=== PATIENT | male | born 1975 | race Caucasian/White ===

== ENCOUNTER 2018-03-26 06:24 | Day surgery (SDC) | payer MEDICARE, OTHER ==
[2018-03-20 15:56] VITALS: BMI 31.9
[~2018-03-26 06:24] MED LIST: ALPRAZolam 0.25 MG TAB PO PRN; ALPRAZolam 0.5 MG TAB PO PRN; ASPIRIN 325 MG TAB PO STA; ATORVASTATIN 80 MG TAB PO STA; NITROGLYCERIN SL TABS 0.4 MG TAB SUBLINGUAL PRN; SODIUM CHLORIDE 0.9% 1,000 ML in EMPTY BAG 1 BAG IV ONE
[2018-03-26 07:02] LABS: Glucose,Whole Blood 416 mg/dL (75-99)
[2018-03-26] MEDS ORDERED: INSULIN ASPART 100 UNIT/ML 1 ML 10 ML VIAL SQ ONE ×3 (07:02→12:42)
[2018-03-26 07:38] LABS: Basophils # (A) 0.1 k/uL (0-0.2); Basophils % (A) 1 %; Eosinophils # (A) 0.2 k/uL (0-0.7); Eosinophils % (A) 2 %; HCT 39.7 % (39.0-53.0); HGB 13.9 gm/dL (13.0-17.5); Lymphocytes # (A) 4.3 k/uL (1.0-4.8); Lymphocytes % (A) 40 %; MCH 26.7 pg (25.0-35.0); MCHC 35.1 g/dL (31.0-37.0); MCV 76.2 fL (80.0-100.0); Mean Platelet Volume 7.8; Microcytosis Slight; Monocytes # (A) 0.4 k/uL (0-1.0); Monocytes % (A) 4 %; Neutrophils # (A) 5.4 k/uL (1.3-7.7); Neutrophils % (A) 51 %; Platelet Count 257 k/uL (150-450); RBC 5.21 m/uL (4.30-5.90); RDW 14.5 % (11.5-15.5); WBC 10.6 k/uL (3.8-10.6)
[2018-03-26 07:41] LABS: Anion Gap 11 mmol/L; Blood Urea Nitrogen 17 mg/dL (9-20); Calcium 10.2 mg/dL (8.4-10.2); Carbon Dioxide 24 mmol/L (22-30); Chloride 99 mmol/L (98-107); Glucose 432 mg/dL (74-99); Potassium 4.5 mmol/L (3.5-5.1); Sodium 134 mmol/L (137-145)
[2018-03-26] MEDS ORDERED: diphenhydrAMINE 50 MG/ML 1 ML VIAL IVP ONE ×2 (07:43→11:17)
[2018-03-26] MEDS ORDERED: methylPREDNISolone SOD SUCCI 125 MG/2 ML VIAL IV ONE (07:43)
[2018-03-26] MEDS ORDERED: LIDOCAINE 1% (PF) 10MG/ML VIAL SQ ONE (08:01)
[2018-03-26] MEDS ORDERED: IOPAMIDOL-370 125ML BTL INJ ONE (08:17)
--- NOTE | 2018-03-26 08:46 | CC ---
CARDIAC CATHETERIZATION REPORT INDICATION: Unstable angina in a patient with known CAD status post prior angioplasty of [place] circumflex coronary artery. PROCEDURE NOTE: After obtaining informed consent, left heart catheterization and coronary angiogram were performed via the right femoral artery using standard Nery catheters. The patient tolerated the procedure well without any obvious immediate complications. He was somewhat hypotensive prior to starting the procedure. We gave him fluids. He has IV DYE allergy and we can him Solu-Medrol and Benadryl. FINDINGS: 1. HEMODYNAMICS: Left ventricular end-diastolic pressure is 8 mm. There is no significant gradient across the aortic valve. 2. LEFT VENTRICULOGRAM: Left ventriculogram is not performed. 3. ANGIOGRAPHIC DATA: 4. Left main coronary artery: Left main coronary artery is a normal-sized vessel and is free of stenosis. Divides into left anterior descending coronary artery and circumflex coronary artery. Circumflex coronary artery gives off large caliber OM branches. [place] circumflex coronary artery has a 90% stenosis just past previously stented segment. LAD in the distal portion shows a 30% to 40% stenosis. [place] right coronary artery is a large dominant vessel shows mild atherosclerotic plaque in the proximal part. CONCLUSIONS: 1. A 90% stenosis involving [place] circumflex coronary artery. 2. Mild nonobstructive disease involving proximal right coronary artery and distal left anterior descending artery. PLAN: Patient will undergo angioplasty of the [place] circumflex coronary artery by Dr. Chalo Trejo who performed his previous angioplasty. MMLAURAL / IJN: [id number] /
[2018-03-26 09:27] VITALS: RESP 18
[2018-03-26 10:02] LABS: Glucose,Whole Blood 404 mg/dL (75-99)
[2018-03-26] MEDS ORDERED: SODIUM CHLORIDE 0.9% 1,000 ML IV ONE (10:48)
[2018-03-26] MEDS ORDERED: MIDAZOLAM 2 MG/2 ML VIAL IVP ONE (11:17)
[2018-03-26] MEDS ORDERED: BIVALIRUDIN BOLUS 250 MG/50 ML IV ONE (11:19)
[2018-03-26] MEDS ORDERED: BIVALIRUDIN 250 MG in SODIUM CHLORIDE 0.9% 50 ML IV ONE (11:20)
[2018-03-26] MEDS: NITROGLYCERIN 1000MCG/10ML SYRINGE INTRACORON ONE ×2 (11:25→11:54)
[2018-03-26] MEDS ORDERED: IOPAMIDOL-370 100ML BTL INJ ONE ×2 (11:49→12:06)
[2018-03-26] MEDS ORDERED: MORPHINE SULFATE 4 MG/ML SYRINGE IVP ONE (12:07)
[2018-03-26] MEDS ORDERED: CLOPIDOGREL 75 MG TAB PO ONE (12:07)
[2018-03-26] MEDS ORDERED: SODIUM CHLORIDE 0.9% 500 ML IV ONE (12:08)
[2018-03-26] MEDS ORDERED: ZOLPIDEM 5 MG TAB PO PRN (12:21)
[2018-03-26] MEDS ORDERED: ATROPINE SULFATE 0.1 MG/ML 10ML SYRINGE IV PRN (12:21)
[2018-03-26] MEDS ORDERED: MAG HYDROX/AL HYDROX/SIMETH 30 ML CUP PO PRN (12:21)
[2018-03-26] MEDS ORDERED: NITROGLYCERIN SL TABS 0.4 MG TAB SUBLINGUAL PRN ×2 (12:21→12:37)
[2018-03-26] MEDS ORDERED: RX INFO: IV CONTRAST WAS GIVEN 1 EACH MISC MISCELLANE PRN (12:21)
[2018-03-26] MEDS ORDERED: CYCLOBENZAPRINE 10 MG TAB PO PRN (12:37)
[2018-03-26 12:38] LABS: Glucose,Whole Blood 410 mg/dL (75-99)
[2018-03-26] MEDS ORDERED: PANTOPRAZOLE 40 MG TABLET PO ONE (12:45)
--- NOTE | 2018-03-26 12:58 | PTCA ---
PERCUTANEOUSTRANS CORORONARY ANGIOGRAPHY DATE OF SERVICE: 03/26/2018. PROCEDURE: PTCA and stenting of circumflex coronary artery/groove branch beyond a previously stented area with a drug-eluting stent. PERFORMED BY: Dr. Chalo Trejo. Moderate conscious sedation time was 50 minutes. Patient was administered Benadryl, versed and morphine sulfate 1 mg. His oxygen saturation, hemodynamics and EKG were monitored closely. CLINICAL INFORMATION: Mr. Florentin Liz is a 42-year-old gentleman with type 2 diabetes, hypertension, hyperlipidemia, bronchial asthma and CAD. In November of 2015, I performed stenting of mid LAD. Subsequently in March, I performed stenting of a groove branch which was a small caliber, small distribution vessel. Because of significant anginal symptoms, Dr. Nguyen performed a cardiac cath which revealed that the circumflex groove branch beyond the stented segment had 80% to 90% stenosis in a [place] area just distal to the previous stent. LAD stent was patent with a 40% stenosis beyond it with good flow. He was advised intervention of circumflex and brought in for the procedure. This was a somewhat complex intervention mainly because of the tortuosity of the groove branch that came off at a very acute angle from the main circumflex. PROCEDURE NOTE: The existing 6-Urdu introducer in the right femoral artery was used to perform the procedure. I used a run-through wire with a very steep curve with this and after considerable manipulation, I was able to advance this and kept it in the groove branch distally. Without predilatation, a 2.25 caliber 8 mm Xience stent was deployed distal to the previous stent. Excellent angiographic result was achieved. The patient did not have any chest pain or EKG changes. The ostium of this groove branch was also dilated with the same balloon of the 2.25 caliber stent at 8 atmospheres. The stent was deployed at 11 atmospheres. Excellent angiographic result without complication was achieved. Patient received Angiomax bolus and infusion as per protocol. He received additional 225 mg of Plavix and he was already on aspirin and Plavix combination. The sheath was taken out and a Perclose device used to secure hemostasis and he was sent to the room in a stable condition. Results were discussed with the patient and his and I expect he will be discharged tomorrow. MMODL / IJN: [id number] /
[2018-03-26] MEDS: SODIUM CHLORIDE 0.9% 1,000 ML IV SCH (13:07)
[2018-03-26 16:52] LABS: Glucose,Whole Blood 572 mg/dL (75-99)
[2018-03-26] MEDS: HYDROcodone/APAP 10-325MG 1 EACH TAB PO PRN ×2 (17:00→23:05)
[2018-03-26] MEDS ORDERED: INSULIN ASPART 100 UNIT/ML 1 ML 10 ML VIAL SQ SCH (17:30)
[2018-03-26] MEDS: ALBUTEROL NEBULIZED 2.5 MG/3 ML INHALATION PRN (19:28)
[2018-03-26] MEDS: SYMBICORT 80-4.5 MCG INHALER INHALATION PRN (19:29)
[2018-03-26 19:46] LABS: Glucose,Whole Blood 531 mg/dL (75-99)
[2018-03-26] MEDS ORDERED: INSULIN REGULAR BOLUS (FROM DRIP BAG) IV ONE (20:26)
[2018-03-26 20:50] LABS: ALT 31 U/L (21-72); AST 20 U/L (17-59); Albumin 4.1 g/dL (3.5-5.0); Alkaline Phosphatase 228 U/L (38-126); Anion Gap 13 mmol/L; Blood Urea Nitrogen 20 mg/dL (9-20); Calcium 9.8 mg/dL (8.4-10.2); Carbon Dioxide 22 mmol/L (22-30); Chloride 97 mmol/L (98-107); Sodium 132 mmol/L (137-145); Total Bilirubin 0.3 mg/dL (0.2-1.3); Total Protein 6.4 g/dL (6.3-8.2)
[2018-03-26 20:51] LABS: Glucose 577 mg/dL (74-99)
[2018-03-26] MEDS: INSULIN REGULAR 100 UNIT in SODIUM CHLORIDE 0.9% 100 ML IV SCH ×2 (21:13→23:22)
[2018-03-26 21:21] LABS: Basophils % (A) 0 %; Eosinophils % (A) 0 %; HCT 38.5 % (39.0-53.0); Lymphocytes # (A) 1.1 k/uL (1.0-4.8); Lymphocytes % (A) 10 %; MCH 26.5 pg (25.0-35.0); MCHC 33.8 g/dL (31.0-37.0); MCV 78.5 fL (80.0-100.0); Mean Platelet Volume 8.4; Monocytes # (A) 0.3 k/uL (0-1.0); Monocytes % (A) 2 %; Neutrophils # (A) 9.9 k/uL (1.3-7.7); Neutrophils % (A) 87 %; Platelet Count 202 k/uL (150-450); RDW 14.8 % (11.5-15.5); WBC 11.4 k/uL (3.8-10.6)
[2018-03-26] MEDS: buPROPion SR 100 MG TABLET.ER PO SCH (21:23)
[2018-03-26] MEDS: METOPROLOL TARTRATE 12.5 MG TAB PO SCH (21:24)
[2018-03-26] MEDS: TOPIRAMATE 25 MG TAB PO SCH (21:24)
[2018-03-26] MEDS: PREGABALIN 100 MG CAP PO SCH (21:25)
--- NOTE | 2018-03-26 21:43 | CONS ---
CONSULTATION DATE OF SERVICE: 03/26/2018 CHIEF COMPLAINTS: Uncontrolled blood sugars and as well as the coronary disease. HISTORY OF PRESENT ILLNESS: This 42-year-old gentleman with a past medical history of asthma, CAD, history of chest pain, COPD, CVA, TIA, diabetes, hypertension, hyperlipidemia being followed by primary physician in the [place] area, was complaining of chest pain. Cardiology performed a cardiac physician and circumflex stent was inserted. The patient was off some of his diabetes medications for a few days according to him. The patient was taking Victoza, Lantus and metformin. The blood sugar was found to be elevated and this evening was elevated up to 572 and the patient and medical consultation was initiated. There is no history of fever, rigors. No headache, loss of consciousness, seizures. PAST MEDICAL HISTORY: History of diabetes type 2, history of COPD, CVA, TIA, hypertension, hyperlipidemia, history of myocardial infarction, history of degenerative joint disease. MEDICATIONS: Prior to admission include home medications are: 1. Claritin 10 mg p.o. daily. 2. Zestril 2.5 mg daily. 3. [place] 1 tab q.6h. 4. Nexium 20 mg p.o. b.i.d. 5. Flexeril 10 mg q.h.s. 6. Victoza 2 pack 1.8 subcutaneously daily. 7. Metformin 1000 mg b.i.d. 8. Plavix 75 mg. 9. Advair 260, 1 puff b.i.d. 10.Fenofibrate 160 mg p.o. daily. 12.Topamax 50 mg p.o. b.i.d. 13.Lyrica 100 mg p.o. b.i.d. 14.Oxybutynin 10 mg p.o. daily. 15.Nitrostat 0.4 mg q.5 p.r.n. 16.Lopressor 12.5 mg b.i.d. 17.Imdur 30 mg p.o. daily. 18.Lipitor 80 mg p.o. daily. 19.Aspirin 320 mg. 20.Ventolin 2.5 q.i.d. 21.Ventolin HFA 2 puffs q.6h p.r.n. ALLERGIES: AVACOR, IODINATED CONTRAST,and CORTISONE. FAMILY HISTORY: History of CAD, diabetes mellitus, hypertension, hyperlipidemia, DJD. SOCIAL HISTORY: History of alcohol, previous history of smoking. REVIEW OF SYSTEMS: ENT: No diminished hearing or vision. CARDIOVASCULAR: No angina. RESPIRATORY: As mentioned earlier. GI: As mentioned. : No dysuria. NERVOUS SYSTEM: No numbness or weakness. ALLERGY/IMMUNOLOGY As mentioned earlier. MUSCULOSKELETAL: As mentioned earlier. HEMATOLOGY: No history of anemia. ENDOCRINE: As mentioned earlier. CONSTITUTIONAL: As mentioned earlier. DERMATOLOGY: Negative. RHEUMATOLOGY: Negative. PSYCHIATRY: As mentioned earlier. PHYSICAL EXAMINATION: Alert and oriented x2. Pulse 93, blood pressure 119/63, respiration 18, temperature normal, pulse ox 94% on room air. HEENT: Conjunctivae normal. Oral mucosa moist. NECK: No jugular venous distention. No carotid bruit. No lymph node enlargement. CARDIOVASCULAR: S1, S2. No S3, no S4. RESPIRATORY: Breath sounds diminished in the bases. A few scattered rhonchi, no crackles. ABDOMEN: Soft, nontender. No mass palpable. LEGS: No edema, no swelling. NERVOUS SYSTEM: Higher functions as mentioned earlier. Moves all 4 limbs. No focal motor deficits. LYMPHATICS: No lymphadenopathy in the neck, axillae, groin. SKIN: No ulcer, rash or bleeding. LABS: CBC within normal limits. Sodium 134, glucose 416, 404, 410, 572, 531. ASSESSMENT: 1. Coronary disease status post PTCA and stenting of circumflex. 2. Diabetes type 2 uncontrolled. 3. History of coronary artery disease, stent. 4. History of asthma. 5. History of chronic obstructive pulmonary disease. 6. History of cerebrovascular accident, transient ischemic attack. 7. Hypertension. 8. Hyperlipidemia. 9. History of liver disease. 10.History of degenerative joint disease. 11.History of sleep apnea. 12.History of anxiety, depression. 13.History of remote nicotine dependence. 14.History of THC. RECOMMENDATIONS AND DISCUSSION: This 42-year-old gentleman with a past medical history of multiple medical problems. Will monitor the patient closely. Continue the current management and symptomatic treatment. Will initiate home medications. I would also recommend a stat CBC to rule out the possibility of ketosis and I would recommend IV insulin 20 units and plus insulin drip to control the blood sugars. Otherwise I would continue to monitor the patient closely and once the patient's blood sugar is normal, the home dose of Lantus may be initiated and continue to monitor. Prognosis is guarded because of multiple complex medical issues and further recommendations to follow. MMODL / IJN: [id number] / CONSTANTINO
[2018-03-26 22:00] LABS: Glucose,Whole Blood 452 mg/dL (75-99)
[2018-03-26 22:26] LABS: Glucose,Whole Blood 392 mg/dL (75-99)
[2018-03-26 23:03] LABS: Glucose,Whole Blood 342 mg/dL (75-99)
[2018-03-26 23:32] LABS: Glucose,Whole Blood 318 mg/dL (75-99)
[2018-03-27 00:10] LABS: Glucose,Whole Blood 278 mg/dL (75-99)
[2018-03-27 00:41] LABS: Glucose,Whole Blood 310 mg/dL (75-99)
[2018-03-27 01:01] LABS: Glucose,Whole Blood 281 mg/dL (75-99)
[2018-03-27 01:36] LABS: Glucose,Whole Blood 300 mg/dL (75-99)
[2018-03-27 01:40] LABS: Hemoglobin A1C 11.3 % (4.0-6.0)
[2018-03-27 02:10] LABS: Glucose,Whole Blood 254 mg/dL (75-99)
[2018-03-27] MEDS: SODIUM CHLORIDE 0.9% 1,000 ML IV SCH (02:34)
[2018-03-27 03:04] LABS: Glucose,Whole Blood 247 mg/dL (75-99)
[2018-03-27 04:34] LABS: Glucose,Whole Blood 333 mg/dL (75-99)
[2018-03-27 06:27] LABS: Glucose,Whole Blood 317 mg/dL (75-99)
[2018-03-27] MEDS: INSULIN ASPART 100 UNIT/ML 1 ML 10 ML VIAL SQ SCH ×2 (07:05→12:19)
[2018-03-27] MEDS: HYDROcodone/APAP 10-325MG 1 EACH TAB PO PRN ×2 (07:06→14:00)
[2018-03-27 07:19] LABS: Basophils % (A) 0 %; Eosinophils % (A) 0 %; HGB 12.1 gm/dL (13.0-17.5); Lymphocytes % (A) 19 %; MCH 26.1 pg (25.0-35.0); MCHC 33.7 g/dL (31.0-37.0); MCV 77.5 fL (80.0-100.0); Mean Platelet Volume 8.4; Monocytes # (A) 0.7 k/uL (0-1.0); Monocytes % (A) 7 %; Neutrophils # (A) 7.7 k/uL (1.3-7.7); Neutrophils % (A) 73 %; Platelet Count 206 k/uL (150-450); RBC 4.64 m/uL (4.30-5.90); RDW 14.7 % (11.5-15.5); WBC 10.6 k/uL (3.8-10.6)
[2018-03-27 07:23] LABS: Anion Gap 8 mmol/L; Blood Urea Nitrogen 16 mg/dL (9-20); Calcium 9.3 mg/dL (8.4-10.2); Carbon Dioxide 24 mmol/L (22-30); Chloride 102 mmol/L (98-107); Glucose 271 mg/dL (74-99); Potassium 3.9 mmol/L (3.5-5.1); Sodium 134 mmol/L (137-145)
[2018-03-27] MEDS ORDERED: PANTOPRAZOLE 40 MG TABLET PO SCH (07:30)
[2018-03-27 07:42] VITALS: TEMP 97.2
[2018-03-27] MEDS: METOPROLOL TARTRATE 12.5 MG TAB PO SCH (08:02)
[2018-03-27] MEDS: buPROPion SR 100 MG TABLET.ER PO SCH (08:02)
[2018-03-27] MEDS: TOPIRAMATE 25 MG TAB PO SCH (08:03)
[2018-03-27] MEDS: PREGABALIN 100 MG CAP PO SCH (08:03)
[2018-03-27] MEDS: ALBUTEROL NEBULIZED 2.5 MG/3 ML INHALATION PRN (08:19)
[2018-03-27] MEDS: SYMBICORT 80-4.5 MCG INHALER INHALATION PRN (08:22)
[2018-03-27 08:55] LABS: Glucose,Whole Blood 313 mg/dL (75-99)
[2018-03-27] MEDS ORDERED: ATORVASTATIN 80 MG TAB PO SCH (09:00)
[2018-03-27] MEDS ORDERED: CLOPIDOGREL 75 MG TAB PO SCH ×2 (09:00)
[2018-03-27] MEDS ORDERED: LISINOPRIL 2.5 MG TAB PO SCH (09:00)
[2018-03-27] MEDS ORDERED: LORATADINE 10 MG TAB PO SCH (09:00)
[2018-03-27] MEDS ORDERED: ASPIRIN 81 MG PO SCH (09:00)
[2018-03-27] MEDS ORDERED: ISOSORBIDE MONONITRATE ER 30 MG TAB.ER.24H PO SCH (09:00)
[2018-03-27] MEDS ORDERED: OXYBUTYNIN 10 MG TAB.ER.24 PO SCH (09:00)
[2018-03-27] MEDS: INSULIN REGULAR 100 UNIT in SODIUM CHLORIDE 0.9% 100 ML IV SCH (10:27)
[2018-03-27 10:36] LABS: Glucose,Whole Blood 260 mg/dL (75-99)
[2018-03-27] MEDS ORDERED: INSULIN DETEMIR 100 UNIT/ML 10 ML VIAL SQ ONE (10:43)
[2018-03-27] MEDS ORDERED: INSULIN REGULAR 100 UNIT/ML VIAL SQ ONE (10:51)
[2018-03-27 11:04] LABS: Glucose,Whole Blood 286 mg/dL (75-99)
--- NOTE | 2018-03-27 11:32 | PN ---
PROGRESS NOTE Florentin is a 42-year-old gentleman who was brought in for unstable angina to perform cardiac catheterization. His cardiac catheterization revealed a critical stenosis involving circumflex coronary artery. He underwent angioplasty and stent placement of the same. His blood sugars have been poorly controlled on his initial presentation. Subsequently, the patient was started on insulin drip and currently blood sugars are better controlled. Dr. Yusuf, the hospitalist, is going to address this issue. At the time of my evaluation this morning, he appears comfortable at rest. Vital signs are stable. There is no jugular venous distention. Chest exam reveals good air entry bilaterally. Heart exam reveals first and second heart sounds. No gallop. No murmur. No rub. Groin is free of bleeding, bruit or hematoma. Foot pulses are intact. EKG showed is normal. LABS: Show a hemoglobin of 12, platelet count is 206, potassium is 3.9 creatinine is 0.7. He will be discharged home on aspirin, Plavix, Zestril 2.5 mg daily, Imdur and Lipitor. ASSESSMENT: Coronary artery disease status post angioplasty of circumflex coronary artery. PLAN: Patient is stable from cardiac standpoint. Dr. Yusuf will address his blood sugars and when that issue is addressed, he will be discharged home and follow up with me in a week's time. MMODL / IJN: [id number] /
[2018-03-27 11:54] VITALS: BP 107/61; PULSE 84
--- NOTE | 2018-03-27 17:11 | DS ---
DISCHARGE SUMMARY DATE OF SERVICE: 03/27/2018. FINAL DIAGNOSES: 1. Coronary artery disease, status post percutaneous transluminal coronary angioplasty and stenting of the circumflex. 2. Diabetes type 2, uncontrolled, improved. 3. History of coronary artery disease with stent. 4. History of asthma. 5. History of chronic obstructive pulmonary disease. 6. History of cerebrovascular accident and transient ischemic attack. 7. Hypertension. 8. History of liver disease. 9. History of degenerative joint disease. 10.History of sleep apnea. DISCHARGE CONDITION: The patient will be discharged in stable condition with guarded prognosis. Cardiology cleared the patient for discharge. HISTORY OF PRESENT ILLNESS: This 42-year-old gentleman admitted with coronary artery disease, underwent cardiac cath and stenting of circumflex. The patient was found to have elevated blood sugars, treated with insulin drip, and improved significantly. On exam, vitals stable. Cardiovascular, S1 and S2 normal. Abdomen soft. Nervous system, no focal deficits. Hemoglobin A1c was significantly elevated. DISCHARGE DIET: 1. Cardiac and consistent carb diet. 2. Activity is limited. FOLLOWUP: 1. Follow up with primary physician, Jarvis Eagle. 2. Accu-Cheks with meals and at bedtime. MEDICATION: 1. Ventolin 2 puffs q.i.d. and p.r.n. 2. Lipitor 80 mg p.o. daily. 3. Wellbutrin SR 200 mg p.o. b.i.d. 4. Flexeril 10 mg at bedtime p.r.n. 5. Omeprazole 20 mg p.o. b.i.d. 6. Fenofibrate 160 mg p.o. daily. 7. Advair 1 puff daily. 8. Hydrocodone 1 tablet every 6 hours p.r.n. 9. Imdur ER 30 mg p.o. daily. 10.Claritin 10 mg p.o. daily. 11.Metformin 1000 mg p.o. b.i.d. 12.Lopressor 12.5 mg p.o. b.i.d. 13.Oxybutynin 10 mg p.o. daily. 14.Lyrica 100 mg p.o. b.i.d. 15.Topamax 50 mg p.o. b.i.d. 16.Aspirin 81 mg p.o. daily. 17.Plavix 75 mg p.o. daily. 18.Lantus 15 units subcutaneously at bedtime. 19.Zestril 2.5 mg p.o. daily. 20.Nitrostat 0.4 sublingual p.r.n. 21.Victoza 1.8 daily. Copy to ASHLI King / BREN: [id number] /
== END 2018-03-27 15:32 | disposition home or self-care (01) ==
LOC: CATHCVL 06:24 → 6SEL 12:05 → CATHCVL 03-27 15:32
PROVIDERS: ATTEND Internal Medicine Cardiovascular Disease
DX: I25.110 Atherosclerotic heart disease of native coronary artery with unstable angina pectoris (principal); I77.1 Stricture of artery; I10 Essential (primary) hypertension; Z95.5 Presence of coronary angioplasty implant and graft; Z72.0 Tobacco use; E78.2 Mixed hyperlipidemia; Z79.4 Long term (current) use of insulin; E11.9 Type 2 diabetes mellitus without complications; Z79.02 Long term (current) use of antithrombotics/antiplatelets; Z79.82 Long term (current) use of aspirin; Z79.899 Other long term (current) drug therapy; Z91.018 Allergy to other foods; Z91.048 Other nonmedicinal substance allergy status
CPT/HCPCS: 94640 ×4; 94760; 93458; 80053; 80048 ×2; 82009; 85025 ×2; 83036; C9600; C1769 ×4; C1887; C1894; C1874; C1760; J2250; J2270; J1200; J2930; S0106 ×2; J0583; J2001; Q9967 ×2

== ENCOUNTER 2019-07-16 07:38 | Observation (INO) | payer MEDICARE, OTHER ==
[2019-07-15 09:11] VITALS: BMI 31.9
[2019-07-16] MEDS ORDERED: LISINOPRIL 2.5 MG TAB PO STA (08:18)
[2019-07-16] MEDS ORDERED: CLOPIDOGREL 75 MG TAB PO STA (08:18)
[2019-07-16] MEDS ORDERED: METOPROLOL TARTRATE 12.5 MG TAB PO STA (08:18)
[2019-07-16 08:25] LABS: Glucose,Whole Blood 493 mg/dL (75-99)
[2019-07-16] MEDS ORDERED: LIDOCAINE 1% INJ 10MG/ML (20 ML MDV) ONE (08:27)
[2019-07-16] MEDS ORDERED: INSULIN ASPART (NovoLOG) 100 UNIT/ML VIAL SQ ONE (09:52)
[2019-07-16 10:24] LABS: Glucose,Whole Blood 488 mg/dL (75-99)
[2019-07-16] MEDS ORDERED: fentaNYL (PF) 50 MCG/ML 2 ML AMP IV ONE (11:05)
[2019-07-16] MEDS ORDERED: MIDAZOLAM 2 MG/2 ML VIAL IVP ONE (11:05)
[2019-07-16] MEDS ORDERED: LIDOCAINE 1% INJ 10MG/ML (20 ML MDV) SQ ONE (11:07)
[2019-07-16] MEDS ORDERED: IOPAMIDOL-370 125ML BTL INJ ONE (11:27)
[2019-07-16] MEDS ORDERED: RX INFO: IV CONTRAST WAS GIVEN 1 EACH MISC MISCELLANE PRN (11:31)
[2019-07-16] MEDS ORDERED: CYCLOBENZAPRINE 10 MG TAB PO PRN (11:33)
[2019-07-16] MEDS ORDERED: SYMBICORT 80-4.5 MCG INHALER INHALATION PRN (11:33)
[2019-07-16] MEDS ORDERED: ALBUTEROL NEBULIZED 2.5 MG/3 ML INHALATION PRN (11:33)
[2019-07-16] MEDS: ALBUTEROL NEBULIZED 2.5 MG/3 ML INHALATION SCH ×3 (11:51→18:12)
[2019-07-16 11:58] LABS: Glucose,Whole Blood 421 mg/dL (75-99)
--- NOTE | 2019-07-16 12:11 | CC ---
CARDIAC CATHETERIZATION REPORT INDICATION: Chest pain with abnormal stress test. This is a 43-year-old gentleman with history of known coronary artery disease, status post multivessel angioplasty, who is brought in electively to perform cardiac catheterization. Patient had a stress test that showed mild ischemia involving inferior wall and was advised to undergo cardiac catheterization. PROCEDURE NOTE: After obtaining informed consent, left heart catheterization, coronary angiogram are performed via the right femoral artery using standard Nery catheters. Patient tolerated the procedure well without any obvious immediate complications. A femoral angiogram was performed and Angio-Seal was deployed for hemostasis. Patient had elevated blood sugars prior to cardiac cath. Our initial plan was to see if we should get his blood sugars better controlled before the cath. However, patient who has lots of social issues and transportation problems insisted that he has catheterization prior and he insisted that he have a cath. We will do it and then try to control his blood sugars. He already has an appointment to see primary care physician tomorrow. FINDINGS: 1. HEMODYNAMICS: Left ventricular end-diastolic pressure is 8 to 12 mm. There is no significant gradient across the aortic valve. 2. LEFT VENTRICULOGRAM: Left ventriculogram is not performed. 3. ANGIOGRAPHIC DATA: LEFT MAIN CORONARY ARTERY: Left main coronary artery is a normal-sized vessel and is free of stenosis. It divides into left anterior descending coronary artery and circumflex coronary artery. LAD shows mild atherosclerotic plaque in its midportion at its worst it seems 30%-40% percent stenosis. Circumflex coronary artery was previously stented. He has a stent in the AV groove circumflex and in the OM branch. The OM branch stent appears patent. The AV groove circumflex stent also appears patent, proximal to the stent there is ostial narrowing which seems to be around 70%, unchanged from prior cardiac cath in March of 2018. Right coronary artery is a large dominant vessel and shows mild nonobstructive disease involving proximal and midportion. CONCLUSION: Patent stents within the OM branch and [place] AV groove circumflex with ostial stenosis in the AV groove circumflex. PLAN: The AV groove circumflex lesion seems the same as it was last time he had an angioplasty, so will continue with medical therapy. I will keep the patient overnight for optimal blood sugar control. MMODL / IJN: [id number] /
[2019-07-16 13:15] LABS: Glucose,Whole Blood 447 mg/dL (75-99)
[2019-07-16] MEDS ORDERED: metFORMIN 500 MG TAB PO SCH (14:25)
[2019-07-16] MEDS ORDERED: INSULIN DETEMIR (LEVEMIR) 100 UNIT/ML SYR SQ SCH (14:27)
[2019-07-16 14:46] LABS: Glucose,Whole Blood 453 mg/dL (75-99)
[2019-07-16] MEDS: INSULIN REGULAR 100 UNIT in SODIUM CHLORIDE 0.9% 100 ML IV SCH ×2 (15:08→21:21)
[2019-07-16 15:18] LABS: ALT 24 U/L (21-72); AST 14 U/L (17-59); African American GFR (CKD) >90 (>60 ml/min/1.73 sqM); Albumin 4.3 g/dL (3.5-5.0); Alkaline Phosphatase 235 U/L (38-126); Anion Gap 12 mmol/L; Basophils # (A) 0.1 k/uL (0-0.2); Basophils % (A) 0 %; Blood Urea Nitrogen 23 mg/dL (9-20); Calcium 10.2 mg/dL (8.4-10.2); Carbon Dioxide 25 mmol/L (22-30); Chloride 95 mmol/L (98-107); Eosinophils # (A) 0.1 k/uL (0-0.7); Eosinophils % (A) 0 %; Glucose 488 mg/dL (74-99); HCT 42.8 % (39.0-53.0); HGB 14.3 gm/dL (13.0-17.5); Lymphocytes # (A) 1.3 k/uL (1.0-4.8); Lymphocytes % (A) 11 %; MCH 26.8 pg (25.0-35.0); MCHC 33.5 g/dL (31.0-37.0); MCV 79.9 fL (80.0-100.0); Mean Platelet Volume 7.6; Monocytes # (A) 0.4 k/uL (0-1.0); Monocytes % (A) 4 %; Neutrophils # (A) 9.7 k/uL (1.3-7.7); Neutrophils % (A) 84 %; Non-African American GFR(CKD) >90 (>60 ml/min/1.73 sqM); Platelet Count 253 k/uL (150-450); Potassium 4.9 mmol/L (3.5-5.1); RBC 5.35 m/uL (4.30-5.90); RDW 14.3 % (11.5-15.5); Sodium 132 mmol/L (137-145); Total Bilirubin 0.4 mg/dL (0.2-1.3); Total Protein 7.2 g/dL (6.3-8.2); WBC 11.6 k/uL (3.8-10.6)
[2019-07-16] MEDS: HYDROcodone/APAP 10-325MG 1 EACH TAB PO PRN ×2 (15:32→21:27)
[2019-07-16 15:34] LABS: Glucose,Whole Blood 500 mg/dL (75-99)
[2019-07-16 16:00] LABS: Glucose,Whole Blood 412 mg/dL (75-99)
[2019-07-16 16:31] LABS: Glucose,Whole Blood 351 mg/dL (75-99)
[2019-07-16] MEDS ORDERED: ONDANSETRON 4 MG/2 ML VIAL IVP PRN (16:59)
--- NOTE | 2019-07-16 17:02 | CONS ---
CONSULTATION DATE OF SERVICE: 07/16/2019 REASON FOR CONSULTATION: Advice regarding diabetes mellitus requested by Cardiology. HISTORY OF PRESENT ILLNESS: This 44-year-old gentleman with a past medical history of multiple medical problems, including diabetes mellitus, type 2, history of asthma, history of COPD, history of hypertension, hyperlipidemia, history of myocardial infarction, being followed by Dr. Jarvis Frankel in the [facility], has had a cardiac catheterization today by Dr. Nguyen. The cardiac catheterization showed multiple lesions, and the patient had stents in the OM branch as well as [place] AV groove, circumflex. Ostial stenosis in the AV groove was noted. Medical treatment was recommended Dr. Nguyen. However, the patient diabetes mellitus. Regarding diabetes mellitus, the patient was taking 120 units of Lantus previously, but the patient had hypoglycemia. Because of that, the insulin dose was diminished to 50 units daily at this time. However, the sugars are fluctuating anywhere between 120 and 300. Yesterday the blood sugar was more than 500. Apparently the patient has not seen the family doctor for the last 2 months. Today morning the blood sugar was again elevated at more than 400 and the patient has received about 50 units of Lantus, but currently the sugars are considerably elevated at 400, and the patient was admitted for further evaluation and treatment. There is no history of any fever, rigor or chills. No history of headache, loss of consciousness, seizures. There is no chest pain or palpitation at this time. PAST MEDICAL HISTORY: 1. History of asthma. 2. CAD. 3. COPD. 4. Diabetes mellitus. 5. Hypertension. 6. Hyperlipidemia. 7. History of liver disease. 8. History of DJD. 9. History of sleep apnea. 10.History of coronary artery disease, stent. HOME MEDICATIONS: 1. Lopressor 12.5 mg p.o. daily. 2. NovoLog 5 units t.i.d. 3. Norvasc 5 mg p.o. daily. 4. Lipitor 80 mg p.o. daily. 5. Aspirin 81 mg p.o. daily. 6. Zestril 2.5 mg daily. 7. [place] 10 mg q.6 p.r.n. 8. Wellbutrin SR 200 mg p.o. b.i.d. 9. Topamax 50 mg p.o. b.i.d. 10.Oxybutynin 10 mg p.o. daily. 11.Nitrostat 0.4 mg sublingually p.r.n. 12.Claritin 10 mg p.o. daily. 13.Lantus 50 units subcutaneously daily. 14.Lyrica 250 mg p.o. b.i.d. 15.Ventolin 2.5 q.i.d. 16.Ventolin HFA 2 puffs q.6. 17.Fenofibrate 160 mg p.o. daily. 18.Nexium 20 mg p.o. daily. 19.Flexeril 10 mg q.6 p.r.n. 20.Plavix 75 mg p.o. daily. 21.Advair 250/50 one puff b.i.d. 22.Metformin 1000 mg p.o. b.i.d. ALLERGIES: 1. [place]. 2. IODINATED CONTRAST DYE. 3. T[place]AT[place]. 4. CORTISONE. FAMILY HISTORY: History of DVT, history of heart issues and glaucoma in the family. SOCIAL HISTORY: Previous history of smoking. History of THC. History of occasional alcohol intake. Occasional bingeing, according to him. REVIEW OF SYSTEMS: ENT: No diminished hearing. No diminished vision. CARDIOVASCULAR SYSTEM: As mentioned earlier. RESPIRATORY SYSTEM: As mentioned earlier. GI: No nausea, vomiting. : No dysuria or retention. NERVOUS SYSTEM: No numbness, weakness. ALLERGY/IMMUNOLOGY: As mentioned earlier. MUSCULOSKELETAL: As mentioned earlier. HEMATOLOGY/ONCOLOGY: No history of anemia. ENDOCRINE: Diabetes mellitus. CONSTITUTIONAL: As mentioned earlier. DERMATOLOGY: Negative. RHEUMATOLOGY: Negative. PSYCHIATRY: As mentioned earlier. PHYSICAL EXAMINATION: Patient is alert, oriented x3. Pulse is 92, blood pressure 115/75, respiration 18, temperature 97.2, pulse ox 93% on room air. HEENT: Conjunctivae normal. Oral mucosa moist. NECK: No jugular venous distention. No carotid bruit. No lymph node enlargement. enlargement. CARDIOVASCULAR SYSTEM: S1, S2 muffled. No S3. No S4. RESPIRATORY SYSTEM: Breath sounds diminished at the bases. A few scattered rhonchi. No crackles. ABDOMEN: Soft, non-tender. No mass palpable. LEGS: No edema. No swelling. NERVOUS SYSTEM: Higher functions as mentioned earlier. Moves all 4 limbs. No focal motor or sensory deficit. LYMPHATICS: No lymph node palpable in neck, axillae or groin. SKIN: No ulcer, rash, bleeding. JOINTS: No active deforming arthropathy. LABS: Glucose 493, 488, 421. Other labs are hemoglobin 12.1. The coags are normal. Chemistry shows sodium 134. Glucose is 447. Hemoglobin A1c 11.3. Triglycerides are 1440 and cholesterol 215. ASSESSMENT: 1. Coronary artery disease, status post cardiac catheterization and multivessel disease. 2. History of coronary artery disease, stent. 3. Diabetes mellitus, type 2, uncontrolled, with no evidence of ketosis. 4. Anemia, normocytic; anemia of chronic disease. 5. Hyponatremia. 6. Hyperlipidemia. 7. History of asthma, chronic obstructive pulmonary disease. 8. Hypertension. 9. History of myocardial infarction. 10.History of degenerative joint disease. 11.History of sleep apnea. 12.History of chronic back pain. 13.History of colitis. 14.Anxiety, depression. 15.History of nicotine dependence. 16.History of ethanol previously. RECOMMENDATIONS AND DISCUSSION: In this 44-year-old gentleman who presented with multiple medical issues, we will monitor the patient closely, continue the current medications, continue symptomatic treatment. Will initiate home medications. The blood sugar is significantly elevated. I would recommend STAT labs to rule out the possibility of diabetic ketoacidosis. Otherwise, I would recommend IV insulin drip until the sugars are less than 200, and resume the dose of insulin. I will increase the dose of insulin to 50 units subcutaneously b.i.d. and continue to monitor. I would also recommend that the patient follow up with primary physician and clearance coordinator and also consider insulin pump to facilitate better sugar control. We will continue to monitor. Importance of compliance was also stressed with the patient. As mentioned earlier, the patient has not seen his primary physician for the last 2 months. Will continue to monitor. Guarded prognosis. Further recommendations to follow. Continue with Lipitor and other medication, also. MMODL / IJN: [id number] / CONSTANTINO
[2019-07-16] MEDS: PANTOPRAZOLE 40 MG TABLET PO SCH (17:07)
[2019-07-16] MEDS: INSULIN ASPART (NovoLOG) 100 UNIT/ML VIAL SQ SCH (17:07)
[2019-07-16 17:09] LABS: Glucose,Whole Blood 327 mg/dL (75-99)
[2019-07-16] MEDS ORDERED: INSULIN ASPART (NovoLOG) 100 UNIT/ML VIAL SQ SCH ×2 (17:30)
[2019-07-16 17:57] LABS: Glucose,Whole Blood 381 mg/dL (75-99)
[2019-07-16 18:38] LABS: Glucose,Whole Blood 390 mg/dL (75-99)
[2019-07-16 18:58] LABS: Glucose,Whole Blood 392 mg/dL (75-99)
[2019-07-16 19:35] LABS: Glucose,Whole Blood 342 mg/dL (75-99)
[2019-07-16 20:29] LABS: Glucose,Whole Blood 299 mg/dL (75-99)
[2019-07-16 20:54] VITALS: RESP 18
[2019-07-16 20:58] LABS: Glucose,Whole Blood 338 mg/dL (75-99)
[2019-07-16] MEDS ORDERED: PREGABALIN 50 MG CAP PO SCH (21:00)
[2019-07-16] MEDS ORDERED: PREGABALIN 100 MG CAP PO SCH (21:00)
[2019-07-16] MEDS: buPROPion SR 100 MG TABLET.ER PO SCH (21:25)
[2019-07-16] MEDS: METOPROLOL TARTRATE 12.5 MG TAB PO SCH (21:25)
[2019-07-16] MEDS: TOPIRAMATE 25 MG TAB PO SCH (21:25)
[2019-07-16] MEDS: PREGABALIN 75 MG CAP PO SCH (21:25)
[2019-07-16 22:05] LABS: Glucose,Whole Blood 321 mg/dL (75-99)
[2019-07-16 22:38] LABS: Glucose,Whole Blood 274 mg/dL (75-99)
[2019-07-16 23:08] LABS: Glucose,Whole Blood 266 mg/dL (75-99)
[2019-07-16 23:47] LABS: Glucose,Whole Blood 332 mg/dL (75-99)
[2019-07-17 00:28] LABS: Glucose,Whole Blood 278 mg/dL (75-99)
[2019-07-17 00:53] LABS: Glucose,Whole Blood 290 mg/dL (75-99)
[2019-07-17 01:37] LABS: Glucose,Whole Blood 257 mg/dL (75-99)
[2019-07-17 02:18] LABS: Glucose,Whole Blood 246 mg/dL (75-99)
[2019-07-17] MEDS ORDERED: INSULIN DETEMIR (LEVEMIR) 100 UNIT/ML SYR SQ SCH ×2 (03:00→09:00)
[2019-07-17 04:17] LABS: Glucose,Whole Blood 174 mg/dL (75-99)
[2019-07-17] MEDS: HYDROcodone/APAP 10-325MG 1 EACH TAB PO PRN ×2 (04:25→10:51)
[2019-07-17 04:57] VITALS: TEMP 97.5
[2019-07-17 06:47] LABS: Glucose,Whole Blood 188 mg/dL (75-99)
[2019-07-17] MEDS: ALBUTEROL NEBULIZED 2.5 MG/3 ML INHALATION SCH ×2 (07:30→11:23)
[2019-07-17 07:45] VITALS: BP 111/72
[2019-07-17] MEDS: METOPROLOL TARTRATE 12.5 MG TAB PO SCH (08:09)
[2019-07-17] MEDS: buPROPion SR 100 MG TABLET.ER PO SCH (08:09)
[2019-07-17] MEDS: TOPIRAMATE 25 MG TAB PO SCH (08:10)
[2019-07-17] MEDS: PANTOPRAZOLE 40 MG TABLET PO SCH (08:10)
[2019-07-17] MEDS: INSULIN ASPART (NovoLOG) 100 UNIT/ML VIAL SQ SCH ×2 (08:11→12:06)
[2019-07-17] MEDS: PREGABALIN 75 MG CAP PO SCH (08:11)
[2019-07-17] MEDS ORDERED: LORATADINE 10 MG TAB PO SCH (09:00)
[2019-07-17] MEDS ORDERED: ASPIRIN 81 MG PO SCH (09:00)
[2019-07-17] MEDS ORDERED: amLODIPine 5 MG TAB PO SCH (09:00)
[2019-07-17] MEDS ORDERED: LISINOPRIL 2.5 MG TAB PO SCH (09:00)
[2019-07-17] MEDS ORDERED: FENOFIBRATE 160 MG TAB PO SCH (09:00)
[2019-07-17] MEDS ORDERED: ATORVASTATIN 80 MG TAB PO SCH (09:00)
[2019-07-17] MEDS ORDERED: OXYBUTYNIN 10 MG TAB.ER.24 PO SCH (09:00)
[2019-07-17] MEDS ORDERED: CLOPIDOGREL 75 MG TAB PO SCH (09:00)
[2019-07-17 10:17] LABS: African American GFR (CKD) >90 (>60 ml/min/1.73 sqM); Anion Gap 11 mmol/L; Blood Urea Nitrogen 23 mg/dL (9-20); Calcium 9.8 mg/dL (8.4-10.2); Carbon Dioxide 24 mmol/L (22-30); Chloride 99 mmol/L (98-107); Glucose 277 mg/dL (74-99); Non-African American GFR(CKD) >90 (>60 ml/min/1.73 sqM); Sodium 134 mmol/L (137-145)
[2019-07-17 10:27] LABS: Potassium 4.5 mmol/L (3.5-5.1)
[2019-07-17 10:53] LABS: Glucose,Whole Blood 246 mg/dL (75-99)
[2019-07-17 11:26] VITALS: PULSE 88
[2019-07-17 14:08] LABS: Hemoglobin A1C 12.8 % (4.0-6.0)
--- NOTE | 2019-07-17 15:27 | P.DS ---
Providers Date of admission: 07/16/19 11:31 Attending physician: Andres Nguyen Consults: 07/16/19 13:05 Consult Physician Routine Consulting Provider: Jaydon Yusuf Consult Reason/Comments: medical management Do you want consulting provider notified?: Already Contacted Primary care physician: XIAO King Hospital Course: This is a pleasant 44-year-old male past medical history significant for coronary artery disease status post multivessel PCI, COPD, diabetes mellitus, hypertension, dyslipidemia, obstructive sleep apnea, former nicotine dependence and regular marijuana use. He came to the hospital for an elective cardiac catheterization secondary to an abnormal stress test showing mild ischemia of the inferior wall. Cardiac catheterization performed yesterday by Dr. Holcomb revealed left main artery free of stenosis, LAD with mild atherosclerotic plaque in the midportion at its worst 30-40%, circumflex previously stented with a patent stent in the AV groove of the circumflex and the OM branch, stent of the OM branch patent, proximal to the stent of the circumflex there is ostial narrowing around 70% unchanged from prior catheterization in March 2018, RCA large dominant vessel with mild nonobstructive disease involving the proximal and midportion. Skipped overnight in observation secondary to hyperglycemia. Initially he was placed on insulin infusion and then routine insulin doses were increased. He is seen and examined resting comfortably lying flat in bed in no acute distress. Right groin is soft, nontender, no hematoma or ecchymosis noted. Laboratory data reviewed, sodium 134, potassium 4.5, creatinine 0.91. Blood pressure 111/72 heart rate 85 afebrile maintaining oxygen saturation on room air. GENERAL: Well-appearing, well-nourished and in no acute distress. Obese. NECK: Supple without JVD or thyromegaly. LUNGS: Breath sounds clear to auscultation bilaterally. Respiration equal and unlabored. No wheezes, rales or rhonchi. HEART: Regular rate and rhythm without murmurs, rubs or gallops. S1 and S2 heard. EXTREMITIES: Normal range of motion, no edema. No clubbing or cyanosis. Peripheral pulses intact. Right groin soft, dry, intact with no ecchymosis, no hematoma and no bleeding. Distal pulses strong and intact. ASSESSMENT Coronary artery disease status post multivessel PCI, stable cardiac catheterization with no intervention. Diabetes, uncontrolled secondary to hyperglycemia Hypertension Dyslipidemia COPD Diabetes mellitus Obstructive sleep apnea Daily marijuana use Chronic nicotine dependence Obesity, BMI 31 PLAN Hemodynamically stable. Free of chest pain, shortness of breath, dizziness or palpitations. Stable for discharge. 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 Insulin adjusted by Dr. Yusuf. Follow-up in the office with Dr. Nguyen. Nurse Practitioner note has been reviewed, I agree with a documented findings and plan of care. Patient was seen and examined. Plan - Discharge Summary Discharge Rx Participant: Yes New Discharge Prescriptions: New INSULIN ASPART (NovoLOG) [NovoLOG (formulary)] 5 unit SQ AC-TID 30 Days #2 vial Continue Albuterol Inhaler [Ventolin Hfa Inhaler] 2 puff INHALATION Q6H PRN PRN Reason: Shortness Of Breath Esomeprazole Magnesium [NexIUM] 20 mg PO TID Cyclobenzaprine [Flexeril] 10 mg PO HS PRN PRN Reason: Spasms buPROPion HCL [Wellbutrin SR] 200 mg PO BID Topiramate [Topamax] 50 mg PO BID Loratadine [Claritin] 10 mg PO DAILY Fenofibrate 160 mg PO DAILY Clopidogrel [Plavix] 75 mg PO DAILY #30 tab Lisinopril [Zestril] 2.5 mg PO DAILY #30 tab Nitroglycerin Sl Tabs [Nitrostat] 0.4 mg SUBLINGUAL Q5M PRN #25 tab PRN Reason: Chest Pain Hydrocodone/Acetaminophen [[place] 10-325] 1 tab PO Q6H PRN PRN Reason: Pain Metoprolol Tartrate [Lopressor] 12.5 mg PO BID Fluticasone/Salmeterol [Advair 250-50 Diskus] 1 puff INHALATION RT-BID PRN PRN Reason: Shortness Of Breath Oxybutynin Chloride [Oxybutynin Chloride ER] 10 mg PO DAILY Atorvastatin [Lipitor] 80 mg PO DAILY Albuterol Nebulized [Ventolin Nebulized] 2.5 mg INHALATION QID metFORMIN HCL [metFORMIN HCL ER] 1,000 mg PO BID Aspirin 81 mg PO DAILY chew Pregabalin [Lyrica] 150 mg PO BID amLODIPine [Norvasc] 5 mg PO DAILY Changed Insulin Glargine [Lantus] 50 unit SQ BID 30 Days #2 vial Discontinued Insulin Aspart [NovoLOG] 5 units SQ AC-TID Discharge Medication List Albuterol Inhaler [Ventolin Hfa Inhaler] 2 puff INHALATION Q6H PRN 04/24/14 [History] Cyclobenzaprine [Flexeril] 10 mg PO HS PRN 04/24/14 [History] Esomeprazole Magnesium [NexIUM] 20 mg PO TID 04/24/14 [History] Fenofibrate 160 mg PO DAILY 11/12/15 [History] Loratadine [Claritin] 10 mg PO DAILY 11/12/15 [History] Topiramate [Topamax] 50 mg PO BID 11/12/15 [History] buPROPion HCL [Wellbutrin SR] 200 mg PO BID 11/12/15 [History] Clopidogrel [Plavix] 75 mg PO DAILY #30 tab 11/18/15 [Rx] Lisinopril [Zestril] 2.5 mg PO DAILY #30 tab 11/18/15 [Rx] Nitroglycerin Sl Tabs [Nitrostat] 0.4 mg SUBLINGUAL Q5M PRN #25 tab 11/18/15 [Rx] Fluticasone/Salmeterol [Advair 250-50 Diskus] 1 puff INHALATION RT-BID PRN 04/03/16 [History] Hydrocodone/Acetaminophen [[place] 10-325] 1 tab PO Q6H PRN 04/03/16 [History] Metoprolol Tartrate [Lopressor] 12.5 mg PO BID 04/03/16 [History] Oxybutynin Chloride [Oxybutynin Chloride ER] 10 mg PO DAILY 04/03/16 [History] Albuterol Nebulized [Ventolin Nebulized] 2.5 mg INHALATION QID 03/20/18 [History] Atorvastatin [Lipitor] 80 mg PO DAILY 03/20/18 [History] metFORMIN HCL [metFORMIN HCL ER] 1,000 mg PO BID 03/20/18 [History] Aspirin 81 mg PO DAILY chew 03/27/18 [Rx] Pregabalin [Lyrica] 150 mg PO BID 07/15/19 [History] amLODIPine [Norvasc] 5 mg PO DAILY 07/16/19 [History] INSULIN ASPART (NovoLOG) [NovoLOG (formulary)] 5 unit SQ AC-TID 30 Days #2 vial 11/06/19 [Rx] Insulin Glargine [Lantus] 50 unit SQ BID 30 Days #2 vial 07/17/19 [Rx] Follow up Appointment(s)/Referral(s): Rosangela Hartley MD [STAFF PHYSICIAN] - 08/07/19 11:15 am (APPOINTMENT MADE ON ) Andres Nguyen MD [STAFF PHYSICIAN] - 08/16/19 1:15 pm ([facility] [place]) Patient Instructions/Handouts: Heart Catheterization (DC) Activity/Diet/Wound Care/Special Instructions: Continue monitoring blood sugar before meals and at bedtime and keep a diary of the blood sugar readings and bring with you at your follow up appointment continue current heart healthy/ diabetic diet follow up with pcp upon discharge Discharge Disposition: HOME SELF-CARE
--- NOTE | 2019-07-17 20:44 | PN ---
PROGRESS NOTE DATE OF SERVICE: 07/17/2019. This 44-year-old gentleman who was admitted for cardiac catheterization, also had uncontrolled blood sugars. The insulin drip was given yesterday. Blood sugar improved significantly. Currently, blood sugars are fluctuating between 100 and 250. The patient being closely monitored. Apparently, patient is not very compliant with primary care followup as well. No chest pain. No palpitation. PHYSICAL EXAM: Alert and oriented times three. Pulse 85. Blood pressure 111/72. Respiration 18. Temperature 97.4, pulse ox 97% on room air. HEENT: Conjunctivae normal. NECK: No JVD. CARDIOVASCULAR: S1, S2 muffled. RESPIRATORY: Breath sounds diminished in the bases. No rhonchi. No crackles. Abdomen is soft, nontender. LEGS: No edema. No swelling. CENTRAL NERVOUS SYSTEM: No focal deficits. LAB STUDIES: Sodium 134, potassium 4.5. ASSESSMENT: 1. Status post cardiac catheterization and multivessel disease on medical treatment. 2. Diabetes type 2, uncontrolled with hyperglycemia with no evidence of ketosis. 3. History of coronary artery disease/stent. 4. Anemia, normocytic anemia of chronic disease. 5. Hyponatremia. 6. Hyperlipidemia. 7. History of asthma/chronic obstructive pulmonary disease. 8. Hypertension. 9. History of myocardial infarction. 10.History of degenerative joint disease. 11.History of sleep apnea. 12.History of chronic back pain. 13.History of colitis. 14.History of depression. 15.History of nicotine dependence. 16.History of EtOH previously. RECOMMENDATIONS AND DISCUSSION: Recommend to continue current medications, monitoring, management. Symptomatic treatment. Otherwise, at this time, we will monitor the patient closely. Otherwise, resume the home medications. I would also recommend Victoza 1.8 and Lantus 50 units subcu b.i.d. and I would also recommend continue with metformin. Accu-Cheks a.c. and at bedtime and results to the primary physician. Definitely consider the possibility of insulin pump also. Cardiology evaluation has been sought also. Guarded prognosis because of multiple complex medical issues. Further recommendations to follow. Rest of the recommendations per Dr. Nguyen. MMPOLLO / KEMN: [id number] /
[2019-07-18] MEDS ORDERED: metFORMIN 500 MG TAB PO SCH (21:00)
== END 2019-07-17 12:23 | disposition home or self-care (01) ==
LOC: CATHCVL 07:38 → 1SOBS 11:31
PROVIDERS: ADMIT Internal Medicine Cardiovascular Disease; ATTEND Internal Medicine Cardiovascular Disease
DX: I25.10 Atherosclerotic heart disease of native coronary artery without angina pectoris (principal); E11.65 Type 2 diabetes mellitus with hyperglycemia; R07.2 Precordial pain; R94.39 Abnormal result of other cardiovascular function study; I10 Essential (primary) hypertension; E11.9 Type 2 diabetes mellitus without complications; E78.2 Mixed hyperlipidemia; M19.90 Unspecified osteoarthritis, unspecified site; J44.9 Chronic obstructive pulmonary disease, unspecified; K76.9 Liver disease, unspecified; E87.1 Hypo-osmolality and hyponatremia; D63.8 Anemia in other chronic diseases classified elsewhere; G89.29 Other chronic pain; M54.9 Dorsalgia, unspecified; F41.9 Anxiety disorder, unspecified; F32.9 Major depressive disorder, single episode, unspecified; G47.33 Obstructive sleep apnea (adult) (pediatric); E66.9 Obesity, unspecified; Z68.31 Body mass index [BMI] 31.0-31.9, adult; F12.90 Cannabis use, unspecified, uncomplicated; Z79.82 Long term (current) use of aspirin; Z79.02 Long term (current) use of antithrombotics/antiplatelets; Z79.4 Long term (current) use of insulin; Z79.51 Long term (current) use of inhaled steroids; Z79.891 Long term (current) use of opiate analgesic; Z79.899 Other long term (current) drug therapy; Z91.018 Allergy to other foods; Z91.048 Other nonmedicinal substance allergy status; Z88.8 Allergy status to other drugs, medicaments and biological substances; Z91.041 Radiographic dye allergy status; Z87.891 Personal history of nicotine dependence; I25.2 Old myocardial infarction; Z87.19 Personal history of other diseases of the digestive system; Z95.5 Presence of coronary angioplasty implant and graft; Z86.73 Personal history of transient ischemic attack (TIA), and cerebral infarction without residual deficits; Z82.49 Family history of ischemic heart disease and other diseases of the circulatory system; Z83.511 Family history of glaucoma
CPT/HCPCS: 94640 ×4; 93458; 80053; 80048; 85025; 83036; G0378 ×2; C1760; C1894; C1769; J2250; S0106 ×2; J2405; J2001; J3010; Q9967

== ENCOUNTER 2020-11-05 23:56 | Observation (INO) | payer MEDICARE, OTHER ==
[2020-11-05] MEDS ORDERED: NITROGLYCERIN SL TABS 0.4 MG TAB SUBLINGUAL PRN (23:59)
--- NOTE | 2020-11-05 23:59 | ED ---
Recheck HPI - General Stated Complaint: Chest pain Time Seen by Provider: 11/05/20 23:59 Source: RN notes reviewed, old records reviewed Mode of arrival: EMS - History of Present Illness Initial Comments: This is a 45-year-old male the ER he presents today for evaluation of chest pain. Patient is reevaluation of chest pain is accepted in transfer here with her chest pain cardiac evaluation. Patient has history of heart disease with stent placement. Patient has no travel history no sick contacts pain was anterior heaviness left arm left jaw swelling and shortness of breath, dyspnea a diaphoresis have resolved but he still complains of chest pain MD Complaint: other (Unstable angina) -: hour(s) Returns Today for: persistent/worsening pain related to initial visit Symptoms Since Prior Visit: worsening pain (Patient remains a persistent pain) Associated Symptoms: chills, shortness of breath, other (Shortness of breath and diaphoresis that resolved) - Related Data Home Medications Medication Instructions Recorded Confirmed Albuterol Inhaler (Mhu) [Ventolin 2 puff INHALATION Q6H PRN 04/24/14 07/16/19 Hfa Inhaler (Mhu)] Cyclobenzaprine [Flexeril] 10 mg PO HS PRN 04/24/14 07/16/19 Esomeprazole Magnesium [NexIUM] 20 mg PO TID 04/24/14 07/16/19 Fenofibrate 160 mg PO DAILY 11/12/15 07/16/19 Loratadine [Claritin] 10 mg PO DAILY 11/12/15 07/16/19 Topiramate [Topamax] 50 mg PO BID 11/12/15 07/16/19 buPROPion HCL [Wellbutrin SR] 200 mg PO BID 11/12/15 07/16/19 Fluticasone/Salmeterol [Advair 1 puff INHALATION RT-BID PRN 04/03/16 07/15/19 250-50 Diskus] Hydrocodone/Acetaminophen [[place] 1 tab PO Q6H PRN 04/03/16 07/16/19 10-325] Metoprolol Tartrate [Lopressor] 12.5 mg PO BID 04/03/16 07/16/19 Oxybutynin Chloride [Oxybutynin 10 mg PO DAILY 04/03/16 07/16/19 Chloride ER] Albuterol Nebulized [Ventolin 2.5 mg INHALATION QID 03/20/18 07/16/19 Nebulized] Atorvastatin [Lipitor] 80 mg PO DAILY 03/20/18 07/16/19 metFORMIN HCL [metFORMIN HCL ER] 1,000 mg PO BID 03/20/18 07/15/19 Pregabalin [Lyrica] 150 mg PO BID 07/15/19 07/16/19 amLODIPine [Norvasc] 5 mg PO DAILY 07/16/19 07/16/19 Previous Rx's Medication Instructions Recorded Clopidogrel [Plavix] 75 mg PO DAILY #30 tab 11/18/15 Nitroglycerin Sl Tabs [Nitrostat] 0.4 mg SUBLINGUAL Q5M PRN #25 tab 11/18/15 lisinopriL [Zestril] 2.5 mg PO DAILY #30 tab 11/18/15 Aspirin 81 mg PO DAILY chew 03/27/18 INSULIN ASPART (NovoLOG) [NovoLOG 5 unit SQ AC-TID 30 Days #2 vial 07/17/19 (formulary)] Insulin Glargine [Lantus] 50 unit SQ BID 30 Days #2 vial 07/17/19 Allergies Allergy/AdvReac Type Severity Reaction Status Date / Time avocado Allergy Anaphylaxis Verified 07/16/19 08:04 Iodinated Contrast Media Allergy Anaphylaxis Verified 07/16/19 08:04 tomato [Tomato] Allergy Anaphylaxis Verified 07/16/19 08:04 cortisone AdvReac SUGAR GOES Verified 07/16/19 08:04 OVER 400 Review of Systems ROS Statement: Those systems with pertinent positive or pertinent negative responses have been documented in the HPI. ROS Other: All systems not noted in ROS Statement are negative. Past Medical History Past Medical History: Asthma, Coronary Artery Disease (CAD), Chest Pain / Angina, COPD, Diabetes Mellitus, Hyperlipidemia, Hypertension, Liver Disease, Myocardial Infarction (UT), Osteoarthritis (OA), Sleep Apnea/CPAP/BIPAP Additional Past Medical History / Comment(s): NO CPAP USE, chronic back/neck pain, DDD, BULGING HERNIATED DISCS, COLITIS, "FATTY LIVER". Last Myocardial Infarction Date:: APRIL 03 2016 History of Any Multi-Drug Resistant Organisms: None Reported Past Surgical History: Heart Catheterization, Heart Catheterization With Stent, Hernia Repair, Orthopedic Surgery Additional Past Surgical History / Comment(s): Left knee surgery X3. Cardiac stent X3 Past Anesthesia/Blood Transfusion Reactions: No Reported Reaction Date of Last Stent Placement:: MARCH 2018 Past Psychological History: Anxiety, Depression Past Alcohol Use History: Occasional Additional Past Alcohol Use History / Comment(s): . Past Drug Use History: Marijuana Additional Drug Use History / Comment(s): MEDICAL MARIJUANA OCCASSIONALLY. - Past Family History Mother Family Medical History: Coronary Artery Disease (CAD), Diabetes Mellitus, Hyperlipidemia, Hypertension, Osteoarthritis (OA) Father Family Medical History: Deep Vein Thrombosis (DVT) Additional Family Medical History / Comment(s): heart issues, glaucoma General Exam General appearance: alert, in no apparent distress, anxious Head exam: Present: atraumatic, normocephalic, normal inspection Eye exam: Present: normal appearance, PERRL, EOMI. Absent: scleral icterus, conjunctival injection, periorbital swelling ENT exam: Present: normal exam, mucous membranes moist Neck exam: Present: normal inspection. Absent: tenderness, meningismus, lymphadenopathy Respiratory exam: Present: normal lung sounds bilaterally. Absent: respiratory distress, wheezes, rales, rhonchi, stridor Cardiovascular Exam: Present: regular rate, normal rhythm, normal heart sounds. Absent: systolic murmur, diastolic murmur, rubs, gallop, clicks GI/Abdominal exam: Present: soft, normal bowel sounds. Absent: distended, tenderness, guarding, rebound, rigid Extremities exam: Present: normal inspection, full ROM, normal capillary refill. Absent: tenderness, pedal edema, joint swelling, calf tenderness Back exam: Present: normal inspection Neurological exam: Present: alert, oriented X3, CN II-XII intact Psychiatric exam: Present: normal affect, normal mood Skin exam: Present: warm, dry, intact, normal color. Absent: rash Course Vital Signs 11/06/20 11/06/20 00:12 02:09 Temperature 98.8 F Pulse Rate 100 93 Respiratory 19 19 Rate Blood Pressure 135/86 158/63 O2 Sat by Pulse 97 98 Oximetry - Reevaluation(s) Reevaluation #1: 11/06/20 02:53 Medical record is reviewed Reevaluation #2: 11/06/20 02:53 Patient transferring paperwork is reviewed with negative troponin Reevaluation #3: 11/06/20 02:53 Patient did remain with chest pain throughout ER stay just similar to prior episode with stent placement Medical Decision Making - Medical Decision Making 45 male to the ER for evaluation with chest pain. Patient be under for chest pain observation unstable angina - EKG Data -: EKG Interpreted by Me (EKG shows sinus tach 107 NM 152 QRS 82 QTc 437) Disposition Clinical Impression: Chest pain, Unstable angina Disposition: ADMITTED IP TO THIS HOSP Condition: Undetermined Is patient prescribed a controlled substance at d/c from ED?: No
[2020-11-06] MEDS: MORPHINE SULFATE 4 MG/ML SYRINGE IV PRN ×2 (01:59→06:12)
[2020-11-06 05:56] LABS: Glucose,Whole Blood 423 mg/dL (75-99)
[2020-11-06] MEDS ORDERED: INSULIN REGULAR 100 UNIT/ML VIAL SQ ONE (05:59)
[2020-11-06 06:10] LABS: Appearance,Urine Clear (Clear); Bilirubin,Urine Negative (Negative); Blood,Urine Negative (Negative); Color,Urine Light Yellow; Glucose,Urine (UA) 4+ (Negative); Ketones,Urine Negative (Negative); Leukocyte Esterase,Urine Negative (Negative); Nitrite,Urine Negative (Negative); PH, Urine 5.5 (5.0-8.0); Protein,Urine Negative (Negative); Specific Gravity,Urine 1.031 (1.001-1.035); Urobilinogen,Urine <2.0 mg/dL (<2.0)
[2020-11-06 06:22] LABS: HDL Cholesterol 19 mg/dL (40-60)
--- NOTE | 2020-11-06 06:46 | CT ---
EXAMINATION TYPE: CT abdomen pelvis wo con DATE OF EXAM: 11/06/2020 HISTORY: Right flank pain. CT DLP: 890 mGycm. Automated Exposure Control for Dose Reduction was Utilized. TECHNIQUE: CT scan of the abdomen and pelvis is performed without oral or IV contrast. COMPARISON: NONE FINDINGS: Within the limitations of a non-contrast study, the following observations are made. LUNG BASES: No significant abnormality is appreciated. LIVER/GB: Visualized liver is heterogeneously hypodense consistent with diffuse fatty infiltration. P rominent right hepatic lobe. PANCREAS: No significant abnormality is seen. SPLEEN: Occasional punctate calcification scattered throughout spleen. Anterior splenule. Spleen mild ly enlarged at 13.7 cm long axis coronal image 76 ADRENALS: No significant abnormality is seen. KIDNEYS: Mild to moderate perinephric fat stranding bilaterally. This is nonspecific finding. Could b e product of chronic medical renal disease. Other etiologies such as infection or pyelonephritis coul d have this appearance. Bilateral appearance favors the former. No renal calculi or hydronephrosis se en bilaterally. No intraluminal calculi in the bladder. Circumaortic left renal vein which is normal variant. BOWEL: Suboptimal evaluation of bowel without enteric contrast. Normal-appearing appendix from cecum right pelvis. No suspicious small or large bowel dilatation. Some sigmoid colonic diverticula. No CT evidence for acute diverticulitis. Slightly redundant sigmoid colon. GENITAL ORGANS: No gross abnormality seen. LYMPH NODES: No greater than 1cm abdominal or pelvic lymph nodes are appreciated. OSSEOUS STRUCTURES: Spine is straightened. OTHER: No significant additional abnormality is seen. IMPRESSION: No renal stones or hydronephrosis seen bilaterally. No bowel obstruction. Nonspecific per irenal fat stranding bilaterally. No acute findings otherwise clearly seen.
[2020-11-06 07:04] LABS: Triglycerides 4848 mg/dL (<150)
[2020-11-06 07:05] LABS: Cholesterol 357 mg/dL (<200)
[2020-11-06] MEDS ORDERED: ALBUTEROL NEBULIZED 2.5 MG/3 ML INHALATION PRN (07:27)
[2020-11-06] MEDS ORDERED: INSULIN ASPART (NovoLOG) 100 UNIT/ML VIAL SQ SCH (07:30)
[2020-11-06 07:42] LABS: Glucose,Whole Blood 377 mg/dL (75-99)
[2020-11-06 07:44] LABS: Basophils # (A) 0.1 k/uL (0-0.2); Basophils % (A) 1 %; Eosinophils # (A) 0.1 k/uL (0-0.7); Eosinophils % (A) 1 %; HCT 38.3 % (39.0-53.0); Lymphocytes # (A) 1.3 k/uL (1.0-4.8); Lymphocytes % (A) 22 %; MCV 80.1 fL (80.0-100.0); Mean Platelet Volume 8.4; Monocytes # (A) 0.3 k/uL (0-1.0); Monocytes % (A) 6 %; Neutrophils # (A) 4.1 k/uL (1.3-7.7); Platelet Count 185 k/uL (150-450); RBC 4.78 m/uL (4.30-5.90); RDW 14.8 % (11.5-15.5); WBC 5.9 k/uL (3.8-10.6)
[2020-11-06] MEDS: INSULIN ASPART (NovoLOG) 100 UNIT/ML VIAL SQ SCH ×4 (07:47→20:49)
--- NOTE | 2020-11-06 07:56 | P.HPIM ---
History of Present Illness H&P Date: 11/06/20 Chief Complaint: Chest pain This is a 45-year-old male with very complex past medical history noted below significant for coronary artery disease with multiple stent placements in the past who presented to an outside emergency room with chest pain. Patient said that 2 weeks ago he slipped on ice and landed on his right side where he had the bruise and was having some pain intermittently for the past 2 weeks. Patient said yesterday the pain ''migrated from his right side to the middle of his chest''. He described the pain as pressure-like mostly in the middle of his chest rating it as 10 out of 10 in severity. This was not associated with nausea or shortness of breath. He took nitroglycerin at home and aspirin with minimal relief. Patient was concern and presented to [facility] emergency room where he was evaluated in 12-lead EKG showed no acute ischemic changes. Initial troponin was negative. Patient was transferred over here for cardiology evaluation. When asked patient about medication compliance he told me initially that he takes all of his medication like he is supposed to. On further questioning he told me that he usually misses all of his medication 2 or 3 days per week. When I told him that his cholesterol level is so high as if he is not taking any medications and he told me that he has been out of his medications for 2 month prior to seeing his PCP last week where he got refills. He told me that he has been under a lot of stress and depression secondary to losing multiple family members over the past year or 2. He is following with a psychiatrist outpatient. He denies any suicidal thoughts or ideation. Patient denies tobacco or illicit drug use. Patient will be placed on observation awaiting cardiology evaluation. Review of Systems Review of system: 14 points review of systems were obtained and were negative except to what were mentioned in the HPI. Past Medical History Past Medical History: Asthma, Coronary Artery Disease (CAD), Chest Pain / Angina, COPD, Diabetes Mellitus, Hyperlipidemia, Hypertension, Liver Disease, Myocardial Infarction ([place]), Osteoarthritis (OA), Sleep Apnea/CPAP/BIPAP Additional Past Medical History / Comment(s): NO CPAP USE, chronic back/neck pain, DDD, BULGING HERNIATED DISCS, COLITIS, "FATTY LIVER". Last Myocardial Infarction Date:: APRIL 03 2016 History of Any Multi-Drug Resistant Organisms: None Reported Past Surgical History: Heart Catheterization, Heart Catheterization With Stent, Hernia Repair, Orthopedic Surgery Additional Past Surgical History / Comment(s): Left knee surgery X3. Cardiac stent X3 Past Anesthesia/Blood Transfusion Reactions: No Reported Reaction Date of Last Stent Placement:: MARCH 2018 Past Psychological History: Anxiety, Depression Past Alcohol Use History: Occasional Additional Past Alcohol Use History / Comment(s): . Past Drug Use History: Marijuana Additional Drug Use History / Comment(s): MEDICAL MARIJUANA OCCASSIONALLY. - Past Family History Mother Family Medical History: Coronary Artery Disease (CAD), Diabetes Mellitus, Hyperlipidemia, Hypertension, Osteoarthritis (OA) Father Family Medical History: Deep Vein Thrombosis (DVT) Additional Family Medical History / Comment(s): heart issues, glaucoma Medications and Allergies Home Medications Medication Instructions Recorded Confirmed Type Cyclobenzaprine [Flexeril] 10 mg PO BID 04/24/14 11/06/20 History Esomeprazole Magnesium [NexIUM] 20 mg PO DAILY 04/24/14 11/06/20 History Loratadine [Claritin] 10 mg PO DAILY 11/12/15 11/06/20 History Topiramate [Topamax] 50 mg PO DAILY 11/12/15 11/06/20 History Clopidogrel [Plavix] 75 mg PO DAILY #30 tab 11/18/15 11/06/20 Rx Nitroglycerin Sl Tabs [Nitrostat] 0.4 mg SUBLINGUAL Q5M PRN #25 tab 11/18/15 11/06/20 Rx lisinopriL [Zestril] 2.5 mg PO DAILY #30 tab 11/18/15 11/06/20 Rx Hydrocodone/Acetaminophen [[place] 1 tab PO Q6H PRN 04/03/16 11/06/20 History 10-325] Metoprolol Tartrate [Lopressor] 25 mg PO DAILY 04/03/16 11/06/20 History Albuterol Nebulized [Ventolin 2.5 mg INHALATION RT-QID 03/20/18 11/06/20 History Nebulized] Atorvastatin [Lipitor] 80 mg PO HS 03/20/18 11/06/20 History metFORMIN HCL [metFORMIN HCL ER] 1,000 mg PO BID 03/20/18 11/06/20 History Aspirin 81 mg PO DAILY chew 03/27/18 11/06/20 Rx amLODIPine [Norvasc] 5 mg PO DAILY 11/05/19 02/26/21 History Albuterol Inhaler [Ventolin Hfa 2 puff INHALATION RT-Q4H PRN 11/06/20 11/06/20 History Inhaler] Fenofibrate 160 mg PO DAILY 11/06/20 11/06/20 History Galcanezumab-Gnlm [Emgality] 120 mg SQ Q30D 11/06/20 11/06/20 History INSULIN ASPART (NovoLOG) [NovoLOG See Protocol SQ AC-TID 11/06/20 11/06/20 History (formulary)] Ibuprofen [Motrin] 800 mg PO Q8H PRN 11/06/20 11/06/20 History Insulin Glargine,Hum.rec.anlog 50 unit SQ HS 11/06/20 11/06/20 History [Lantus Solostar] Montelukast [Singulair] 10 mg PO HS 11/06/20 11/06/20 History Pregabalin [Lyrica] 150 mg PO BID 11/06/20 11/06/20 History Semaglutide [Ozempic] 0.25 mg SQ WE 11/06/20 11/06/20 History buPROPion HCL [Wellbutrin XL] 300 mg PO DAILY 11/06/20 11/06/20 History Allergies Allergy/AdvReac Type Severity Reaction Status Date / Time avocado Allergy Anaphylaxis Verified 11/06/20 06:32 Iodinated Contrast Media Allergy Anaphylaxis Verified 11/06/20 06:32 tomato [Tomato] Allergy Anaphylaxis Verified 11/06/20 06:32 cortisone AdvReac SUGAR GOES Verified 11/06/20 06:32 OVER 400 Physical Exam Vitals: Vital Signs Temp Pulse Resp BP Pulse Ox 11/06/20 06:25 105 H 18 113/76 98 11/06/20 04:59 99 F 110 H 20 152/72 97 11/06/20 02:09 93 19 158/63 98 11/06/20 00:12 98.8 F 100 19 135/86 97 Intake and Output 11/05/20 11/06/20 11/06/20 22:59 06:59 14:59 Other: Weight 94.801 kg General: The patient is awake and alert, in no distress Eye: there is normal conjunctiva bilaterally. Neck: The neck is supple, there is no JVD. Cardiovascular: Normal S1-S2, no S3-S4, no murmurs. Respiratory: Lungs clear to auscultation bilaterally Gastrointestinal: Abdomen is soft, nontender Musculoskeletal: There is no pedal edema. Neurological:. Speech is normal. Skin: Skin is warm and dry Results Labs: Abnormal Lab Results - Last 24 Hours (Table) 11/06/20 11/06/20 11/06/20 Range/Units 05:26 05:42 05:54 POC Glucose (mg/dL) 423 H (75-99) mg/dL Triglycerides 4848 H (<150) mg/dL Cholesterol 357 H (<200) mg/dL HDL Cholesterol 19 L (40-60) mg/dL Urine Glucose (UA) 4+ H (Negative) 11/06/20 Range/Units 07:40 POC Glucose (mg/dL) 377 H (75-99) mg/dL Triglycerides (<150) mg/dL Cholesterol (<200) mg/dL HDL Cholesterol (40-60) mg/dL Urine Glucose (UA) (Negative) Assessment and Plan Assessment: This is a 45-year-old male with complex past medical history noted below who presented to the emergency room with chest pain. Patient was evaluated and placed on observation for further management of his medical problems noted below. 1. Chest pain: With typical and atypical features. 12-lead EKG showed no acute ischemic changes. Serial troponin negative 3 sets. Awaiting cardiology evaluation. Continue telemetry monitoring. 2. Coronary artery disease status post multivessel PCI and stent placement, on dual antiplatelet therapy with aspirin and Plavix. Change metoprolol to 25 mg twice daily instead of once a day. 3. Mixed hyperlipidemia and hypertriglyceridemia, not well controlled secondary to noncompliance. Resume Lipitor 80 mg at bedtime and fenofibrate 4. Type 2 diabetes, continue home dose of insulin. Hold oral agents including metformin. Sliding scale insulin. 5. Chronic medical problems: Essential hypertension, obstructive sleep apnea, former nicotine dependence, underlying COPD 6. DVT prophylaxis with subcu heparin7
[2020-11-06 08:37] LABS: African American GFR (CKD) >90 (>60 ml/min/1.73 sqM); Albumin/Globulin Ratio 1.4; Globulin 2.7 g/dL; Non-African American GFR(CKD) >90 (>60 ml/min/1.73 sqM)
[2020-11-06 08:38] LABS: Blood Urea Nitrogen 13 mg/dL (9-20); Calcium 9.1 mg/dL (8.4-10.2); Carbon Dioxide 22 mmol/L (22-30); Glucose 450 mg/dL (74-99)
[2020-11-06 08:39] LABS: Albumin 3.7 g/dL (3.5-5.0); Total Bilirubin 0.6 mg/dL (0.2-1.3); Total Protein 6.4 g/dL (6.3-8.2)
[2020-11-06 08:40] LABS: ALT 33 U/L (4-49); Anion Gap 10 mmol/L; Chloride 96 mmol/L (98-107); Sodium 128 mmol/L (137-145)
[2020-11-06 08:41] LABS: AST 42 U/L (17-59); Alkaline Phosphatase 256 U/L (38-126); Potassium 5.1 mmol/L (3.5-5.1)
[2020-11-06 08:48] LABS: MCHC 33.9 g/dL (31.0-37.0)
[2020-11-06 08:49] LABS: HGB 11.5 gm/dL (13.0-17.5); MCH 27.4 pg (25.0-35.0)
[2020-11-06 08:56] LABS: Glucose,Whole Blood 344 mg/dL (75-99)
[2020-11-06] MEDS ORDERED: ASPIRIN 325 MG TAB PO SCH (09:00)
[2020-11-06] MEDS: CLOPIDOGREL 75 MG TAB PO SCH (09:35)
[2020-11-06] MEDS: PREGABALIN 75 MG CAP PO SCH ×2 (09:35→19:50)
[2020-11-06] MEDS: CYCLOBENZAPRINE 10 MG TAB PO SCH ×2 (09:35→19:50)
[2020-11-06] MEDS: LORATADINE 10 MG TAB PO SCH (09:35)
[2020-11-06] MEDS: ASPIRIN 81 MG PO SCH (09:35)
[2020-11-06] MEDS: HEPARIN SODIUM,PORCINE 5,000 UNIT/ML 1 ML VIAL SQ SCH ×2 (09:36→19:50)
[2020-11-06] MEDS: METOPROLOL TARTRATE 25 MG TAB PO SCH ×2 (09:36→19:50)
[2020-11-06] MEDS: PANTOPRAZOLE 40 MG TABLET PO SCH (09:36)
[2020-11-06] MEDS: amLODIPine 5 MG TAB PO SCH (09:36)
[2020-11-06] MEDS: FENOFIBRATE 160 MG TAB PO SCH (09:36)
[2020-11-06] MEDS: ALBUTEROL NEBULIZED 2.5 MG/3 ML INHALATION SCH ×4 (11:01→20:14)
[2020-11-06] MEDS: INSULIN DETEMIR (LEVEMIR) 100 UNIT/ML SYR SQ SCH (11:04)
[2020-11-06] MEDS: TOPIRAMATE 25 MG TAB PO SCH (11:07)
[2020-11-06] MEDS: buPROPion XL 300 MG TAB.ER.24H PO SCH (11:07)
[2020-11-06 12:29] LABS: Glucose,Whole Blood 281 mg/dL (75-99)
--- NOTE | 2020-11-06 15:05 | P.CRDCN ---
History of Present Illness Consult date: 11/06/20 History of present illness: CHIEF COMPLAINT: Chest pain HISTORY OF PRESENT ILLNESS: This is a 45 year old male with a past medical history significant for coronary artery disease with multivessel PCI, elevated triglycerides, hypertension, diabetes mellitus, and COPD. Patient follows with Dr. Nguyen. We have been asked to see the patient in consultation for chest pain. Patient was transferred from [facility] yesterday secondary to chest pain. Patient examined this morning at the bedside. Patient states approxi mately 2 weeks ago he slipped and fell on the ice. He reports right lateral lower abdominal pain that radiates across his abdomen to the left side and also up to the right side of his chest. He reports there is tenderness with palpation. He also reports it is worse with deep inspiration and movement. DIAGNOSTICS: EKG reveals sinus tachycardia Laboratory data: WBC 5.9. Hemoglobin 11.5. Platelet count 185. Sodium 128. Potassium 5.1. BUN 13. Creatinine 0.69. Troponin negative 2. Current home cardiac medications include lisinopril 2.5 mg daily, Norvasc 5 mg daily, metoprolol 25 mg daily, fenofibrate 160 mg daily, Plavix 75 mg daily, Lipitor 80 mg daily, and aspirin 81 mg daily Patient underwent cardiac catheterization with Dr. Nguyen in July 2019 revealing patent stents within the OM branch and [place] AV groove circumflex with ostial stenosis in the AV groove circumflex which seemed to be around 70%, unchanged from prior cardiac cath in March 2018. REVIEW OF SYSTEMS: At the time of my exam: CONSTITUTIONAL: Denies fever or chills. HEENT: Denies blurred vision, vision changes, or eye pain. Denies hemoptysis CARDIOVASCULAR: Denies chest pain, orthopnea, PND or palpitations RESPIRATORY: No shortness of breath. GASTROINTESTINAL: Denies abdominal pain. Denies nausea or vomiting. HEMATOLOGIC: Denies bleeding disorders. GENITOURINARY: Denies any blood in urine. SKIN: Denies pruitis. Denies rash. PHYSICAL EXAM: VITAL SIGNS: Reviewed. GENERAL: Well-developed in no acute distress. HEENT: Head is normocephalic. Pupils are equal, round. Sclerae anicteric. Mucous membranes of the mouth are moist. Neck supple. No JVD or thyromegaly LUNGS: Respirations even and unlabored. Lungs essentially clear to auscultation bilaterally. HEART: Regular rate and rhythm. S1 and S2 heard. ABDOMEN: Soft. Nondistended. Nontender. EXTREMITIES: Normal range of motion. No clubbing or cyanosis. Peripheral pulses intact. No lower extremity edema NEUROLOGIC: Awake and alert. Oriented x 3. ASSESSMENT: Chest pain/abdominal pain, secondary to recent fall Coronary artery disease with multivessel PCI Hypertension Hypertriglyceridemia Diabetes mellitus COPD Medication noncompliance PLAN: Encouraged medication compliance An acute coronary event has been ruled out Echocardiogram reveals ejection fraction 60-65% Continue home cardiac medications Patient is stable for discharge home from a cardiac standpoint. We will sign off. Please reconsult if needed. Nurse practitioner note has been reviewed by physician. Signing provider agrees with the documented findings, assessment, and plan of care. Past Medical History Past Medical History: Asthma, Coronary Artery Disease (CAD), Chest Pain / Angina, COPD, Diabetes Mellitus, Hyperlipidemia, Hypertension, Liver Disease, Myocardial Infarction ([place]), Osteoarthritis (OA), Sleep Apnea/CPAP/BIPAP Additional Past Medical History / Comment(s): Falls and had recent slip/fall with R sided trunk pain, chronic back/neck pain, DDD, bulging/herniated discs, IDDM type II, neuropathy bilateral feet, "fatty liver", overactive bladder, colitis, SHALOM does not use device, bronchitis Last Myocardial Infarction Date:: APRIL 03 2016 History of Any Multi-Drug Resistant Organisms: None Reported Past Surgical History: Heart Catheterization, Heart Catheterization With Stent, Hernia Repair, Orthopedic Surgery Additional Past Surgical History / Comment(s): L knee 3 arthroscopic surgeries, umbilical hernia repair, colonoscopy. Past Anesthesia/Blood Transfusion Reactions: No Reported Reaction Date of Last Stent Placement:: MARCH 2018 Smoking Status: Former smoker, Light tobacco smoker - Past Family History Mother Family Medical History: Coronary Artery Disease (CAD), Diabetes Mellitus, Hyperlipidemia, Hypertension, Osteoarthritis (OA) Additional Family Medical History / Comment(s): Mother is living. Father Family Medical History: Deep Vein Thrombosis (DVT) Additional Family Medical History / Comment(s): Father recently passed d/t c ovid. heart issues, glaucoma Medications and Allergies Home Medications Medication Instructions Recorded Confirmed Type Cyclobenzaprine [Flexeril] 10 mg PO BID 04/24/14 11/06/20 History Esomeprazole Magnesium [NexIUM] 20 mg PO DAILY 04/24/14 11/06/20 History Loratadine [Claritin] 10 mg PO DAILY 11/12/15 11/06/20 History Topiramate [Topamax] 50 mg PO DAILY 11/12/15 11/06/20 History Clopidogrel [Plavix] 75 mg PO DAILY #30 tab 11/18/15 11/06/20 Rx Nitroglycerin Sl Tabs [Nitrostat] 0.4 mg SUBLINGUAL Q5M PRN #25 tab 11/18/15 11/06/20 Rx lisinopriL [Zestril] 2.5 mg PO DAILY #30 tab 11/18/15 11/06/20 Rx Hydrocodone/Acetaminophen [[place] 1 tab PO Q6H PRN 04/03/16 11/06/20 History 10-325] Metoprolol Tartrate [Lopressor] 25 mg PO DAILY 04/03/16 11/06/20 History Albuterol Nebulized [Ventolin 2.5 mg INHALATION RT-QID 03/20/18 11/06/20 History Nebulized] Atorvastatin [Lipitor] 80 mg PO HS 03/20/18 11/06/20 History metFORMIN HCL [metFORMIN HCL ER] 1,000 mg PO BID 03/20/18 11/06/20 History Aspirin 81 mg PO DAILY chew 03/27/18 11/06/20 Rx amLODIPine [Norvasc] 5 mg PO DAILY 07/16/19 11/06/20 History Albuterol Inhaler [Ventolin Hfa 2 puff INHALATION RT-Q4H PRN 11/06/20 11/06/20 History Inhaler] Fenofibrate 160 mg PO DAILY 11/06/20 11/06/20 History Galcanezumab-Gnlm [Emgality] 120 mg SQ Q30D 11/06/20 11/06/20 History INSULIN ASPART (NovoLOG) [NovoLOG See Protocol SQ AC-TID 11/06/20 11/06/20 His tory (formulary)] Ibuprofen [Motrin] 800 mg PO Q8H PRN 11/06/20 11/06/20 History Insulin Glargine,Hum.rec.anlog 50 unit SQ HS 11/06/20 11/06/20 History [Lantus Solostar] Montelukast [Singulair] 10 mg PO HS 11/06/20 11/06/20 History Pregabalin [Lyrica] 150 mg PO BID 11/06/20 11/06/20 History Semaglutide [Ozempic] 0.25 mg SQ WE 11/06/20 11/06/20 History buPROPion HCL [Wellbutrin XL] 300 mg PO DAILY 11/06/20 11/06/20 History Allergies Allergy/AdvReac Type Severity Reaction Status Date / Time avocado Allergy Anaphylaxis Verified 11/06/20 06:32 Iodinated Contrast Media Allergy Anaphylaxis Verified 11/06/20 06:32 tomato [Tomato] Allergy Anaphylaxis Verified 11/06/20 06:32 cortisone AdvReac SUGAR GOES Verified 11/06/20 06:32 OVER 400 Physical Exam Vitals: Vital Signs Temp Pulse Pulse Resp BP BP Pulse Ox 11/06/20 14:04 101.0 F H 106 H 20 112/55 97 11/06/20 13:28 69 18 11/06/20 11:43 97.6 F 65 18 138/81 93 L 11/06/20 11:18 108 H 11/06/20 11:04 104 H 11/06/20 09:15 99.5 F 110 H 20 135/83 99 11/06/20 09:00 98.6 F 108 H 18 113/76 97 11/06/20 07:58 98.6 F 110 H 18 113/76 96 11/06/20 06:25 105 H 18 113/76 98 11/06/20 04:59 99 F 110 H 20 152/72 97 11/06/20 02:09 93 19 158/63 98 11/06/20 00:12 98.8 F 100 19 135/86 97 Intake and Output 11/06/20 11/06/20 11/06/20 06:59 14:59 22:59 Other: # Voids 1 Weight 94.801 kg 94.801 kg Results 11/06/20 05:26 11/06/20 05:26 Cardiac Enzymes 11/06/20 11/06/20 11/06/20 Range/Units 00:49 05:26 05:26 AST 42 (17-59) U/L Troponin I <0.012 <0.012 (0.000-0.034) ng/mL Lipids 11/06/20 Range/Units 05:26 Triglycerides 4848 H (<150) mg/dL Cholesterol 357 H (<200) mg/dL HDL Cholesterol 19 L (40-60) mg/dL CBC 11/06/20 Range/Units 05:26 WBC 5.9 (3.8-10.6) k/uL RBC 4.78 (4.30-5.90) m/uL Hgb 11.5 L (13.0-17.5) gm/dL Hct 38.3 L (39.0-53.0) % Plt Count 185 (150-450) k/uL Comprehensive Metabolic Panel 11/06/20 Range/Units 05:26 Sodium 128 L (137-145) mmol/L Potassium 5.1 (3.5-5.1) mmol/L Chloride 96 L (98-107) mmol/L Carbon Dioxide 22 (22-30) mmol/L BUN 13 (9-20) mg/dL Creatinine 0.69 (0.66-1.25) mg/dL Glucose 450 H (74-99) mg/dL Calcium 9.1 (8.4-10.2) mg/dL AST 42 (17-59) U/L ALT 33 (4-49) U/L Alkaline Phosphatase 256 H (38-126) U/L Total Protein 6.4 (6.3-8.2) g/dL Albumin 3.7 (3.5-5.0) g/dL Current Medications Generic Name Dose Route Start Last Admin Trade Name Freq PRN Reason Stop Dose Admin Albuterol Sulfate 2.5 mg 11/06/20 07:27 Albuterol Nebulized 2.5 Mg/3 Ml INHALATION RT-Q4H PRN Shortness Of Breath Albuterol Sulfate 2.5 mg 11/06/20 08:00 11/06/20 11:01 Albuterol Nebulized 2.5 Mg/3 Ml INHALATION 2.5 mg RT-QID [facility] Administration Amlodipine Besylate 5 mg 11/06/20 09:00 11/06/20 09:36 Amlodipine 5 Mg Tab PO 5 mg DAILY [facility] Administration Aspirin 81 mg 11/06/20 09:00 11/06/20 09:35 Aspirin 81 Mg PO 81 mg DAILY [facility] Administration Atorvastatin Calcium 80 mg 11/06/20 21:00 Atorvastatin 80 Mg Tab PO HS [facility]LEY Bupropion HCl 300 mg 11/06/20 09:00 11/06/20 11:07 Bupropion Xl 300 Mg Tab.Er.24h PO 300 mg DAILY [facility] Administration Clopidogrel Bisulfate 75 mg 11/06/20 09:00 11/06/20 09:35 Clopidogrel 75 Mg Tab PO 75 mg DAILY [facility] Administration Cyclobenzaprine HCl 10 mg 11/06/20 09:00 11/06/20 09:35 Cyclobenzaprine 10 Mg Tab PO 10 mg BID [facility] Administration Fenofibrate 160 mg 11/06/20 09:00 11/06/20 09:36 Fenofibrate 160 Mg Tab PO 160 mg DAILY [facility] Administration Heparin Sodium (Porcine) 5,000 unit 11/06/20 09:00 11/06/20 09:36 Heparin Sodium,Porcine 5,000 Unit/Ml 1 Ml Vial SQ 5,000 unit Q12HR [facility] Administration Insulin Aspart 0 unit 11/06/20 07:30 11/06/20 13:13 Insulin Aspart (Novolog) 100 Unit/Ml Vial SQ 4 unit ACHS [facility] Administration Protocol Insulin Detemir 50 unit 11/06/20 08:00 11/06/20 11:04 Insulin Detemir (Levemir) 100 Unit/Ml Syr SQ Not Given DAILY@0700 [facility] Lisinopril 2.5 mg 11/06/20 09:00 11/06/20 09:36 Lisinopril 2.5 Mg Tab PO Not Given DAILY [facility] Loratadine 10 mg 11/06/20 09:00 11/06/20 09:35 Loratadine 10 Mg Tab PO 10 mg DAILY [facility] Administration Metoprolol Tartrate 25 mg 11/06/20 09:00 11/06/20 09:36 Metoprolol Tartrate 25 Mg Tab PO Not Given BID [facility] Montelukast Sodium 10 mg 11/06/20 21:00 Montelukast 10 Mg Tab PO [facility] Morphine Sulfate 2 mg 11/06/20 07:27 Morphine Sulfate 2 Mg/Ml Syringe IV Q4HR PRN CHEST PAIN Nitroglycerin 0.4 mg 11/05/20 23:59 11/06/20 05:27 Nitroglycerin Sl Tabs 0.4 Mg Tab SUBLINGUAL 0.4 mg Q5M PRN Administration Chest Pain Pantoprazole Sodium 40 mg 11/06/20 09:00 11/06/20 09:36 Pantoprazole 40 Mg Tablet PO Not Given DAILY [facility] Pregabalin 150 mg 11/06/20 09:00 11/06/20 09:35 Pregabalin 75 Mg Cap PO 150 mg BID [facility] Administration Topiramate 50 mg 11/06/20 09:00 11/06/20 11:07 Topiramate 25 Mg Tab PO 50 mg DAILY [facility] Administration Intake and Output 11/06/20 11/06/20 11/06/20 06:59 14:59 22:59 Other: # Voids 1 Weight 94.801 kg 94.801 kg Patient Weight 11/07/20 06:59 Weight 94.801 kg 11/06/20 05:26 11/06/20 05:26
[2020-11-06 17:46] LABS: Glucose,Whole Blood 404 mg/dL (75-99)
--- NOTE | 2020-11-06 18:00 | ECHOF ---
Referral Reason:chest pain MEASUREMENTS -------- HEIGHT: 172.7 cm WEIGHT: 94.8 kg BP: 135/83 RVIDd: 3.1 cm (< 3.3) IVSd: 1.3 cm (0.6 - 1.1) LVIDd: 3.8 cm (3.9 - 5.3) LVPWd: 1.3 cm (0.6 - 1.1) IVSs: 1.8 cm LVIDs: 2.6 cm LVPWs: 1.6 cm LA Diam: 3.9 cm (2.7 - 3.8) LAESV Index (A-L): 26.03 ml/m Ao Diam: 3.3 cm (2.0 - 3.7) AV Cusp: 2.3 cm (1.5 - 2.6) MV EXCURSION: 18.395 mm (> 18.000) MV EF SLOPE: 146 mm/s (70 - 150) EPSS: 0.3 cm MV E Ken: 0.90 m/s MV DecT: 102 ms MV A Ken: 1.03 m/s MV E/A Ratio: 0.87 FINDINGS -------- Resting tachycardia (HR>100bpm). This was a technically adequate study. The left ventricular size is normal. There is mild concentric left ventricular hypertrophy. Overa ll left ventricular systolic function is normal with, an EF between 60 - 65 %. The right ventricle is normal in size. Normal LA size by volume 22+/-6 ml/m2. The right atrium is normal in size. The aortic valve is trileaflet and appears structurally normal. The mitral valve is normal. The tricuspid valve appears structurally normal. There is no pulmonic regurgitation present. The aortic root size is normal. IVC Not well visulized. There is no pericardial effusion. CONCLUSIONS -------- 1. The left ventricular size is normal. 2. There is mild concentric left ventricular hypertrophy. 3. Overall left ventricular systolic function is normal with, an EF between 60 - 65 %. 4. There is no pericardial effusion. [employer] ENGINEER: Roxie Durant [facility]
[2020-11-06 20:05] LABS: Glucose,Whole Blood 312 mg/dL (75-99)
[2020-11-06] MEDS: MORPHINE SULFATE 2 MG/ML SYRINGE IV PRN (20:48)
[2020-11-06] MEDS ORDERED: INSULIN DETEMIR (LEVEMIR) 100 UNIT/ML SYR SQ SCH (21:00)
[2020-11-06] MEDS ORDERED: MONTELUKAST 10 MG TAB PO SCH (21:00)
[2020-11-06] MEDS ORDERED: ATORVASTATIN 80 MG TAB PO SCH (21:00)
[2020-11-07 06:45] VITALS: BP 111/68; RESP 19; TEMP 98.1
[2020-11-07] MEDS: ALBUTEROL NEBULIZED 2.5 MG/3 ML INHALATION SCH ×2 (06:54→11:00)
[2020-11-07 07:00] LABS: Glucose,Whole Blood 284 mg/dL (75-99)
[2020-11-07 07:04] VITALS: PULSE 108
[2020-11-07] MEDS: LORATADINE 10 MG TAB PO SCH (07:44)
[2020-11-07] MEDS: CYCLOBENZAPRINE 10 MG TAB PO SCH (07:44)
[2020-11-07] MEDS: HEPARIN SODIUM,PORCINE 5,000 UNIT/ML 1 ML VIAL SQ SCH (07:44)
[2020-11-07] MEDS: PANTOPRAZOLE 40 MG TABLET PO SCH (07:44)
[2020-11-07] MEDS: CLOPIDOGREL 75 MG TAB PO SCH (07:44)
[2020-11-07] MEDS: METOPROLOL TARTRATE 25 MG TAB PO SCH (07:44)
[2020-11-07] MEDS: INSULIN DETEMIR (LEVEMIR) 100 UNIT/ML SYR SQ SCH (07:45)
[2020-11-07] MEDS: TOPIRAMATE 25 MG TAB PO SCH (07:45)
[2020-11-07] MEDS: ASPIRIN 81 MG PO SCH (07:45)
[2020-11-07] MEDS: FENOFIBRATE 160 MG TAB PO SCH (07:45)
[2020-11-07] MEDS: PREGABALIN 75 MG CAP PO SCH (07:45)
[2020-11-07] MEDS: buPROPion XL 300 MG TAB.ER.24H PO SCH (07:45)
[2020-11-07] MEDS: amLODIPine 5 MG TAB PO SCH (07:45)
[2020-11-07] MEDS: INSULIN ASPART (NovoLOG) 100 UNIT/ML VIAL SQ SCH (07:49)
--- NOTE | 2020-11-07 07:54 | P.DS ---
Providers Date of admission: 11/06/20 00:07 Expected date of discharge: 11/07/20 Attending physician: Nancy Cr MD Primary care physician: [facility] Course: This is a 45-year-old male with complex past medical history noted below who presented to the emergency room with chest pain. Patient was evaluated and placed on observation for further management of his medical problems noted below. 1. Chest pain: With typical and atypical features. ACS ruled out. 12-lead EKG showed no acute ischemic changes. Serial troponin negative 3 sets. Patient was seen and evaluated by cardiology. Echocardiogram showed preserved ejection fraction with no significant valvular abnormalities. Patient was cleared by cardiology for discharge home. Strongly encouraged medication compliance. 2. Coronary artery disease status post multivessel PCI and stent placement, on dual antiplatelet therapy with aspirin and Plavix. 3. Mixed hyperlipidemia and hypertriglyceridemia, not well controlled secondary to noncompliance. Resume Lipitor 80 mg at bedtime and fenofibrate 4. Type 2 diabetes, continue home regimen 5. Chronic medical problems: Essential hypertension, obstructive sleep apnea, former nicotine dependence, underlying COPD General: The patient is awake and alert, in no distress Eye: there is normal conjunctiva bilaterally. Neck: The neck is supple, there is no JVD. Cardiovascular: Normal S1-S2, no S3-S4, no murmurs. Respiratory: Lungs clear to auscultation bilaterally Gastrointestinal: Abdomen is soft, nontender Musculoskeletal: There is no pedal edema. Neurological:. Speech is normal. Skin: Skin is warm and dry Patient will be discharged home in a stable condition. For further details about this hospitalization please refer to the electronic chart. Time spent on discharge > 30 minutes including counseling and coordination of care Patient Condition at Discharge: Stable Plan - Discharge Summary Discharge Rx Participant: No New Discharge Prescriptions: Continue Esomeprazole Magnesium [NexIUM] 20 mg PO DAILY Cyclobenzaprine [Flexeril] 10 mg PO BID Topiramate [Topamax] 50 mg PO DAILY Loratadine [Claritin] 10 mg PO DAILY Clopidogrel [Plavix] 75 mg PO DAILY #30 tab lisinopriL [Zestril] 2.5 mg PO DAILY #30 tab Nitroglycerin Sl Tabs [Nitrostat] 0.4 mg SUBLINGUAL Q5M PRN #25 tab PRN Reason: Chest Pain Hydrocodone/Acetaminophen [[place] 10-325] 1 tab PO Q6H PRN PRN Reason: Pain Metoprolol Tartrate [Lopressor] 25 mg PO DAILY Atorvastatin [Lipitor] 80 mg PO HS Albuterol Nebulized [Ventolin Nebulized] 2.5 mg INHALATION RT-QID metFORMIN HCL [metFORMIN HCL ER] 1,000 mg PO BID Aspirin 81 mg PO DAILY chew amLODIPine [Norvasc] 5 mg PO DAILY Pregabalin [Lyrica] 150 mg PO BID Montelukast [Singulair] 10 mg PO HS Insulin Glargine,Hum.rec.anlog [Lantus Solostar] 50 unit SQ HS Galcanezumab-Gnlm [Emgality Pen] 120 mg SQ Q30D Fenofibrate 160 mg PO DAILY buPROPion HCL [Wellbutrin XL] 300 mg PO DAILY Albuterol Inhaler [Ventolin Hfa Inhaler] 2 puff INHALATION RT-Q4H PRN PRN Reason: Shortness Of Breath Semaglutide [Ozempic] 0.25 mg SQ WE INSULIN ASPART (NovoLOG) [NovoLOG (formulary)] See Protocol SQ AC-TID Discontinued Ibuprofen [Motrin] 800 mg PO Q8H PRN PRN Reason: Pain Discharge Medication List Cyclobenzaprine [Flexeril] 10 mg PO BID 04/24/14 [History] Esomeprazole Magnesium [NexIUM] 20 mg PO DAILY 04/24/14 [History] Loratadine [Claritin] 10 mg PO DAILY 11/12/15 [History] Topiramate [Topamax] 50 mg PO DAILY 11/12/15 [History] Clopidogrel [Plavix] 75 mg PO DAILY #30 tab 11/18/15 [Rx] Nitroglycerin Sl Tabs [Nitrostat] 0.4 mg SUBLINGUAL Q5M PRN #25 tab 11/18/15 [Rx] lisinopriL [Zestril] 2.5 mg PO DAILY #30 tab 11/18/15 [Rx] Hydrocodone/Acetaminophen [[place] 10-325] 1 tab PO Q6H PRN 04/03/16 [History] Metoprolol Tartrate [Lopressor] 25 mg PO DAILY 04/03/16 [History] Albuterol Nebulized [Ventolin Nebulized] 2.5 mg INHALATION RT-QID 03/20/18 [History] Atorvastatin [Lipitor] 80 mg PO HS 03/20/18 [History] metFORMIN HCL [metFORMIN HCL ER] 1,000 mg PO BID 03/20/18 [History] Aspirin 81 mg PO DAILY chew 03/27/18 [Rx] amLODIPine [Norvasc] 5 mg PO DAILY 07/16/19 [History] Albuterol Inhaler [Ventolin Hfa Inhaler] 2 puff INHALATION RT-Q4H PRN 11/06/20 [History] Fenofibrate 160 mg PO DAILY 11/06/20 [History] Galcanezumab-Gnlm [Emgality Pen] 120 mg SQ Q30D 11/06/20 [History] INSULIN ASPART (NovoLOG) [NovoLOG (formulary)] See Protocol SQ AC-TID 11/06/20 [History] Insulin Glargine,Hum.rec.anlog [Lantus Solostar] 50 unit SQ HS 11/06/20 [History] Montelukast [Singulair] 10 mg PO HS 11/06/20 [History] Pregabalin [Lyrica] 150 mg PO BID 11/06/20 [History] Semaglutide [Ozempic] 0.25 mg SQ WE 11/06/20 [History] buPROPion HCL [Wellbutrin XL] 300 mg PO DAILY 11/06/20 [History] Follow up Appointment(s)/Referral(s): Booker Hu NPC [Primary Care Provider] - 1-2 days nAdres Nguyen MD [STAFF PHYSICIAN] - 2 Weeks Discharge Disposition: HOME SELF-CARE
[2020-11-07] MEDS: MORPHINE SULFATE 2 MG/ML SYRINGE IV PRN (07:57)
== END 2020-11-07 11:22 | disposition home or self-care (01) ==
LOC: EC 23:56 → 6NMEDSUR 11-06 00:07
PROVIDERS: ADMIT Internal Medicine; ATTEND Internal Medicine
DX: R07.89 Other chest pain (principal); R10.30 Lower abdominal pain, unspecified; I25.10 Atherosclerotic heart disease of native coronary artery without angina pectoris; Z95.5 Presence of coronary angioplasty implant and graft; M79.602 Pain in left arm; R60.9 Edema, unspecified; R06.02 Shortness of breath; R06.00 Dyspnea, unspecified; R00.0 Tachycardia, unspecified; R61 Generalized hyperhidrosis; R68.83 Chills (without fever); J44.9 Chronic obstructive pulmonary disease, unspecified; E78.5 Hyperlipidemia, unspecified; I10 Essential (primary) hypertension; N32.81 Overactive bladder; E11.40 Type 2 diabetes mellitus with diabetic neuropathy, unspecified; G62.9 Polyneuropathy, unspecified; I25.2 Old myocardial infarction; M19.90 Unspecified osteoarthritis, unspecified site; G89.29 Other chronic pain; M54.2 Cervicalgia; M54.9 Dorsalgia, unspecified; K76.0 Fatty (change of) liver, not elsewhere classified; F41.9 Anxiety disorder, unspecified; F32.9 Major depressive disorder, single episode, unspecified; E78.2 Mixed hyperlipidemia; Z91.14 Patient's other noncompliance with medication regimen; E78.1 Pure hyperglyceridemia; T46.6X6A Underdosing of antihyperlipidemic and antiarteriosclerotic drugs, initial encounter; G47.33 Obstructive sleep apnea (adult) (pediatric); Z87.891 Personal history of nicotine dependence; Z91.81 History of falling; Z79.899 Other long term (current) drug therapy; Z79.891 Long term (current) use of opiate analgesic; Z79.82 Long term (current) use of aspirin; Z91.041 Radiographic dye allergy status; Z88.8 Allergy status to other drugs, medicaments and biological substances; Z91.018 Allergy to other foods; Z87.19 Personal history of other diseases of the digestive system; Z63.4 Disappearance and death of family member; Z79.02 Long term (current) use of antithrombotics/antiplatelets; Z79.4 Long term (current) use of insulin; W00.0XXA Fall on same level due to ice and snow, initial encounter; Z82.49 Family history of ischemic heart disease and other diseases of the circulatory system; Z83.3 Family history of diabetes mellitus; Z82.61 Family history of arthritis; Z83.511 Family history of glaucoma; Z83.1 Family history of other infectious and parasitic diseases; Z20.822 Contact with and (suspected) exposure to COVID-19
CPT/HCPCS: 96376 ×3; 96372 ×2; 96374; 99285; 94640 ×3; 94760; 93005; 93306; 80061; 80053; 84484; 85025; 81003; 87635; 74176; G0378 ×2; J2270 ×3; J1644 ×2

== ENCOUNTER 2020-12-06 19:59 | Inpatient (IN) | payer MEDICARE, OTHER ==
--- NOTE | 2020-12-06 20:35 | ED ---
General Adult HPI - General Chief complaint: Shortness of Breath Stated complaint: NSTEMI Time Seen by Provider: 12/06/20 20:09 Source: patient, EMS, old records reviewed Mode of arrival: EMS Limitations: no limitations - History of Present Illness Initial comments: Dictation was produced using [employer] dictation software. please excuse any grammatical, word or spelling errors. This patient was cared for during a federal and state declared state of emergency secondary to Covid 19 Chief Complaint: 45-year-old male sent in from [facility] History of Present Illness: Patient is a 45-year-old male has past medical history of coronary artery disease he was transferred from outside facility for elevated troponin, elevated d-dimer and pneumonia. He initially presented to the outside facility with symptoms of pulmonary infection including cough, constitutional symptoms, hypoxia and shortness of breath. Patient does have multiple comorbidities. He has history of heart failure, COPD, hypertension, myocardial infarction. He had extensive workup performed at the outside facility. Is found to have anemia where his hemoglobin drop from 14.12 9.3 and a month, elevated troponin of 3.45, and a d-dimer of 2746. He was heparinized, treated for community acquired pneumonia. There was no imaging studies to further evaluate the elevated d-dimer. Patient states that he feels better now. The ROS documented in this emergency department record has been reviewed and confirmed by me. Those systems with pertinent positive or negative responses have been documented in the HPI. All other systems are other negative and/or noncontributory. PHYSICAL EXAM: General Impression: Alert and oriented x3, not in acute distress, pale HEENT: Normocephalic atraumatic, extra-ocular movements intact, pupils equal and reactive to light bilaterally, mucous membranes moist. Cardiovascular: Heart regular rate and rhythm Chest: Able to complete full sentences, no retractions, no tachypnea Abdomen: abdomen soft, non-tender, non-distended, no organomegaly Musculoskeletal: Pulses present and equal in all extremities, no peripheral edema Motor: no focal deficits noted Neurological: CN II-XII grossly intact, no focal motor or sensory deficits noted Skin: Intact with no visualized rashes Psych: Normal affect and mood ED course: 45-year-old male presents to the emergency department. We received patient from [facility]. Patient was diagnosed with non-ST segment elevation [place], elevated d-dimer suspicious for pulmonary embolus, community acquired pneumonia and undifferentiated anemia. Patient's churn driller is Dr. Nguyen. Vital signs upon arrival shows heart rate of 107, rest of vital signs within acceptable limits. Patient had elevated d-dimer but was not scan for allegedly having renal failure however upon review patient's transfer documentation he had normal renal function. At this point patient's workup was rather nebulous. We will recheck kidney function and d-dimer. At this point patient's clinical presentation is more likely to be committed pneumonia which is elevating his troponin. Patient's kidney function is normal we will proceed with CT angios the chest for further evaluation of elevated d-dimer. Review labs performed here. He does have a hemoglobin 9.4 and stable from when compared to transferring ERs labs. [place] dose of 10.8 per coag panel is negative. Sodium is 127 but his troponin is negative. Patient does not have any acute kidney injury. We will proceed with CT angios the chest. CT angio the chest shows right lower lobe pulmonary embolism. There is also extensive pulmonary infiltrates consistent with pneumonia. Patient was admitted to [facility]. He is discussed Dr. Cr. Patient will be admitted. EKG interpretation: Ventricular rate 105, sinus tachycardia,. 164, QRS 92, QTc 459. No DC prolongation, no QTC prolongation, no ST or T-wave changes noted. . Overall, this EKG is unremarkable - Related Data Home Medications Medication Instructions Recorded Confirmed Cyclobenzaprine [Flexeril] 10 mg PO BID 04/24/14 12/06/20 Esomeprazole Magnesium [NexIUM] 20 mg PO DAILY 04/24/14 12/06/20 Loratadine [Claritin] 10 mg PO DAILY 11/12/15 12/06/20 Topiramate [Topamax] 50 mg PO DAILY 11/12/15 12/06/20 Hydrocodone/Acetaminophen [[place] 1 tab PO QID 04/03/16 12/06/20 10-325] Metoprolol Tartrate [Lopressor] 12.5 mg PO BID 04/03/16 12/06/20 Albuterol Nebulized [Ventolin 2.5 mg INHALATION RT-QID 03/20/18 12/06/20 Nebulized] Atorvastatin [Lipitor] 80 mg PO HS 03/20/18 12/06/20 metFORMIN HCL [metFORMIN HCL ER] 1,000 mg PO BID 03/20/18 12/06/20 Albuterol Inhaler [Ventolin Hfa 2 puff INHALATION RT-Q4H PRN 11/06/20 12/06/20 Inhaler] Fenofibrate 160 mg PO DAILY 11/06/20 12/06/20 Galcanezumab-Gnlm [Emgality Pen] 120 mg SQ Q30D 11/06/20 12/06/20 INSULIN ASPART (NovoLOG) [NovoLOG See Protocol SQ AC-TID 11/06/20 12/06/20 (formulary)] Insulin Glargine,Hum.rec.anlog 50 unit SQ HS 11/06/20 12/06/20 [Lantus Solostar] Montelukast [Singulair] 10 mg PO HS 11/06/20 12/06/20 Pregabalin [Lyrica] 150 mg PO BID 11/06/20 12/06/20 Semaglutide [Ozempic] 0.25 mg SQ WE 11/06/20 12/06/20 buPROPion HCL [Wellbutrin XL] 300 mg PO DAILY 11/06/20 12/06/20 Previous Rx's Medication Instructions Recorded Nitroglycerin Sl Tabs [Nitrostat] 0.4 mg SUBLINGUAL Q5M PRN #25 tab 11/18/15 lisinopriL [Zestril] 2.5 mg PO DAILY #30 tab 11/18/15 Aspirin 81 mg PO DAILY chew 03/27/18 Apixaban [Eliquis Starter Pack 0 mg PO DIRECTED 30 Days #1 pack 12/08/20 (for VTE)] Azithromycin [Zithromax] 500 mg PO DAILY 2 Days #2 tab 12/09/20 Allergies Allergy/AdvReac Type Severity Reaction Status Date / Time avocado Allergy Anaphylaxis Verified 12/06/20 21:16 Iodinated Contrast Media Allergy Anaphylaxis Verified 12/06/20 21:16 tomato [Tomato] Allergy Anaphylaxis Verified 12/06/20 21:16 cortisone AdvReac SUGAR GOES Verified 12/06/20 21:16 OVER 400 Review of Systems ROS Statement: Those systems with pertinent positive or pertinent negative responses have been documented in the HPI. ROS Other: All systems not noted in ROS Statement are negative. Past Medical History Past Medical History: Asthma, Coronary Artery Disease (CAD), Chest Pain / Angina, Heart Failure, COPD, Diabetes Mellitus, Hyperlipidemia, Hypertension, Liver Disease, Myocardial Infarction ([place]), Osteoarthritis (OA), Sleep Apnea/CPAP/BIPAP Additional Past Medical History / Comment(s): chronic back/neck pain, DDD, bulging/herniated discs, IDDM type II, neuropathy bilateral feet, "fatty liver", overactive bladder, colitis, SHALOM does not use device, bronchitis Last Myocardial Infarction Date:: APRIL 03 2016 History of Any Multi-Drug Resistant Organisms: None Reported Past Surgical History: Heart Catheterization, Heart Catheterization With Stent, Hernia Repair, Orthopedic Surgery Additional Past Surgical History / Comment(s): L knee 3 arthroscopic surgeries, umbilical hernia repair, colonoscopy. Past Anesthesia/Blood Transfusion Reactions: No Reported Reaction Date of Last Stent Placement:: MARCH 2018 Past Psychological History: Anxiety, Depression Smoking Status: Former smoker, Light tobacco smoker Past Alcohol Use History: None Reported Past Drug Use History: None Reported - Past Family History Mother Family Medical History: Coronary Artery Disease (CAD), Diabetes Mellitus, Hyperlipidemia, Hypertension, Osteoarthritis (OA) Additional Family Medical History / Comment(s): Mother is living. Father Family Medical History: Deep Vein Thrombosis (DVT) Additional Family Medical History / Comment(s): Father recently passed d/t covid. heart issues, glaucoma General Exam Limitations: no limitations Course Vital Signs 12/06/20 12/06/20 12/06/20 20:06 20:16 21:04 Temperature 98.3 F Pulse Rate 107 H 103 H Pulse Rate [ Pulse Oximetery ] Respiratory 20 20 20 Rate Blood Pressure 118/78 119/71 Blood Pressure [Right Arm] O2 Sat by Pulse 96 97 Oximetry 12/07/20 12/07/20 12/07/20 00:00 06:19 16:09 Temperature 97.6 F Pulse Rate 109 H 102 H 100 Pulse Rate [ Pulse Oximetery ] Respiratory 18 20 Rate Blood Pressure 109/82 114/78 Blood Pressure [Right Arm] O2 Sat by Pulse 94 L 97 Oximetry 12/07/20 12/07/20 12/07/20 16:18 16:23 20:00 Temperature 97.3 F L 96.7 F L Pulse Rate 104 H Pulse Rate [ 110 H 118 H Pulse Oximetery ] Respiratory 18 18 Rate Blood Pressure Blood Pressure 113/71 116/72 [Right Arm] O2 Sat by Pulse 100 95 Oximetry 12/07/20 12/07/20 12/08/20 22:14 22:25 01:57 Temperature Pulse Rate 118 H 118 H Pulse Rate [ 93 Pulse Oximetery ] Respiratory 16 Rate Blood Pressure Blood Pressure 97/55 [Right Arm] O2 Sat by Pulse 93 L Oximetry 12/08/20 12/08/20 12/08/20 06:49 08:41 08:44 Temperature 97.6 F Pulse Rate 105 H Pulse Rate [ 109 H Pulse Oximetery ] Respiratory 20 18 Rate Blood Pressure Blood Pressure 109/63 [Right Arm] O2 Sat by Pulse 90 L 95 Oximetry 12/08/20 12/08/20 12/08/20 08:50 12:15 12:25 Temperature Pulse Rate 101 H 101 H 100 Pulse Rate [ Pulse Oximetery ] Respiratory 16 18 18 Rate Blood Pressure Blood Pressure [Right Arm] O2 Sat by Pulse Oximetry 12/08/20 12/08/20 12/08/20 14:22 15:45 15:56 Temperature 97.7 F Pulse Rate 101 H 100 Pulse Rate [ 104 H Pulse Oximetery ] Respiratory 20 18 18 Rate Blood Pressure Blood Pressure 103/62 [Right Arm] O2 Sat by Pulse 96 Oximetry Medical Decision Making - Lab Data Result diagrams: 12/10/20 08:24 12/09/20 06:11 Lab Results 12/06/20 12/06/20 12/06/20 Range/Units 20:50 21:03 21:03 WBC 10.8 H (3.8-10.6) k/uL RBC 3.89 L (4.30-5.90) m/uL Hgb 9.4 L D (13.0-17.5) gm/dL Hct 29.2 L (39.0-53.0) % MCV 75.2 L (80.0-100.0) fL MCH 24.1 L (25.0-35.0) pg MCHC 32.1 (31.0-37.0) g/dL RDW 16.5 H (11.5-15.5) % Plt Count 321 (150-450) k/uL MPV 7.2 Neutrophils % 81 % Lymphocytes % 15 % Monocytes % 2 % Eosinophils % 0 % Basophils % 1 % Neutrophils # 8.7 H (1.3-7.7) k/uL Lymphocytes # 1.7 (1.0-4.8) k/uL Monocytes # 0.2 (0-1.0) k/uL Eosinophils # 0.0 (0-0.7) k/uL Basophils # 0.1 (0-0.2) k/uL Hypochromasia Marked Poikilocytosis Marked Anisocytosis Slight Microcytosis Slight PT (9.0-12.0) sec INR (<1.2) APTT (22.0-30.0) sec Sodium (137-145) mmol/L Potassium (3.5-5.1) mmol/L Chloride (98-107) mmol/L Carbon Dioxide (22-30) mmol/L Anion Gap mmol/L BUN (9-20) mg/dL Creatinine (0.66-1.25) mg/dL Est GFR (CKD-EPI)AfAm (>60 ml/min/1.73 sqM) Est GFR (CKD-EPI)NonAf (>60 ml/min/1.73 sqM) Glucose (74-99) mg/dL Plasma Lactic Acid Juan (0.7-2.0) mmol/L Calcium (8.4-10.2) mg/dL Magnesium (1.6-2.3) mg/dL Troponin I <0.012 (0.000-0.034) ng/mL Stool Occult Blood (Negative) Coronavirus (PCR) (Not Detectd) Blood Type Blood Type Confirm AB Negative Blood Type Recheck Bld Type Recheck Status Antibody Screen Spec Expiration Date 12/06/20 12/06/20 12/06/20 Range/Units 21:03 21:03 21:03 WBC (3.8-10.6) k/uL RBC (4.30-5.90) m/uL Hgb (13.0-17.5) gm/dL Hct (39.0-53.0) % MCV (80.0-100.0) fL MCH (25.0-35.0) pg MCHC (31.0-37.0) g/dL RDW (11.5-15.5) % Plt Count (150-450) k/uL MPV Neutrophils % % Lymphocytes % % Monocytes % % Eosinophils % % Basophils % % Neutrophils # (1.3-7.7) k/uL Lymphocytes # (1.0-4.8) k/uL Monocytes # (0-1.0) k/uL Eosinophils # (0-0.7) k/uL Basophils # (0-0.2) k/uL Hypochromasia Poikilocytosis Anisocytosis Microcytosis PT 10.4 (9.0-12.0) sec INR 1.0 (<1.2) APTT 26.5 (22.0-30.0) sec Sodium 127 L (137-145) mmol/L Potassium 5.1 (3.5-5.1) mmol/L Chloride 90 L (98-107) mmol/L Carbon Dioxide 25 (22-30) mmol/L Anion Gap 12 mmol/L BUN 10 (9-20) mg/dL Creatinine 0.49 L (0.66-1.25) mg/dL Est GFR (CKD-EPI)AfAm >90 (>60 ml/min/1.73 sqM) Est GFR (CKD-EPI)NonAf >90 (>60 ml/min/1.73 sqM) Glucose 478 H (74-99) mg/dL Plasma Lactic Acid Juan 1.3 (0.7-2.0) mmol/L Calcium 8.4 (8.4-10.2) mg/dL Magnesium 1.6 (1.6-2.3) mg/dL Troponin I (0.000-0.034) ng/mL Stool Occult Blood (Negative) Coronavirus (PCR) (Not Detectd) Blood Type Blood Type Confirm Blood Type Recheck Bld Type Recheck Status Antibody Screen Spec Expiration Date 12/06/20 12/06/20 12/06/20 Range/Units 21:03 21:03 22:00 WBC (3.8-10.6) k/uL RBC (4.30-5.90) m/uL Hgb (13.0-17.5) gm/dL Hct (39.0-53.0) % MCV (80.0-100.0) fL MCH (25.0-35.0) pg MCHC (31.0-37.0) g/dL RDW (11.5-15.5) % Plt Count (150-450) k/uL MPV Neutrophils % % Lymphocytes % % Monocytes % % Eosinophils % % Basophils % % Neutrophils # (1.3-7.7) k/uL Lymphocytes # (1.0-4.8) k/uL Monocytes # (0-1.0) k/uL Eosinophils # (0-0.7) k/uL Basophils # (0-0.2) k/uL Hypochromasia Poikilocytosis Anisocytosis Microcytosis PT (9.0-12.0) sec INR (<1.2) APTT (22.0-30.0) sec Sodium (137-145) mmol/L Potassium (3.5-5.1) mmol/L Chloride (98-107) mmol/L Carbon Dioxide (22-30) mmol/L Anion Gap mmol/L BUN (9-20) mg/dL Creatinine (0.66-1.25) mg/dL Est GFR (CKD-EPI)AfAm (>60 ml/min/1.73 sqM) Est GFR (CKD-EPI)NonAf (>60 ml/min/1.73 sqM) Glucose (74-99) mg/dL Plasma Lactic Acid Juan (0.7-2.0) mmol/L Calcium (8.4-10.2) mg/dL Magnesium (1.6-2.3) mg/dL Troponin I (0.000-0.034) ng/mL Stool Occult Blood Positive (Negative) Coronavirus (PCR) Not Detected (Not Detectd) Blood Type AB Negative Blood Type Confirm Blood Type Recheck No Previous Record Bld Type Recheck Status CABO Indicated Antibody Screen NEGATIVE Spec Expiration Date 12/09/20202302 Disposition Clinical Impression: Pulmonary embolism Disposition: ADMITTED IP TO THIS HOSP Condition: Fair Decision Time: 07:31
[2020-12-06 21:24] LABS: Anisocytosis Slight; Basophils # (A) 0.1 k/uL (0-0.2); Basophils % (A) 1 %; Eosinophils % (A) 0 %; HCT 29.2 % (39.0-53.0); Hypochromasia Marked; Lymphocytes # (A) 1.7 k/uL (1.0-4.8); Lymphocytes % (A) 15 %; MCH 24.1 pg (25.0-35.0); MCHC 32.1 g/dL (31.0-37.0); MCV 75.2 fL (80.0-100.0); Mean Platelet Volume 7.2; Microcytosis Slight; Monocytes # (A) 0.2 k/uL (0-1.0); Monocytes % (A) 2 %; Neutrophils # (A) 8.7 k/uL (1.3-7.7); Neutrophils % (A) 81 %; Platelet Count 321 k/uL (150-450); Poikilocytosis Marked; RBC 3.89 m/uL (4.30-5.90); RDW 16.5 % (11.5-15.5); WBC 10.8 k/uL (3.8-10.6)
[2020-12-06 21:26] LABS: HGB 9.4 gm/dL (13.0-17.5)
[2020-12-06] MEDS ORDERED: PANTOPRAZOLE 40 MG/10 ML VIAL IVP STA (21:28)
[2020-12-06 21:32] LABS: Partial Thromboplastin Time 26.5 sec (22.0-30.0); Prothrombin Time 10.4 sec (9.0-12.0)
[2020-12-06 21:41] LABS: African American GFR (CKD) >90 (>60 ml/min/1.73 sqM); Anion Gap 12 mmol/L; Carbon Dioxide 25 mmol/L (22-30); Chloride 90 mmol/L (98-107); Glucose 478 mg/dL (74-99); Non-African American GFR(CKD) >90 (>60 ml/min/1.73 sqM); Potassium 5.1 mmol/L (3.5-5.1); Sodium 127 mmol/L (137-145)
[2020-12-06 21:42] LABS: Blood Urea Nitrogen 10 mg/dL (9-20); Calcium 8.4 mg/dL (8.4-10.2); Magnesium 1.6 mg/dL (1.6-2.3)
[2020-12-06] MEDS ORDERED: diphenhydrAMINE 50 MG/ML 1 ML VIAL IVP STA (22:00)
[2020-12-06] MEDS ORDERED: methylPREDNISolone SOD SUCCI 125 MG/2 ML VIAL IV STA (22:00)
[2020-12-06] MEDS ORDERED: FAMOTIDINE 20 MG/2 ML VIAL IV STA (22:00)
[2020-12-06] MEDS ORDERED: NALOXONE 0.4 MG/ML 1 ML VIAL IV PRN (22:41)
--- NOTE | 2020-12-07 00:01 | CT ---
EXAMINATION TYPE: CT angio chest DATE OF EXAM: 12/06/2020 COMPARISON: None HISTORY: R/O PE CT DLP: 665.80 mGycm Automated exposure control for dose reduction was used. CONTRAST: Performed with IV Contrast, patient injected with 100 mL of Isovue 370. Images obtained from the thoracic inlet to the diaphragm with IV contrast. There are 3-D post process ed images. There is extensive reticular bilateral pulmonary infiltrates. There is coalescent density in the dena phery of both lungs. There is some patchy areas of groundglass peripheral interstitial infiltrate. Th ere are bilateral enlarged bronchial lymph nodes up to 2 cm. Thoracic aorta is intact. There is no an eurysm or dissection. There is filling defect in the right lower lobe pulmonary artery and the chute operator ior basal segment branch. I see no bony destructive process. Thoracic spine is intact. IMPRESSION: There is right lower lobe pulmonary embolism. There is extensive pulmonary infiltrates consistent with pneumonia. Bronchial adenopathy. This exam was discussed with ER physician at 12:00 AM.
[2020-12-07] MEDS ORDERED: HEPARIN SODIUM,PORCINE 10,000 UNIT/ML 1 ML VIAL IV ONE (00:28)
[2020-12-07] MEDS ORDERED: HEPARIN SODIUM,PORCINE 5,000 UNIT/ML 1 ML VIAL IV PRN (00:28)
--- NOTE | 2020-12-07 00:37 | P.HPIM ---
History of Present Illness H&P Date: 12/06/20 Patient is a 45-year-old male with a complex PMH including coronary artery disease with multiple stents, type II DM, hypertension, hyperlipidemia, and asthma who was transferred from [facility] where he had presented earlier today with complaints of cough. The patient reports that he has had a persistent cough productive of clear phlegm over the past 10 days. He also reported mild LE swelling. Denied additional complaints. Denied chest pain, SOB, orthopnea, PND, fever, chills, or LE pain. The patient also denied diarrhea, black tarry stools or blood in stools. The patient had undergone an extensive evaluation at [facility] where laboratory evaluation revealed Tr oponin I level of 3.56 ng/ml, D-dimer 2,746, and Hgb of 9.3 down from 14.1. A CXR also had revealed bilateral diffuse airspace disease possible pneumonia vs fluid overload. The patient was subsequently transferred to [place] [facility] for NSTEMI and Community acquired pneumonia. The patient underwent repeat testing at [place] [facility] which revealed Troponin I < 0.012. D-dimer was not repeated. The patient underwent a CT chest angiogram which revealed a RLL PE along with extensive pulmonary infiltrates consistent with pneumonia. Coronavirus PCR was negative at both facilities. EKG reveeled sinus tach @ [address]-T wave changes noted as reviewed by me. Review of Systems Pertinent positives and negatives as discussed in HPI, a complete review of systems was performed and all other systems are negative. Past Medical History Past Medical History: Asthma, Coronary Artery Disease (CAD), Chest Pain / Angina, Heart Failure, COPD, Diabetes Mellitus, Hyperlipidemia, Hypertension, Liver Disease, Myocardial Infarction ([place]), Osteoarthritis (OA), Sleep Apnea/CPAP/BIPAP Additional Past Medical History / Comment(s): chronic back/neck pain, DDD, bulging/herniated discs, IDDM type II, neuropathy bilateral feet, "fatty liver", overactive bladder, colitis, SHALOM does not use device, bronchitis Last Myocardial Infarction Date:: APRIL 03 2016 History of Any Multi-Drug Resistant Organisms: None Reported Past Surgical History: Heart Catheterization, Heart Catheterization With Stent, Hernia Repair, Orthopedic Surgery Additional Past Surgical History / Comment(s): L knee 3 arthroscopic surgeries, umbilical hernia repair, colonoscopy. Past Anesthesia/Blood Transfusion Reactions: No Reported Reaction Date of Last Stent Placement:: MARCH 2018 Past Psychological History: Anxiety, Depression Smoking Status: Former smoker, Light tobacco smoker Past Alcohol Use History: None Reported Past Drug Use History: None Reported - Past Family History Mother Family Medical History: Coronary Artery Disease (CAD), Diabetes Mellitus, Hyperlipidemia, Hypertension, Osteoarthritis (OA) Additional Family Medical History / Comment(s): Mother is living. Father Family Medical History: Deep Vein Thrombosis (DVT) Additional Family Medical History / Comment(s): Father recently passed d/t covid. heart issues, glaucoma Medications and Allergies Home Medications Medication Instructions Recorded Confirmed Type Cyclobenzaprine [Flexeril] 10 mg PO BID 04/24/14 12/06/20 History Esomeprazole Magnesium [NexIUM] 20 mg PO DAILY 04/24/14 12/06/20 History Loratadine [Claritin] 10 mg PO DAILY 11/12/15 12/06/20 History Topiramate [Topamax] 50 mg PO DAILY 11/12/15 12/06/20 History Clopidogrel [Plavix] 75 mg PO DAILY #30 tab 11/18/15 12/06/20 Rx Nitroglycerin Sl Tabs [Nitrostat] 0.4 mg SUBLINGUAL Q5M PRN #25 tab 11/18/15 12/06/20 Rx lisinopriL [Zestril] 2.5 mg PO DAILY #30 tab 11/18/15 12/06/20 Rx Hydrocodone/Acetaminophen [[place] 1 tab PO QID 04/03/16 12/06/20 History 10-325] Metoprolol Tartrate [Lopressor] 12.5 mg PO BID 04/03/16 12/06/20 History Albuterol Nebulized [Ventolin 2.5 mg INHALATION RT-QID 03/20/18 12/06/20 History Nebulized] Atorvastatin [Lipitor] 80 mg PO HS 03/20/18 12/06/20 History metFORMIN HCL [metFORMIN HCL ER] 1,000 mg PO BID 03/20/18 12/06/20 History Aspirin 81 mg PO DAILY chew 03/27/18 12/06/20 Rx amLODIPine [Norvasc] 5 mg PO DAILY 07/16/19 12/06/20 History Albuterol Inhaler [Ventolin Hfa 2 puff INHALATION RT-Q4H PRN 11/06/20 12/06/20 History Inhaler] Fenofibrate 160 mg PO DAILY 11/06/20 12/06/20 History Galcanezumab-Gnlm [Emgality Pen] 120 mg SQ Q30D 11/06/20 12/06/20 History INSULIN ASPART (NovoLOG) [NovoLOG See Protocol SQ AC-TID 11/06/20 12/06/20 History (formulary)] Insulin Glargine,Hum.rec.anlog 50 unit SQ HS 11/06/20 12/06/20 History [Lantus Solostar] Montelukast [Singulair] 10 mg PO HS 11/06/20 12/06/20 History Pregabalin [Lyrica] 150 mg PO BID 11/06/20 12/06/20 History Semaglutide [Ozempic] 0.25 mg SQ WE 11/06/20 12/06/20 History buPROPion HCL [Wellbutrin XL] 300 mg PO DAILY 11/06/20 12/06/20 History Ibuprofen [Motrin] 800 mg PO Q8H PRN 12/06/20 12/06/20 History Allergies Allergy/AdvReac Type Severity Reaction Status Date / Time avocado Allergy Anaphylaxis Verified 12/06/20 21:16 Iodinated Contrast Media Allergy Anaphylaxis Verified 12/06/20 21:16 tomato [Tomato] Allergy Anaphylaxis Verified 12/06/20 21:16 cortisone AdvReac SUGAR GOES Verified 12/06/20 21:16 OVER 400 Physical Exam Vitals: Vital Signs Temp Pulse Resp BP Pulse Ox 12/06/20 21:04 103 H 20 119/71 97 12/06/20 20:16 20 12/06/20 20:06 98.3 F 107 H 20 118/78 96 Intake and Output 12/06/20 12/06/20 12/07/20 14:59 22:59 06:59 Other: Weight 93.894 kg General: non toxic, no distress, appears older than stated age, obese Derm: no unusual rashes/lesions no unusual ecchymoses, warm, dry Head: atraumatic, normocephalic, symmetric Eyes: EOMI, no lid lag, anicteric sclera, pupils equal round reactive to light ENT: Nose and ears atraumatic, no thrush, no pharyngeal erythema Neck: No thyromegaly, no cervical lymphadenopathy, trachea midline, supple Mouth: no lip lesion, mucus membranes moist Cardiovascular: S1S2 reg, no murmur, positive posterior tibial pulse bilateral, 1+ maranda LE pitting edema, capillary refill less than 2 seconds Lungs: Bibasilar rales, no ronchi or wheezing appreciated , no accessory muscle use Abdominal: soft, nontender to palpation, no guarding, no appreciable organomegaly, normal bowel sounds Ext: no gross muscle atrophy, muscle strength 5 out of 5 in all 4 extremities grossly, no contractures, Neuro: CN II-XI grossly intact, light touch intact all 4 extremities, finger to nose within normal limits, Psych: Alert, oriented, appropriate affect Results CBC & Chem 7: 12/06/20 21:03 12/06/20 21:03 Labs: Abnormal Lab Results - Last 24 Hours (Table) 12/06/20 12/06/20 Range/Units 21:03 21:03 WBC 10.8 H (3.8-10.6) k/uL RBC 3.89 L (4.30-5.90) m/uL Hgb 9.4 L D (13.0-17.5) gm/dL Hct 29.2 L (39.0-53.0) % MCV 75.2 L (80.0-100.0) fL MCH 24.1 L (25.0-35.0) pg RDW 16.5 H (11.5-15.5) % Neutrophils # 8.7 H (1.3-7.7) k/uL Sodium 127 L (137-145) mmol/L Chloride 90 L (98-107) mmol/L Creatinine 0.49 L (0.66-1.25) mg/dL Glucose 478 H (74-99) mg/dL Assessment and Plan Plan: Acute pulmonary embolism (unprovoked vs possible due to COVID) -Heparin infusion for now -Patient will need to have insurance checked for NOAC coverage Bilateral pneumonia, community acquired vs COVID (testing negative twice) -Azithromycin and Ceftriaxone -Obtain procalcitonin levels -Pulmonary consult Microcytic anemia -Obtain FOBT -Trend for now -Anemia w/u Type 2 DM -MARCELO with FS -Levemir 40 U qhs -Check A1C DVT prophylaxis -Heparin infusion The patient is admitted with an anticipated greater than 2 midnight stay for evaluation of PE CODE STATUS: Full Code Discussed with: patient Anticipated discharge date: 3-[address]: home A total of 40 minutes was spent on the care of this complex patient more than 50% of the time was spent in counseling and care coordination.
[2020-12-07] MEDS: INSULIN DETEMIR (LEVEMIR) 100 UNIT/ML SYR SQ SCH ×2 (01:19→17:29)
[2020-12-07] MEDS: HEPARIN SOD,PORK IN 0.45% NACL 25,000 UNIT in 0.45% NACL 1 250ML.BAG IV SCH ×2 (01:20→20:29)
[2020-12-07] MEDS: SODIUM CHLORIDE 0.9% 1,000 ML IV SCH ×2 (01:20→22:20)
[2020-12-07 05:55] LABS: Anisocytosis Slight; Basophils % (A) 0 %; Eosinophils % (A) 0 %; HCT 31.7 % (39.0-53.0); HGB 10.2 gm/dL (13.0-17.5); Hypochromasia Marked; Lymphocytes # (A) 1.9 k/uL (1.0-4.8); Lymphocytes % (A) 21 %; MCH 24.5 pg (25.0-35.0); MCHC 32.2 g/dL (31.0-37.0); MCV 76.1 fL (80.0-100.0); Mean Platelet Volume 7.1; Microcytosis Slight; Monocytes # (A) 0.1 k/uL (0-1.0); Monocytes % (A) 1 %; Neutrophils % (A) 75 %; Platelet Count 297 k/uL (150-450); Poikilocytosis Marked; RBC 4.17 m/uL (4.30-5.90); RDW 16.1 % (11.5-15.5); WBC 9.3 k/uL (3.8-10.6)
[2020-12-07 06:06] LABS: INR 1.1 (<1.2); Partial Thromboplastin Time 49.3 sec (22.0-30.0); Prothrombin Time 11.2 sec (9.0-12.0)
[2020-12-07 09:20] LABS: % Iron Saturation 15.59 (15.00-50.00)
[2020-12-07 10:02] LABS: Ferritin 1998.7 ng/mL (22.0-322.0)
[2020-12-07] MEDS: INSULIN ASPART (NovoLOG) 100 UNIT/ML VIAL SQ SCH ×4 (10:43→20:53)
[2020-12-07] MEDS: AZITHROMYCIN 500 MG TAB PO SCH ×2 (10:43→11:30)
--- NOTE | 2020-12-07 11:43 | P.CNPUL ---
History of Present Illness Consult date: 12/07/20 Requesting physician: Nancy Cr Reason for consult: dyspnea, cough, hypoxemia, pneumonia, abnormal CXR/CT (Objective) Chief complaint: Cough, phlegm production, pneumonia. History of present illness: 45-year-old male, who sees a nurse practitioner up in the [facility], for his healthcare, who presents to the emergency department, with 2 weeks of not feeling well. Include primarily shortness of breath, cough, phlegm production, and abnormal troponins. The patient see an outside hospital, transferred down. In addition, the patient had shortness of breath, and low saturations. He does have a history of heart failure, COPD, hypertension, and myocardial infarction. The patient had a CT angiogram which showed some right lower lobe infiltrate, and a right lower lobe pulmonary embolism as well. Currently, the patient is on 2 L nasal cannula. He is also getting IV heparin for the pulmonary embolism. He does have coronary artery disease, has had multiple stents. He states that he is tested negative twice for COVID. Does also have a history of diabetes, hyperlipidemia, and hypertension. He also has a history of sleep apnea syndrome. He is maintained on CPAP for that. He apparently still smokes cigarettes. White count is 9.3, hemoglobin 10.2, hematocrit 31.7, and platelet count 297,000. PTT is 49.3. Sodium 127, potassium 5.1, chlorides 90 CO2 25, anion gap 12, the urine 10, and creatinine 0.49. CT angiogram showed right lower lobe pulmonary embolism, and extensive bibasilar interstitial infiltrates with some groundglass areas. There is also some bilateral enlarged bronchial lymph nodes measuring up to 2 cm. Review of Systems REVIEW OF SYSTEMS: CONSTITUTIONAL: Weakness and fatigue. NEUROLOGIC: [ Negative.] HEENT: [ Negative.] CARDIAC: [Negative.] PULMONARY: Shortness of breath, cough, and phlegm production. GI: [Negative.] : [Negative.] RHEUMATOLOGIC: [ Negative.] IMMUNOLOGIC: [ Negative.] ENDOCRINE: [Negative. ] DERMATOLOGIC: [Negative.] Past Medical History Past Medical History: Asthma, Coronary Artery Disease (CAD), Chest Pain / Angina, Heart Failure, COPD, Diabetes Mellitus, Hyperlipidemia, Hypertension, Liver Disease, Myocardial Infarction ([place]), Osteoarthritis (OA), Sleep Apnea/CPAP/BIPAP Additional Past Medical History / Comment(s): chronic back/neck pain, DDD, bulging/herniated discs, IDDM type II, neuropathy bilateral feet, "fatty liver", overactive bladder, colitis, SHALOM does not use device, bronchitis Last Myocardial Infarction Date:: APRIL 03 2016 History of Any Multi-Drug Resistant Organisms: None Reported Past Surgical History: Heart Catheterization, Heart Catheterization With Stent, Hernia Repair, Orthopedic Surgery Additional Past Surgical History / Comment(s): L knee 3 arthroscopic surgeries, umbilical hernia repair, colonoscopy. Past Anesthesia/Blood Transfusion Reactions: No Reported Reaction Date of Last Stent Placement:: MARCH 2018 Past Psychological History: Anxiety, Depression Smoking Status: Former smoker, Light tobacco smoker Past Alcohol Use History: None Reported Past Drug Use History: None Reported - Past Family History Mother Family Medical History: Coronary Artery Disease (CAD), Diabetes Mellitus, Hyperlipidemia, Hypertension, Osteoarthritis (OA) Additional Family Medical History / Comment(s): Mother is living. Father Family Medical History: Deep Vein Thrombosis (DVT) Additional Family Medical History / Comment(s): Father recently passed d/t covid. heart issues, glaucoma Medications and Allergies Home Medications Medication Instructions Recorded Confirmed Type Cyclobenzaprine [Flexeril] 10 mg PO BID 04/24/14 12/06/20 History Esomeprazole Magnesium [NexIUM] 20 mg PO DAILY 04/24/14 12/06/20 History Loratadine [Claritin] 10 mg PO DAILY 11/12/15 12/06/20 History Topiramate [Topamax] 50 mg PO DAILY 11/12/15 12/06/20 History Clopidogrel [Plavix] 75 mg PO DAILY #30 tab 11/18/15 12/06/20 Rx Nitroglycerin Sl Tabs [Nitrostat] 0.4 mg SUBLINGUAL Q5M PRN #25 tab 11/18/15 12/06/20 Rx lisinopriL [Zestril] 2.5 mg PO DAILY #30 tab 11/18/15 12/06/20 Rx Hydrocodone/Acetaminophen [[place] 1 tab PO QID 04/03/16 12/06/20 History 10-325] Metoprolol Tartrate [Lopressor] 12.5 mg PO BID 04/03/16 12/06/20 History Albuterol Nebulized [Ventolin 2.5 mg INHALATION RT-QID 03/20/18 12/06/20 History Nebulized] Atorvastatin [Lipitor] 80 mg PO HS 03/20/18 12/06/20 History metFORMIN HCL [metFORMIN HCL ER] 1,000 mg PO BID 03/20/18 12/06/20 History Aspirin 81 mg PO DAILY chew 03/27/18 12/06/20 Rx amLODIPine [Norvasc] 5 mg PO DAILY 07/16/19 12/06/20 History Albuterol Inhaler [Ventolin Hfa 2 puff INHALATION RT-Q4H PRN 11/06/20 12/06/20 History Inhaler] Fenofibrate 160 mg PO DAILY 11/06/20 12/06/20 History Galcanezumab-Gnlm [Emgality Pen] 120 mg SQ Q30D 11/06/20 12/06/20 History INSULIN ASPART (NovoLOG) [NovoLOG See Protocol SQ AC-TID 11/06/20 12/06/20 History (formulary)] Insulin Glargine,Hum.rec.anlog 50 unit SQ HS 11/06/20 12/06/20 History [Lantus Solostar] Montelukast [Singulair] 10 mg PO HS 11/06/20 12/06/20 History Pregabalin [Lyrica] 150 mg PO BID 11/06/20 12/06/20 History Semaglutide [Ozempic] 0.25 mg SQ WE 11/06/20 12/06/20 History buPROPion HCL [Wellbutrin XL] 300 mg PO DAILY 11/06/20 12/06/20 History Ibuprofen [Motrin] 800 mg PO Q8H PRN 12/06/20 12/06/20 History Allergies Allergy/AdvReac Type Severity Reaction Status Date / Time avocado Allergy Anaphylaxis Verified 12/06/20 21:16 Iodinated Contrast Media Allergy Anaphylaxis Verified 12/06/20 21:16 tomato [Tomato] Allergy Anaphylaxis Verified 12/06/20 21:16 cortisone AdvReac SUGAR GOES Verified 12/06/20 21:16 OVER 400 Physical Exam Osteopathic Statement: *. No significant issues noted on an osteopathic structural exam other than those noted in the History and Physical/Consult. Vitals: Vital Signs Temp Pulse Resp BP Pulse Ox 12/07/20 06:19 97.6 F 102 H 20 114/78 97 12/07/20 00:00 109 H 18 109/82 94 L 12/06/20 21:04 103 H 20 119/71 97 12/06/20 20:16 20 12/06/20 20:06 98.3 F 107 H 20 118/78 96 Intake and Output 12/06/20 12/07/20 12/07/20 22:59 06:59 14:59 Other: Weight 93.894 kg No acute distress, oriented 3. Currently, the patient's on 2 L nasal cannula. Not receiving any IV fluids. Currently on IV heparin. HEENT examination is grossly unremarkable. Mucous membranes are moist. No oral lesions. Neck supple. Full range of motion. No adenopathy thyromegaly or neck vein distention. Cardiovascular examination reveals regular rhythm rate. S1-S2 normal. No S3 or S4. No discernible murmur noted. Heart rate 102 bpm. Lungs reveal diffuse bilateral basilar rhonchi and a few scattered crackles. No wheezes. Breath sounds equal bilaterally. Abdomen soft bowel sounds are heard. No masses or tenderness. Extremities are intact. No cyanosis clubbing or edema. Skin is without rash or lesion. Neurologic examination is brief but nonfocal. Results - Laboratory Findings CBC and BMP: 12/07/20 05:22 12/06/20 21:03 PT/INR, D-dimer PT 11.2 sec (9.0-12.0) 12/07/20 05:22 INR 1.1 (<1.2) 12/07/20 05:22 Abnormal lab findings: Abnormal Labs 12/06/20 12/06/20 12/07/20 21:03 21:03 05:22 WBC 10.8 H RBC 3.89 L 4.17 L Hgb 9.4 L D 10.2 L Hct 29.2 L 31.7 L MCV 75.2 L 76.1 L MCH 24.1 L 24.5 L RDW 16.5 H 16.1 H Neutrophils # 8.7 H APTT Sodium 127 L Chloride 90 L Creatinine 0.49 L Glucose 478 H Iron Ferritin Alkaline Phosphatase Lactate Dehydrogenase 12/07/20 12/07/20 05:22 05:22 WBC RBC Hgb Hct MCV MCH RDW Neutrophils # APTT 49.3 H Sodium Chloride Creatinine Glucose Iron 41 L Ferritin 1998.7 H Alkaline Phosphatase 210 H Lactate Dehydrogenase 746 H - Diagnostic Findings CT scan - chest: image reviewed Assessment and Plan Assessment: Shortness of breath, with acute hypoxemic respiratory failure, multifactorial, in part related to right lower lobe pulmonary embolism, and bibasilar infiltrates, consistent with pneumonia. COVID 19 testing negative. History of COPD, from previous and ongoing tobacco use. History of CAD with multiple stents in the past. Angina pectoris. History of congestive heart failure. History of diabetes mellitus, with diabetic neuropathy. History of hypertension. History of hyperlipidemia. Prior history of myocardial infarction. History of obstructive sleep apnea syndrome. History of DJD. History of degenerative disc disease. History of fatty liver. Plan: Plan dated 12/07/2020. Currently, the patient's on 2 L nasal cannula. In addition, the patient is on IV heparin for pulmonary embolism. His other medications are reviewed and include both Zithromax and Rocephin for community-acquired ammonia. I will add some updrafts treatments, and metformin DuoNeb, 4 times a day and when necessary. Additional recommendations and suggestions are forthcoming. Prognosis is guarded. We will continue to follow make recommendations were appropriate. Time with Patient: Greater than 30
[2020-12-07 12:16] LABS: Glucose,Whole Blood 462 mg/dL (75-99)
--- NOTE | 2020-12-07 14:38 | P.PN ---
Subjective Progress Note Date: 12/07/20 Patient is awake and alert today. He reports feeling short of breath when he lay flat. He denies any chest pain. No acute events overnight reported by nursing staff. Blood glucose noted to be elevated this morning. Objective - Vital Signs Vital signs: Vital Signs Temp 97.6 F 12/07/20 06:19 Pulse 102 H 12/07/20 06:19 Resp 20 12/07/20 06:19 BP 114/78 12/07/20 06:19 Pulse Ox 97 12/07/20 06:19 Intake & Output 12/06/20 12/07/20 12/07/20 18:59 06:59 18:59 Weight 93.894 kg - Exam General: The patient is awake and alert, in no distress Eye: there is normal conjunctiva bilaterally. Neck: The neck is supple, there is no JVD. Cardiovascular: Normal S1-S2, no S3-S4, no murmurs. Respiratory: Lungs clear to auscultation bilaterally Gastrointestinal: Abdomen is soft, nontender Musculoskeletal: There is no pedal edema. Neurological:. Speech is normal. Skin: Skin is warm and dry - Labs CBC & Chem 7: 12/07/20 05:22 12/06/20 21:03 Labs: Abnormal Lab Results - Last 24 Hours (Table) 12/06/20 12/06/20 12/07/20 Range/Units 21:03 21:03 05:22 WBC 10.8 H (3.8-10.6) k/uL RBC 3.89 L 4.17 L (4.30-5.90) m/uL Hgb 9.4 L D 10.2 L (13.0-17.5) gm/dL Hct 29.2 L 31.7 L (39.0-53.0) % MCV 75.2 L 76.1 L (80.0-100.0) fL MCH 24.1 L 24.5 L (25.0-35.0) pg RDW 16.5 H 16.1 H (11.5-15.5) % Neutrophils # 8.7 H (1.3-7.7) k/uL APTT (22.0-30.0) sec Sodium 127 L (137-145) mmol/L Chloride 90 L (98-107) mmol/L Creatinine 0.49 L (0.66-1.25) mg/dL Glucose 478 H (74-99) mg/dL POC Glucose (mg/dL) (75-99) mg/dL Iron (65-175) ug/dL Ferritin (22.0-322.0) ng/mL Alkaline Phosphatase (38-126) U/L Lactate Dehydrogenase (313-618) U/L Procalcitonin (0.02-0.09) ng/mL 12/07/20 12/07/20 12/07/20 Range/Units 05:22 05:22 05:22 WBC (3.8-10.6) k/uL RBC (4.30-5.90) m/uL Hgb (13.0-17.5) gm/dL Hct (39.0-53.0) % MCV (80.0-100.0) fL MCH (25.0-35.0) pg RDW (11.5-15.5) % Neutrophils # (1.3-7.7) k/uL APTT 49.3 H (22.0-30.0) sec Sodium (137-145) mmol/L Chloride (98-107) mmol/L Creatinine (0.66-1.25) mg/dL Glucose (74-99) mg/dL POC Glucose (mg/dL) (75-99) mg/dL Iron 41 L (65-175) ug/dL Ferritin 1998.7 H (22.0-322.0) ng/mL Alkaline Phosphatase 210 H (38-126) U/L Lactate Dehydrogenase 746 H (313-618) U/L Procalcitonin 0.17 H (0.02-0.09) ng/mL 12/07/20 Range/Units 12:13 WBC (3.8-10.6) k/uL RBC (4.30-5.90) m/uL Hgb (13.0-17.5) gm/dL Hct (39.0-53.0) % MCV (80.0-100.0) fL MCH (25.0-35.0) pg RDW (11.5-15.5) % Neutrophils # (1.3-7.7) k/uL APTT (22.0-30.0) sec Sodium (137-145) mmol/L Chloride (98-107) mmol/L Creatinine (0.66-1.25) mg/dL Glucose (74-99) mg/dL POC Glucose (mg/dL) 462 H (75-99) mg/dL Iron (65-175) ug/dL Ferritin (22.0-322.0) ng/mL Alkaline Phosphatase (38-126) U/L Lactate Dehydrogenase (313-618) U/L Procalcitonin (0.02-0.09) ng/mL Assessment and Plan Assessment: This is a 45-year-old male with a complex past medical history noted below who presented to an outside emergency room with worsening cough. Patient was evaluated and transferred to [facility] for admission and further management of his medical problems noted below. 1. Acute PE, started on anticoagulation with IV heparin. Seen and evaluated by pulmonology. I would obtain echocardiogram to assess right ventricular pressure and recheck EF 2. Right lung pneumonia, started on antibiotic with azithromycin and ceftriaxone. Pro-calcitonin 0.17 3. Worsening microcytic anemia with positive Hemoccult blood in the stool. GI consulted for further evaluation 3. Type 2 diabetes, resume home dose of insulin plus sliding scale 4. History of coronary artery disease with multivessel PCI and stent placement in the past on dual antiplatelet therapy with aspirin and Plavix. I will consult cardiology to discuss if possible to discontinue Plavix as now patient will be on full anticoagulation 5. Next hyperlipidemia and hypertriglyceridemia on Lipitor 80 mg daily 6. Medical noncompliance, patient admitted that he did not take any of his medications since last discharge from the hospital 7. Chronic medical problems, essential hypertension, obstructive sleep apnea, former smoker, underlying COPD
[2020-12-07] MEDS ORDERED: PATIENTS OWN MED SQ SCH (14:45)
[2020-12-07] MEDS: IPRATROPIUM-ALBUTEROL 3 ML NEB INHALATION SCH ×3 (16:07→22:14)
[2020-12-07 17:19] LABS: Glucose,Whole Blood 535 mg/dL (75-99)
[2020-12-07] MEDS ORDERED: INSULIN DETEMIR (LEVEMIR) 100 UNIT/ML SYR SQ ONE (17:27)
[2020-12-07] MEDS: HYDROcodone/APAP 10-325MG 1 EACH TAB PO SCH ×2 (17:32→22:19)
[2020-12-07 18:20] LABS: Hemoglobin A1C 14.1 % (4.0-6.0)
--- NOTE | 2020-12-07 19:41 | CONS ---
CONSULTATION DATE OF DICTATION: 12/07/2020 REASON FOR CONSULTATION: Anemia and Hemoccult-positive stool. HISTORY OF PRESENT ILLNESS: The patient is a 45-year-old pleasant white male with history of coronary artery disease, type 2 diabetes mellitus, hypertension, hyperlipidemia presented to the hospital and was diagnosed with acute pulmonary embolism. He was subsequently transferred to [facility] for further management. The patient was noted to have Hemoccult-positive stool and mild anemia. Hence we are consulted in regard to this issue. He denies any abdominal pain. He reports no rectal bleeding or melena. He denies any nausea, vomiting. The patient recalls having a colonoscopy in [facility] about 7 or 8 years ago and was told he has some kind of colitis, but he does not recall any details. Currently he has no diarrhea. He denies any prior history of peptic ulcer disease or recent NSAID use. PAST MEDICAL HISTORY: Significant for coronary artery disease, history of congestive heart failure, hypertension, diabetes mellitus, hyperlipidemia, sleep apnea, chronic back pain. PAST SURGICAL HISTORY: Cardiac catheterization with stent placement, hernia repair, left knee arthroscopy, umbilical hernia repair, colonoscopy 7 years ago. MEDICATIONS: Medications at home include Flexeril, Nexium, Claritin, Topamax, Plavix, Nitrostat, Zestril, [place], Lopressor, Ventolin, metformin, Lipitor, Norvasc, fenofibrate, Emgality, NovoLog, Lantus, Singulair, Lyrica, Wellbutrin, Motrin and Ozempic. ALLERGIES: IV CONTRAST DYE AND CORTISONE. SOCIAL HISTORY: Former smoker. No alcohol use. FAMILY HISTORY: Mother with diabetes mellitus, coronary artery disease, hypertension and hyperlipidemia. Father had DVT. REVIEW OF SYSTEMS: CARDIOPULMONARY: He did have some shortness of breath, which is much better. No chest pain. GENITOURINARY: Unremarkable. SKIN: Unremarkable. ENDOCRINE: Long-standing history of diabetes mellitus. PSYCHIATRIC: Unremarkable. NEUROLOGY: Unremarkable. ONCOLOGY: Unremarkable. ENT/VISION: Unremarkable. CONSTITUTIONAL: No recent weight loss. No fever, chills, night sweats. PHYSICAL EXAMINATION: He appears comfortable. VITAL SIGNS: Stable. Blood pressure is 114/78, pulse rate 102, temperature 97.6. HEENT examination unremarkable. Conjunctivae pink. Sclerae anicteric. Oral cavity no lesions. NECK: No JVD or lymph node enlargement. CHEST: Clear to auscultation. HEART: Regular rate and rhythm. ABDOMEN: Soft. Bowel sounds are positive. No organomegaly. EXTREMITIES: No pedal edema. SKIN: No rashes. NEUROLOGIC: He is alert and oriented x3. No focal deficits. LABS: WBC 10.8, hemoglobin 9.4, platelets are 321, MCV 75.2. PT and INR within normal limits. BUN is 10, creatinine 0.49. Iron is 41, TIBC 263, iron saturation is 15% and ferritin is elevated at 1998. Stool occult blood was positive. IMPRESSION: 1. Acute pulmonary embolism, presently on IV heparin drip. 2. Pneumonia, for which he was just started on antibiotics. 3. Microcytic anemia and Hemoccult-positive stool. Iron indices are not consistent with iron deficiency anemia. The patient denies any active GI bleeding currently. Last colonoscopy was about 7 or 8 years ago in [facility]. 4. History of hypertension and hyperlipidemia. 5. History of congestive heart failure. 6. History of diabetes mellitus. RECOMMENDATIONS: 1. Continue with current anticoagulation as suggested by Pulmonology. 2. Monitor CBC on a daily basis. 3. Since there is no evidence of active bleeding, no plans for any endoscopic intervention at the present time. However, I did mention to the patient to have a colonoscopy done on an outpatient basis in 3-6 months. 4. Continue with broad-spectrum antibiotics for possible pneumonia. 5. Will follow with you closely. Thank you for this consultation. MMODL / IJN: [id number] /
[2020-12-07] MEDS: ATORVASTATIN 80 MG TAB PO SCH (20:25)
[2020-12-07] MEDS: MONTELUKAST 10 MG TAB PO SCH (20:25)
[2020-12-07] MEDS: PREGABALIN 50 MG CAP PO SCH (20:25)
[2020-12-07 20:39] LABS: Glucose,Whole Blood 542 mg/dL (75-99)
[2020-12-07] MEDS ORDERED: INSULIN ASPART (NovoLOG) 100 UNIT/ML VIAL SQ ONE (20:51)
[2020-12-07] MEDS: METOPROLOL TARTRATE 12.5 MG TAB PO SCH (21:19)
[2020-12-08] MEDS: HEPARIN SOD,PORK IN 0.45% NACL 25,000 UNIT in 0.45% NACL 1 250ML.BAG IV SCH (04:30)
[2020-12-08 06:55] LABS: Glucose,Whole Blood 334 mg/dL (75-99)
[2020-12-08 07:13] LABS: Anisocytosis Slight; Basophils # (A) 0.1 k/uL (0-0.2); Basophils % (A) 0 %; Eosinophils # (A) 0.3 k/uL (0-0.7); Eosinophils % (A) 2 %; HCT 27.9 % (39.0-53.0); HGB 9.5 gm/dL (13.0-17.5); Hypochromasia Moderate; Lymphocytes # (A) 2.6 k/uL (1.0-4.8); Lymphocytes % (A) 20 %; MCH 25.3 pg (25.0-35.0); MCHC 34.2 g/dL (31.0-37.0); MCV 73.9 fL (80.0-100.0); Mean Platelet Volume 8.3; Microcytosis Moderate; Monocytes # (A) 0.4 k/uL (0-1.0); Monocytes % (A) 3 %; Neutrophils # (A) 9.6 k/uL (1.3-7.7); Neutrophils % (A) 73 %; Platelet Count 417 k/uL (150-450); Poikilocytosis Marked; RBC 3.77 m/uL (4.30-5.90); RDW 16.6 % (11.5-15.5); WBC 13.1 k/uL (3.8-10.6)
[2020-12-08] MEDS: INSULIN ASPART (NovoLOG) 100 UNIT/ML VIAL SQ SCH ×7 (07:44→21:38)
[2020-12-08] MEDS: PREGABALIN 50 MG CAP PO SCH ×2 (07:45→21:37)
[2020-12-08] MEDS: buPROPion XL 300 MG TAB.ER.24H PO SCH (07:45)
[2020-12-08] MEDS: FENOFIBRATE 160 MG TAB PO SCH (07:45)
[2020-12-08] MEDS: HYDROcodone/APAP 10-325MG 1 EACH TAB PO SCH ×4 (07:45→21:37)
[2020-12-08] MEDS: PANTOPRAZOLE 40 MG TABLET PO SCH (07:46)
[2020-12-08] MEDS: TOPIRAMATE 25 MG TAB PO SCH (07:46)
[2020-12-08] MEDS: ASPIRIN 81 MG PO SCH (07:46)
[2020-12-08] MEDS ORDERED: HEPARIN SODIUM,PORCINE 5,000 UNIT/ML 1 ML VIAL SQ STA (07:59)
[2020-12-08] MEDS: IPRATROPIUM-ALBUTEROL 3 ML NEB INHALATION SCH ×4 (08:41→19:47)
[2020-12-08] MEDS: METOPROLOL TARTRATE 12.5 MG TAB PO SCH ×2 (08:56→21:36)
[2020-12-08] MEDS ORDERED: CLOPIDOGREL 75 MG TAB PO SCH (09:00)
[2020-12-08] MEDS ORDERED: amLODIPine 5 MG TAB PO SCH (09:00)
--- NOTE | 2020-12-08 10:03 | P.CRDCN ---
History of Present Illness History of present illness: HISTORY OF PRESENT ILLNESS: This is a 45 year old male with a past medical history significant for coronary artery disease with multivessel PCI, elevated triglycerides, hypertension, type 2 diabetes mellitus, and COPD. Patient follows with Dr. Nguyen. We have been asked to see the patient in consultation for possible discontinuation of Plavix medication. Patient was transferred from [facility] yesterday secondary to elevated troponin, elevated d-dimer and pneumonia. CT chest revealed Right lower lobe pulmonary embolism and extensive pulmonary infiltrates consistent with pneumonia. Patient was started on heparin drip and ceftriaxone, azithromyci n. Pulmonary has been consulted. Patient with positive hemoccult blood in stool. GI has been consulted. Echocardiogram was obtained to assess for right ventricular pressure and left ventricular systolic function. Patient seen and examined at bedside, no acute distress. Does endorse some dizziness this morning. DIAGNOSTICS: EKG reveals sinus tachycardia Laboratory data: Troponin negative 1, Hemoglobin 9.5, WBC 13.1, platelets 417, hemoglobin A1c 14.1, sodium 127, potassium 5.1, creatinine 0.49, Stool occult blood positive, covid-19 negative Echo 10/2020: EF 60-65% Current home cardiac medications include lisinopril 2.5 mg daily, amlodipine 5 mg daily, metoprolol titrate, 12.5 mg twice a day, Plavix 75 mg daily, atorvastatin 80 mg nightly, aspirin 81 mg daily. Cardiac Catheterization: with Dr. Nguyen in July 2019 revealing patent stents within the OM branch and north fork AV groove circumflex with ostial stenosis in the AV groove circumflex which seemed to be around 70%, unchanged from prior cardiac cath in March 2018. REVIEW OF SYSTEMS: At the time of my exam: CONSTITUTIONAL: Denies fever or chills. HEENT: Denies blurred vision, vision changes, or eye pain. Denies hemoptysis CARDIOVASCULAR: Denies chest pain, orthopnea, PND or palpitations RESPIRATORY: +shortness of breath. GASTROINTESTINAL: Denies abdominal pain. Denies nausea or vomiting. HEMATOLOGIC: Denies bleeding disorders. GENITOURINARY: Denies any blood in urine. SKIN: Denies pruitis. Denies rash. PHYSICAL EXAM: VITAL SIGNS: Blood pressure 109/63, heart rate 109, afebrile maintaining oxygen saturation is on room air. GENERAL: Well-developed in no acute distress. HEENT: Head is normocephalic. Pupils are equal, round. Sclerae anicteric. Mucous membranes of the mouth are moist. Neck supple. No JVD or thyromegaly LUNGS: Respirations even and unlabored. Lungs essentially clear to auscultation bilaterally. HEART: Regular rate and rhythm. S1 and S2 heard. ABDOMEN: Soft. Nondistended. Nontender. EXTREMITIES: Normal range of motion. No clubbing or cyanosis. Peripheral pulses intact. +mild bilateral pedal edema NEUROLOGIC: Awake and alert. Oriented x 3. ASSESSMENT: Acute Pulmonary Embolism Anemia Right lung Pneumonia- on azithromycin and ceftriaxone Coronary artery disease with multivessel PCI Hypertension- hypotensive while inpatient Hypertriglyceridemia Type 2 Diabetes mellitus COPD Medication noncompliance PLAN: -2D echo results with left ventricular systolic function normal with EF 60-65%, RV is mildly enlarged, No RV heart strain. -Ok to discontinue Plavix at this time -Will also discontinue amlodipine with patient being hypotensive -Continue lisinopril 2.5 mg daily, metoprolol titrate 12.5 mg twice a day, atorvastatin 80 mg nightly, aspirin 81 mg daily. -Patient should follow up with Dr. Nguyen in the outpatient office. -No further cardiac workup indicated at this time. Please reach out for any other questions or concerns. Nurse practitioner note has been reviewed by physician. Signing provider agrees with the documented findings, assessment, and plan of care. Past Medical History Past Medical History: Asthma, Coronary Artery Disease (CAD), Chest Pain / Angina, Heart Failure, COPD, Diabetes Mellitus, Hyperlipidemia, Hypertension, Liver Disease, Myocardial Infarction (MT), Osteoarthritis (OA), Sleep Apnea/CPAP/BIPAP Additional Past Medical History / Comment(s): chronic back/neck pain, DDD, bulging/herniated discs, IDDM type II, neuropathy bilateral feet, "fatty liver", overactive bladder, colitis, SHALOM does not use device, bronchitis Last Myocardial Infarction Date:: APRIL 03 2016 History of Any Multi-Drug Resistant Organisms: None Reported Past Surgical History: Heart Catheterization, Heart Catheterization With Stent, Hernia Repair, Orthopedic Surgery Additional Past Surgical History / Comment(s): L knee 3 arthroscopic surgeries, umbilical hernia repair, colonoscopy. Past Anesthesia/Blood Transfusion Reactions: No Reported Reaction Date of Last Stent Placement:: MARCH 2018 Smoking Status: Former smoker - Past Family History Mother Family Medical History: Coronary Artery Disease (CAD), Diabetes Mellitus, Hyperlipidemia, Hypertension, Osteoarthritis (OA) Additional Family Medical History / Comment(s): Mother is living. Father Family Medical History: Deep Vein Thrombosis (DVT) Additional Family Medical History / Comment(s): Father recently passed d/t covid. heart issues, glaucoma Medications and Allergies Home Medications Medication Instructions Recorded Confirmed Type Cyclobenzaprine [Flexeril] 10 mg PO BID 04/24/14 12/06/20 History Esomeprazole Magnesium [NexIUM] 20 mg PO DAILY 04/24/14 12/06/20 History Loratadine [Claritin] 10 mg PO DAILY 11/12/15 12/06/20 History Topiramate [Topamax] 50 mg PO DAILY 11/12/15 12/06/20 History Clopidogrel [Plavix] 75 mg PO DAILY #30 tab 11/18/15 12/06/20 Rx Nitroglycerin Sl Tabs [Nitrostat] 0.4 mg SUBLINGUAL Q5M PRN #25 tab 11/18/15 12/06/20 Rx lisinopriL [Zestril] 2.5 mg PO DAILY #30 tab 11/18/15 12/06/20 Rx Hydrocodone/Acetaminophen [Christiana 1 tab PO QID 04/03/16 12/06/20 History 10-325] Metoprolol Tartrate [Lopressor] 12.5 mg PO BID 04/03/16 12/06/20 History Albuterol Nebulized [Ventolin 2.5 mg INHALATION RT-QID 03/20/18 12/06/20 History Nebulized] Atorvastatin [Lipitor] 80 mg PO HS 03/20/18 12/06/20 History metFORMIN HCL [metFORMIN HCL ER] 1,000 mg PO BID 03/20/18 12/06/20 History Aspirin 81 mg PO DAILY chew 03/27/18 12/06/20 Rx amLODIPine [Norvasc] 5 mg PO DAILY 07/16/19 12/06/20 History Albuterol Inhaler [Ventolin Hfa 2 puff INHALATION RT-Q4H PRN 11/06/20 12/06/20 History Inhaler] Fenofibrate 160 mg PO DAILY 11/06/20 12/06/20 History Galcanezumab-Gnlm [Emgality Pen] 120 mg SQ Q30D 11/06/20 12/06/20 History INSULIN ASPART (NovoLOG) [NovoLOG See Protocol SQ AC-TID 11/06/20 12/06/20 History (formulary)] Insulin Glargine,Hum.rec.anlog 50 unit SQ HS 11/06/20 12/06/20 History [Lantus Solostar] Montelukast [Singulair] 10 mg PO HS 11/06/20 12/06/20 History Pregabalin [Lyrica] 150 mg PO BID 11/06/20 12/06/20 History Semaglutide [Ozempic] 0.25 mg SQ WE 11/06/20 12/06/20 History buPROPion HCL [Wellbutrin XL] 300 mg PO DAILY 11/06/20 12/06/20 History Ibuprofen [Motrin] 800 mg PO Q8H PRN 12/06/20 12/06/20 History Allergies Allergy/AdvReac Type Severity Reaction Status Date / Time avocado Allergy Anaphylaxis Verified 12/06/20 21:16 Iodinated Contrast Media Allergy Anaphylaxis Verified 12/06/20 21:16 tomato [Tomato] Allergy Anaphylaxis Verified 12/06/20 21:16 cortisone AdvReac SUGAR GOES Verified 12/06/20 21:16 OVER 400 Physical Exam Vitals: Vital Signs Temp Pulse Pulse Resp BP Pulse Ox 12/08/20 08:50 101 H 16 12/08/20 08:44 95 12/08/20 08:41 105 H 18 12/08/20 06:49 97.6 F 109 H 20 109/63 90 L 12/08/20 01:57 93 16 97/55 93 L 12/07/20 22:25 118 H 12/07/20 22:14 118 H 12/07/20 20:00 96.7 F L 118 H 18 116/72 95 12/07/20 16:23 104 H 12/07/20 16:18 97.3 F L 110 H 18 113/71 100 12/07/20 16:09 100 Intake and Output 12/07/20 12/08/20 12/08/20 22:59 06:59 14:59 Intake Total 792.8 295.49 57.182 Balance 792.8 295.49 57.182 Intake: Intake, IV Titration 552.8 295.49 57.182 Amount Heparin Sod,Pork in 0.45% 452.8 135.49 57.182 NaCl 25,000 unit In 0.45 % NaCl 1 250ml.bag @ 18 UNITS/KG/HR 16.901 mls/hr IV .[id number] RILEY Rx#: [id number] Sodium Chloride 0.9% 1, 160 000 ml @ 20 mls/hr IV . Q24H RILEY Rx#:[id number] cefTRIAXone 1 gm In 100 Sodium Chloride 0.9% 50 ml @ 100 mls/hr IVPB Q24HR RILEY Rx#:[id number] Oral 240 Other: # Voids 1 1 Results 12/08/20 06:43 12/06/20 21:03 Coagulation 12/08/20 Range/Units 06:43 APTT 25.6 (22.0-30.0) sec CBC 12/08/20 Range/Units 06:43 WBC 13.1 H (3.8-10.6) k/uL RBC 3.77 L (4.30-5.90) m/uL Hgb 9.5 L (13.0-17.5) gm/dL Hct 27.9 L (39.0-53.0) % Plt Count 417 (150-450) k/uL Current Medications Generic Name Dose Route Start Last Admin Trade Name Freq PRN Reason Stop Dose Admin Acetaminophen 650 mg 12/06/20 22:41 Acetaminophen Tab 325 Mg Tab PO Q6HR PRN Mild Pain or Fever > 100.5 Hydrocodone Bitart/Acetaminophen 1 each 12/07/20 18:00 12/08/20 07:45 Hydrocodone/Apap 10-325mg 1 Each Tab PO 1 each QID RILEY Administration Albuterol/Ipratropium 3 ml 12/07/20 12:00 12/08/20 08:41 Ipratropium-Albuterol 3 Ml Neb INHALATION 3 ml RT-QID RILEY Administration Albuterol/Ipratropium 3 ml 12/07/20 11:43 Ipratropium-Albuterol 3 Ml Neb INHALATION RT-Q2H PRN Shortness Of Breath Or Wheezing Amlodipine Besylate 5 mg 12/08/20 09:00 12/08/20 07:46 Amlodipine 5 Mg Tab PO 5 mg DAILY RILEY Administration Aspirin 81 mg 12/08/20 09:00 12/08/20 07:46 Aspirin 81 Mg PO 81 mg DAILY RILEY Administration Atorvastatin Calcium 80 mg 12/07/20 21:00 12/07/20 20:25 Atorvastatin 80 Mg Tab PO 80 mg HS RILEY Administration Azithromycin 500 mg 12/07/20 09:00 12/07/20 11:30 Azithromycin 500 Mg Tab PO 500 mg DAILY RILEY Administration Bupropion HCl 300 mg 12/08/20 09:00 12/08/20 07:45 Bupropion Xl 300 Mg Tab.Er.24h PO 300 mg DAILY RILEY Administration Clopidogrel Bisulfate 75 mg 12/08/20 09:00 12/08/20 07:46 Clopidogrel 75 Mg Tab PO 75 mg DAILY RILEY Administration Fenofibrate 160 mg 12/08/20 09:00 12/08/20 07:45 Fenofibrate 160 Mg Tab PO 160 mg DAILY RILEY Administration Heparin Sodium (Porcine) 0 unit 12/07/20 00:28 Heparin Sodium,Porcine 5,000 Unit/Ml 1 Ml Vial IV PER PROTOCOL PRN Low PTT Protocol Sodium Chloride 1,000 mls @ 20 mls/hr 12/06/20 22:45 12/07/20 22:20 Saline 0.9% IV 20 mls/hr .Q24H RILEY Administration Heparin Sodium/Sodium Chloride 250 mls @ 16.901 mls/hr 12/07/20 00:30 12/08/20 07:53 25,000 unit/ Sodium Chloride IV 22 units/kg/hr .[id number] RILEY 20.657 mls/hr Titration Protocol 18 UNITS/KG/HR Ceftriaxone Sodium 1 gm/ 50 mls @ 100 mls/hr 12/07/20 09:00 12/08/20 08:55 Sodium Chloride IVPB 100 mls/hr Q24HR RILEY Administration Insulin Aspart 0 unit 12/07/20 07:30 12/08/20 07:45 Insulin Aspart (Novolog) 100 Unit/Ml Vial SQ 6 unit ACHS RILEY Administration Protocol Insulin Aspart 7 unit 12/08/20 07:30 12/08/20 07:44 Insulin Aspart (Novolog) 100 Unit/Ml Vial SQ 7 unit AC-TID RILEY Administration Insulin Detemir 40 unit 12/07/20 00:45 12/07/20 17:29 Insulin Detemir (Levemir) 100 Unit/Ml Syr SQ Not Given HS [facility] Lisinopril 2.5 mg 12/08/20 09:00 12/08/20 07:44 Lisinopril 2.5 Mg Tab PO 2.5 mg DAILY RILEY Administration Metoprolol Tartrate 12.5 mg 12/07/20 21:00 12/08/20 08:56 Metoprolol Tartrate 12.5 Mg Tab PO 12.5 mg BID RILEY Administration Montelukast Sodium 10 mg 12/07/20 21:00 12/07/20 20:25 Montelukast 10 Mg Tab PO 10 mg HS RILEY Administration Naloxone HCl 0.2 mg 12/06/20 22:41 Naloxone 0.4 Mg/Ml 1 Ml Vial IV Q2M PRN Opioid Reversal Non-Formulary Medication 120 each 12/07/20 14:45 12/07/20 16:39 Patients Own Med SQ Not Given Q30D [facility]LEY Pantoprazole Sodium 40 mg 12/08/20 07:30 12/08/20 07:46 Pantoprazole 40 Mg Tablet PO 40 mg DAILY@0730 RILEY Administration Pregabalin 150 mg 12/07/20 21:00 12/08/20 07:45 Pregabalin 50 Mg Cap PO 150 mg BID RILEY Administration Topiramate 50 mg 12/08/20 09:00 12/08/20 07:46 Topiramate 25 Mg Tab PO 50 mg DAILY RILEY Administration Intake and Output 12/07/20 12/08/20 12/08/20 22:59 06:59 14:59 Intake Total 792.8 295.49 57.182 Balance 792.8 295.49 57.182 Intake: Intake, IV Titration 552.8 295.49 57.182 Amount Heparin Sod,Pork in 0.45% 452.8 135.49 57.182 NaCl 25,000 unit In 0.45 % NaCl 1 250ml.bag @ 18 UNITS/KG/HR 16.901 mls/hr IV .[id number] RILEY Rx#: [id number] Sodium Chloride 0.9% 1, 160 000 ml @ 20 mls/hr IV . Q24H [facility]LEY Rx#:[id number] cefTRIAXone 1 gm In 100 Sodium Chloride 0.9% 50 ml @ 100 mls/hr IVPB Q24HR RILEY Rx#:[id number] Oral 240 Other: # Voids 1 1 12/08/20 06:43 12/06/20 21:03
--- NOTE | 2020-12-08 10:52 | ECHOF ---
Referral Reason:Pulmonary emboli, rule out RV strain, assess EF MEASUREMENTS -------- HEIGHT: 172.7 cm WEIGHT: 93.9 kg BP: 114/78 RVIDd: 3.3 cm (< 3.3) IVSd: 1.4 cm (0.6 - 1.1) LVIDd: 3.8 cm (3.9 - 5.3) LVPWd: 1.3 cm (0.6 - 1.1) IVSs: 1.7 cm LVIDs: 2.8 cm LVPWs: 1.6 cm LA Diam: 3.3 cm (2.7 - 3.8) LAESV Index (A-L): 15.95 ml/m Ao Diam: 3.1 cm (2.0 - 3.7) AV Cusp: 2.0 cm (1.5 - 2.6) MV EXCURSION: 17.896 mm (> 18.000) MV EF SLOPE: 98 mm/s (70 - 150) EPSS: 0.7 cm MV E Ken: 1.33 m/s MV DecT: 77 ms MV A Ken: 0.50 m/s MV E/A Ratio: 2.68 RAP: 5.00 mmHg RVSP: 22.12 mmHg FINDINGS -------- Resting tachycardia (HR>100bpm). This was a technically good study. The left ventricular size is normal. There is moderate concentric left ventricular hypertrophy. O verall left ventricular systolic function is normal with, an EF between 60 - 65 %. The right ventricle is mildly enlarged. Normal LA size by volume 22+/-6 ml/m2. The right atrium is normal in size. Interatrial and interventricular septum intact. There is mild aortic valve sclerosis. There is trace to mild mitral regurgitation. Trace tricuspid regurgitation present. Right ventricular systolic pressure is normal at < 35 mmHg. Trace/mild (physiologic) pulmonic regurgitation. The aortic root size is normal. Normal inferior vena cava with normal inspiratory collapse consistent with estimated right atrial pre ssure of 5 mmHg. There is no pericardial effusion. CONCLUSIONS -------- 1. Resting tachycardia (HR>100bpm). 2. The left ventricular size is normal. 3. There is moderate concentric left ventricular hypertrophy. 4. Overall left ventricular systolic function is normal with, an EF between 60 - 65 %. 5. The right ventricle is mildly enlarged. 6. Normal LA size by volume 22+/-6 ml/m2. 7. There is mild aortic valve sclerosis. 8. There is trace to mild mitral regurgitation. 9. Trace tricuspid regurgitation present. 10. Trace/mild (physiologic) pulmonic regurgitation. 11. There is no pericardial effusion. BED MACHINE OPERATOR: Roxie Durant RDCS
--- NOTE | 2020-12-08 11:05 | P.PN ---
Subjective Progress Note Date: 12/08/20 Principal diagnosis: Rectal bleeding, lower GI hemorrhage This is a 45-year-old female who presented to the hospital with diagnosis of acute pulmonary embolism and pneumonia. He was started on a heparin drip for his pulmonary embolism and was noted to have a drop in his hemoglobin, therefore an occult stool was ordered and found to be positive. The patient has denied any signs or symptoms of any GI bleed since his admission or before. Today he is seen and evaluated at the bedside. He denies any abdominal pain, nausea, or vomiting. He has not had any signs of GI bleed. He has had normal brown bowel movements. He is coughing up sputum, however no blood noted. Hemoglobin this morning is 9.5 Objective - Vital Signs Vital signs: Vital Signs Temp 97.6 F 12/08/20 06:49 Pulse 101 H 12/08/20 08:50 Resp 16 12/08/20 08:50 BP 109/63 12/08/20 06:49 Pulse Ox 95 12/08/20 08:44 Intake & Output 12/07/20 12/08/20 12/08/20 18:59 06:59 18:59 Intake Total 552.8 535.49 57.182 Balance 552.8 535.49 57.182 Weight 93.894 kg Intake: Intake, IV Titration 552.8 295.49 57.182 Amount Heparin Sod,Pork in 0.45% 452.8 135.49 57.182 NaCl 25,000 unit In 0.45 % NaCl 1 250ml.bag @ 18 UNITS/KG/HR 16.901 mls/hr IV .[id number] [facility] Rx#: [id number] Sodium Chloride 0.9% 1, 160 000 ml @ 20 mls/hr IV . Q24H [facility] Rx#:[id number] cefTRIAXone 1 gm In 100 Sodium Chloride 0.9% 50 ml @ 100 mls/hr IVPB Q24HR [facility]LEY Rx#:[id number] Oral 240 Other: # Voids 1 - Exam General appearance: The patient is alert, oriented, appears in no acute distress. HET: Head is normocephalic and atraumatic. Conjunctiva pink. Sclera anicteric. Neck: Supple without lymphadenopathy. Abdomen: Soft, nontender, nondistended with bowel sounds. No guarding or rigidity. Extremities: Normal skin color and turgor. No pedal edema Skin: No rashes, no jaundice Neurological: No focal deficits. Alert and oriented 3. - Labs CBC & Chem 7: 12/08/20 06:43 12/06/20 21:03 Labs: Abnormal Lab Results - Last 24 Hours (Table) 12/07/20 12/07/20 12/07/20 Range/Units 05:22 05:22 05:22 WBC (3.8-10.6) k/uL RBC (4.30-5.90) m/uL Hgb (13.0-17.5) gm/dL Hct (39.0-53.0) % MCV (80.0-100.0) fL RDW (11.5-15.5) % Neutrophils # (1.3-7.7) k/uL POC Glucose (mg/dL) (75-99) mg/dL Hemoglobin A1c 14.1 H (4.0-6.0) % Iron 41 L (65-175) ug/dL Ferritin 1998.7 H (22.0-322.0) ng/mL Procalcitonin 0.17 H (0.02-0.09) ng/mL 12/07/20 12/07/20 12/07/20 Range/Units 12:13 17:17 20:36 WBC (3.8-10.6) k/uL RBC (4.30-5.90) m/uL Hgb (13.0-17.5) gm/dL Hct (39.0-53.0) % MCV (80.0-100.0) fL RDW (11.5-15.5) % Neutrophils # (1.3-7.7) k/uL POC Glucose (mg/dL) 462 H 535 H 542 H (75-99) mg/dL Hemoglobin A1c (4.0-6.0) % Iron (65-175) ug/dL Ferritin (22.0-322.0) ng/mL Procalcitonin (0.02-0.09) ng/mL 12/08/20 12/08/20 Range/Units 06:43 06:45 WBC 13.1 H (3.8-10.6) k/uL RBC 3.77 L (4.30-5.90) m/uL Hgb 9.5 L (13.0-17.5) gm/dL Hct 27.9 L (39.0-53.0) % MCV 73.9 L (80.0-100.0) fL RDW 16.6 H (11.5-15.5) % Neutrophils # 9.6 H (1.3-7.7) k/uL POC Glucose (mg/dL) 334 H (75-99) mg/dL Hemoglobin A1c (4.0-6.0) % Iron (65-175) ug/dL Ferritin (22.0-322.0) ng/mL Procalcitonin (0.02-0.09) ng/mL Assessment and Plan (1) Anemia Narrative/Plan: Prostatic anemia and Hemoccult-positive stool. Iron indices are not consistent with iron deficiency anemia. The patient denies any active GI bleed currently. Last colonoscopy was 78 years ago at [facility]. Current Visit: Yes Status: Acute Code(s): D64.9 - ANEMIA, UNSPECIFIED SNOMED Code(s): 382455137 (2) Positive occult stool blood test Current Visit: Yes Status: Acute Code(s): R19.5 - OTHER FECAL ABNORMALITIES SNOMED Code(s): 92880538 (3) Pneumonia Narrative/Plan: Being followed closely by pulmonology, on antibiotics Current Visit: Yes Status: Acute Code(s): J18.9 - PNEUMONIA, UNSPECIFIED ORGANISM SNOMED Code(s): 258056652 (4) Pulmonary embolism Narrative/Plan: Pulmonology closing following patient, currently on heparin drip Current Visit: Yes Status: Acute Code(s): I26.99 - OTHER PULMONARY EMBOLISM WITHOUT ACUTE COR PULMONALE SNOMED Code(s): 73595355 (5) HTN (hypertension) Current Visit: No Status: Acute Code(s): I10 - ESSENTIAL (PRIMARY) HYPERTENSION SNOMED Code(s): 59950291 (6) Hyperlipemia Current Visit: No Status: Acute Code(s): E78.5 - HYPERLIPIDEMIA, UNSPECIFIED SNOMED Code(s): 55173959 Plan: 1. Supportive care 2. Continue with current anticoagulation as recommended per pulmonology 3. CBC daily 4. No evidence of active GI bleed, no plans for any endoscopic intervention at the present time. Discussed with patient to follow-up and schedule outpatient colonoscopy within the next 3-6 months. 5. Continue with broad-spectrum antibiotics as ordered Thank you for this consultation we will continue to follow Dr. Adilia Nguyen I agree with the dictator's note, documented as a scribe by Ivory Rizo.
--- NOTE | 2020-12-08 11:19 | P.PN ---
Subjective Progress Note Date: 12/08/20 Principal diagnosis: Shortness of breath. 45-year-old male, who sees a nurse practitioner up in the [facility], for his healthcare, who presents to the emergency department, with 2 weeks of not feeling well. Include primarily shortness of breath, cough, phlegm production, and abnormal troponins. The patient see an outside hospital, transferred down. In addition, the patient had shortness of breath, and low saturations. He does have a history of heart failure, COPD, hypertension, and myocardial infarction. The patient had a CT angiogram which showed some right lower lobe infiltrate, and a right lower lobe pulmonary embolism as well. Currently, the patient is on 2 L nasal cannula. He is also getting IV heparin for the pulmonary embolism. He does have coronary artery disease, has had multiple stents. He states that he is tested negative twice for COVID. Does also have a history of diabetes, hyperlipidemia, and hypertension. He also has a history of sleep apnea syndrome. He is maintained on CPAP for that. He apparently still smokes cigarettes. White count is 9.3, hemoglobin 10.2, hematocrit 31.7, and platelet count 297,000. PTT is 49.3. Sodium 127, potassium 5.1, chlorides 90 CO2 25, anion gap 12, the urine 10, and creatinine 0.49. CT angiogram showed right lower lobe pulmonary embolism, and extensive bibasilar interstitial infiltrates with some groundglass areas. There is also some bilateral enlarged bronchial lymph nodes measuring up to 2 cm. Progress note dated 12/08/2020. The patient is again seen in the observation unit. He's in room 160. Is currently on room air. Saturations are 93%. He is getting saline at 20 mL an h our, and also heparin via weightbase protocol. A CT angiogram showed right lower lobe pulmonary embolism, and extensive bibasilar infiltrates with groundglass areas. Currently, the patient denies any shortness of breath. He does have chest congestion and cough. He denies any fever or chills. He also denies nausea and vomiting. White count is 13.1, hemoglobin 9.5, hematocrit 27.9, and platelet count 417,000. Objective - Vital Signs Vital signs: Vital Signs Temp 97.6 F 12/08/20 06:49 Pulse 101 H 12/08/20 08:50 Resp 16 12/08/20 08:50 BP 109/63 12/08/20 06:49 Pulse Ox 95 12/08/20 08:44 Intake & Output 12/07/20 12/08/20 12/08/20 18:59 06:59 18:59 Intake Total 552.8 535.49 297.182 Balance 552.8 535.49 297.182 Weight 93.894 kg Intake: Intake, IV Titration 552.8 295.49 57.182 Amount Heparin Sod,Pork in 0.45% 452.8 135.49 57.182 NaCl 25,000 unit In 0.45 % NaCl 1 250ml.bag @ 18 UNITS/KG/HR 16.901 mls/hr IV .[id number] [facility] Rx#: [id number] Sodium Chloride 0.9% 1, 160 000 ml @ 20 mls/hr IV . Q24H [facility] Rx#:[id number] cefTRIAXone 1 gm In 100 Sodium Chloride 0.9% 50 ml @ 100 mls/hr IVPB Q24HR [facility] Rx#:[id number] Oral 240 240 Other: # Voids 1 - Exam No acute distress, oriented 3. Currently, the patient's on room air. Currently, the patient is receiving saline at 20 mL an hour. Currently on IV heparin. HEENT examination is grossly unremarkable. Mucous membranes are moist. No oral lesions. Neck supple. Full range of motion. No adenopathy thyromegaly or neck vein distention. Cardiovascular examination reveals regular rhythm rate. S1-S2 normal. No S3 or S4. No discernible murmur noted. Heart rate 101 bpm. Lungs reveal diffuse bilateral basilar rhonchi and a few scattered crackles. No wheezes. Breath sounds equal bilaterally. Abdomen soft bowel sounds are heard. No masses or tenderness. Extremities are intact. No cyanosis clubbing or edema. Skin is without rash or lesion. Neurologic examination is brief but nonfocal. - Labs CBC & Chem 7: 12/08/20 06:43 12/06/20 21:03 Labs: Abnormal Lab Results - Last 24 Hours (Table) 12/07/20 12/07/20 12/07/20 Range/Units 05:22 05:22 12:13 WBC (3.8-10.6) k/uL RBC (4.30-5.90) m/uL Hgb (13.0-17.5) gm/dL Hct (39.0-53.0) % MCV (80.0-100.0) fL RDW (11.5-15.5) % Neutrophils # (1.3-7.7) k/uL POC Glucose (mg/dL) 462 H (75-99) mg/dL Hemoglobin A1c 14.1 H (4.0-6.0) % Procalcitonin 0.17 H (0.02-0.09) ng/mL 12/07/20 12/07/20 12/08/20 Range/Units 17:17 20:36 06:43 WBC 13.1 H (3.8-10.6) k/uL RBC 3.77 L (4.30-5.90) m/uL Hgb 9.5 L (13.0-17.5) gm/dL Hct 27.9 L (39.0-53.0) % MCV 73.9 L (80.0-100.0) fL RDW 16.6 H (11.5-15.5) % Neutrophils # 9.6 H (1.3-7.7) k/uL POC Glucose (mg/dL) 535 H 542 H (75-99) mg/dL Hemoglobin A1c (4.0-6.0) % Procalcitonin (0.02-0.09) ng/mL 12/08/20 Range/Units 06:45 WBC (3.8-10.6) k/uL RBC (4.30-5.90) m/uL Hgb (13.0-17.5) gm/dL Hct (39.0-53.0) % MCV (80.0-100.0) fL RDW (11.5-15.5) % Neutrophils # (1.3-7.7) k/uL POC Glucose (mg/dL) 334 H (75-99) mg/dL Hemoglobin A1c (4.0-6.0) % Procalcitonin (0.02-0.09) ng/mL Assessment and Plan Assessment: Shortness of breath, with acute hypoxemic respiratory failure, multifactorial, in part related to right lower lobe pulmonary embolism, and bibasilar infiltrates, consistent with pneumonia. COVID 19 testing negative. History of COPD, from previous and ongoing tobacco use. History of CAD with multiple stents in the past. Angina pectoris. History of congestive heart failure. History of diabetes mellitus, with diabetic neuropathy. History of hypertension. History of hyperlipidemia. Prior history of myocardial infarction. History of obstructive sleep apnea syndrome. History of DJD. History of degenerative disc disease. History of fatty liver. Plan: Plan dated 12/07/2020. Currently, the patient's on 2 L nasal cannula. In addition, the patient is on IV heparin for pulmonary embolism. His other medications are reviewed and include both Zithromax and Rocephin for community-acquired ammonia. I will add some updrafts treatments, and metformin DuoNeb, 4 times a day and when necess jcarlos. Additional recommendations and suggestions are forthcoming. Prognosis is guarded. We will continue to follow make recommendations were appropriate. Plan dated 12/08/2020. The patient remains on Rocephin and Zithromax. The patient's currently on IV heparin. He could be converted to a factor X a inhibitor. The rest of his medications appear to be appropriate. The patient should follow up with us after discharge. The patient will need a follow-up CT angiogram in about 10-12 weeks. Additional recommendations and suggestions are forthcoming. Prognosis is guarded. The patient's room air saturation is 93%. I'm not sure when the patient will be discharged. He will continue to follow make recommendations were appropriate. Time with Patient: Less than 30
[2020-12-08 11:21] LABS: Glucose,Whole Blood 346 mg/dL (75-99)
--- NOTE | 2020-12-08 13:31 | P.PN ---
Subjective Progress Note Date: 12/08/20 Patient is doing fairly well despite morning. He was having some difficulty with dizziness earlier. Also blood glucose not well controlled. Patient received IV Solu-Medrol in the ER otherwise is not on any steroids. Objective - Vital Signs Vital signs: Vital Signs Temp 97.6 F 12/08/20 06:49 Pulse 100 12/08/20 12:25 Resp 18 12/08/20 12:25 BP 109/63 12/08/20 06:49 Pulse Ox 95 12/08/20 08:44 Intake & Output 12/07/20 12/08/20 12/08/20 18:59 06:59 18:59 Intake Total 552.8 535.49 640.123 Balance 552.8 535.49 640.123 Weight 93.894 kg Intake: Intake, IV Titration 552.8 295.49 160.123 Amount Heparin Sod,Pork in 0.45% 452.8 135.49 160.123 NaCl 25,000 unit In 0.45 % NaCl 1 250ml.bag @ 18 UNITS/KG/HR 16.901 mls/hr IV .[id number] [facility] Rx#: [id number] Sodium Chloride 0.9% 1, 160 000 ml @ 20 mls/hr IV . Q24H [facility] Rx#:[id number] cefTRIAXone 1 gm In 100 Sodium Chloride 0.9% 50 ml @ 100 mls/hr IVPB Q24HR [facility] Rx#:[id number] Oral 240 480 Other: # Voids 1 - Exam General: The patient is awake and alert, in no distress Eye: there is normal conjunctiva bilaterally. Neck: The neck is supple, there is no JVD. Cardiovascular: Normal S1-S2, no S3-S4, no murmurs. Respiratory: Lungs clear to auscultation bilaterally Gastrointestinal: Abdomen is soft, nontender Musculoskeletal: There is no pedal edema. Neurological:. Speech is normal. Skin: Skin is warm and dry - Labs CBC & Chem 7: 12/08/20 06:43 12/06/20 21:03 Labs: Abnormal Lab Results - Last 24 Hours (Table) 12/07/20 12/07/20 12/07/20 Range/Units 05:22 05:22 17:17 WBC (3.8-10.6) k/uL RBC (4.30-5.90) m/uL Hgb (13.0-17.5) gm/dL Hct (39.0-53.0) % MCV (80.0-100.0) fL RDW (11.5-15.5) % Neutrophils # (1.3-7.7) k/uL APTT (22.0-30.0) sec POC Glucose (mg/dL) 535 H (75-99) mg/dL Hemoglobin A1c 14.1 H (4.0-6.0) % RBC Folate 1,738 H (280 - 791) ng/mL 12/07/20 12/08/20 12/08/20 Range/Units 20:36 06:43 06:45 WBC 13.1 H (3.8-10.6) k/uL RBC 3.77 L (4.30-5.90) m/uL Hgb 9.5 L (13.0-17.5) gm/dL Hct 27.9 L (39.0-53.0) % MCV 73.9 L (80.0-100.0) fL RDW 16.6 H (11.5-15.5) % Neutrophils # 9.6 H (1.3-7.7) k/uL APTT (22.0-30.0) sec POC Glucose (mg/dL) 542 H 334 H (75-99) mg/dL Hemoglobin A1c (4.0-6.0) % RBC Folate (280 - 791) ng/mL 12/08/20 12/08/20 Range/Units 11:20 12:05 WBC (3.8-10.6) k/uL RBC (4.30-5.90) m/uL Hgb (13.0-17.5) gm/dL Hct (39.0-53.0) % MCV (80.0-100.0) fL RDW (11.5-15.5) % Neutrophils # (1.3-7.7) k/uL APTT 82.4 H (22.0-30.0) sec POC Glucose (mg/dL) 346 H (75-99) mg/dL Hemoglobin A1c (4.0-6.0) % RBC Folate (280 - 791) ng/mL Assessment and Plan Assessment: This is a 45-year-old male with a complex past medical history noted below who presented to an outside emergency room with worsening cough. Patient was evaluated and transferred to [facility] for admission and further management of his medical problems noted below. 1. Acute PE, started on anticoagulation with IV heparin. I would transition to oral Eliquis today. Seen and evaluated by pulmonology. Echocardiogram showed no evidence of right ventricular strain 2. Right lung pneumonia, started on antibiotic with azithromycin and ceftriaxone day #2. Pro-calcitonin 0.17 3. Worsening microcytic anemia with positive Hemoccult blood in the stool. GI consulted for further evaluation. No evidence of bleeding at this time. No endoscopy recommended. Hemoglobin stable. 3. Type 2 diabetes, resume home dose of insulin plus sliding scale. I added NovoLog 7 units before each meal given uncontrolled blood glucose 4. History of coronary artery disease with multivessel PCI and stent placement in the past on dual antiplatelet therapy with aspirin and Plavix. I consulted cardiology and it's okay to discontinue Plavix as patient will be on anticoagulation 5. Mixed hyperlipidemia and hypertriglyceridemia on Lipitor 80 mg daily 6. Medical noncompliance, patient admitted that he did not take any of his medications since last discharge from the hospital 7. Chronic medical problems, essential hypertension, obstructive sleep apnea, former smoker, underlying COPD Continue current management otherwise. Anticipate discharge home tomorrow
[2020-12-08] MEDS: APIXABAN 5 MG TAB PO SCH ×2 (13:49→21:37)
[2020-12-08 14:37] VITALS: BMI 31.4
[2020-12-08 17:10] LABS: Glucose,Whole Blood 417 mg/dL (75-99)
[2020-12-08] MEDS: SODIUM CHLORIDE 0.9% 1,000 ML IV SCH (21:24)
[2020-12-08 21:29] LABS: Glucose,Whole Blood 413 mg/dL (75-99)
[2020-12-08] MEDS ORDERED: INSULIN ASPART (NovoLOG) 100 UNIT/ML VIAL SQ ONE (21:31)
[2020-12-08] MEDS: ATORVASTATIN 80 MG TAB PO SCH (21:37)
[2020-12-08] MEDS: MONTELUKAST 10 MG TAB PO SCH (21:37)
[2020-12-08] MEDS: INSULIN DETEMIR (LEVEMIR) 100 UNIT/ML SYR SQ SCH (21:38)
[2020-12-09 07:02] LABS: Glucose,Whole Blood 164 mg/dL (75-99)
[2020-12-09] MEDS: INSULIN ASPART (NovoLOG) 100 UNIT/ML VIAL SQ SCH ×7 (07:37→20:54)
[2020-12-09] MEDS: IPRATROPIUM-ALBUTEROL 3 ML NEB INHALATION SCH ×4 (07:42→19:44)
[2020-12-09] MEDS: buPROPion XL 300 MG TAB.ER.24H PO SCH (07:45)
[2020-12-09] MEDS: PREGABALIN 50 MG CAP PO SCH ×2 (07:45→20:53)
[2020-12-09] MEDS: APIXABAN 5 MG TAB PO SCH ×2 (07:45→20:54)
[2020-12-09] MEDS: METOPROLOL TARTRATE 12.5 MG TAB PO SCH ×2 (07:45→20:53)
[2020-12-09] MEDS: FENOFIBRATE 160 MG TAB PO SCH (07:45)
[2020-12-09] MEDS: PANTOPRAZOLE 40 MG TABLET PO SCH (07:45)
[2020-12-09] MEDS: ASPIRIN 81 MG PO SCH (07:45)
[2020-12-09] MEDS: AZITHROMYCIN 500 MG TAB PO SCH (07:46)
[2020-12-09] MEDS: TOPIRAMATE 25 MG TAB PO SCH (07:46)
[2020-12-09] MEDS: HYDROcodone/APAP 10-325MG 1 EACH TAB PO SCH ×4 (07:46→22:26)
[2020-12-09 09:10] LABS: Basophils # (A) 0.02 X 10*3/uL (0.00-0.10); Basophils % (A) 0.2 %; HCT 31.7 % (39.6-50.0); HGB 9.7 g/dL (13.0-17.0); Lymphocytes # (A) 3.22 X 10*3/uL (0.90-5.00); Lymphocytes % (A) 31.9 %; MCH 23.8 pg (27.0-32.0); MCHC 30.6 g/dL (32.0-37.0); MCV 77.7 fL (80.0-97.0); Mean Platelet Volume 11.3 fL (9.5-12.2); Monocytes % (A) 6.9 %; Neutrophils # (A) 5.89 X 10*3/uL (1.80-7.70); Neutrophils % (A) 58.3 %; Platelet Count 335 X 10*3/uL (140-440); RBC 4.08 X 10*6/uL (4.40-5.60); RDW 16.3 % (11.5-14.5)
[2020-12-09 10:44] LABS: African American GFR (CKD) >90 (>60 ml/min/1.73 sqM); Anion Gap 10 mmol/L; Blood Urea Nitrogen 12 mg/dL (9-20); Calcium 9.4 mg/dL (8.4-10.2); Carbon Dioxide 26 mmol/L (22-30); Chloride 98 mmol/L (98-107); Glucose 160 mg/dL (74-99); Non-African American GFR(CKD) >90 (>60 ml/min/1.73 sqM); Potassium 4.6 mmol/L (3.5-5.1); Sodium 134 mmol/L (137-145)
[2020-12-09 11:26] LABS: Glucose,Whole Blood 220 mg/dL (75-99)
--- NOTE | 2020-12-09 11:47 | P.PN ---
Subjective Progress Note Date: 12/09/20 Principal diagnosis: Rectal bleeding, lower GI hemorrhage This is a 45-year-old female who presented to the hospital with diagnosis of acute pulmonary embolism and pneumonia. He was started on a heparin drip for his pulmonary embolism and was noted to have a drop in his hemoglobin, therefore an occult stool was ordered and found to be positive. The patient has denied any signs or symptoms of any GI bleed since his admission or before. Today he is seen and evaluated at the bedside. He denies any abdominal pain, nausea, or vomiting. He has not had any signs of GI bleed. He has had normal brown bowel movements. He was started on Eliquis yesterday, hemoglobin stable at 9.7. Objective - Vital Signs Vital signs: Vital Signs Temp 98.8 F 12/09/20 05:35 Pulse 100 12/09/20 07:45 Resp 19 12/09/20 07:45 BP 106/67 12/09/20 05:35 Pulse Ox 96 12/09/20 05:35 Intake & Output 12/08/20 12/09/20 12/09/20 18:59 06:59 18:59 Intake Total 1480.123 300 Balance 1480.123 300 Weight 93.894 kg Intake: Intake, IV Titration 400.123 Amount Heparin Sod,Pork in 0.45% 160.123 NaCl 25,000 unit In 0.45 % NaCl 1 250ml.bag @ 18 UNITS/KG/HR 16.901 mls/hr IV .[id number] [facility] Rx#: [id number] Sodium Chloride 0.9% 1, 240 000 ml @ 20 mls/hr IV . Q24H [facility] Rx#:[id number] Oral 1080 300 Other: Voiding Method Toilet Toilet # Voids 2 1 - Exam General appearance: The patient is alert, oriented, appears in no acute distress. HET: Head is normocephalic and atraumatic. Conjunctiva pink. Sclera anicteric. Neck: Supple without lymphadenopathy. Abdomen: Soft, nontender, nondistended with bowel sounds. No guarding or rigidity. Extremities: Normal skin color and turgor. No pedal edema Skin: No rashes, no jaundice Neurological: No focal deficits. Alert and oriented 3. - Labs CBC & Chem 7: 12/09/20 06:11 12/09/20 06:11 Labs: Abnormal Lab Results - Last 24 Hours (Table) 12/07/20 12/08/20 12/08/20 Range/Units 05:22 11:20 12:05 WBC (4.50-10.00) X 10*3/uL RBC (4.40-5.60) X 10*6/uL Hgb (13.0-17.0) g/dL Hct (39.6-50.0) % MCV (80.0-97.0) fL MCH (27.0-32.0) pg MCHC (32.0-37.0) g/dL RDW (11.5-14.5) % Immature Gran # (0.00-0.04) X 10*3/uL APTT 82.4 H (22.0-30.0) sec POC Glucose (mg/dL) 346 H (75-99) mg/dL RBC Folate 1,738 H (280 - 791) ng/mL 12/08/20 12/08/20 12/09/20 Range/Units 17:07 21:27 06:11 WBC 10.10 H (4.50-10.00) X 10*3/uL RBC 4.08 L (4.40-5.60) X 10*6/uL Hgb 9.7 L (13.0-17.0) g/dL Hct 31.7 L (39.6-50.0) % MCV 77.7 L (80.0-97.0) fL MCH 23.8 L (27.0-32.0) pg MCHC 30.6 L (32.0-37.0) g/dL RDW 16.3 H (11.5-14.5) % Immature Gran # 0.07 H (0.00-0.04) X 10*3/uL APTT (22.0-30.0) sec POC Glucose (mg/dL) 417 H 413 H (75-99) mg/dL RBC Folate (280 - 791) ng/mL 12/09/20 Range/Units 06:59 WBC (4.50-10.00) X 10*3/uL RBC (4.40-5.60) X 10*6/uL Hgb (13.0-17.0) g/dL Hct (39.6-50.0) % MCV (80.0-97.0) fL MCH (27.0-32.0) pg MCHC (32.0-37.0) g/dL RDW (11.5-14.5) % Immature Gran # (0.00-0.04) X 10*3/uL APTT (22.0-30.0) sec POC Glucose (mg/dL) 164 H (75-99) mg/dL RBC Folate (280 - 791) ng/mL Assessment and Plan (1) Anemia Narrative/Plan: Microcytic anemia and Hemoccult-positive stool. Iron indices are not consistent with iron deficiency anemia. The patient denies any active GI bleed currently. Last colonoscopy was 7-8 years ago at [facility]. Hemoglobin is stable, no signs of GI bleed. Current Visit: Yes Status: Acute Code(s): D64.9 - ANEMIA, UNSPECIFIED SNOMED Code(s): 782929028 (2) Positive occult stool blood test Current Visit: Yes Status: Acute Code(s): R19.5 - OTHER FECAL ABNORMALITIES SNOMED Code(s): 84265152 (3) Pneumonia Narrative/Plan: Being followed closely by pulmonology, on antibiotics Current Visit: Yes Status: Acute Code(s): J18.9 - PNEUMONIA, UNSPECIFIED ORGANISM SNOMED Code(s): 089823033 (4) Pulmonary embolism Narrative/Plan: Pulmonology closing following patient, currently on heparin drip Current Visit: Yes Status: Acute Code(s): I26.99 - OTHER PULMONARY EMBOLISM WITHOUT ACUTE COR PULMONALE SNOMED Code(s): 03589861 (5) HTN (hypertension) Current Visit: No Status: Acute Code(s): I10 - ESSENTIAL (PRIMARY) HYPERTENSION SNOMED Code(s): 31748566 (6) Hyperlipemia Current Visit: No Status: Acute Code(s): E78.5 - HYPERLIPIDEMIA, UNSPECIFIED SNOMED Code(s): 61486787 Plan: 1. Supportive care 2. Continue with current anticoagulation as recommended per pulmonology 3. CBC daily 4. No evidence of active GI bleed, no plans for any endoscopic intervention at the present time. Discussed with patient to follow-up and schedule outpatient colonoscopy within the next 3-6 months. 5. Continue with broad-spectrum antibiotics as ordered Thank you for this consultation we will sign off at this time Dr. Adilia Nguyen I agree with the dictator's note, documented as a scribe by Ivory Rizo.
--- NOTE | 2020-12-09 15:58 | P.PN ---
<Tyrel Mcguire - Last Filed: 12/09/20 15:38> Subjective Progress Note Date: 12/09/20 Principal diagnosis: Acute pulmonary embolism without right heart strain Hospital course: Patient is a 45-year-old male with a past medical history of CAD with multives marky PCI stenting, type 2 insulin-dependent diabetes mellitus, hypertension, hyperlipidemia, asthma, and iron deficiency anemia. Patient presented to the hospital on 12/06/20 with a chief complaint of productive cough and new onset bilateral lower extremity edema. Patient was seen and evaluated at [facility] where he was found to have an elevated troponin of 3.56, d-dimer 2746, and a hemoglobin of 9.3 down from previous 14.1. Chest x-ray reportedly revealed bilateral diffuse airspace disease with possible pneumonia versus fluid overload. Patient transferred to our facility with the diagnosis of an STEMI and community-acquired pneumonia resulting in admission under our services with consult to cardiology for continued medical management. Patient had a CT PE completed which revealed a right lower lobe pulmonary emboli with extensive pulmonary infiltrates consistent with pneumonia. Pulmonology consulted and pt started on anticoagulation with Heparin and later transitioned to Eliquis and continue Plavix as instructed by cardiology. Covid PCR was negative x2. EKG revealed sinus tachycardia at 105 bpm with no noted T-wave or ST abnormalities. Echocardiogram showed a normal ejection fraction between 60 and 65% with moderate concentric left ventricular hypertrophy and mild aortic valve sclerosis. Patient was treated for CAP with azithromycin and rocephin daily is day 3 of antibiotics. Physical exam: Patient's condition stable upon assessment this morning, he reported feeling significantly better. His respirations were even, regular, and unlabored on room air. Initial plan was for discharge home. Discharge was postponed secondary to reports that patient's oxygen saturations desaturated upon obtaining an ambulatory pulse ox. Per RN patient's oxygen saturations decreased to 84% requiring rest and supplemental oxygen. Patient's oxygen saturations currently 95% on 2 L O2 via nasal cannula. General: non toxic, no distress, appears at stated age Derm: warm, dry Head: atraumatic, normocephalic, symmetric Eyes: EOMI, no lid lag, anicteric sclera Mouth: no lip lesion, mucus membranes moist Cardiovascular: S1S2 reg, no murmur, positive posterior tibial pulse bilateral, Lungs: Respirations even, regular, and unlabored on room air. Patient speaking in full sentences without any noted conversational dyspnea. Lungs diminished bilateral bases. No wheezes, rhonchi, or rales noted. Abdominal: soft, nontender to palpation, no guarding, no appreciable organomegaly Ext: no gross muscle atrophy, no edema, no contractures Neuro: CN II-XI grossly intact, no focal neuro deficits Psych: Alert, oriented, appropriate affect Assessment and plan of care: Acute pulmonary emboli with right lower lobe -CT PE completed which revealed a right lower lobe pulmonary emboli with extensive pulmonary infiltrates consistent with pneumonia. -Upon obtaining an ambulatory pulse ox, patient's oxygen saturations reportedly desaturated to 84% requiring supplemental oxygenation. -Continue Eliquis -Continue oxygen supplementation to maintain SpO2 equal to or greater than 90%. Wean oxygen once patient is able. -Pulmonology following, appreciate further recommendations. Community-acquired pneumonia of RLL -Chest x-ray reportedly revealed bilateral diffuse airspace disease with possi ble pneumonia versus fluid overload. -CT PE completed which revealed a right lower lobe pulmonary emboli with extensive pulmonary infiltrates consistent with pneumonia. -Continue antibiotics with Rocephin and azithromycin, today is day 3 of antibiotics. -Covid and influenza A and B PCR's were negative -Pro-calcitonin 0.17. WBC count 10.10. Iron deficiency Anemia, stable -Hemoglobin 9.7 with baseline hemoglobin of 11.5. -Iron 41, TIBC 2.63. -We will continue to monitor with repeat a.m. labs Insulin-dependent diabetes mellitus, poorly controlled -Patient's blood sugars uncontrolled upon arrival to facility ranging from 300s to 500s. His hemoglobin A1c was 14.1. Patient does reportedly take Lantus 50 units nightly along with NovoLog sliding scale and metformin. Patient was given 40 units of Levemir nightly along with sliding scale and morning blood glucose levels 164 from previous 413. Concerns whether patient is compliant with taking all medications as directed as he does have a documented history of medical noncompliance. -We will continue with glycemic protocol with NovoLog sliding scale and Levemir nightly. -Heart healthy carb consistent diet. Hyponatremia, improving -Initially sodium 127 has improved over the past 3 days and now 134. Coronary artery disease with previous multivessel PCI and stent placement -Continue daily medication management including aspirin, atorvastatin, lisinopril, and metoprolol. -Heart healthy carb consistent diet. DVT prophylaxis: Eliquis Discussed with: Patient and RN Anticipated discharge: Tomorrow morning Anticipated discharge place: Home A total of 40 minutes was spent on the care of this complex patient more than 50% of the time was spent in counseling and care coordination. Objective - Vital Signs Vital signs: Vital Signs Temp 97.7 F 12/09/20 14:13 Pulse 103 H 12/09/20 14:13 Resp 18 12/09/20 14:13 BP 90/46 12/09/20 14:13 Pulse Ox 95 12/09/20 14:13 Intake & Output 12/08/20 12/09/20 12/09/20 18:59 06:59 18:59 Intake Total 1480.123 600 Balance 1480.123 600 Weight 93.894 kg Intake: Intake, IV Titration 400.123 Amount Heparin Sod,Pork in 0.45% 160.123 NaCl 25,000 unit In 0.45 % NaCl 1 250ml.bag @ 18 UNITS/KG/HR 16.901 mls/hr IV .[id number] [facility] Rx#: [id number] Sodium Chloride 0.9% 1, 240 000 ml @ 20 mls/hr IV . Q24H [facility] Rx#:[id number] Oral 1080 600 Other: Voiding Method Toilet Toilet # Voids 2 1 - Labs CBC & Chem 7: 12/09/20 06:11 12/09/20 06:11 Labs: Abnormal Lab Results - Last 24 Hours (Table) 12/08/20 12/08/20 12/09/20 Range/Units 17:07 21:27 06:11 WBC 10.10 H (4.50-10.00) X 10*3/uL RBC 4.08 L (4.40-5.60) X 10*6/uL Hgb 9.7 L (13.0-17.0) g/dL Hct 31.7 L (39.6-50.0) % MCV 77.7 L (80.0-97.0) fL MCH 23.8 L (27.0-32.0) pg MCHC 30.6 L (32.0-37.0) g/dL RDW 16.3 H (11.5-14.5) % Immature Gran # 0.07 H (0.00-0.04) X 10*3/uL Sodium (137-145) mmol/L Creatinine (0.66-1.25) mg/dL Glucose (74-99) mg/dL POC Glucose (mg/dL) 417 H 413 H (75-99) mg/dL 12/09/20 12/09/20 12/09/20 Range/Units 06:11 06:59 11:24 WBC (4.50-10.00) X 10*3/uL RBC (4.40-5.60) X 10*6/uL Hgb (13.0-17.0) g/dL Hct (39.6-50.0) % MCV (80.0-97.0) fL MCH (27.0-32.0) pg MCHC (32.0-37.0) g/dL RDW (11.5-14.5) % Immature Gran # (0.00-0.04) X 10*3/uL Sodium 134 L (137-145) mmol/L Creatinine 0.55 L (0.66-1.25) mg/dL Glucose 160 H (74-99) mg/dL POC Glucose (mg/dL) 164 H 220 H (75-99) mg/dL <Katty Sharpe A - Last Filed: 12/09/20 16:31> Objective - Vital Signs Vital signs: Vital Signs Temp 97.7 F 12/09/20 14:13 Pulse 116 H 12/09/20 16:22 Resp 18 12/09/20 14:13 BP 90/46 12/09/20 14:13 Pulse Ox 95 12/09/20 14:13 Intake & Output 12/08/20 12/09/20 12/09/20 18:59 06:59 18:59 Intake Total 1480.123 600 Balance 1480.123 600 Weight 93.894 kg Intake: Intake, IV Titration 400.123 Amount Heparin Sod,Pork in 0.45% 160.123 NaCl 25,000 unit In 0.45 % NaCl 1 250ml.bag @ 18 UNITS/KG/HR 16.901 mls/hr IV .[id number] [facility] Rx#: [id number] Sodium Chloride 0.9% 1, 240 000 ml @ 20 mls/hr IV . Q24H [facility] Rx#:[id number] Oral 1080 600 Other: Voiding Method Toilet Toilet # Voids 2 1 - Labs CBC & Chem 7: 12/09/20 06:11 12/09/20 06:11 Labs: Abnormal Lab Results - Last 24 Hours (Table) 12/08/20 12/08/20 12/09/20 Range/Units 17:07 21:27 06:11 WBC 10.10 H (4.50-10.00) X 10*3/uL RBC 4.08 L (4.40-5.60) X 10*6/uL Hgb 9.7 L (13.0-17.0) g/dL Hct 31.7 L (39.6-50.0) % MCV 77.7 L (80.0-97.0) fL MCH 23.8 L (27.0-32.0) pg MCHC 30.6 L (32.0-37.0) g/dL RDW 16.3 H (11.5-14.5) % Immature Gran # 0.07 H (0.00-0.04) X 10*3/uL Sodium (137-145) mmol/L Creatinine (0.66-1.25) mg/dL Glucose (74-99) mg/dL POC Glucose (mg/dL) 417 H 413 H (75-99) mg/dL 12/09/20 12/09/20 12/09/20 Range/Units 06:11 06:59 11:24 WBC (4.50-10.00) X 10*3/uL RBC (4.40-5.60) X 10*6/uL Hgb (13.0-17.0) g/dL Hct (39.6-50.0) % MCV (80.0-97.0) fL MCH (27.0-32.0) pg MCHC (32.0-37.0) g/dL RDW (11.5-14.5) % Immature Gran # (0.00-0.04) X 10*3/uL Sodium 134 L (137-145) mmol/L Creatinine 0.55 L (0.66-1.25) mg/dL Glucose 160 H (74-99) mg/dL POC Glucose (mg/dL) 164 H 220 H (75-99) mg/dL Assessment and Plan Assessment: Patient seen and examined independently. Patient was also seen by Tyrel Mgcuire NP and case was discussed. I am in agreement with subjective, physical exam, assessment and plan as written above and amended below. Patient reports that he still does not feel well. He reports continued coughing. He also reports that he is dizzy when lying flat but not when up and walking around. When I arrived to room patient is up and standing in the corner reading his menu. General: non toxic, no distress, appears at stated age Derm: warm, dry Head: atraumatic, normocephalic, symmetric Eyes: EOMI, no lid lag, anicteric sclera Mouth: no lip lesion, mucus membranes moist Cardiovascular: S1S2 reg, no murmur, positive posterior tibial pulse bilateral, Lungs: CTA bilateral, no rhonchi, no rales , no accessory muscle use Abdominal: soft, nontender to palpation, no guarding, no appreciable organomegaly Ext: no gross muscle atrophy, no edema, no contractures Neuro: CN II-XI grossly intact, no focal neuro deficits Psych: Alert, oriented, appropriate affect Anticipate discharge home soon. Dizziness may possibly be secondary to better control of his diabetes, and the patient having functional hypoglycemia with his A1c being 14.1 and his current glucose level being 164. Will need outpatient follow-up of his hemoglobin levels. Echocardiogram from admission was reviewed and demonstrated mild LVH with preserved ejection fraction.
[2020-12-09 17:10] LABS: Glucose,Whole Blood 278 mg/dL (75-99)
[2020-12-09] MEDS: CEFEPIME 2 GM in SODIUM CHLORIDE 0.9% 100 ML IVPB SCH (17:24)
--- NOTE | 2020-12-09 18:36 | P.PN ---
Subjective Progress Note Date: 12/09/20 Principal diagnosis: PE/pneumonia 45-year-old male, who sees a nurse practitioner up in the [facility], for his healthcare, who presents to the emergency department, with 2 weeks of not feeling well. Include primarily shortness of breath, cough, phlegm production, and abnormal troponins. The patient see an outside hospital, transferred down. In addition, the patient had shortness of breath, and low saturations. He does have a history of heart failure, COPD, hypertension, and myocardial infarction. The patient had a CT angiogram which showed some right lower lobe infiltrate, and a right lower lobe pulmonary embolism as well. Currently, the patient is on 2 L nasal cannula. He is also getting IV heparin for the pulmonary embolism. He does have coronary artery disease, has had multiple stents. He states that he is tested negative twice for COVID. Does also have a history of diabetes, hyperlipidemia, and hypertension. He also has a history of sleep apnea syndrome. He is maintained on CPAP for that. He apparently still smokes cigarettes. White count is 9.3, hemoglobin 10.2, hematocrit 31.7, and platelet count 297,000. PTT is 49.3. Sodium 127, potassium 5.1, chlorides 90 CO2 25, anion gap 12, the urine 10, and creatinine 0.49. CT angiogram showed right lower lobe pulmonary embolism, and extensive bibasilar interstitial infiltrates with some groundglass areas. There is also some bilateral enlarged bronchial lymph nodes measuring up to 2 cm. Progress note dated 12/08/2020. The patient is again seen in the observation unit. He's in room 160. Is currently on room air. Saturations are 93%. He is getting saline at 20 mL an hour, and also heparin via weightbase protocol. A CT angiogram showed right lower lobe pulmonary embolism, and extensive bibasilar infiltrates with groundglass areas. Currently, the patient denies any shortness of breath. He does have chest congestion and cough. He denies any fever or chills. He also denies nausea and vomiting. White count is 13.1, hemoglobin 9.5, hematocrit 27.9, and platelet count 417,000. The patient is seen today 12/09/2020 in follow-up on the regular medical floor. He is awake and alert in no acute distress. Sitting up at the bedside. He continues to have a loose productive cough of yellow thick sputum. Some dyspnea on exertion. Requiring 2 L nasal cannula to maintain O2 saturations in the 90s. He is currently on ceftriaxone and azithromycin. Anticoagulated now with Eliquis. CoVID screen was negative 2. White count 10.1. Hemoglobin 9.7. Sodium 134. Potassium 4.6. Creatinine 0.55. Glucose 160. Objective - Vital Signs Vital signs: Vital Signs Temp 98.1 F 12/09/20 17:28 Pulse 114 H 12/09/20 17:28 Resp 18 12/09/20 17:28 BP 116/75 12/09/20 17:28 Pulse Ox 97 12/09/20 17:28 Intake & Output 12/08/20 12/09/20 12/09/20 18:59 06:59 18:59 Intake Total 1480.123 600 Balance 1480.123 600 Weight 93.894 kg Intake: Intake, IV Titration 400.123 Amount Heparin Sod,Pork in 0.45% 160.123 NaCl 25,000 unit In 0.45 % NaCl 1 250ml.bag @ 18 UNITS/KG/HR 16.901 mls/hr IV .[id number] [facility] Rx#: [id number] Sodium Chloride 0.9% 1, 240 000 ml @ 20 mls/hr IV . Q24H [facility] Rx#:[id number] Oral 1080 600 Other: Voiding Method Toilet Toilet # Voids 2 1 2 - Exam GENERAL EXAM: Alert, pleasant 45-year-old gentleman, on 2 L nasal cannula, c omfortable in no apparent distress. HEAD: Normocephalic. EYES: Normal reaction of pupils, equal size. NOSE: Clear with pink turbinates. THROAT: No erythema or exudates. NECK: No masses, no JVD. CHEST: No chest wall deformity. LUNGS: Equal air entry with scattered rhonchi bilaterally. CVS: S1 and S2 normal with no audible murmur, regular rhythm. ABDOMEN: No hepatosplenomegaly, normal bowel sounds, no guarding or rigidity. SPINE: No scoliosis or deformity SKIN: No rashes CENTRAL NERVOUS SYSTEM: No focal deficits, tone is normal in all 4 extremities. EXTREMITIES: There is no peripheral edema. No clubbing, no cyanosis. Peripheral pulses are intact. - Labs CBC & Chem 7: 12/09/20 06:11 12/09/20 06:11 Labs: Abnormal Lab Results - Last 24 Hours (Table) 12/08/20 12/09/20 12/09/20 Range/Units 21:27 06:11 06:11 WBC 10.10 H (4.50-10.00) X 10*3/uL RBC 4.08 L (4.40-5.60) X 10*6/uL Hgb 9.7 L (13.0-17.0) g/dL Hct 31.7 L (39.6-50.0) % MCV 77.7 L (80.0-97.0) fL MCH 23.8 L (27.0-32.0) pg MCHC 30.6 L (32.0-37.0) g/dL RDW 16.3 H (11.5-14.5) % Immature Gran # 0.07 H (0.00-0.04) X 10*3/uL Sodium 134 L (137-145) mmol/L Creatinine 0.55 L (0.66-1.25) mg/dL Glucose 160 H (74-99) mg/dL POC Glucose (mg/dL) 413 H (75-99) mg/dL 12/09/20 12/09/20 12/09/20 Range/Units 06:59 11:24 17:07 WBC (4.50-10.00) X 10*3/uL RBC (4.40-5.60) X 10*6/uL Hgb (13.0-17.0) g/dL Hct (39.6-50.0) % MCV (80.0-97.0) fL MCH (27.0-32.0) pg MCHC (32.0-37.0) g/dL RDW (11.5-14.5) % Immature Gran # (0.00-0.04) X 10*3/uL Sodium (137-145) mmol/L Creatinine (0.66-1.25) mg/dL Glucose (74-99) mg/dL POC Glucose (mg/dL) 164 H 220 H 278 H (75-99) mg/dL Assessment and Plan Assessment: 1 Acute hypoxemic respiratory failure secondary to right lower lobe pulmonary embolism and bibasilar infiltrates consistent with pneumonia. CoVID 19 screen negative 2 2 History of chronic obstructive pulmonary disease 3 History of prior tobacco dependence 4 Coronary artery disease with multiple stents 5 History of congestive heart failure 6 Diabetes mellitus with diabetic neuropathy 7 Hypertension 8 Hyperlipidemia 9 Obstructive sleep apnea 10 Degenerative joint disease 11 history of fatty liver Plan: The patient was seen and evaluated by Dr. Macnuso Discontinue ceftriaxone Add cefepime, suspect possible Pseudomonas Obtain a sputum culture Titrate down the FiO2 as tolerated Follow-up chest x-ray in a.m. We will continue to follow I, the cosigning physician, performed a history & physical examination of the patient. Lungs sounds with bilateral scattered rhonchi. Maintaining good O2 saturations in the 90s on 2 L/m per nasal cannula. I discussed the assessment and plan of care with my nurse practitioner, Namita Moyer. I attest to the above note as dictated by her.
[2020-12-09 20:12] LABS: Glucose,Whole Blood 304 mg/dL (75-99)
[2020-12-09] MEDS: MONTELUKAST 10 MG TAB PO SCH (20:53)
[2020-12-09] MEDS: ATORVASTATIN 80 MG TAB PO SCH (20:53)
[2020-12-09] MEDS: INSULIN DETEMIR (LEVEMIR) 100 UNIT/ML SYR SQ SCH (20:54)
[2020-12-09] MEDS: SODIUM CHLORIDE 0.9% 1,000 ML IV SCH (22:28)
[2020-12-09] MEDS: IPRATROPIUM-ALBUTEROL 3 ML NEB INHALATION PRN (23:40)
[2020-12-10] MEDS: CEFEPIME 2 GM in SODIUM CHLORIDE 0.9% 100 ML IVPB SCH ×3 (02:33→17:33)
[2020-12-10] MEDS: ACETAMINOPHEN TAB 325 MG TAB PO PRN (02:41)
[2020-12-10] MEDS: IPRATROPIUM-ALBUTEROL 3 ML NEB INHALATION PRN (05:13)
[2020-12-10 07:17] LABS: Glucose,Whole Blood 420 mg/dL (75-99)
--- NOTE | 2020-12-10 07:31 | XR ---
EXAMINATION TYPE: XR chest 1V portable DATE OF EXAM: 12/10/2020 COMPARISON: 12/06/2020 HISTORY: Chest pain TECHNIQUE: Single frontal view of the chest is obtained. FINDINGS: Bilateral airspace and interstitial infiltrates persist although may be slightly improved. The cardiac silhouette size is within normal limits. The osseous structures are intact. IMPRESSION: 1. Bilateral airspace and interstitial infiltrates persist although may be slightly improved.
[2020-12-10] MEDS: PREGABALIN 50 MG CAP PO SCH ×2 (07:54→20:27)
[2020-12-10] MEDS: APIXABAN 5 MG TAB PO SCH ×2 (07:54→20:27)
[2020-12-10] MEDS: HYDROcodone/APAP 10-325MG 1 EACH TAB PO SCH ×4 (07:54→21:36)
[2020-12-10] MEDS: METOPROLOL TARTRATE 12.5 MG TAB PO SCH ×2 (07:54→20:27)
[2020-12-10] MEDS: PANTOPRAZOLE 40 MG TABLET PO SCH (07:55)
[2020-12-10] MEDS: FENOFIBRATE 160 MG TAB PO SCH (07:55)
[2020-12-10] MEDS: buPROPion XL 300 MG TAB.ER.24H PO SCH (07:55)
[2020-12-10] MEDS: ASPIRIN 81 MG PO SCH (07:55)
[2020-12-10] MEDS: AZITHROMYCIN 500 MG TAB PO SCH (07:55)
[2020-12-10] MEDS: TOPIRAMATE 25 MG TAB PO SCH (07:55)
[2020-12-10] MEDS: INSULIN ASPART (NovoLOG) 100 UNIT/ML VIAL SQ SCH ×7 (07:56→20:27)
[2020-12-10] MEDS: IPRATROPIUM-ALBUTEROL 3 ML NEB INHALATION SCH ×4 (08:16→20:32)
[2020-12-10 08:49] LABS: Anisocytosis Slight; HCT 31.3 % (39.0-53.0); HGB 10.2 gm/dL (13.0-17.5); Hypochromasia Marked; MCH 24.7 pg (25.0-35.0); MCHC 32.4 g/dL (31.0-37.0); MCV 76.1 fL (80.0-100.0); Mean Platelet Volume 7.2; Microcytosis Slight; Platelet Count 333 k/uL (150-450); Poikilocytosis Marked; RBC 4.12 m/uL (4.30-5.90); RDW 16.8 % (11.5-15.5); WBC 10.3 k/uL (3.8-10.6)
[2020-12-10] MEDS: ONDANSETRON 4 MG/2 ML VIAL IVP PRN (11:05)
--- NOTE | 2020-12-10 11:07 | P.PN ---
<Tyrel Mcguire - Last Filed: 12/10/20 10:26> Subjective Progress Note Date: 12/10/20 Principal diagnosis: Acute pulmonary embolism without right heart strain Hospital course: Patient is a 45-year-old male with a past medical history of CAD with multive ssel PCI stenting, type 2 insulin-dependent diabetes mellitus, hypertension, hyperlipidemia, asthma, and iron deficiency anemia. Patient presented to the hospital on 12/06/20 with a chief complaint of productive cough and new onset bilateral lower extremity edema. Patient was seen and evaluated at [facility] where he was found to have an elevated troponin of 3.56, d-dimer 2746, and a hemoglobin of 9.3 down from previous 14.1. Chest x-ray reportedly revealed bilateral diffuse airspace disease with possible pneumonia versus fluid overload. Patient transferred to our facility with the diagnosis of an STEMI and community-acquired pneumonia resulting in admission under our services with consult to cardiology for continued medical management. Patient had a CT PE completed which revealed a right lower lobe pulmonary emboli with extensive pulmonary infiltrates consistent with pneumonia. Pulmonology consulted and pt started on anticoagulation with Heparin and later transitioned to Eliquis and continue Plavix as instructed by cardiology. Covid PCR was negative x2. EKG revealed sinus tachycardia at 105 bpm with no noted T-wave or ST abnormalities. Echocardiogram showed a normal ejection fraction between 60 and 65% with moderate concentric left ventricular hypertrophy and mild aortic valve sclerosis. Patient was treated for CAP with azithromycin and rocephin x 3 days and then pulmonology changed rocephin to cefepime for concerns of possible Pseudomonas. Sputum cultures were obtained and currently pending results. Repeat chest x-ray completed this morning revealing bilateral airspace and interstitial infiltrates persisting although may be slightly improved. Physical exam: Patient reports that he continues to cough up a significant amount of phlegm. Patient and RN reports that the sputum color is green and thick. Patient currently on 2 L O2 with SpO2 of 94%. Patient reports continued short of breath with exertion and feeling fatigued, weak, and experiencing significant nausea today with one episode of vomiting this morning. He denies feeling short of breath at rest or experiencing any chest pain, palpitations, abdominal pain, dizziness, headedness, or experiencing any weakness/numbness/tingling Repeat chest x-ray completed this morning revealing bilateral airspace and interstitial infiltrates persisting although may be slightly improved. Blood glucose levels 420 this morning. Patient admits to eating licorice throughout the night, patient does have bags of sugar free candy at bedside but reports the licorice he was eating was not sugar-free. Patient educated on importance of maintaining a heart healthy and carb consistent diet. We will consult music educator. General: non toxic, no distress, appears at stated age Derm: warm, dry Head: atraumatic, normocephalic, symmetric Eyes: EOMI, no lid lag, anicteric sclera Mouth: no lip lesion, mucus membranes moist Cardiovascular: S1S2 reg, no murmur, positive posterior tibial pulse bilateral, Lungs: Respirations even, regular, and unlabored on 2 L O2 via nasal cannula with SpO2 94% upon assessment. Lungs diminished bilateral bases. No wheezes, rhonchi, or rales noted. Abdominal: soft, nontender to palpation, no guarding, no appreciable organomegaly Ext: no gross muscle atrophy, no edema, no contractures Neuro: CN II-XI grossly intact, no focal neuro deficits Psych: Alert, oriented, appropriate affect Assessment and plan of care: Acute pulmonary emboli in right lower lobe without right heart strain -CT PE completed which revealed a right lower lobe pulmonary emboli with extensive pulmonary infiltrates consistent with pneumonia. -Continue Eliquis -Continue oxygen supplementation to maintain SpO2 equal to or greater than 90%. Wean oxygen once patient is able. -Pulmonology following, appreciate further recommendations. Community-acquired pneumonia of RLL -Chest x-ray reportedly revealed bilateral diffuse airspace disease with possible pneumonia versus fluid overload. -Repeat chest x-ray completed this morning revealing bilateral airspace and interstitial infiltrates persisting although may be slightly improved. -CT PE completed which revealed a right lower lobe pulmonary emboli with extensive pulmonary infiltrates consistent with pneumonia. -Continue antibiotics with azithromycin and pulmonology changed rocephin to cefepime for concerns of possible Pseudomonas. -Sputum cultures were obtained and currently pending results. today is day 4 of antibiotics. -Covid and influenza A and B PCR's were negative -Pro-calcitonin 0.17. WBC count 10.3. Iron deficiency Anemia, stable -Hemoglobin 10.2 with baseline hemoglobin of 11.5. -Iron 41, TIBC 2.63. -We will continue to monitor with repeat a.m. labs Insulin-dependent diabetes mellitus, poorly controlled -Patient's blood sugars uncontrolled upon arrival to facility ranging from 300s to 500s. His hemoglobin A1c was 14.1. Patient does reportedly take Lantus 50 units nightly along with NovoLog sliding scale and metformin. Concerns whether patient is compliant with diet and taking all medications as directed as he does have a documented history of medical noncompliance. -We will continue with glycemic protocol with NovoLog 12 units with each meal along with sliding scale and 40 units Levemir nightly. -Heart healthy carb consistent diet. -Consult to music educator. Hyponatremia, improving -Initially sodium 127 has improved over the past 3 days and now 134. Coronary artery disease with previous multivessel PCI and stent placement -Continue daily medication management including aspirin, atorvastatin, lisinopril, and metoprolol. -Heart healthy carb consistent diet. DVT prophylaxis: Maryquis Discussed with: Patient and RN Anticipated discharge: Tomorrow morning Anticipated discharge place: Home A total of 40 minutes was spent on the care of this complex patient more than 50% of the time was spent in counseling and care coordination. Objective - Vital Signs Vital signs: Vital Signs Temp 98.6 F 12/10/20 09:32 Pulse 98 12/10/20 09:32 Resp 18 12/10/20 09:32 BP 106/70 12/10/20 09:32 Pulse Ox 97 12/10/20 09:32 Intake & Output 12/09/20 12/10/20 12/10/20 18:59 06:59 18:59 Intake Total 600 Balance 600 Intake: Oral 600 Other: Voiding Method Toilet Toilet # Voids 2 3 - Labs CBC & Chem 7: 12/10/20 08:24 12/09/20 06:11 Labs: Abnormal Lab Results - Last 24 Hours (Table) 12/09/20 12/09/20 12/09/20 Range/Units 06:11 11:24 17:07 RBC (4.30-5.90) m/uL Hgb (13.0-17.5) gm/dL Hct (39.0-53.0) % MCV (80.0-100.0) fL MCH (25.0-35.0) pg RDW (11.5-15.5) % Sodium 134 L (137-145) mmol/L Creatinine 0.55 L (0.66-1.25) mg/dL Glucose 160 H (74-99) mg/dL POC Glucose (mg/dL) 220 H 278 H (75-99) mg/dL 12/09/20 12/10/20 12/10/20 Range/Units 20:11 07:14 08:24 RBC 4.12 L (4.30-5.90) m/uL Hgb 10.2 L (13.0-17.5) gm/dL Hct 31.3 L (39.0-53.0) % MCV 76.1 L (80.0-100.0) fL MCH 24.7 L (25.0-35.0) pg RDW 16.8 H (11.5-15.5) % Sodium (137-145) mmol/L Creatinine (0.66-1.25) mg/dL Glucose (74-99) mg/dL POC Glucose (mg/dL) 304 H 420 H (75-99) mg/dL Microbiology - Last 24 Hours (Table) 12/09/20 19:55 Sputum Culture - Preliminary Sputum <Katty Sharpe A - Last Filed: 12/10/20 17:33> Objective - Vital Signs Vital signs: Vital Signs Temp 97.5 F L 12/10/20 14:22 Pulse 100 12/10/20 16:11 Resp 18 12/10/20 14:22 BP 99/64 12/10/20 14:22 Pulse Ox 99 12/10/20 14:22 Intake & Output 12/09/20 12/10/20 12/10/20 18:59 06:59 18:59 Intake Total 600 Balance 600 Intake: Oral 600 Other: Voiding Method Toilet Toilet # Voids 2 3 - Labs CBC & Chem 7: 12/10/20 08:24 12/09/20 06:11 Labs: Abnormal Lab Results - Last 24 Hours (Table) 12/09/20 12/10/20 12/10/20 Range/Units 20:11 07:14 08:24 RBC 4.12 L (4.30-5.90) m/uL Hgb 10.2 L (13.0-17.5) gm/dL Hct 31.3 L (39.0-53.0) % MCV 76.1 L (80.0-100.0) fL MCH 24.7 L (25.0-35.0) pg RDW 16.8 H (11.5-15.5) % POC Glucose (mg/dL) 304 H 420 H (75-99) mg/dL 12/10/20 12/10/20 Range/Units 11:46 16:40 RBC (4.30-5.90) m/uL Hgb (13.0-17.5) gm/dL Hct (39.0-53.0) % MCV (80.0-100.0) fL MCH (25.0-35.0) pg RDW (11.5-15.5) % POC Glucose (mg/dL) 319 H 363 H (75-99) mg/dL Microbiology - Last 24 Hours (Table) 12/09/20 19:55 Sputum Culture - Preliminary Sputum Assessment and Plan Assessment: Patient seen and examined independently. Patient was also seen by Tyrel Mcguire NP and case was discussed. I am in agreement with subjective, physical exam, assessment and plan as written above and amended below. No chest pain, continues or shortness of breath, continued cough, continues to feel "miserable". He is eating a large amount of candy. He reports that it is sugar free, we discussed that sugar alcohols often spike blood sugar. General: no toxic, no distress, appears at stated age Derm: warm, dry Head: atraumatic, normocephalic, symmetric Eyes: EOMI, no lid lag, anicteric sclera Mouth: no lip lesion, mucus membranes moist Cardiovascular: S1S2 reg, no murmur, positive posterior tibial pulse bilateral, Lungs: CTA bilateral, no rhonchi, no rales , no accessory muscle use Abdominal: soft, nontender to palpation, no guarding, no appreciable organomegaly Ext: no gross muscle atrophy, 2+ edema RLE>LLE, no contractures Neuro: CN II-XI grossly intact, no focal neuro deficits Psych: Alert, oriented, appropriate affect - Patient with left lower extremity edema left greater than right. We'll proceed with venous Doppler given patient's recent diagnosis of right lower extremity PE - Consult music educator - Not currently on any IV fluids.
[2020-12-10 11:47] LABS: Glucose,Whole Blood 319 mg/dL (75-99)
--- NOTE | 2020-12-10 13:44 | US ---
EXAMINATION TYPE: US venous doppler duplex LE BI DATE OF EXAM: 12/10/2020 1:35 PM COMPARISON: NONE CLINICAL HISTORY: swelling known pulmonary embolism. SIDE PERFORMED: Bilateral TECHNIQUE: The lower extremity deep venous system is examined utilizing real time linear array sonog rodolfo with graded compression, doppler sonography and color-flow sonography. VESSELS IMAGED: Common Femoral Vein Deep Femoral Vein Greater Saphenous Vein * Femoral Vein Popliteal Vein Small Saphenous Vein * Proximal Calf Veins (* superficial vessels) Right Leg: Negative for DVT Left Leg: Negative for DVT IMPRESSION: No evidence for DVT at this time.
--- NOTE | 2020-12-10 15:36 | P.PN ---
Subjective Progress Note Date: 12/10/20 Principal diagnosis: PE/pneumonia 45-year-old male, who sees a nurse practitioner up in the [place] area, for his healthcare, who presents to the emergency department, with 2 weeks of not feeling well. Include primarily shortness of breath, cough, phlegm production, and abnormal troponins. The patient see an outside hospital, transferred down. In addition, the patient had shortness of breath, and low saturations. He does have a history of heart failure, COPD, hypertension, and myocardial infarction. The patient had a CT angiogram which showed some right lower lobe infiltrate, and a right lower lobe pulmonary embolism as well. Currently, the patient is on 2 L nasal cannula. He is also getting IV heparin for the pulmonary embolism. He does have coronary artery disease, has had multiple stents. He states that he is tested negative twice for COVID. Does also have a history of diabetes, hyperlipidemia, and hypertension. He also has a history of sleep apnea syndrome. He is maintained on CPAP for that. He apparently still smokes cigarettes. White count is 9.3, hemoglobin 10.2, hematocrit 31.7, and platelet count 297,000. PTT is 49.3. Sodium 127, potassium 5.1, chlorides 90 CO2 25, anion gap 12, the urine 10, and creatinine 0.49. CT angiogram showed right lower lobe pulmonary embolism, and extensive bibasilar interstitial infiltrates with some groundglass areas. There is also some bilateral enlarged bronchial lymph nodes measuring up to 2 cm. Progress note dated 12/08/2020. The patient is again seen in the observation unit. He's in room 160. Is currently on room air. Saturations are 93%. He is getting saline at 20 mL an hour, and also heparin via weightbase protocol. A CT angiogram showed right lower lobe pulmonary embolism, and extensive bibasilar infiltrates with groundglass areas. Currently, the patient denies any shortness of breath. He does have chest congestion and cough. He denies any fever or chills. He also denies nausea and vomiting. White count is 13.1, hemoglobin 9.5, hematocrit 27.9, and platelet count 417,000. The patient is seen today 12/09/2020 in follow-up on the regular medical floor. He is awake and alert in no acute distress. Sitting up at the bedside. He continues to have a loose productive cough of yellow thick sputum. Some dyspnea on exertion. Requiring 2 L nasal cannula to maintain O2 saturations in the 90s. He is currently on ceftriaxone and azithromycin. Anticoagulated now with Eliquis. CoVID screen was negative 2. White count 10.1. Hemoglobin 9.7. Sodium 134. Potassium 4.6. Creatinine 0.55. Glucose 160. The patient is seen today 12/10/2020 in follow-up on the regular medical floor. He is currently sitting up at the bedside. Awake and alert in no acute distr ess. Currently on 2 L maintain O2 saturation in the 90s. He is feeling better today compared to yesterday. Sputum cultures still pending. White count 10.3. Hemoglobin 10.2. Chest x-ray continues show bilateral airspace and interstitial infiltrates, slightly improved. He remains on DuoNeb inhalations, cefepime and azithromycin, anticoagulated with Eliquis. Objective - Vital Signs Vital signs: Vital Signs Temp 97.5 F L 12/10/20 14:22 Pulse 107 H 12/10/20 14:22 Resp 18 12/10/20 14:22 BP 99/64 12/10/20 14:22 Pulse Ox 99 12/10/20 14:22 Intake & Output 12/09/20 12/10/20 12/10/20 18:59 06:59 18:59 Intake Total 600 Balance 600 Intake: Oral 600 Other: Voiding Method Toilet Toilet # Voids 2 3 - Exam GENERAL EXAM: Alert, pleasant 45-year-old gentleman, on 2 L nasal cannula, comfortable in no apparent distress. HEAD: Normocephalic. EYES: Normal reaction of pupils, equal size. NOSE: Clear with pink turbinates. THROAT: No erythema or exudates. NECK: No masses, no JVD. CHEST: No chest wall deformity. LUNGS: Equal air entry with scattered rhonchi bilaterally. CVS: S1 and S2 normal with no audible murmur, regular rhythm. ABDOMEN: No hepatosplenomegaly, normal bowel sounds, no guarding or rigidity. SPINE: No scoliosis or deformity SKIN: No rashes CENTRAL NERVOUS SYSTEM: No focal deficits, tone is normal in all 4 extremities. EXTREMITIES: There is no peripheral edema. No clubbing, no cyanosis. Peripheral pulses are intact. - Labs CBC & Chem 7: 12/10/20 08:24 12/09/20 06:11 Labs: Abnormal Lab Results - Last 24 Hours (Table) 12/09/20 12/09/20 12/10/20 Range/Units 17:07 20:11 07:14 RBC (4.30-5.90) m/uL Hgb (13.0-17.5) gm/dL Hct (39.0-53.0) % MCV (80.0-100.0) fL MCH (25.0-35.0) pg RDW (11.5-15.5) % POC Glucose (mg/dL) 278 H 304 H 420 H (75-99) mg/dL 12/10/20 12/10/20 Range/Units 08:24 11:46 RBC 4.12 L (4.30-5.90) m/uL Hgb 10.2 L (13.0-17.5) gm/dL Hct 31.3 L (39.0-53.0) % MCV 76.1 L (80.0-100.0) fL MCH 24.7 L (25.0-35.0) pg RDW 16.8 H (11.5-15.5) % POC Glucose (mg/dL) 319 H (75-99) mg/dL Microbiology - Last 24 Hours (Table) 12/09/20 19:55 Sputum Culture - Preliminary Sputum Assessment and Plan Assessment: 1 Acute hypoxemic respiratory failure secondary to right lower lobe pulmonary embolism and bibasilar infiltrates consistent with pneumonia. CoVID 19 screen negative 2 2 History of chronic obstructive pulmonary disease 3 History of prior tobacco dependence 4 Coronary artery disease with multiple stents 5 History of congestive heart failure 6 Diabetes mellitus with diabetic neuropathy 7 Hypertension 8 Hyperlipidemia 9 Obstructive sleep apnea 10 Degenerative joint disease 11 history of fatty liver Plan: The patient was seen and evaluated by Dr. Mancuso Chest x-ray and labs reviewed. Sputum culture pending. Continue cefepime and azithromycin Titrate down the FiO2 as tolerated We will continue to follow I, the cosigning physician, performed a history & physical examination of the patient. Lungs sounds with bilateral scattered rhonchi. Maintaining good O2 saturations in the 90s on 2 L/m per nasal cannula. I discussed the assessment and plan of care with my nurse practitioner, Namita oMyer. I attest to the above note as dictated by her.
[2020-12-10 17:07] LABS: Glucose,Whole Blood 363 mg/dL (75-99)
[2020-12-10 20:22] LABS: Glucose,Whole Blood 390 mg/dL (75-99)
[2020-12-10] MEDS: ATORVASTATIN 80 MG TAB PO SCH (20:27)
[2020-12-10] MEDS: MONTELUKAST 10 MG TAB PO SCH (20:27)
[2020-12-10] MEDS: INSULIN DETEMIR (LEVEMIR) 100 UNIT/ML SYR SQ SCH (20:28)
[2020-12-10] MEDS: SODIUM CHLORIDE 0.9% 1,000 ML IV SCH (21:27)
[2020-12-11] MEDS: IPRATROPIUM-ALBUTEROL 3 ML NEB INHALATION SCH ×5 (01:15→20:23)
[2020-12-11] MEDS: CEFEPIME 2 GM in SODIUM CHLORIDE 0.9% 100 ML IVPB SCH ×3 (01:37→17:15)
[2020-12-11] MEDS: IPRATROPIUM-ALBUTEROL 3 ML NEB INHALATION PRN (05:20)
[2020-12-11 07:09] LABS: Glucose,Whole Blood 348 mg/dL (75-99)
[2020-12-11] MEDS: PREGABALIN 50 MG CAP PO SCH ×2 (07:38→20:50)
[2020-12-11] MEDS: METOPROLOL TARTRATE 12.5 MG TAB PO SCH ×2 (07:39→20:49)
[2020-12-11] MEDS: FENOFIBRATE 160 MG TAB PO SCH (07:39)
[2020-12-11] MEDS: APIXABAN 5 MG TAB PO SCH ×2 (07:39→20:50)
[2020-12-11] MEDS: buPROPion XL 300 MG TAB.ER.24H PO SCH (07:39)
[2020-12-11] MEDS: ASPIRIN 81 MG PO SCH (07:39)
[2020-12-11] MEDS: PANTOPRAZOLE 40 MG TABLET PO SCH (07:39)
[2020-12-11] MEDS: HYDROcodone/APAP 10-325MG 1 EACH TAB PO SCH ×4 (07:39→21:56)
[2020-12-11] MEDS: INSULIN ASPART (NovoLOG) 100 UNIT/ML VIAL SQ SCH ×7 (07:42→21:56)
[2020-12-11] MEDS: TOPIRAMATE 25 MG TAB PO SCH (07:49)
[2020-12-11] MEDS: AZITHROMYCIN 500 MG TAB PO SCH (07:50)
[2020-12-11 11:34] LABS: Glucose,Whole Blood 240 mg/dL (75-99)
--- NOTE | 2020-12-11 16:18 | P.PN ---
Subjective Progress Note Date: 12/11/20 Principal diagnosis: PE/pneumonia 45-year-old male, who sees a nurse practitioner up in the [facility], for his healthcare, who presents to the emergency department, with 2 weeks of not feeling well. Include primarily shortness of breath, cough, phlegm production, and abnormal troponins. The patient see an outside hospital, transferred down. In addition, the patient had shortness of breath, and low saturations. He does have a history of heart failure, COPD, hypertension, and myocardial infarction. The patient had a CT angiogram which showed some right lower lobe infiltrate, and a right lower lobe pulmonary embolism as well. Currently, the patient is on 2 L nasal cannula. He is also getting IV heparin for the pulmonary embolism. He does have coronary artery disease, has had multiple stents. He states that he is tested negative twice for COVID. Does also have a history of diabetes, hyperlipidemia, and hypertension. He also has a history of sleep apnea syndrome. He is maintained on CPAP for that. He apparently still smokes cigarettes. White count is 9.3, hemoglobin 10.2, hematocrit 31.7, and platelet count 297,000. PTT is 49.3. Sodium 127, potassium 5.1, chlorides 90 CO2 25, anion gap 12, the urine 10, and creatinine 0.49. CT angiogram showed right lower lobe pulmonary embolism, and extensive bibasilar interstitial infiltrates with some groundglass areas. There is also some bilateral enlarged bronchial lymph nodes measuring up to 2 cm. Progress note dated 12/08/2020. The patient is again seen in the observation unit. He's in room 160. Is currently on room air. Saturations are 93%. He is getting saline at 20 mL an hour, and also heparin via weightbase protocol. A CT angiogram showed right lower lobe pulmonary embolism, and extensive bibasilar infiltrates with groundglass areas. Currently, the patient denies any shortness of breath. He does have chest congestion and cough. He denies any fever or chills. He also denies nausea and vomiting. White count is 13.1, hemoglobin 9.5, hematocrit 27.9, and platelet count 417,000. The patient is seen today 12/09/2020 in follow-up on the regular medical floor. He is awake and alert in no acute distress. Sitting up at the bedside. He continues to have a loose productive cough of yellow thick sputum. Some dyspnea on exertion. Requiring 2 L nasal cannula to maintain O2 saturations in the 90s. He is currently on ceftriaxone and azithromycin. Anticoagulated now with Eliquis. CoVID screen was negative 2. White count 10.1. Hemoglobin 9.7. Sodium 134. Potassium 4.6. Creatinine 0.55. Glucose 160. The patient is seen today 12/10/2020 in follow-up on the regular medical floor. He is currently sitting up at the bedside. Awake and alert in no acute distr ess. Currently on 2 L maintain O2 saturation in the 90s. He is feeling better today compared to yesterday. Sputum cultures still pending. White count 10.3. Hemoglobin 10.2. Chest x-ray continues show bilateral airspace and interstitial infiltrates, slightly improved. He remains on DuoNeb inhalations, cefepime and azithromycin, anticoagulated with Eliquis. The patient is seen today 12/11/2020 in follow-up on the regular medical floor. He is currently awake and alert in no acute distress. Sitting up at the bedside. No worsening shortness of breath, cough or congestion. Lung sounds ar e improved. He is 88% O2 saturation on room air. May qualify for home oxygen and will check again tomorrow. Cultures are pending. Awaiting final culture results. We'll continue with cefepime and azithromycin. Anticoagulated with Eliquis. Objective - Vital Signs Vital signs: Vital Signs Temp 98.4 F 12/11/20 14:00 Pulse 105 H 12/11/20 15:57 Resp 19 12/11/20 14:00 BP 139/85 12/11/20 14:00 Pulse Ox 96 12/11/20 14:00 Intake & Output 12/10/20 12/11/20 12/11/20 18:59 06:59 18:59 Other: Voiding Method Toilet # Voids 10 1 # Bowel Movements 2 - Exam GENERAL EXAM: Alert, pleasant 45-year-old gentleman, on 2 L nasal cannula, comfortable in no apparent distress. HEAD: Normocephalic. EYES: Normal reaction of pupils, equal size. NOSE: Clear with pink turbinates. THROAT: No erythema or exudates. NECK: No masses, no JVD. CHEST: No chest wall deformity. LUNGS: Equal air entry with scattered rhonchi bilaterally. CVS: S1 and S2 normal with no audible murmur, regular rhythm. ABDOMEN: No hepatosplenomegaly, normal bowel sounds, no guarding or rigidity. SPINE: No scoliosis or deformity SKIN: No rashes CENTRAL NERVOUS SYSTEM: No focal deficits, tone is normal in all 4 extremities. EXTREMITIES: There is no peripheral edema. No clubbing, no cyanosis. Peripheral pulses are intact. - Labs CBC & Chem 7: 12/10/20 08:24 12/09/20 06:11 Labs: Abnormal Lab Results - Last 24 Hours (Table) 12/10/20 12/10/20 12/11/20 Range/Units 16:40 20:12 07:08 POC Glucose (mg/dL) 363 H 390 H 348 H (75-99) mg/dL 12/11/20 Range/Units 11:32 POC Glucose (mg/dL) 240 H (75-99) mg/dL Microbiology - Last 24 Hours (Table) 12/09/20 19:55 Gram Stain - Preliminary Sputum Sputum Culture - Preliminary Assessment and Plan Assessment: 1 Acute hypoxemic respiratory failure secondary to right lower lobe pulmonary embolism and bibasilar infiltrates consistent with pneumonia. CoVID 19 screen negative 2 2 History of chronic obstructive pulmonary disease 3 History of prior tobacco dependence 4 Coronary artery disease with multiple stents 5 History of congestive heart failure 6 Diabetes mellitus with diabetic neuropathy 7 Hypertension 8 Hyperlipidemia 9 Obstructive sleep apnea 10 Degenerative joint disease 11 history of fatty liver Plan: The patient was seen and evaluated by Dr. Mancuso Sputum culture pending. Continue cefepime and azithromycin Titrate down the FiO2 as tolerated May qualify for home oxygen Probable discharge in the a.m. We will continue to follow I, the cosigning physician, performed a history & physical examination of the patient. Lungs sounds with bilateral scattered rhonchi. Maintaining good O2 saturations in the 90s on 2 L/m per nasal cannula. I discussed the assessment and plan of care with my nurse practitioner, Namita Moyer. I attest to the above note as dictated by her.
--- NOTE | 2020-12-11 16:23 | P.PN ---
<Tyrel Mcguire - Last Filed: 12/11/20 16:12> Subjective Progress Note Date: 12/11/20 Principal diagnosis: Acute pulmonary embolism without right heart strain Hospital course: Patient is a 45-year-old male with a past medical history of CAD with multive ssel PCI stenting, type 2 insulin-dependent diabetes mellitus, hypertension, hyperlipidemia, asthma, and iron deficiency anemia. Patient presented to the hospital on 12/06/20 with a chief complaint of productive cough and new onset bilateral lower extremity edema. Patient was seen and evaluated at [facility] where he was found to have an elevated troponin of 3.56, d-dimer 2746, and a hemoglobin of 9.3 down from previous 14.1. Chest x-ray reportedly revealed bilateral diffuse airspace disease with possible pneumonia versus fluid overload. Patient transferred to our facility with the diagnosis of an STEMI and community-acquired pneumonia resulting in admission under our services with consult to cardiology for continued medical management. Patient had a CT PE completed which revealed a right lower lobe pulmonary emboli with extensive pulmonary infiltrates consistent with pneumonia. Pulmonology consulted and pt started on anticoagulation with Heparin and later transitioned to Eliquis and continue Plavix as instructed by cardiology. Covid PCR was negative x2. EKG revealed sinus tachycardia at 105 bpm with no noted T-wave or ST abnormalities. Echocardiogram showed a normal ejection fraction between 60 and 65% with moderate concentric left ventricular hypertrophy and mild aortic valve sclerosis. Patient was treated for CAP with azithromycin and rocephin x 3 days and then pulmonology changed rocephin to cefepime for concerns of possible Pseudomonas. Sputum cultures were obtained and currently pending results. Repeat chest x-ray completed this morning revealing bilateral airspace and interstitial infiltrates persisting although may be slightly improved. Venous Doppler completed 12/10/20 was negative for DVT. Physical exam: Patient seen and fully evaluated at bedside this morning. He was sitting up at the edge of the bed. Patient reports feeling only slightly better stating that he continues to cough up a significant amount of thick beige colored phlegm. He is currently on 2 L O2 with SpO2 of 94%, patient taken off of oxygen this morning with SpO2 decreasing to 86% on room air. Ambulatory pulse ox completed patient requiring 3-4 L of oxygen to maintain SpO2 89%. Patient reports continued shortness of breath with exertion and that he feels there fatigued and weak. Patient reports feeling so weak that he is unable to ambulate in room. PT/OT consult was placed for evaluation of patient's strength and endurance. Venous Doppler of left lower extremity completed yesterday afternoon was negative for DVT. Morning blood glucose 240. Patient denies having any headache, lightheadedness, dizziness, changes in his vision or hearing, chest pain or palpitations or experiencing any nausea or vomiting. Patient tolerating meals well. Sputum cultures pending. General: non toxic, no distress, appears at stated age Derm: warm, dry Head: atraumatic, normocephalic, symmetric Eyes: EOMI, no lid lag, anicteric sclera Mouth: no lip lesion, mucus membranes moist Cardiovascular: S1S2 reg, no murmur, rub, or gallop. Lungs: Respirations even, regular, and unlabored on 2 L O2 via nasal cannula with SpO2 94% upon assessment. Lungs diminished at bases with diffuse rhonchi noted bilaterally worse right lower lobe. Abdominal: soft, nontender to palpation, no guarding, no appreciable organomegaly Ext: no gross muscle atrophy, no edema, no contractures Neuro: CN II-XI grossly intact, no focal neuro deficits Psych: Alert, oriented, appropriate affect Assessment and plan of care: Acute pulmonary emboli in right lower lobe without right heart strain -CT PE completed which revealed a right lower lobe pulmonary emboli with extensive pulmonary infiltrates consistent with pneumonia. -Continue Eliquis -Continue oxygen supplementation to maintain SpO2 equal to or greater than 90%. Wean oxygen once patient is able. -Pulmonology following, appreciate further recommendations. Community-acquired pneumonia of RLL -Chest x-ray reportedly revealed bilateral diffuse airspace disease with possible pneumonia versus fluid overload. -Repeat chest x-ray completed 12/10/20 revealed bilateral airspace and interstitial infiltrates persisting although may be slightly improved. -CT PE completed which revealed a right lower lobe pulmonary emboli with extensive pulmonary infiltrates consistent with pneumonia. -Continue antibiotics with azithromycin and cefepime pending sputum culture results. Today is day 5 of antibiotics. -Covid and influenza A and B PCR's were negative -Pro-calcitonin 0.17. WBC count 10.3. Iron deficiency Anemia, stable -Hemoglobin 10.2 with baseline hemoglobin of 11.5. -Iron 41, TIBC 2.63. -We will continue to monitor with repeat a.m. labs Insulin-dependent diabetes mellitus, poorly controlled -Patient's blood sugars uncontrolled upon arrival to facility ranging from 300s to 500s. His hemoglobin A1c was 14.1. Patient does reportedly take Lantus 50 units nightly along with NovoLog sliding scale and metformin. Concerns whether patient is compliant with diet and taking all medications as directed as he does have a documented history of medical noncompliance. -We will continue with glycemic protocol with NovoLog 12 units with each meal along with sliding scale and 40 units Levemir nightly. -Heart healthy carb consistent diet. -nurses educator was consulted. Hyponatremia, improving -Initially sodium 127 has improved over the past 3 days and now 134. Coronary artery disease with previous multivessel PCI and stent placement -Continue daily medication management including aspirin, atorvastatin, lisinopril, and metoprolol. -Heart healthy carb consistent diet. DVT prophylaxis: Pina Discussed with: Patient and RN Anticipated discharge: Clinical course to determine Anticipated discharge place: Home A total of 40 minutes was spent on the care of this complex patient more than 50% of the time was spent in counseling and care coordination. Objective - Vital Signs Vital signs: Vital Signs Temp 98.4 F 12/11/20 07:45 Pulse 103 H 12/11/20 10:12 Resp 19 12/11/20 07:45 BP 112/68 12/11/20 07:45 Pulse Ox 89 L 12/11/20 10:12 Intake & Output 12/10/20 12/11/20 12/11/20 18:59 06:59 18:59 Other: Voiding Method Toilet # Voids 10 1 # Bowel Movements 2 - Labs CBC & Chem 7: 12/10/20 08:24 12/09/20 06:11 Labs: Abnormal Lab Results - Last 24 Hours (Table) 12/10/20 12/10/20 12/10/20 Range/Units 11:46 16:40 20:12 POC Glucose (mg/dL) 319 H 363 H 390 H (75-99) mg/dL 12/11/20 Range/Units 07:08 POC Glucose (mg/dL) 348 H (75-99) mg/dL Microbiology - Last 24 Hours (Table) 12/09/20 19:55 Gram Stain - Preliminary Sputum Sputum Culture - Preliminary <Katty Sharpe - Last Filed: 12/11/20 17:22> Objective - Vital Signs Vital signs: Vital Signs Temp 98.4 F 12/11/20 14:00 Pulse 106 H 12/11/20 16:12 Resp 19 12/11/20 14:00 BP 139/85 12/11/20 14:00 Pulse Ox 96 12/11/20 14:00 Intake & Output 12/10/20 12/11/20 12/11/20 18:59 06:59 18:59 Other: Voiding Method Toilet # Voids 10 1 # Bowel Movements 2 - Labs CBC & Chem 7: 12/10/20 08:24 12/09/20 06:11 Labs: Abnormal Lab Results - Last 24 Hours (Table) 12/10/20 12/11/20 12/11/20 Range/Units 20:12 07:08 11:32 POC Glucose (mg/dL) 390 H 348 H 240 H (75-99) mg/dL 12/11/20 Range/Units 16:34 POC Glucose (mg/dL) 169 H (75-99) mg/dL Microbiology - Last 24 Hours (Table) 12/09/20 19:55 Gram Stain - Preliminary Sputum Sputum Culture - Preliminary Assessment and Plan Assessment: Patient seen and examined independently. Patient was also seen by Tyrel Mcguire NP and case was discussed. I am in agreement with subjective, physical exam, assessment and plan as written above and amended below. Attempted to evaluate. However he was on the phone already been evaluated by our [employer]OM[employer]IC. He continued to speak on the phone. General: non toxic, no distress, appears at stated age Lungs: speaking on the phone in full sentence, equal chest rise bilateral. No conversational dyspnea Abdominal: soft, nontender to palpation, no guarding, no appreciable organomegaly Neuro: CN II-XI grossly intact, no focal neuro deficits Psych: Alert, oriented, animated
[2020-12-11 16:35] LABS: Glucose,Whole Blood 169 mg/dL (75-99)
[2020-12-11] MEDS: ATORVASTATIN 80 MG TAB PO SCH (20:49)
[2020-12-11] MEDS: MONTELUKAST 10 MG TAB PO SCH (20:49)
[2020-12-11 21:54] LABS: Glucose,Whole Blood 165 mg/dL (75-99)
[2020-12-11] MEDS: INSULIN DETEMIR (LEVEMIR) 100 UNIT/ML SYR SQ SCH (21:56)
[2020-12-12] MEDS: SODIUM CHLORIDE 0.9% 1,000 ML IV SCH ×2 (00:45→21:43)
[2020-12-12] MEDS: IPRATROPIUM-ALBUTEROL 3 ML NEB INHALATION PRN ×2 (01:45→06:09)
[2020-12-12] MEDS: CEFEPIME 2 GM in SODIUM CHLORIDE 0.9% 100 ML IVPB SCH ×3 (02:35→19:30)
[2020-12-12] MEDS: METOPROLOL TARTRATE 12.5 MG TAB PO SCH ×2 (06:23→21:01)
[2020-12-12] MEDS: ONDANSETRON 4 MG/2 ML VIAL IVP PRN (06:56)
[2020-12-12 07:01] LABS: Glucose,Whole Blood 283 mg/dL (75-99)
[2020-12-12] MEDS: PANTOPRAZOLE 40 MG TABLET PO SCH (08:13)
[2020-12-12] MEDS: TOPIRAMATE 25 MG TAB PO SCH (08:13)
[2020-12-12] MEDS: buPROPion XL 300 MG TAB.ER.24H PO SCH (08:13)
[2020-12-12] MEDS: ASPIRIN 81 MG PO SCH (08:13)
[2020-12-12] MEDS: FENOFIBRATE 160 MG TAB PO SCH (08:13)
[2020-12-12] MEDS: APIXABAN 5 MG TAB PO SCH ×2 (08:13→21:01)
[2020-12-12] MEDS: HYDROcodone/APAP 10-325MG 1 EACH TAB PO SCH ×4 (08:14→21:45)
[2020-12-12] MEDS: AZITHROMYCIN 500 MG TAB PO SCH (08:14)
[2020-12-12] MEDS: PREGABALIN 50 MG CAP PO SCH ×2 (08:14→21:01)
[2020-12-12] MEDS: INSULIN ASPART (NovoLOG) 100 UNIT/ML VIAL SQ SCH ×7 (08:15→21:00)
[2020-12-12] MEDS: IPRATROPIUM-ALBUTEROL 3 ML NEB INHALATION SCH ×4 (08:59→20:18)
[2020-12-12 11:57] LABS: Glucose,Whole Blood 163 mg/dL (75-99)
--- NOTE | 2020-12-12 15:59 | P.PN ---
<Tyrel Mcguire - Last Filed: 12/12/20 15:09> Subjective Progress Note Date: 12/12/20 Principal diagnosis: Acute pulmonary embolism without right heart strain Hospital course: Patient is a 45-year-old male with a past medical history of CAD with multive ssel PCI stenting, type 2 insulin-dependent diabetes mellitus, hypertension, hyperlipidemia, asthma, and iron deficiency anemia. Patient presented to the hospital on 12/06/20 with a chief complaint of productive cough and new onset bilateral lower extremity edema. Patient was seen and evaluated at [facility] where he was found to have an elevated troponin of 3.56, d-dimer 2746, and a hemoglobin of 9.3 down from previous 14.1. Chest x-ray reportedly revealed bilateral diffuse airspace disease with possible pneumonia versus fluid overload. Patient transferred to our facility with the diagnosis of an STEMI and community-acquired pneumonia resulting in admission under our services with consult to cardiology for continued medical management. Patient had a CT PE completed which revealed a right lower lobe pulmonary emboli with extensive pulmonary infiltrates consistent with pneumonia. Pulmonology consulted and pt started on anticoagulation with Heparin and later transitioned to Eliquis and continue Plavix as instructed by cardiology. Covid PCR was negative x2. EKG revealed sinus tachycardia at 105 bpm with no noted T-wave or ST abnormalities. Echocardiogram showed a normal ejection fraction between 60 and 65% with moderate concentric left ventricular hypertrophy and mild aortic valve sclerosis. Patient was treated for CAP with azithromycin and rocephin x 3 days and then pulmonology changed rocephin to cefepime for concerns of possible Pseudomonas. Sputum cultures were obtained and currently pending results. Repeat chest x-ray completed this morning revealing bilateral airspace and interstitial infiltrates persisting although may be slightly improved. Venous Doppler completed 12/10/20 was negative for DVT. Physical exam: Patient seen and fully evaluated at bedside this morning. His oxygen requirement significantly increasing over the past 24 hours. Patient went from previously being on 2 L O2 via nasal cannula and is now requiring 5 L O2 via nasal cannula to maintain SpO2 greater than 90%. Patient currently on 92% on 5 L at rest. He denies having increased shortness of breath and continues to speak in full sentences without any noted difficulties or conversational dyspnea. He reports that he continues to feel weak and continues to cough up copious amounts of thick yellow sputum. He has remains afebrile throughout hospitalization and denies having any headache, lightheadedness, dizziness, chest pain or palpitations. His sputum cultures have resulted revealing gram- positive bacilli and gram-positive cocci, patient receiving adequate antibiotic coverage. He remains on Eliquis for treatment of his PE. Awaiting further recommendations from pulmonology. General: non toxic, no distress, appears at stated age Derm: warm, dry Head: atraumatic, normocephalic, symmetric Eyes: EOMI, no lid lag, anicteric sclera Mouth: no lip lesion, mucus membranes moist Cardiovascular: S1S2 reg, no murmur, rub, or gallop. Lungs: Respirations even, regular, and unlabored on 5 L O2 via nasal cannula with SpO2 92% upon assessment. Lungs with coarse crackles in bilateral bases. Abdominal: soft, nontender to palpation, no guarding, no appreciable organomegaly Ext: no gross muscle atrophy, no edema, no contractures Neuro: CN II-XI grossly intact, no focal neuro deficits Psych: Alert, oriented, appropriate affect Assessment and plan of care: Acute pulmonary emboli in right lower lobe without right heart strain -CT PE completed which revealed a right lower lobe pulmonary emboli with extensive pulmonary infiltrates consistent with pneumonia. -Continue Eliquis -Continue oxygen supplementation to maintain SpO2 equal to or greater than 90%. Wean oxygen once patient is able. -Pulmonology following, appreciate further recommendations. Community-acquired pneumonia of RLL -Chest x-ray reportedly revealed bilateral diffuse airspace disease with possible pneumonia versus fluid overload. -Repeat chest x-ray completed 12/10/20 revealed bilateral airspace and inte rstitial infiltrates persisting although may be slightly improved. -CT PE completed which revealed a right lower lobe pulmonary emboli with extensive pulmonary infiltrates consistent with pneumonia. -Continue antibiotics with azithromycin and cefepime pending sputum culture results. Today is day 6 of antibiotics. -Covid and influenza A and B PCR's were negative -Pro-calcitonin 0.17. WBC count 10.3. Iron deficiency Anemia, stable -Hemoglobin 10.2 with baseline hemoglobin of 11.5. -Iron 41, TIBC 2.63. -We will continue to monitor with repeat a.m. labs Insulin-dependent diabetes mellitus, poorly controlled -Patient's blood sugars uncontrolled upon arrival to facility ranging from 300s to 500s. His hemoglobin A1c was 14.1. Patient does reportedly take Lantus 50 units nightly along with NovoLog sliding scale and metformin. Concerns whether patient is compliant with diet and taking all medications as directed as he does have a documented history of medical noncompliance. -We will continue with glycemic protocol with NovoLog 12 units with each meal along with sliding scale and 40 units Levemir nightly. -Heart healthy carb consistent diet. -elementary educator was consulted. Hyponatremia, improving -Initially sodium 127 has improved over the past 3 days and now 134. Coronary artery disease with previous multivessel PCI and stent placement -Continue daily medication management including aspirin, atorvastatin, christine nopril, and metoprolol. -Heart healthy carb consistent diet. DVT prophylaxis: [place] Discussed with: Patient and RN Anticipated discharge: Clinical course to determine Anticipated discharge place: Home A total of 40 minutes was spent on the care of this complex patient more than 50% of the time was spent in counseling and care coordination. Objective - Vital Signs Vital signs: Vital Signs Temp 98.8 F 12/12/20 00:50 Pulse 108 H 12/12/20 06:29 Resp 18 12/12/20 08:00 BP 118/68 12/12/20 07:17 Pulse Ox 94 L 12/12/20 06:52 Intake & Output 12/11/20 12/12/20 12/12/20 18:59 06:59 18:59 Intake Total 1640 Balance 1640 Weight 92.5 kg Intake: Intake, IV Titration 440 Amount Cefepime 2 gm In Sodium 200 Chloride 0.9% 100 ml @ 25 mls/hr IVPB Q8H RILEY Rx#: [id number] Sodium Chloride 0.9% 1, 240 000 ml @ 20 mls/hr IV . Q24H RILEY Rx#:[id number] Oral 1200 Other: # Voids 3 6 - Labs CBC & Chem 7: 12/10/20 08:24 12/09/20 06:11 Labs: Abnormal Lab Results - Last 24 Hours (Table) 12/11/20 12/11/20 12/11/20 Range/Units 11:32 16:34 21:51 POC Glucose (mg/dL) 240 H 169 H 165 H (75-99) mg/dL 12/12/20 Range/Units 06:59 POC Glucose (mg/dL) 283 H (75-99) mg/dL <Katty Sharpe - Last Filed: 12/12/20 16:44> Objective - Vital Signs Vital signs: Vital Signs Temp 98.1 F 12/12/20 14:36 Pulse 105 H 12/12/20 14:36 Resp 18 12/12/20 14:36 BP 103/57 12/12/20 14:36 Pulse Ox 92 L 12/12/20 14:36 Intake & Output 12/11/20 12/12/20 12/12/20 18:59 06:59 18:59 Intake Total 1640 Balance 1640 Weight 92.5 kg Intake: Intake, IV Titration 440 Amount Cefepime 2 gm In Sodium 200 Chloride 0.9% 100 ml @ 25 mls/hr IVPB Q8H RILEY Rx#: [id number] Sodium Chloride 0.9% 1, 240 000 ml @ 20 mls/hr IV . Q24H RILEY Rx#:[id number] Oral 1200 Other: # Voids 3 6 2 - Labs CBC & Chem 7: 12/10/20 08:24 12/09/20 06:11 Labs: Abnormal Lab Results - Last 24 Hours (Table) 12/11/20 12/12/20 12/12/20 Range/Units 21:51 06:59 11:56 POC Glucose (mg/dL) 165 H 283 H 163 H (75-99) mg/dL Microbiology - Last 24 Hours (Table) 12/09/20 19:55 Gram Stain - Final Sputum Sputum Culture - Final Assessment and Plan Assessment: I discussed the care with Tyrel Mcguire NP and reviewed the findings and plan as documented in the note above. I did not staff this patient on this date. Chart reviewed. Patient with worsening hypoxic respiratory failure now requiring 5 L nasal cannula. We'll recheck chest x-ray in a.m. We'll check beta D glucan testing to evaluate for possible fungal component as patient has diabetes that is poorly controlled with an A1c of 14.1 and prior A1c of 16 being that he is immunocompromise at this point in time. Continue with antibiotics in the form of Zithromax and cefepime. HX of COPD without exacerbation
--- NOTE | 2020-12-12 16:24 | P.PN ---
Subjective Progress Note Date: 12/12/20 Principal diagnosis: PE/pneumonia 45-year-old male, who sees a nurse practitioner up in the [facility], for his healthcare, who presents to the emergency department, with 2 weeks of not feeling well. Include primarily shortness of breath, cough, phlegm production, and abnormal troponins. The patient see an outside hospital, transferred down. In addition, the patient had shortness of breath, and low saturations. He does have a history of heart failure, COPD, hypertension, and myocardial infarction. The patient had a CT angiogram which showed some right lower lobe infiltrate, and a right lower lobe pulmonary embolism as well. Currently, the patient is on 2 L nasal cannula. He is also getting IV heparin for the pulmonary embolism. He does have coronary artery disease, has had multiple stents. He states that he is tested negative twice for COVID. Does also have a history of diabetes, hyperlipidemia, and hypertension. He also has a history of sleep apnea syndrome. He is maintained on CPAP for that. He apparently still smokes cigarettes. White count is 9.3, hemoglobin 10.2, hematocrit 31.7, and platelet count 297,000. PTT is 49.3. Sodium 127, potassium 5.1, chlorides 90 CO2 25, anion gap 12, the urine 10, and creatinine 0.49. CT angiogram showed right lower lobe pulmonary embolism, and extensive bibasilar interstitial infiltrates with some groundglass areas. There is also some bilateral enlarged bronchial lymph nodes measuring up to 2 cm. Progress note dated 12/08/2020. The patient is again seen in the observation unit. He's in room 160. Is currently on room air. Saturations are 93%. He is getting saline at 20 mL an hour, and also heparin via weightbase protocol. A CT angiogram showed right lower lobe pulmonary embolism, and extensive bibasilar infiltrates with groundglass areas. Currently, the patient denies any shortness of breath. He does have chest congestion and cough. He denies any fever or chills. He also denies nausea and vomiting. White count is 13.1, hemoglobin 9.5, hematocrit 27.9, and platelet count 417,000. The patient is seen today 12/09/2020 in follow-up on the regular medical floor. He is awake and alert in no acute distress. Sitting up at the bedside. He continues to have a loose productive cough of yellow thick sputum. Some dyspnea on exertion. Requiring 2 L nasal cannula to maintain O2 saturations in the 90s. He is currently on ceftriaxone and azithromycin. Anticoagulated now with Eliquis. CoVID screen was negative 2. White count 10.1. Hemoglobin 9.7. Sodium 134. Potassium 4.6. Creatinine 0.55. Glucose 160. The patient is seen today 12/10/2020 in follow-up on the regular medical floor. He is currently sitting up at the bedside. Awake and alert in no acute distr ess. Currently on 2 L maintain O2 saturation in the 90s. He is feeling better today compared to yesterday. Sputum cultures still pending. White count 10.3. Hemoglobin 10.2. Chest x-ray continues show bilateral airspace and interstitial infiltrates, slightly improved. He remains on DuoNeb inhalations, cefepime and azithromycin, anticoagulated with Eliquis. The patient is seen today 12/11/2020 in follow-up on the regular medical floor. He is currently awake and alert in no acute distress. Sitting up at the bedside. No worsening shortness of breath, cough or congestion. Lung sounds ar e improved. He is 88% O2 saturation on room air. May qualify for home oxygen and will check again tomorrow. Cultures are pending. Awaiting final culture results. We'll continue with cefepime and azithromycin. Anticoagulated with Eliquis. The patient is seen today 12/12/2020 in follow-up on the regular medical floor. Currently sitting up at the bedside. Awake and alert in no acute distress. Continues with a loose productive cough of archie colored sputum. Sputum culture reveals no growth to date. He is on 5 L nasal cannula maintaining O2 saturation in the 90s. Remains on bronchodilators, cefepime and azithromycin. Anticoagulated with Eliquis. Objective - Vital Signs Vital signs: Vital Signs Temp 98.1 F 12/12/20 14:36 Pulse 105 H 12/12/20 14:36 Resp 18 12/12/20 14:36 BP 103/57 12/12/20 14:36 Pulse Ox 92 L 12/12/20 14:36 Intake & Output 12/11/20 12/12/20 12/12/20 18:59 06:59 18:59 Intake Total 1640 Balance 1640 Weight 92.5 kg Intake: Intake, IV Titration 440 Amount Cefepime 2 gm In Sodium 200 Chloride 0.9% 100 ml @ 25 mls/hr IVPB Q8H RILEY Rx#: [id number] Sodium Chloride 0.9% 1, 240 000 ml @ 20 mls/hr IV . Q24H RILEY Rx#:[id number] Oral 1200 Other: # Voids 3 6 2 - Exam GENERAL EXAM: Alert, pleasant 45-year-old gentleman, on 5 L nasal cannula, co mfortable in no apparent distress. HEAD: Normocephalic. EYES: Normal reaction of pupils, equal size. NOSE: Clear with pink turbinates. THROAT: No erythema or exudates. NECK: No masses, no JVD. CHEST: No chest wall deformity. LUNGS: Equal air entry with scattered rhonchi bilaterally. CVS: S1 and S2 normal with no audible murmur, regular rhythm. ABDOMEN: No hepatosplenomegaly, normal bowel sounds, no guarding or rigidity. SPINE: No scoliosis or deformity SKIN: No rashes CENTRAL NERVOUS SYSTEM: No focal deficits, tone is normal in all 4 extremities. EXTREMITIES: There is no peripheral edema. No clubbing, no cyanosis. Peripheral pulses are intact. - Labs CBC & Chem 7: 12/10/20 08:24 12/09/20 06:11 Labs: Abnormal Lab Results - Last 24 Hours (Table) 12/11/20 12/11/20 12/12/20 Range/Units 16:34 21:51 06:59 POC Glucose (mg/dL) 169 H 165 H 283 H (75-99) mg/dL 12/12/20 Range/Units 11:56 POC Glucose (mg/dL) 163 H (75-99) mg/dL Microbiology - Last 24 Hours (Table) 12/09/20 19:55 Gram Stain - Final Sputum Sputum Culture - Final Assessment and Plan Assessment: 1 Acute hypoxemic respiratory failure secondary to right lower lobe pulmonary embolism and bibasilar infiltrates consistent with pneumonia. CoVID 19 screen negative 2 2 History of chronic obstructive pulmonary disease 3 History of prior tobacco dependence 4 Coronary artery disease with multiple stents 5 History of congestive heart failure 6 Diabetes mellitus with diabetic neuropathy 7 Hypertension 8 Hyperlipidemia 9 Obstructive sleep apnea 10 Degenerative joint disease 11 history of fatty liver Plan: The patient was seen and evaluated by Dr. Mancuso Sputum culture reveals no growth Continue cefepime and azithromycin Titrate down the FiO2 as tolerated May qualify for home oxygen Follow-up x-ray in a.m. We will continue to follow I, the cosigning physician, performed a history & physical examination of the patient. Lungs sounds with bilateral scattered rhonchi. Maintaining good O2 saturations in the 90s on 5 L/m per nasal cannula. I discussed the assessment and plan of care with my nurse practitioner, Namita Moyer. I attest to the above note as dictated by her.
[2020-12-12 16:47] LABS: Glucose,Whole Blood 193 mg/dL (75-99)
[2020-12-12] MEDS: MONTELUKAST 10 MG TAB PO SCH (21:01)
[2020-12-12] MEDS: ATORVASTATIN 80 MG TAB PO SCH (21:01)
[2020-12-12] MEDS: INSULIN DETEMIR (LEVEMIR) 100 UNIT/ML SYR SQ SCH (21:01)
[2020-12-12 21:03] LABS: Glucose,Whole Blood 122 mg/dL (75-99)
[2020-12-13] MEDS: CEFEPIME 2 GM in SODIUM CHLORIDE 0.9% 100 ML IVPB SCH ×3 (01:35→17:48)
[2020-12-13] MEDS: IPRATROPIUM-ALBUTEROL 3 ML NEB INHALATION PRN ×2 (03:05→23:23)
[2020-12-13 07:16] LABS: Glucose,Whole Blood 84 mg/dL (75-99)
[2020-12-13] MEDS: INSULIN ASPART (NovoLOG) 100 UNIT/ML VIAL SQ SCH ×7 (07:27→20:50)
[2020-12-13] MEDS: IPRATROPIUM-ALBUTEROL 3 ML NEB INHALATION SCH ×4 (07:59→20:11)
[2020-12-13] MEDS: ONDANSETRON 4 MG/2 ML VIAL IVP PRN (08:55)
[2020-12-13] MEDS: APIXABAN 5 MG TAB PO SCH ×2 (09:02→21:08)
[2020-12-13] MEDS: PREGABALIN 50 MG CAP PO SCH ×2 (09:03→21:08)
[2020-12-13] MEDS: HYDROcodone/APAP 10-325MG 1 EACH TAB PO SCH ×4 (09:03→21:08)
[2020-12-13] MEDS: METOPROLOL TARTRATE 12.5 MG TAB PO SCH ×2 (09:03→21:07)
[2020-12-13] MEDS: buPROPion XL 300 MG TAB.ER.24H PO SCH (09:03)
[2020-12-13] MEDS: ASPIRIN 81 MG PO SCH (09:04)
[2020-12-13] MEDS: AZITHROMYCIN 500 MG TAB PO SCH (09:04)
[2020-12-13] MEDS: PANTOPRAZOLE 40 MG TABLET PO SCH (09:04)
[2020-12-13] MEDS: TOPIRAMATE 25 MG TAB PO SCH (09:04)
[2020-12-13] MEDS: FENOFIBRATE 160 MG TAB PO SCH (09:04)
[2020-12-13 09:08] LABS: HCT 27.4 % (39.6-50.0); HGB 8.1 g/dL (13.0-17.0); MCH 22.9 pg (27.0-32.0); MCHC 29.6 g/dL (32.0-37.0); MCV 77.4 fL (80.0-97.0); Platelet Count 325 X 10*3/uL (140-440); RBC 3.54 X 10*6/uL (4.40-5.60); RDW 16.9 % (11.5-14.5); WBC 11.97 X 10*3/uL (4.50-10.00)
[2020-12-13] MEDS: SENNOSIDES-DOCUSATE SODIUM 1 EACH TAB PO SCH ×2 (09:10→21:08)
[2020-12-13 09:13] LABS: Glucose,Whole Blood 131 mg/dL (75-99)
[2020-12-13] MEDS ORDERED: FUROSEMIDE 10 MG/ML 4 ML VIAL IV STA (09:15)
--- NOTE | 2020-12-13 09:22 | P.PN ---
<Tyrel Mcguire - Last Filed: 12/13/20 09:10> Subjective Progress Note Date: 12/13/20 Principal diagnosis: Acute pulmonary embolism without right heart strain Hospital course: Patient is a 45-year-old male with a past medical history of CAD with multive ssel PCI stenting, type 2 insulin-dependent diabetes mellitus, hypertension, hyperlipidemia, asthma, and iron deficiency anemia. Patient presented to the hospital on 12/06/20 with a chief complaint of productive cough and new onset bilateral lower extremity edema. Patient was seen and evaluated at [facility] where he was found to have an elevated troponin of 3.56, d-dimer 2746, and a hemoglobin of 9.3 down from previous 14.1. Chest x-ray reportedly revealed bilateral diffuse airspace disease with possible pneumonia versus fluid overload. Patient transferred to our facility with the diagnosis of an STEMI and community-acquired pneumonia resulting in admission under our services with consult to cardiology for continued medical management. Patient had a CT PE completed which revealed a right lower lobe pulmonary emboli with extensive pulmonary infiltrates consistent with pneumonia. Pulmonology consulted and pt started on anticoagulation with Heparin and later transitioned to Eliquis and continue Plavix as instructed by cardiology. Covid PCR was negative x2. EKG revealed sinus tachycardia at 105 bpm with no noted T-wave or ST abnormalities. Echocardiogram showed a normal ejection fraction between 60 and 65% with moderate concentric left ventricular hypertrophy and mild aortic valve sclerosis. Patient was treated for CAP with azithromycin and rocephin x 3 days and then pulmonology changed rocephin to cefepime for concerns of possible Pseudomonas. Sputum cultures were obtained and currently pending results. Repeat chest x-ray completed this morning revealing bilateral airspace and interstitial infiltrates persisting although may be slightly improved. Venous Doppler completed 12/10/20 was negative for DVT. Physical exam: Patient seen and fully evaluated at bedside this morning. Today his oxygen requirements remain at 5L with SPO2 90%. Pt continues to cough up thick copious amounts of cream colored sputum with some blood tinged sputum at times. He reports he continues to feel weak and is also having some constipation, docusate order placed. Pt denies having any headache, lightheadedness, dizziness, chest pain or palpitations. His sputum cultures have resulted revealing gram-positive bacilli and gram-positive cocci, patient receiving adequate antibiotic coverage with cefepime and azithromycin. He remains on Eliquis for treatment of his PE. Awaiting morning x-ray to result. Awaiting further recommendations from pulmonology. General: non toxic, no distress, appears at stated age Derm: warm, dry Head: atraumatic, normocephalic, symmetric Eyes: EOMI, no lid lag, anicteric sclera Mouth: no lip lesion, mucus membranes moist Cardiovascular: S1S2 reg, no murmur, rub, or gallop. Lungs: Respirations even, regular, and unlabored on 5 L O2 via nasal cannula with SpO2 92% upon assessment. Lungs with coarse crackles in bilateral bases. Abdominal: soft, nontender to palpation, no guarding, no appreciable organomegaly Ext: no gross muscle atrophy, no edema, no contractures Neuro: CN II-XI grossly intact, no focal neuro deficits Psych: Alert, oriented, appropriate affect Assessment and plan of care: Acute pulmonary emboli in right lower lobe without right heart strain -CT PE completed which revealed a right lower lobe pulmonary emboli with extensive pulmonary infiltrates consistent with pneumonia. -Echocardiogram showed a normal ejection fraction between 60 and 65% with moderate concentric left ventricular hypertrophy and mild aortic valve sclerosis. -Continue Eliquis -Continue oxygen supplementation to maintain SpO2 equal to or greater than 90%. Wean oxygen once patient is able. -Pulmonology following, appreciate further recommendations. Community-acquired pneumonia of RLL -Chest x-ray reportedly revealed bilateral diffuse airspace disease with possible pneumonia versus fluid overload. -Repeat chest x-ray completed 12/10/20 revealed bilateral airspace and interstitial infiltrates persisting although may be slightly improved. -CT PE completed which revealed a right lower lobe pulmonary emboli with extensive pulmonary infiltrates consistent with pneumonia. -Continue antibiotics with azithromycin and cefepime pending sputum culture results. Today is day 6 of antibiotics. -Covid and influenza A and B PCR's were negative -Pro-calcitonin 0.17. WBC count 10.3. Iron deficiency Anemia, stable -Hemoglobin 10.2 with baseline hemoglobin of 11.5. -Iron 41, TIBC 2.63. -We will continue to monitor with repeat a.m. labs Insulin-dependent diabetes mellitus, poorly controlled -Patient's blood sugars uncontrolled upon arrival to facility ranging from 300s to 500s. His hemoglobin A1c was 14.1. Patient does reportedly take Lantus 50 units nightly along with NovoLog sliding scale and metformin. Concerns whether patient is compliant with diet and taking all medications as directed as he does have a documented history of medical noncompliance. -We will continue with glycemic protocol with NovoLog 12 units with each meal along with sliding scale and 40 units Levemir nightly. -Blood glucose levels significantly improved. -Heart healthy carb consistent diet. -family educator was consulted. Hyponatremia, improving -Sodium 134. Coronary artery disease with previous multivessel PCI and stent placement -Continue daily medication management including aspirin, atorvastatin, lisinopril, and metoprolol. -Heart healthy carb consistent diet. DVT prophylaxis: [place] Discussed with: Patient and RN Anticipated discharge: Clinical course to determine Anticipated discharge place: Home A total of 40 minutes was spent on the care of this complex patient more than 50% of the time was spent in counseling and care coordination. Objective - Vital Signs Vital signs: Vital Signs Temp 98.2 F 12/13/20 07:44 Pulse 111 H 12/13/20 08:21 Resp 21 12/13/20 07:44 BP 113/70 12/13/20 07:44 Pulse Ox 87 L 12/13/20 07:44 Intake & Output 12/12/20 12/13/20 12/13/20 18:59 06:59 18:59 Other: Voiding Method Toilet # Voids 2 2 1 # Bowel Movements 0 - Labs CBC & Chem 7: 12/13/20 06:43 12/09/20 06:11 Labs: Abnormal Lab Results - Last 24 Hours (Table) 12/12/20 12/12/20 12/12/20 Range/Units 11:56 16:46 20:59 POC Glucose (mg/dL) 163 H 193 H 122 H (75-99) mg/dL Microbiology - Last 24 Hours (Table) 12/09/20 19:55 Gram Stain - Final Sputum Sputum Culture - Final <Katty Sharpe - Last Filed: 12/13/20 15:00> Objective - Vital Signs Vital signs: Vital Signs Temp 98.1 F 12/13/20 13:57 Pulse 105 H 12/13/20 13:57 Resp 16 12/13/20 13:57 BP 91/55 12/13/20 13:57 Pulse Ox 96 12/13/20 13:57 Intake & Output 12/12/20 12/13/20 12/13/20 18:59 06:59 18:59 Other: Voiding Method Toilet # Voids 2 2 1 # Bowel Movements 0 - Labs CBC & Chem 7: 12/13/20 06:43 12/13/20 06:43 Labs: Abnormal Lab Results - Last 24 Hours (Table) 12/12/20 12/12/20 12/13/20 Range/Units 16:46 20:59 06:43 WBC 11.97 H (4.50-10.00) X 10*3/uL RBC 3.54 L (4.40-5.60) X 10*6/uL Hgb 8.1 L (13.0-17.0) g/dL Hct 27.4 L (39.6-50.0) % MCV 77.4 L (80.0-97.0) fL MCH 22.9 L (27.0-32.0) pg MCHC 29.6 L (32.0-37.0) g/dL RDW 16.9 H (11.5-14.5) % BUN/Creatinine Ratio (12.00-20.00) Ratio Glucose (70-110) mg/dL POC Glucose (mg/dL) 193 H 122 H (75-99) mg/dL Calcium (8.7-10.3) mg/dL Magnesium (1.5-2.4) mg/dL 12/13/20 12/13/20 12/13/20 Range/Units 06:43 09:11 11:36 WBC (4.50-10.00) X 10*3/uL RBC (4.40-5.60) X 10*6/uL Hgb (13.0-17.0) g/dL Hct (39.6-50.0) % MCV (80.0-97.0) fL MCH (27.0-32.0) pg MCHC (32.0-37.0) g/dL RDW (11.5-14.5) % BUN/Creatinine Ratio 23.75 H (12.00-20.00) Ratio Glucose 65 L (70-110) mg/dL POC Glucose (mg/dL) 131 H 136 H (75-99) mg/dL Calcium 8.1 L (8.7-10.3) mg/dL Magnesium 1.4 L (1.5-2.4) mg/dL Assessment and Plan Assessment: I discussed the care with Tyrel Mcguire NP and reviewed the findings and plan as documented in the note above. I did not staff this patient on this date. Await beta D glucan testing to evaluate for possible fungal component as patient has diabetes that is poorly controlled with an A1c of 14.1 and prior A1c of 16 being that he is immunocompromise at this point in time.
--- NOTE | 2020-12-13 09:22 | XR ---
EXAMINATION TYPE: XR chest 2V DATE OF EXAM: 12/13/2020 COMPARISON: 12/10/2020. HISTORY: Shortness of breath. TECHNIQUE: Frontal and lateral views of the chest are obtained. FINDINGS: There is unchanged bilateral opacities, diffuse on the left and involves the base on the r ight. There is persistent small right pleural effusion. No pneumothorax seen. The cardiac silhouette size is stable. The osseous structures are unchanged. IMPRESSION: No significant interval change.
[2020-12-13 11:32] LABS: African American GFR (CKD) 124.2 (60.0-200.0); Anion Gap 11.2 mmol/L (4.00-12.00); BUN/Creat Ratio 23.75 Ratio (12.00-20.00); Calcium 8.1 mg/dL (8.7-10.3); Carbon Dioxide 24.8 mmol/L (21.6-31.8); Magnesium 1.4 mg/dL (1.5-2.4); Non-African American GFR(CKD) 107.1 (60.0-200.0); Potassium 4.1 mmol/L (3.5-5.5)
[2020-12-13 11:38] LABS: Glucose,Whole Blood 136 mg/dL (75-99)
[2020-12-13] MEDS: MAGNESIUM SULFATE-D5W PMX 1 GM in DEXTROSE/WATER 1 100ML.BAG IVPB SCH ×4 (12:15→15:15)
--- NOTE | 2020-12-13 16:15 | P.PN ---
Subjective Progress Note Date: 12/13/20 Principal diagnosis: PE/pneumonia 45-year-old male, who sees a nurse practitioner up in the [place] area, for his healthcare, who presents to the emergency department, with 2 weeks of not feeling well. Include primarily shortness of breath, cough, phlegm production, and abnormal troponins. The patient see an outside hospital, transferred down. In addition, the patient had shortness of breath, and low saturations. He does have a history of heart failure, COPD, hypertension, and myocardial infarction. The patient had a CT angiogram which showed some right lower lobe infiltrate, and a right lower lobe pulmonary embolism as well. Currently, the patient is on 2 L nasal cannula. He is also getting IV heparin for the pulmonary embolism. He does have coronary artery disease, has had multiple stents. He states that he is tested negative twice for COVID. Does also have a history of diabetes, hyperlipidemia, and hypertension. He also has a history of sleep apnea syndrome. He is maintained on CPAP for that. He apparently still smokes cigarettes. White count is 9.3, hemoglobin 10.2, hematocrit 31.7, and platelet count 297,000. PTT is 49.3. Sodium 127, potassium 5.1, chlorides 90 CO2 25, anion gap 12, the urine 10, and creatinine 0.49. CT angiogram showed right lower lobe pulmonary embolism, and extensive bibasilar interstitial infiltrates with some groundglass areas. There is also some bilateral enlarged bronchial lymph nodes measuring up to 2 cm. Progress note dated 12/08/2020. The patient is again seen in the observation unit. He's in room 160. Is currently on room air. Saturations are 93%. He is getting saline at 20 mL an hour, and also heparin via weightbase protocol. A CT angiogram showed right lower lobe pulmonary embolism, and extensive bibasilar infiltrates with groundglass areas. Currently, the patient denies any shortness of breath. He does have chest congestion and cough. He denies any fever or chills. He also denies nausea and vomiting. White count is 13.1, hemoglobin 9.5, hematocrit 27.9, and platelet count 417,000. The patient is seen today 12/09/2020 in follow-up on the regular medical floor. He is awake and alert in no acute distress. Sitting up at the bedside. He continues to have a loose productive cough of yellow thick sputum. Some dyspnea on exertion. Requiring 2 L nasal cannula to maintain O2 saturations in the 90s. He is currently on ceftriaxone and azithromycin. Anticoagulated now with Eliquis. CoVID screen was negative 2. White count 10.1. Hemoglobin 9.7. Sodium 134. Potassium 4.6. Creatinine 0.55. Glucose 160. The patient is seen today 12/10/2020 in follow-up on the regular medical floor. He is currently sitting up at the bedside. Awake and alert in no acute distr ess. Currently on 2 L maintain O2 saturation in the 90s. He is feeling better today compared to yesterday. Sputum cultures still pending. White count 10.3. Hemoglobin 10.2. Chest x-ray continues show bilateral airspace and interstitial infiltrates, slightly improved. He remains on DuoNeb inhalations, cefepime and azithromycin, anticoagulated with Eliquis. The patient is seen today 12/11/2020 in follow-up on the regular medical floor. He is currently awake and alert in no acute distress. Sitting up at the bedside. No worsening shortness of breath, cough or congestion. Lung sounds ar e improved. He is 88% O2 saturation on room air. May qualify for home oxygen and will check again tomorrow. Cultures are pending. Awaiting final culture results. We'll continue with cefepime and azithromycin. Anticoagulated with Eliquis. The patient is seen today 12/12/2020 in follow-up on the regular medical floor. Currently sitting up at the bedside. Awake and alert in no acute distress. Continues with a loose productive cough of archie colored sputum. Sputum culture reveals no growth to date. He is on 5 L nasal cannula maintaining O2 saturation in the 90s. Remains on bronchodilators, cefepime and azithromycin. Anticoagulated with Eliquis. The patient is seen today 12/13/2020 in follow-up on the regular medical floor. Currently sitting up at the bedside. Awake and alert in no acute distress. Continues with a productive cough. Sputum culture revealed no growth. White count 11.9. Hemoglobin 8.1. Sodium 138. Potassium 4.1. Creatinine 0.8. He is still on 5 L nasal cannula to maintain O2 saturation the high 80s low 90s. He remains on bronchodilators, and a regulated with Eliquis, antibiotics in the form of cefepime and azithromycin. Objective - Vital Signs Vital signs: Vital Signs Temp 98.1 F 12/13/20 13:57 Pulse 106 H 12/13/20 15:55 Resp 16 12/13/20 13:57 BP 91/55 12/13/20 13:57 Pulse Ox 96 12/13/20 13:57 Intake & Output 12/12/20 12/13/20 12/13/20 18:59 06:59 18:59 Other: Voiding Method Toilet # Voids 2 2 1 # Bowel Movements 0 - Exam GENERAL EXAM: Alert, pleasant 45-year-old gentleman, on 5 L nasal cannula, comfortable in no apparent distress. HEAD: Normocephalic. EYES: Normal reaction of pupils, equal size. NOSE: Clear with pink turbinates. THROAT: No erythema or exudates. NECK: No masses, no JVD. CHEST: No chest wall deformity. LUNGS: Equal air entry with scattered rhonchi bilaterally. CVS: S1 and S2 normal with no audible murmur, regular rhythm. ABDOMEN: No hepatosplenomegaly, normal bowel sounds, no guarding or rigidity. SPINE: No scoliosis or deformity SKIN: No rashes CENTRAL NERVOUS SYSTEM: No focal deficits, tone is normal in all 4 extremities. EXTREMITIES: There is no peripheral edema. No clubbing, no cyanosis. Peripheral pulses are intact. - Labs CBC & Chem 7: 12/13/20 06:43 12/13/20 06:43 Labs: Abnormal Lab Results - Last 24 Hours (Table) 12/12/20 12/12/20 12/13/20 Range/Units 16:46 20:59 06:43 WBC 11.97 H (4.50-10.00) X 10*3/uL RBC 3.54 L (4.40-5.60) X 10*6/uL Hgb 8.1 L (13.0-17.0) g/dL Hct 27.4 L (39.6-50.0) % MCV 77.4 L (80.0-97.0) fL MCH 22.9 L (27.0-32.0) pg MCHC 29.6 L (32.0-37.0) g/dL RDW 16.9 H (11.5-14.5) % BUN/Creatinine Ratio (12.00-20.00) Ratio Glucose (70-110) mg/dL POC Glucose (mg/dL) 193 H 122 H (75-99) mg/dL Calcium (8.7-10.3) mg/dL Magnesium (1.5-2.4) mg/dL 12/13/20 12/13/20 12/13/20 Range/Units 06:43 09:11 11:36 WBC (4.50-10.00) X 10*3/uL RBC (4.40-5.60) X 10*6/uL Hgb (13.0-17.0) g/dL Hct (39.6-50.0) % MCV (80.0-97.0) fL MCH (27.0-32.0) pg MCHC (32.0-37.0) g/dL RDW (11.5-14.5) % BUN/Creatinine Ratio 23.75 H (12.00-20.00) Ratio Glucose 65 L (70-110) mg/dL POC Glucose (mg/dL) 131 H 136 H (75-99) mg/dL Calcium 8.1 L (8.7-10.3) mg/dL Magnesium 1.4 L (1.5-2.4) mg/dL Assessment and Plan Assessment: 1 Acute hypoxemic respiratory failure secondary to right lower lobe pulmonary embolism and bibasilar infiltrates consistent with pneumonia. CoVID 19 screen negative 2 2 History of chronic obstructive pulmonary disease 3 History of prior tobacco dependence 4 Coronary artery disease with multiple stents 5 History of congestive heart failure 6 Diabetes mellitus with diabetic neuropathy 7 Hypertension 8 Hyperlipidemia 9 Obstructive sleep apnea 10 Degenerative joint disease 11 history of fatty liver Plan: The patient was seen and evaluated by Dr. Mancuso Chest x-ray continues to show bilateral infiltrate May require bronchoscopy with BAL Obtain a CoVID antibody titer Sputum culture reveals no growth Continue cefepime and azithromycin Titrate down the FiO2 as tolerated May qualify for home oxygen We will continue to follow I, the cosigning physician, performed a history & physical examination of the patient. Lungs sounds with bilateral scattered rhonchi. Maintaining good O2 saturations in the 90s on 5 L/m per nasal cannula. I discussed the assessment and plan of care with my nurse practitioner, Namita Moyer. I attest to the above note as dictated by her.
[2020-12-13 16:22] LABS: Anisocytosis Slight; HCT 28.6 % (39.0-53.0); HGB 9.3 gm/dL (13.0-17.5); Hypochromasia Marked; MCH 23.9 pg (25.0-35.0); MCHC 32.4 g/dL (31.0-37.0); MCV 73.9 fL (80.0-100.0); Mean Platelet Volume 7.4; Microcytosis Moderate; Platelet Count 352 k/uL (150-450); Poikilocytosis Marked; RBC 3.87 m/uL (4.30-5.90); RDW 16.6 % (11.5-15.5); WBC 12.3 k/uL (3.8-10.6)
[2020-12-13 17:37] LABS: Glucose,Whole Blood 181 mg/dL (75-99)
[2020-12-13 20:47] LABS: Glucose,Whole Blood 127 mg/dL (75-99)
[2020-12-13] MEDS: INSULIN DETEMIR (LEVEMIR) 100 UNIT/ML SYR SQ SCH (21:07)
[2020-12-13] MEDS: MONTELUKAST 10 MG TAB PO SCH (21:07)
[2020-12-13] MEDS: ATORVASTATIN 80 MG TAB PO SCH (21:08)
[2020-12-13] MEDS: SODIUM CHLORIDE 0.9% 1,000 ML IV SCH (22:03)
[2020-12-14] MEDS: CEFEPIME 2 GM in SODIUM CHLORIDE 0.9% 100 ML IVPB SCH ×3 (01:27→18:34)
[2020-12-14] MEDS: IPRATROPIUM-ALBUTEROL 3 ML NEB INHALATION SCH ×4 (07:07→19:26)
[2020-12-14 07:12] LABS: Glucose,Whole Blood 290 mg/dL (75-99)
[2020-12-14] MEDS: INSULIN ASPART (NovoLOG) 100 UNIT/ML VIAL SQ SCH ×8 (08:44→21:22)
[2020-12-14] MEDS: TOPIRAMATE 25 MG TAB PO SCH (08:45)
[2020-12-14] MEDS: ASPIRIN 81 MG PO SCH (08:45)
[2020-12-14] MEDS: PANTOPRAZOLE 40 MG TABLET PO SCH (08:45)
[2020-12-14] MEDS: METOPROLOL TARTRATE 12.5 MG TAB PO SCH ×2 (08:45→21:21)
[2020-12-14] MEDS: SENNOSIDES-DOCUSATE SODIUM 1 EACH TAB PO SCH ×2 (08:45→21:21)
[2020-12-14] MEDS: HYDROcodone/APAP 10-325MG 1 EACH TAB PO SCH ×4 (08:46→21:21)
[2020-12-14] MEDS: FENOFIBRATE 160 MG TAB PO SCH (08:46)
[2020-12-14] MEDS: AZITHROMYCIN 500 MG TAB PO SCH (08:46)
[2020-12-14 08:54] LABS: HCT 30.4 % (39.6-50.0); MCH 22.9 pg (27.0-32.0); MCHC 29.6 g/dL (32.0-37.0); MCV 77.4 fL (80.0-97.0); Platelet Count 382 X 10*3/uL (140-440); RBC 3.93 X 10*6/uL (4.40-5.60); RDW 17.2 % (11.5-14.5); WBC 10.46 X 10*3/uL (4.50-10.00)
[2020-12-14] MEDS: PREGABALIN 50 MG CAP PO SCH ×2 (08:54→21:21)
[2020-12-14] MEDS: buPROPion XL 300 MG TAB.ER.24H PO SCH (08:55)
[2020-12-14] MEDS: APIXABAN 5 MG TAB PO SCH (08:55)
--- NOTE | 2020-12-14 10:15 | XR ---
EXAMINATION TYPE: XR chest 1V portable DATE OF EXAM: 12/14/2020 COMPARISON: 12/13/2020 HISTORY: TECHNIQUE: Single frontal view of the chest is obtained. FINDINGS: Scattered patchy infiltrates throughout both lung chanel without significant interval change. The cardiac silhouette size is within normal limits. The osseous structures are intact. IMPRESSION: 1. Scattered patchy infiltrates throughout both lung chanel without significant interval change.
[2020-12-14] MEDS ORDERED: FUROSEMIDE 10 MG/ML 4 ML VIAL IV STA (10:22)
--- NOTE | 2020-12-14 10:49 | XR ---
EXAMINATION TYPE: XR chest 1V portable DATE OF EXAM: 12/14/2020 COMPARISON: 12/13/2020 HISTORY: Chest pain TECHNIQUE: Single frontal view of the chest is obtained. FINDINGS: Mixed perihilar and basilar infiltrates persist with slight improvement noted in the interval. The cardiac silhouette size is within normal limits. The osseous structures are intact. IMPRESSION: 1. Mixed perihilar and basilar infiltrates persist with slight improvement noted in the interval.
[2020-12-14 11:05] LABS: ABG Base Excess 3.1 mmol/L; ABG HCO3 27 mmol/L (21-25); ABG PCO2 36 mmHg (35-45); ABG PH 7.48 (7.35-7.45); ABG PO2 172 mmHg (83-108); ABG TCO2 28 mmol/L (19-24)
[2020-12-14 11:27] LABS: African American GFR (CKD) 118.3 (60.0-200.0); Anion Gap 7.9 mmol/L (4.00-12.00); BUN/Creat Ratio 21.11 Ratio (12.00-20.00); Calcium 8.4 mg/dL (8.7-10.3); Carbon Dioxide 26.1 mmol/L (21.6-31.8); Magnesium 2.3 mg/dL (1.5-2.4); Non-African American GFR(CKD) 102.1 (60.0-200.0); Potassium 4.7 mmol/L (3.5-5.5)
[2020-12-14 12:08] LABS: Glucose,Whole Blood 140 mg/dL (75-99)
--- NOTE | 2020-12-14 12:14 | P.PN ---
<Tyrel Mcguire - Last Filed: 12/14/20 13:37> Subjective Progress Note Date: 12/14/20 Principal diagnosis: Acute pulmonary embolism without right heart strain Hospital course: Patient is a 45-year-old male with a past medical history of CAD with multive ssel PCI stenting, type 2 insulin-dependent diabetes mellitus, hypertension, hyperlipidemia, asthma, and iron deficiency anemia. Patient presented to the hospital on 12/06/20 with a chief complaint of productive cough and new onset bilateral lower extremity edema. Patient was seen and evaluated at [facility] where he was found to have an elevated troponin of 3.56, d-dimer 2746, and a hemoglobin of 9.3 down from previous 14.1. Chest x-ray reportedly revealed bilateral diffuse airspace disease with possible pneumonia versus fluid overload. Patient transferred to our facility with the diagnosis of an STEMI and community-acquired pneumonia resulting in admission under our services with consult to cardiology for continued medical management. Patient had a CT PE completed which revealed a right lower lobe pulmonary emboli with extensive pulmonary infiltrates consistent with pneumonia. Pulmonology consulted and pt started on anticoagulation with Heparin and later transitioned to Eliquis and continue Plavix as instructed by cardiology. Covid PCR was negative x2. EKG revealed sinus tachycardia at 105 bpm with no noted T-wave or ST abnormalities. Echocardiogram showed a normal ejection fraction between 60 and 65% with moderate concentric left ventricular hypertrophy and mild aortic valve sclerosis. Patient was treated for CAP with azithromycin and rocephin x 3 days and then pulmonology changed rocephin to cefepime for concerns of possible Pseudomonas. Sputum cultures were obtained and currently pending results. Repeat chest x-ray completed this morning revealing bilateral airspace and interstitial infiltrates persisting although may be slightly improved. Venous Doppler completed 12/10/20 was negative for DVT. Physical exam: 12/14/20: Patient seen and fully evaluated at bedside this morning. Patient had significant increase in oxygen requirements early this morning. Oxygen increased from 5 L to 15 L high flow nasal cannula with SpO2 of 90%. Patient reportedly stated he was having significant increasing shortness of breath and RN reportedly found patient to have SpO2 in the 70s requiring increased oxygen needs. Patient initially placed on 15 L nonrebreather and later changed over to 15 L high flow nasal cannula. Currently SpO2 maintaining between 90 and 92%. A repeat stat chest x-ray was ordered however radiology reports show mixed perihilar and basilar infiltrates persisting with slight improvement noted in the interval. Patient was started on steroids with Solu-Medrol. Dr. Mancuso, Securities Teller was paged by RN to notify of patient's change with increased oxygen demands. Pt continues to cough up thick copious amounts of cream colored sputum with some blood tinged sputum at times. He reports he is feeling increased weakness and shortness of breath. Sputum cultures revealed normal mariella with gram-positive maxillae and gram-positive cocci. He remains on IV antibiotics with cefepime, day 8 of antibiotics. Previously reported constipation has resolved after starting patient on docusate. Pt denies having any headache, lightheadedness, dizziness, chest pain or palpitations. He remains on Eliquis for treatment of his PE. Awaiting further recommendations from pulmonology. General: non toxic, no distress, appears at stated age Derm: warm, dry Head: atraumatic, normocephalic, symmetric Eyes: EOMI, no lid lag, anicteric sclera Mouth: no lip lesion, mucus membranes moist Cardiovascular: S1S2 reg, no murmur, rub, or gallop. Lungs: Respirations even, regular, and unlabored on 15 L O2 via high flow nasal cannula with SpO2 90-92% upon assessment. Lungs with coarse crackles in bilateral bases. Abdominal: soft, nontender to palpation, no guarding, no appreciable organomegaly Ext: no gross muscle atrophy, no edema, no contractures Neuro: CN II-XI grossly intact, no focal neuro deficits Psych: Alert, oriented, appropriate affect Assessment and plan of care: Acute pulmonary emboli in right lower lobe without right heart strain -CT PE completed which revealed a right lower lobe pulmonary emboli with extensive pulmonary infiltrates consistent with pneumonia. -Echocardiogram showed a normal ejection fraction between 60 and 65% with moderate concentric left ventricular hypertrophy and mild aortic valve sclerosis. -Continue Eliquis -Continue oxygen supplementation to maintain SpO2 equal to or greater than 90%. Wean oxygen once patient is able. -Pulmonology following, appreciate further recommendations. Community-acquired pneumonia of RLL -Chest x-ray reportedly revealed bilateral diffuse airspace disease with possible pneumonia versus fluid overload. -Repeat chest x-ray completed 12/10/20 revealed bilateral airspace and interstitial infiltrates persisting although may be slightly improved. -Repeat chest x-ray completed 12/13/20 revealed no significant interval changes. -Repeat chest x-ray completed 12/14/20 radiology reports show mixed perihilar and basilar infiltrates persisting with slight improvement noted in the interval. -CT PE completed which revealed a right lower lobe pulmonary emboli with extensive pulmonary infiltrates consistent with pneumonia. -Continue antibiotics with cefepime. Today is day 8 of antibiotics. -Coronavirus SARS CoV2 Total antibody test ordered and pending results. -Rapid HIV ordered and pending results. -Fungitell panel ordered and pending results. -Covid and influenza A and B PCR's were negative. -Pro-calcitonin 0.17. WBC count 10.46. Iron deficiency Anemia, stable -Hemoglobin 9.0 with baseline hemoglobin of 11.5. -Iron 41, TIBC 2.63. -We will continue to monitor with repeat a.m. labs Insulin-dependent diabetes mellitus, poorly controlled -Patient's blood sugars uncontrolled upon arrival to facility ranging from 300s to 500s. His hemoglobin A1c was 14.1. Patient does reportedly take Lantus 50 units nightly along with NovoLog sliding scale and metformin. Concerns whether patient is compliant with diet and taking all medications as directed as he does have a documented history of medical noncompliance. -We will continue with glycemic protocol with NovoLog 10 units with each meal along with sliding scale and 36 units Levemir nightly. -Blood glucose levels significantly improved. -Heart healthy carb consistent diet. -customer training specialist was consulted. Hyponatremia -Sodium 133. Coronary artery disease with previous multivessel PCI and stent placement -Continue daily medication management including aspirin, atorvastatin, lisinopril, and metoprolol. -Heart healthy carb consistent diet. DVT prophylaxis: Pian Discussed with: Patient and RN Anticipated discharge: Clinical course to determine Anticipated discharge place: Home A total of 40 minutes was spent on the care of this complex patient more than 50% of the time was spent in counseling and care coordination. Objective - Vital Signs Vital signs: Vital Signs Temp 98.6 F 12/14/20 06:03 Pulse 120 H 12/14/20 07:18 Resp 30 H 12/14/20 08:00 BP 107/65 12/14/20 06:03 Pulse Ox 92 L 12/14/20 07:09 Intake & Output 12/13/20 12/14/20 12/14/20 18:59 06:59 18:59 Intake Total 600 360 Output Total 500 Balance 600 -500 360 Intake: Oral 600 360 Output: Urine 500 Other: Voiding Method Urinal # Voids 1 # Bowel Movements 1 - Labs CBC & Chem 7: 12/14/20 05:50 12/14/20 05:50 Labs: Abnormal Lab Results - Last 24 Hours (Table) 12/13/20 12/13/20 12/13/20 Range/Units 15:52 17:36 20:46 WBC 12.3 H (3.8-10.6) k/uL RBC 3.87 L (4.30-5.90) m/uL Hgb 9.3 L (13.0-17.5) gm/dL Hct 28.6 L (39.0-53.0) % MCV 73.9 L (80.0-100.0) fL MCH 23.9 L (25.0-35.0) pg MCHC (32.0-37.0) g/dL RDW 16.6 H (11.5-15.5) % ABG pH (7.35-7.45) ABG pO2 (83-108) mmHg ABG HCO3 (21-25) mmol/L ABG Total CO2 (19-24) mmol/L ABG O2 Saturation (94-97) % Sodium (135-145) mmol/L BUN/Creatinine Ratio (12.00-20.00) Ratio Glucose (70-110) mg/dL POC Glucose (mg/dL) 181 H 127 H (75-99) mg/dL Calcium (8.7-10.3) mg/dL 12/14/20 12/14/20 12/14/20 Range/Units 05:50 05:50 07:09 WBC 10.46 H (3.8-10.6) k/uL RBC 3.93 L (4.30-5.90) m/uL Hgb 9.0 L (13.0-17.5) gm/dL Hct 30.4 L (39.0-53.0) % MCV 77.4 L (80.0-100.0) fL MCH 22.9 L (25.0-35.0) pg MCHC 29.6 L (32.0-37.0) g/dL RDW 17.2 H (11.5-15.5) % ABG pH (7.35-7.45) ABG pO2 (83-108) mmHg ABG HCO3 (21-25) mmol/L ABG Total CO2 (19-24) mmol/L ABG O2 Saturation (94-97) % Sodium 133 L (135-145) mmol/L BUN/Creatinine Ratio 21.11 H (12.00-20.00) Ratio Glucose 288 H (70-110) mg/dL POC Glucose (mg/dL) 290 H (75-99) mg/dL Calcium 8.4 L (8.7-10.3) mg/dL 12/14/20 Range/Units 11:01 WBC (3.8-10.6) k/uL RBC (4.30-5.90) m/uL Hgb (13.0-17.5) gm/dL Hct (39.0-53.0) % MCV (80.0-100.0) fL MCH (25.0-35.0) pg MCHC (32.0-37.0) g/dL RDW (11.5-15.5) % ABG pH 7.48 H (7.35-7.45) ABG pO2 172 H (83-108) mmHg ABG HCO3 27 H (21-25) mmol/L ABG Total CO2 28 H (19-24) mmol/L ABG O2 Saturation 100.0 H (94-97) % Sodium (135-145) mmol/L BUN/Creatinine Ratio (12.00-20.00) Ratio Glucose (70-110) mg/dL POC Glucose (mg/dL) (75-99) mg/dL Calcium (8.7-10.3) mg/dL <Katty Sharpe - Last Filed: 12/14/20 16:55> Objective - Vital Signs Vital signs: Vital Signs Temp 98.8 F 12/14/20 15:52 Pulse 122 H 12/14/20 16:28 Resp 24 12/14/20 16:28 BP 113/60 12/14/20 15:52 Pulse Ox 96 12/14/20 15:52 Intake & Output 12/13/20 12/14/20 12/14/20 18:59 06:59 18:59 Intake Total 600 360 Output Total 500 Balance 600 -500 360 Intake: Oral 600 360 Output: Urine 500 Other: Voiding Method Urinal # Voids 1 # Bowel Movements 1 - Labs CBC & Chem 7: 12/14/20 05:50 12/14/20 05:50 Labs: Abnormal Lab Results - Last 24 Hours (Table) 12/13/20 12/13/20 12/14/20 Range/Units 17:36 20:46 05:50 WBC 10.46 H (4.50-10.00) X 10*3/uL RBC 3.93 L (4.40-5.60) X 10*6/uL Hgb 9.0 L (13.0-17.0) g/dL Hct 30.4 L (39.6-50.0) % MCV 77.4 L (80.0-97.0) fL MCH 22.9 L (27.0-32.0) pg MCHC 29.6 L (32.0-37.0) g/dL RDW 17.2 H (11.5-14.5) % ABG pH (7.35-7.45) ABG pO2 (83-108) mmHg ABG HCO3 (21-25) mmol/L ABG Total CO2 (19-24) mmol/L ABG O2 Saturation (94-97) % Sodium (135-145) mmol/L BUN/Creatinine Ratio (12.00-20.00) Ratio Glucose (70-110) mg/dL POC Glucose (mg/dL) 181 H 127 H (75-99) mg/dL Calcium (8.7-10.3) mg/dL 12/14/20 12/14/20 12/14/20 Range/Units 05:50 07:09 11:01 WBC (4.50-10.00) X 10*3/uL RBC (4.40-5.60) X 10*6/uL Hgb (13.0-17.0) g/dL Hct (39.6-50.0) % MCV (80.0-97.0) fL MCH (27.0-32.0) pg MCHC (32.0-37.0) g/dL RDW (11.5-14.5) % ABG pH 7.48 H (7.35-7.45) ABG pO2 172 H (83-108) mmHg ABG HCO3 27 H (21-25) mmol/L ABG Total CO2 28 H (19-24) mmol/L ABG O2 Saturation 100.0 H (94-97) % Sodium 133 L (135-145) mmol/L BUN/Creatinine Ratio 21.11 H (12.00-20.00) Ratio Glucose 288 H (70-110) mg/dL POC Glucose (mg/dL) 290 H (75-99) mg/dL Calcium 8.4 L (8.7-10.3) mg/dL 12/14/20 Range/Units 12:04 WBC (4.50-10.00) X 10*3/uL RBC (4.40-5.60) X 10*6/uL Hgb (13.0-17.0) g/dL Hct (39.6-50.0) % MCV (80.0-97.0) fL MCH (27.0-32.0) pg MCHC (32.0-37.0) g/dL RDW (11.5-14.5) % ABG pH (7.35-7.45) ABG pO2 (83-108) mmHg ABG HCO3 (21-25) mmol/L ABG Total CO2 (19-24) mmol/L ABG O2 Saturation (94-97) % Sodium (135-145) mmol/L BUN/Creatinine Ratio (12.00-20.00) Ratio Glucose (70-110) mg/dL POC Glucose (mg/dL) 140 H (75-99) mg/dL Calcium (8.7-10.3) mg/dL Assessment and Plan Assessment: Patient seen and examined independently. Patient was also seen by Tyrel Mcguire NP and case was discussed. I am in agreement with subjective, physical exam, assessment and plan as written above and amended below. Arrived to the room at approximately 1020. Patient had just complained to staff about chest pain. He complains of retrosternal chest pain specifically just anterior to his sternum. It started within the last 5 minutes. He complains of continued shortness of breath which is worse from yesterday, lightheadedness, no dizziness, does not answer my question as to whether he is having numbness or tingling down into either of his arms. Of note patient oxygen requirements increased today. He is now requiring 15 L nonrebreather. General: Ill appearing, mild distress, appears at stated age Derm: warm, dry Head: atraumatic, normocephalic, symmetric Eyes: EOMI, no lid lag, anicteric sclera Mouth: no lip lesion, mucus membranes moist Cardiovascular: S1S2 reg, no murmur, positive posterior tibial pulse bilateral, pain to palpation over distal sternal area with abnormal motion felt Lungs: CTA bilateral, no rhonchi, no rales , no accessory muscle use Abdominal: soft, nontender to palpation, no guarding, no appreciable organomegaly Ext: no gross muscle atrophy, 2+ edema, no contractures Psych: Alert, oriented, anxious 1. Chest pain -Likely secondary to costochondritis or pleuritic pain -Stat EKG was ordered and appeared nonischemic -Repeat chest x-ray to rule out possible pneumothorax was unchanged and revealed bilateral pulmonary infiltrates -Troponin negative, repeat troponin ordered -ABG demonstrated a pH of 7.48, pCO2 36, PaO2 172. -Lasix 401 ordered secondary to worsening hypoxic respiratory failure
[2020-12-14] MEDS ORDERED: LORazepam 2 MG/ML INJ IV STA (12:30)
[2020-12-14] MEDS: methylPREDNISolone SOD SUCCI 125 MG/2 ML VIAL IV SCH ×2 (13:09→18:34)
[2020-12-14 16:59] LABS: Glucose,Whole Blood 171 mg/dL (75-99)
--- NOTE | 2020-12-14 17:46 | P.PN ---
Subjective Progress Note Date: 12/14/20 Principal diagnosis: Pneumonia, pulmonary embolism 45-year-old male, who sees a nurse practitioner up in the [facility], for his healthcare, who presents to the emergency department, with 2 weeks of not feeling well. Include primarily shortness of breath, cough, phlegm production, and abnormal troponins. The patient see an outside hospital, transferred down. In addition, the patient had shortness of breath, and low saturations. He does have a history of heart failure, COPD, hypertension, and myocardial infarction. The patient had a CT angiogram which showed some right lower lobe infiltrate, and a right lower lobe pulmonary embolism as well. Currently, the patient is on 2 L nasal cannula. He is also getting IV heparin for the pulmonary embolism. He does have coronary artery disease, has had multiple stents. He states that he is tested negative twice for COVID. Does also have a history of diabetes, hyperlipidemia, and hypertension. He also has a history of sleep apnea syndrome. He is maintained on CPAP for that. He apparently still smokes cigarettes. White count is 9.3, hemoglobin 10.2, hematocrit 31.7, and platelet count 297,000. PTT is 49.3. Sodium 127, potassium 5.1, chlorides 90 CO2 25, anion gap 12, the urine 10, and creatinine 0.49. CT angiogram showed right lower lobe pulmonary embolism, and extensive bibasilar interstitial infiltrates with some groundglass areas. There is also some bilateral enlarged bronchial lymph nodes measuring up to 2 cm. Progress note dated 12/08/2020. The patient is again seen in the observation unit. He's in room 160. Is currently on room air. Saturations are 93%. He is getting saline at 20 mL an hour, and also heparin via weightbase protocol. A CT angiogram showed right lower lobe pulmonary embolism, and extensive bibasilar infiltrates with groundglass areas. Currently, the patient denies any shortness of breath. He does have chest congestion and cough. He denies any fever or chills. He also denies nausea and vomiting. White count is 13.1, hemoglobin 9.5, hematocrit 27.9, and platelet count 417,000. The patient is seen today 12/09/2020 in follow-up on the regular medical floor. He is awake and alert in no acute distress. Sitting up at the bedside. He continues to have a loose productive cough of yellow thick sputum. Some dyspnea on exertion. Requiring 2 L nasal cannula to maintain O2 saturations in the 90s. He is currently on ceftriaxone and azithromycin. Anticoagulated now with Eliquis. CoVID screen was negative 2. White count 10.1. Hemoglobin 9.7. So dium 134. Potassium 4.6. Creatinine 0.55. Glucose 160. The patient is seen today 12/10/2020 in follow-up on the regular medical floor. He is currently sitting up at the bedside. Awake and alert in no acute distress. Currently on 2 L maintain O2 saturation in the 90s. He is feeling better today compared to yesterday. Sputum cultures still pending. White count 10.3. Hemoglobin 10.2. Chest x-ray continues show bilateral airspace and interstitial infiltrates, slightly improved. He remains on DuoNeb inhalations, cefepime and azithromycin, anticoagulated with Eliquis. The patient is seen today 12/11/2020 in follow-up on the regular medical floor. He is currently awake and alert in no acute distress. Sitting up at the bedside. No worsening shortness of breath, cough or congestion. Lung sounds are improved. He is 88% O2 saturation on room air. May qualify for home oxygen and will check again tomorrow. Cultures are pending. Awaiting final culture results. We'll continue with cefepime and azithromycin. Anticoagulated with Eliquis. The patient is seen today 12/12/2020 in follow-up on the regular medical floor. Currently sitting up at the bedside. Awake and alert in no acute distress. Continues with a loose productive cough of archie colored sputum. Sputum culture reveals no growth to date. He is on 5 L nasal cannula maintaining O2 saturation in the 90s. Remains on bronchodilators, cefepime and azithromycin. Anticoagulated with Eliquis. The patient is seen today 12/13/2020 in follow-up on the regular medical floor. Currently sitting up at the bedside. Awake and alert in no acute distress. Continues with a productive cough. Sputum culture revealed no growth. White count 11.9. Hemoglobin 8.1. Sodium 138. Potassium 4.1. Creatinine 0.8. He is still on 5 L nasal cannula to maintain O2 saturation the high 80s low 90s. He remains on bronchodilators, and a regulated with Eliquis, antibiotics in the form of cefepime and azithromycin. On 12/15/1999 patient seen in follow-up. Rapid response team was called this morning for concern of worsening dyspnea and hypoxia, apparently patient was desaturating down to the 40s with ambulation to the bathroom, he was more confused, more dyspneic, even on high flow oxygen. He tested negative for COVID 192 via PCR test, currently COVID 19 antigen test is pending, his chest x-ray findings are suspicious for recent history of Covid 19 pneumonia she remains on bronchodilators, cefepime and azithromycin for empiric antibiotic coverage, previously his sputum culture has been negative, he continues to bring up small amount of blood-tinged sputum, was on Lovenox for recent history of PE which has been discontinued. Patient was significantly dyspneic, but also very anxious, he was given a low-dose Ativan which seemed to help his anxiety, blood gas was obtained showing pH of 7.48, pCO2 36, and pO2 of 172. Patient remains on IV steroids, breathing treatments, he was given 1 dose of Lasix as well this morning Objective - Vital Signs Vital signs: Vital Signs Temp 98.8 F 12/14/20 15:52 Pulse 122 H 12/14/20 16:28 Resp 24 12/14/20 16:28 BP 113/60 12/14/20 15:52 Pulse Ox 96 12/14/20 15:52 Intake & Output 12/13/20 12/14/20 12/14/20 18:59 06:59 18:59 Intake Total 600 360 Output Total 500 Balance 600 -500 360 Intake: Oral 600 360 Output: Urine 500 Other: Voiding Method Urinal # Voids 1 # Bowel Movements 1 - Exam GENERAL EXAM: Alert, 45-year-old white male, currently on 15 L high flow the pulse ox of 96% comfortable in no apparent distress. HEAD: Normocephalic/atraumatic. EYES: Normal reaction of pupils, equal size. Conjunctiva pink, sclera white. NOSE: Clear with pink turbinates. THROAT: No erythema or exudates. NECK: No masses, no JVD, no thyroid enlargement, no adenopathy. CHEST: No chest wall deformity. Symmetrical expansion. LUNGS: Equal air entry with no crackles, wheeze, rhonchi or dullness. CVS: Regular rate and rhythm, normal S1 and S2, no gallops, no murmurs, no rubs ABDOMEN: Soft, nontender. No hepatosplenomegaly, normal bowel sounds, no guarding or rigidity. EXTREMITIES: No clubbing, no edema, no cyanosis, 2+ pulses and upper and lower extremities. MUSCULOSKELETAL: Muscle strength and tone normal. SPINE: No scoliosis or deformity SKIN: No rashes CENTRAL NERVOUS SYSTEM: Alert and oriented -3. No focal deficits, tone is normal in all 4 extremities. PSYCHIATRIC: Alert and oriented -3. Appropriate affect. Intact judgment and insight. - Labs CBC & Chem 7: 12/14/20 05:50 12/14/20 05:50 Labs: Abnormal Lab Results - Last 24 Hours (Table) 12/13/20 12/13/20 12/14/20 Range/Units 17:36 20:46 05:50 WBC 10.46 H (4.50-10.00) X 10*3/uL RBC 3.93 L (4.40-5.60) X 10*6/uL Hgb 9.0 L (13.0-17.0) g/dL Hct 30.4 L (39.6-50.0) % MCV 77.4 L (80.0-97.0) fL MCH 22.9 L (27.0-32.0) pg MCHC 29.6 L (32.0-37.0) g/dL RDW 17.2 H (11.5-14.5) % ABG pH (7.35-7.45) ABG pO2 (83-108) mmHg ABG HCO3 (21-25) mmol/L ABG Total CO2 (19-24) mmol/L ABG O2 Saturation (94-97) % Sodium (135-145) mmol/L BUN/Creatinine Ratio (12.00-20.00) Ratio Glucose (70-110) mg/dL POC Glucose (mg/dL) 181 H 127 H (75-99) mg/dL Calcium (8.7-10.3) mg/dL 12/14/20 12/14/20 12/14/20 Range/Units 05:50 07:09 11:01 WBC (4.50-10.00) X 10*3/uL RBC (4.40-5.60) X 10*6/uL Hgb (13.0-17.0) g/dL Hct (39.6-50.0) % MCV (80.0-97.0) fL MCH (27.0-32.0) pg MCHC (32.0-37.0) g/dL RDW (11.5-14.5) % ABG pH 7.48 H (7.35-7.45) ABG pO2 172 H (83-108) mmHg ABG HCO3 27 H (21-25) mmol/L ABG Total CO2 28 H (19-24) mmol/L ABG O2 Saturation 100.0 H (94-97) % Sodium 133 L (135-145) mmol/L BUN/Creatinine Ratio 21.11 H (12.00-20.00) Ratio Glucose 288 H (70-110) mg/dL POC Glucose (mg/dL) 290 H (75-99) mg/dL Calcium 8.4 L (8.7-10.3) mg/dL 12/14/20 12/14/20 Range/Units 12:04 16:57 WBC (4.50-10.00) X 10*3/uL RBC (4.40-5.60) X 10*6/uL Hgb (13.0-17.0) g/dL Hct (39.6-50.0) % MCV (80.0-97.0) fL MCH (27.0-32.0) pg MCHC (32.0-37.0) g/dL RDW (11.5-14.5) % ABG pH (7.35-7.45) ABG pO2 (83-108) mmHg ABG HCO3 (21-25) mmol/L ABG Total CO2 (19-24) mmol/L ABG O2 Saturation (94-97) % Sodium (135-145) mmol/L BUN/Creatinine Ratio (12.00-20.00) Ratio Glucose (70-110) mg/dL POC Glucose (mg/dL) 140 H 171 H (75-99) mg/dL Calcium (8.7-10.3) mg/dL Assessment and Plan Plan: 1 Acute hypoxemic respiratory failure secondary to right lower lobe pulmonary embolism and bibasilar infiltrates consistent with pneumonia. CoVID 19 screen negative 2. Covid 19 antigen test is pending 2 History of chronic obstructive pulmonary disease 3 History of prior tobacco dependence 4 Coronary artery disease with multiple stents 5 History of congestive heart failure 6 Diabetes mellitus with diabetic neuropathy 7 Hypertension 8 Hyperlipidemia 9 Obstructive sleep apnea 10 Degenerative joint disease 11 history of fatty liver Plan: Still awaiting results of the Covid 19 antibody test. Continue current antibiotics, continue IV steroids and breathing treatments, patient was given a small dose of anxiolytic in the form of Ativan and seems to be doing better, bl ood gases have been reviewed, chest x-ray has been reviewed showing mixed perihilar and basilar infiltrates with slight improvement. Oral anticoagulation has been placed on hold, we will place the patient on prophylactic Lovenox. We will obtain follow-up pro-calcitonin, follow-up labs including electrolytes, no profile, CBC. We'll continue to follow I performed a history & physical examination of the patient and discussed their management with my nurse practitioner, Lluvia Reyna. I reviewed the nurse practitioner's note and agree with the documented findings and plan of care. Lung sounds are positive for diminished breath sounds. The findings and the impression was discussed with the patient. I attest to the documentation by the nurse practitioner. Time with Patient: Less than 30
[2020-12-14 21:12] LABS: Glucose,Whole Blood 254 mg/dL (75-99)
[2020-12-14] MEDS: ATORVASTATIN 80 MG TAB PO SCH (21:21)
[2020-12-14] MEDS: MONTELUKAST 10 MG TAB PO SCH (21:21)
[2020-12-14] MEDS: INSULIN DETEMIR (LEVEMIR) 100 UNIT/ML SYR SQ SCH (21:22)
[2020-12-14] MEDS: SODIUM CHLORIDE 0.9% 1,000 ML IV SCH (22:33)
[2020-12-15] MEDS: CEFEPIME 2 GM in SODIUM CHLORIDE 0.9% 100 ML IVPB SCH ×2 (01:05→08:33)
[2020-12-15] MEDS: methylPREDNISolone SOD SUCCI 125 MG/2 ML VIAL IV SCH ×4 (01:05→23:51)
[2020-12-15 01:12] LABS: HIV 2 AB Non-Reactive (Non-Reactive); HIV AB P24 Non-Reactive (Non-Reactive); HIV P24 AG Non-Reactive (Non-Reactive)
[2020-12-15 06:47] LABS: Glucose,Whole Blood 291 mg/dL (75-99)
[2020-12-15 07:52] LABS: Anisocytosis Slight; Basophils % (A) 0 %; Eosinophils % (A) 0 %; HCT 25.8 % (39.0-53.0); HGB 8.3 gm/dL (13.0-17.5); Hypochromasia Marked; Lymphocytes # (A) 1.3 k/uL (1.0-4.8); Lymphocytes % (A) 22 %; MCH 23.8 pg (25.0-35.0); MCHC 32.2 g/dL (31.0-37.0); Mean Platelet Volume 7.3; Microcytosis Moderate; Monocytes # (A) 0.2 k/uL (0-1.0); Monocytes % (A) 4 %; Neutrophils # (A) 4.4 k/uL (1.3-7.7); Neutrophils % (A) 73 %; Platelet Count 325 k/uL (150-450); Poikilocytosis Marked; RBC 3.49 m/uL (4.30-5.90); RDW 16.7 % (11.5-15.5); WBC 6.1 k/uL (3.8-10.6)
[2020-12-15] MEDS: PREGABALIN 50 MG CAP PO SCH ×2 (08:31→20:41)
[2020-12-15] MEDS: METOPROLOL TARTRATE 12.5 MG TAB PO SCH ×2 (08:32→20:42)
[2020-12-15] MEDS: ASPIRIN 81 MG PO SCH (08:32)
[2020-12-15] MEDS: SENNOSIDES-DOCUSATE SODIUM 1 EACH TAB PO SCH ×2 (08:32→20:41)
[2020-12-15] MEDS: HYDROcodone/APAP 10-325MG 1 EACH TAB PO SCH ×4 (08:32→20:41)
[2020-12-15] MEDS: buPROPion XL 300 MG TAB.ER.24H PO SCH (08:32)
[2020-12-15] MEDS: PANTOPRAZOLE 40 MG TABLET PO SCH (08:32)
[2020-12-15] MEDS: FENOFIBRATE 160 MG TAB PO SCH (08:32)
[2020-12-15] MEDS: INSULIN ASPART (NovoLOG) 100 UNIT/ML VIAL SQ SCH ×7 (08:33→20:40)
[2020-12-15] MEDS: TOPIRAMATE 25 MG TAB PO SCH (08:33)
[2020-12-15] MEDS: LORazepam 2 MG/ML INJ IV PRN (08:51)
--- NOTE | 2020-12-15 09:25 | XR ---
EXAMINATION TYPE: XR chest 1V portable DATE OF EXAM: 12/15/2020 COMPARISON: 12/14/2020 HISTORY: COVID 19 TECHNIQUE: Single frontal view of the chest is obtained. FINDINGS: Diffuse airspace infiltrates persist throughout both lung chanel. The cardiac silhouette size is with in normal limits. The osseous structures are intact. IMPRESSION: 1. Diffuse airspace infiltrates persist throughout both lung chanel.
[2020-12-15] MEDS: IPRATROPIUM-ALBUTEROL 3 ML NEB INHALATION SCH ×4 (09:26→19:49)
[2020-12-15 11:27] LABS: Glucose,Whole Blood 347 mg/dL (75-99)
--- NOTE | 2020-12-15 13:19 | P.PN ---
<Tyrel Mcguire - Last Filed: 12/15/20 12:57> Subjective Progress Note Date: 12/15/20 Principal diagnosis: Acute pulmonary embolism without right heart strain Hospital course: Patient is a 45-year-old male with a past medical history of CAD with multive ssel PCI stenting, type 2 insulin-dependent diabetes mellitus, hypertension, hyperlipidemia, asthma, and iron deficiency anemia. Patient presented to the hospital on 12/06/20 with a chief complaint of productive cough and new onset bilateral lower extremity edema. Patient was seen and evaluated at [facility] where he was found to have an elevated troponin of 3.56, d-dimer 2746, and a hemoglobin of 9.3 down from previous 14.1. Chest x-ray reportedly revealed bilateral diffuse airspace disease with possible pneumonia versus fluid overload. Patient transferred to our facility with the diagnosis of an STEMI and community-acquired pneumonia resulting in admission under our services with consult to cardiology for continued medical management. Patient had a CT PE completed which revealed a right lower lobe pulmonary emboli with extensive pulmonary infiltrates consistent with pneumonia. Pulmonology consulted and pt started on anticoagulation with Heparin and later transitioned to Eliquis and continue Plavix as instructed by cardiology. Covid PCR was negative x2. EKG revealed sinus tachycardia at 105 bpm with no noted T-wave or ST abnormalities. Echocardiogram showed a normal ejection fraction between 60 and 65% with moderate concentric left ventricular hypertrophy and mild aortic valve sclerosis. Patient was treated for CAP with azithromycin and rocephin x 3 days and then pulmonology changed rocephin to cefepime for concerns of possible Pseudomonas. Sputum cultures were obtained and currently pending results. Repeat chest x-ray completed this morning revealing bilateral airspace and interstitial infiltrates persisting although may be slightly improved. Venous Doppler completed 12/10/20 was negative for DVT. Physical exam: 12/15/20: Patient seen and fully evaluated at bedside this morning. He was on a nonrebreather mask at 15 L with SpO2 of 99%. Patient states that he feels short of breath and needs the mask to breathe. Patient instructed that we need to try to wean him down from the oxygen and as long as he maintains at 90% or above it is better for him to be on less oxygen secondary to his history of COPD. Patient very anxious and tearful this morning. He repeatedly expressed that he wants to go home. Patient was updated that discharge home will depend on cl inical course and how long it takes to wean down his oxygen, provider called his mother and updated her on patient's condition . Patient reports he continues to feel very anxious, short of breath, and experiences chest tightness anytime he attempts to take deep breaths. An order was placed for Ativan 0.5 mg IVP every 6 hours to be administered when necessary for his anxiety. Pro-calcitonin eleva leila at 0.37. Hgb 8.3. Dr. Echevarria placed ON hold at this time. Patient continues to deny having headache, lightheadedness, dizziness, palpitations, or experiencing any numbness/tingling/weakness in extremities. General: non toxic, no distress, appears at stated age Derm: warm, dry Head: atraumatic, normocephalic, symmetric Eyes: EOMI, no lid lag, anicteric sclera Mouth: no lip lesion, mucus membranes moist Cardiovascular: S1S2 reg, no murmur, rub, or gallop. Lungs: Respirations even, regular, and unlabored on 15 L O2 via high flow nasal cannula with SpO2 95%. Lungs sounds with noted improvement they are diminished, however no wheezes, rales, or rhonchi noted. No accessory muscle use. Abdominal: soft, nontender to palpation, no guarding, no appreciable organomegaly Ext: no gross muscle atrophy, no edema, no contractures Neuro: GCS 15. Speech clear. CN II-XI grossly intact, no focal neuro deficits Psych: Alert, oriented, appears very anxious this morning Assessment and plan of care: Acute pulmonary emboli in right lower lobe without right heart strain -CT PE completed which revealed a right lower lobe pulmonary emboli with extensive pulmonary infiltrates consistent with pneumonia. -Echocardiogram showed a normal ejection fraction between 60 and 65% with moderate concentric left ventricular hypertrophy and mild aortic valve sclerosis. -Eliquis placed on hold by pulmonology, recommend resuming once cleared by pulmonology to resume -Continue oxygen supplementation to maintain SpO2 equal to or greater than 90%. Wean oxygen once patient is able. -Pulmonology following, appreciate further recommendations. Community-acquired pneumonia of RLL -Initial Chest x-ray revealed bilateral diffuse airspace disease with possible pneumonia versus fluid overload. -Repeat chest x-ray completed 12/10/20 revealed bilateral airspace and intersti tial infiltrates persisting although may be slightly improved. -Repeat chest x-ray completed 12/13/20 revealed no significant interval changes. -Repeat chest x-ray completed 12/14/20 radiology reports show mixed perihilar and basilar infiltrates persisting with slight improvement noted in the interval. -CT PE completed which revealed a right lower lobe pulmonary emboli with extensive pulmonary infiltrates consistent with pneumonia. -Continue antibiotics with cefepime. Today is day 9 of antibiotics. Pro- calcitonin remains slightly elevated at 0.37. No leukocytosis. -Coronavirus SARS CoV2 Total antibody test ordered and pending results. -Rapid HIV negative -Fungitell panel ordered and pending results. -Covid and influenza A and B PCR's were negative. -Pro-calcitonin 0.17. WBC count 10.46. Iron deficiency Anemia, stable -Hemoglobin 8.3 with baseline hemoglobin of 11.5. -Iron 41, TIBC 2.63. -We will continue to monitor with repeat a.m. labs Insulin-dependent diabetes mellitus, poorly controlled -Patient's blood sugars uncontrolled upon arrival to facility ranging from 300s to 500s. His hemoglobin A1c was 14.1. Patient does reportedly take Lantus 50 units nightly along with NovoLog sliding scale and metformin. Concerns whether patient is compliant with diet and taking all medications as directed as he does have a documented history of medical noncompliance. -We will continue with glycemic protocol with NovoLog 10 units with each meal along with sliding scale and 36 units Levemir nightly. -Blood glucose levels significantly improved. -Heart healthy carb consistent diet. -health educator was consulted. Hyponatremia -Sodium 133. -Likely secondary to recent Lasix use. -We will continue to monitor with repeat a.m. labs. Coronary artery disease with previous multivessel PCI and stent placement -Continue daily medication management including aspirin, atorvastatin, lisinopril, and metoprolol. -Heart healthy carb consistent diet. DVT prophylaxis: Eliquis placed on hold by grocery cashier, may resume once cleared by pulmonary. Discussed with: Patient and RN Anticipated discharge: Clinical course to determine Anticipated discharge place: Home A total of 40 minutes was spent on the care of this complex patient more than 50% of the time was spent in counseling and care coordination. Objective - Vital Signs Vital signs: Vital Signs Temp 97.8 F 12/15/20 05:43 Pulse 93 12/15/20 05:43 Resp 19 12/15/20 05:43 BP 107/64 12/15/20 05:43 Pulse Ox 96 12/15/20 05:43 Intake & Output 12/14/20 12/15/20 12/15/20 18:59 06:59 18:59 Intake Total 360 400 Output Total 1000 1300 Balance -640 -900 Intake: Oral 360 400 Output: Urine 1000 1300 Other: Voiding Method Urinal # Bowel Movements 1 - Labs CBC & Chem 7: 12/15/20 06:01 12/14/20 05:50 Labs: Abnormal Lab Results - Last 24 Hours (Table) 12/14/20 12/14/20 12/14/20 Range/Units 05:50 05:50 11:01 WBC 10.46 H (4.50-10.00) X 10*3/uL RBC 3.93 L (4.40-5.60) X 10*6/uL Hgb 9.0 L (13.0-17.0) g/dL Hct 30.4 L (39.6-50.0) % MCV 77.4 L (80.0-97.0) fL MCH 22.9 L (27.0-32.0) pg MCHC 29.6 L (32.0-37.0) g/dL RDW 17.2 H (11.5-14.5) % D-Dimer (<0.60) mg/L FEU ABG pH 7.48 H (7.35-7.45) ABG pO2 172 H (83-108) mmHg ABG HCO3 27 H (21-25) mmol/L ABG Total CO2 28 H (19-24) mmol/L ABG O2 Saturation 100.0 H (94-97) % Sodium 133 L (135-145) mmol/L BUN/Creatinine Ratio 21.11 H (12.00-20.00) Ratio Glucose 288 H (70-110) mg/dL POC Glucose (mg/dL) (75-99) mg/dL Calcium 8.4 L (8.7-10.3) mg/dL Procalcitonin (0.02-0.09) ng/mL 12/14/20 12/14/20 12/14/20 Range/Units 12:04 15:36 16:57 WBC (4.50-10.00) X 10*3/uL RBC (4.40-5.60) X 10*6/uL Hgb (13.0-17.0) g/dL Hct (39.6-50.0) % MCV (80.0-97.0) fL MCH (27.0-32.0) pg MCHC (32.0-37.0) g/dL RDW (11.5-14.5) % D-Dimer (<0.60) mg/L FEU ABG pH (7.35-7.45) ABG pO2 (83-108) mmHg ABG HCO3 (21-25) mmol/L ABG Total CO2 (19-24) mmol/L ABG O2 Saturation (94-97) % Sodium (135-145) mmol/L BUN/Creatinine Ratio (12.00-20.00) Ratio Glucose (70-110) mg/dL POC Glucose (mg/dL) 140 H 171 H (75-99) mg/dL Calcium (8.7-10.3) mg/dL Procalcitonin 0.37 H (0.02-0.09) ng/mL 12/14/20 12/15/20 12/15/20 Range/Units 21:11 06:01 06:01 WBC (4.50-10.00) X 10*3/uL RBC 3.49 L (4.40-5.60) X 10*6/uL Hgb 8.3 L (13.0-17.0) g/dL Hct 25.8 L (39.6-50.0) % MCV 74.0 L (80.0-97.0) fL MCH 23.8 L (27.0-32.0) pg MCHC (32.0-37.0) g/dL RDW 16.7 H (11.5-14.5) % D-Dimer 3.16 H (<0.60) mg/L FEU ABG pH (7.35-7.45) ABG pO2 (83-108) mmHg ABG HCO3 (21-25) mmol/L ABG Total CO2 (19-24) mmol/L ABG O2 Saturation (94-97) % Sodium (135-145) mmol/L BUN/Creatinine Ratio (12.00-20.00) Ratio Glucose (70-110) mg/dL POC Glucose (mg/dL) 254 H (75-99) mg/dL Calcium (8.7-10.3) mg/dL Procalcitonin (0.02-0.09) ng/mL 12/15/20 Range/Units 06:45 WBC (4.50-10.00) X 10*3/uL RBC (4.40-5.60) X 10*6/uL Hgb (13.0-17.0) g/dL Hct (39.6-50.0) % MCV (80.0-97.0) fL MCH (27.0-32.0) pg MCHC (32.0-37.0) g/dL RDW (11.5-14.5) % D-Dimer (<0.60) mg/L FEU ABG pH (7.35-7.45) ABG pO2 (83-108) mmHg ABG HCO3 (21-25) mmol/L ABG Total CO2 (19-24) mmol/L ABG O2 Saturation (94-97) % Sodium (135-145) mmol/L BUN/Creatinine Ratio (12.00-20.00) Ratio Glucose (70-110) mg/dL POC Glucose (mg/dL) 291 H (75-99) mg/dL Calcium (8.7-10.3) mg/dL Procalcitonin (0.02-0.09) ng/mL <Katty Sharpe - Last Filed: 12/15/20 21:22> Objective - Vital Signs Vital signs: Vital Signs Temp 97.3 F L 12/15/20 18:00 Pulse 101 H 12/15/20 18:00 Resp 20 12/15/20 18:00 BP 99/61 12/15/20 18:00 Pulse Ox 95 12/15/20 18:00 Intake & Output 12/15/20 12/15/20 12/16/20 06:59 18:59 06:59 Intake Total 400 Output Total 1300 1500 Balance -900 -1500 Intake: Oral 400 Output: Urine 1300 1500 Other: Voiding Method Urinal Urinal # Bowel Movements 1 2 - Labs CBC & Chem 7: 12/15/20 06:01 12/15/20 06:01 Labs: Abnormal Lab Results - Last 24 Hours (Table) 12/13/20 12/14/20 12/15/20 Range/Units 15:52 15:36 06:01 RBC (4.30-5.90) m/uL Hgb (13.0-17.5) gm/dL Hct (39.0-53.0) % MCV (80.0-100.0) fL MCH (25.0-35.0) pg RDW (11.5-15.5) % D-Dimer 3.16 H (<0.60) mg/L FEU Sodium (135-145) mmol/L BUN/Creatinine Ratio (12.00-20.00) Ratio Glucose (70-110) mg/dL POC Glucose (mg/dL) (75-99) mg/dL Alkaline Phosphatase (41-126) U/L Lactate Dehydrogenase (120-246) U/L C-Reactive Protein (0.0-0.8) mg/dL Total Protein (6.2-8.2) g/dL Albumin (3.80-4.90) g/dL Albumin/Globulin Ratio (1.60-3.17) g/dL Procalcitonin 0.37 H (0.02-0.09) ng/mL SARS-CoV-2 Ab,Total Reactive A (Non-Reactive) 12/15/20 12/15/20 12/15/20 Range/Units 06:01 06:01 06:45 RBC 3.49 L (4.30-5.90) m/uL Hgb 8.3 L (13.0-17.5) gm/dL Hct 25.8 L (39.0-53.0) % MCV 74.0 L (80.0-100.0) fL MCH 23.8 L (25.0-35.0) pg RDW 16.7 H (11.5-15.5) % D-Dimer (<0.60) mg/L FEU Sodium 134 L (135-145) mmol/L BUN/Creatinine Ratio 27.50 H (12.00-20.00) Ratio Glucose 266 H (70-110) mg/dL POC Glucose (mg/dL) 291 H (75-99) mg/dL Alkaline Phosphatase 307 H (41-126) U/L Lactate Dehydrogenase 311 H (120-246) U/L C-Reactive Protein 15.8 H (0.0-0.8) mg/dL Total Protein 5.9 L (6.2-8.2) g/dL Albumin 3.60 L (3.80-4.90) g/dL Albumin/Globulin Ratio 1.57 L (1.60-3.17) g/dL Procalcitonin (0.02-0.09) ng/mL SARS-CoV-2 Ab,Total (Non-Reactive) 12/15/20 12/15/20 12/15/20 Range/Units 11:23 16:21 20:08 RBC (4.30-5.90) m/uL Hgb (13.0-17.5) gm/dL Hct (39.0-53.0) % MCV (80.0-100.0) fL MCH (25.0-35.0) pg RDW (11.5-15.5) % D-Dimer (<0.60) mg/L FEU Sodium (135-145) mmol/L BUN/Creatinine Ratio (12.00-20.00) Ratio Glucose (70-110) mg/dL POC Glucose (mg/dL) 347 H 362 H 380 H (75-99) mg/dL Alkaline Phosphatase (41-126) U/L Lactate Dehydrogenase (120-246) U/L C-Reactive Protein (0.0-0.8) mg/dL Total Protein (6.2-8.2) g/dL Albumin (3.80-4.90) g/dL Albumin/Globulin Ratio (1.60-3.17) g/dL Procalcitonin (0.02-0.09) ng/mL SARS-CoV-2 Ab,Total (Non-Reactive) Assessment and Plan Assessment: Patient seen and examined independently. Patient was also seen by Tyrel Mcguire NP and case was discussed. I am in agreement with subjective, physical exam, assessment and plan as written above and amended below. PAtient angry and upset about being diagnosied with COVID. General: non toxic, no distress, appears at stated age Derm: warm, dry Head: atraumatic, normocephalic, symmetric Eyes: EOMI, no lid lag, anicteric sclera Mouth: no lip lesion, mucus membranes moist Cardiovascular: S1S2 reg, no murmur, positive posterior tibial pulse bilateral, Lungs: Coarse breath sounds bilateral, no rhonchi, no rales , no accessory muscle use Abdominal: soft, nontender to palpation, no guarding, no appreciable organomegaly Ext: no gross muscle atrophy, 2+ edema, no contractures Neuro: CN II-XI grossly intact, no focal neuro deficits Psych: Alert, oriented, Upset about being daignosied with COVID not redirectable. Patient with signs and symptoms of Covid 19 and positive antibody reaction would assume recent Covid infection. -Continue with steroids, and vitamin D -Stop cefepime Diabetes mellitus type 2 with persistent hyperglycemia -Increase Levemir to 38 units and 11 units with meals
[2020-12-15 13:21] LABS: African American GFR (CKD) 124.2 (60.0-200.0); Albumin 3.6 g/dL (3.80-4.90); Albumin/Globulin Ratio 1.57 (1.60-3.17); Anion Gap 10.3 mmol/L (4.00-12.00); BUN/Creat Ratio 27.5 Ratio (12.00-20.00); C Reactive Protein 15.8 mg/dL (0.0-0.8); Calcium 8.8 mg/dL (8.7-10.3); Carbon Dioxide 26.7 mmol/L (21.6-31.8); Globulin 2.3 g/dL (1.6-3.3); Non-African American GFR(CKD) 107.1 (60.0-200.0); Potassium 5.5 mmol/L (3.5-5.5); Total Bilirubin 0.2 mg/dL (0.2-1.2); Total Protein 5.9 g/dL (6.2-8.2)
[2020-12-15] MEDS: ENOXAPARIN 40 MG/0.4 ML SYRINGE SQ SCH (16:54)
--- NOTE | 2020-12-15 16:55 | P.PN ---
Subjective Progress Note Date: 12/15/20 Principal diagnosis: Pneumonia, pulmonary embolism 45-year-old male, who sees a nurse practitioner up in the [facility], for his healthcare, who presents to the emergency department, with 2 weeks of not feeling well. Include primarily shortness of breath, cough, phlegm production, and abnormal troponins. The patient see an outside hospital, transferred down. In addition, the patient had shortness of breath, and low saturations. He does have a history of heart failure, COPD, hypertension, and myocardial infarction. The patient had a CT angiogram which showed some right lower lobe infiltrate, and a right lower lobe pulmonary embolism as well. Currently, the patient is on 2 L nasal cannula. He is also getting IV heparin for the pulmonary embolism. He does have coronary artery disease, has had multiple stents. He states that he is tested negative twice for COVID. Does also have a history of diabetes, hyperlipidemia, and hypertension. He also has a history of sleep apnea syndrome. He is maintained on CPAP for that. He apparently still smokes cigarettes. White count is 9.3, hemoglobin 10.2, hematocrit 31.7, and platelet count 297,000. PTT is 49.3. Sodium 127, potassium 5.1, chlorides 90 CO2 25, anion gap 12, the urine 10, and creatinine 0.49. CT angiogram showed right lower lobe pulmonary embolism, and extensive bibasilar interstitial infiltrates with some groundglass areas. There is also some bilateral enlarged bronchial lymph nodes measuring up to 2 cm. Progress note dated 12/08/2020. The patient is again seen in the observation unit. He's in room 160. Is currently on room air. Saturations are 93%. He is getting saline at 20 mL an hour, and also heparin via weightbase protocol. A CT angiogram showed right lower lobe pulmonary embolism, and extensive bibasilar infiltrates with groundglass areas. Currently, the patient denies any shortness of breath. He does have chest congestion and cough. He denies any fever or chills. He also denies nausea and vomiting. White count is 13.1, hemoglobin 9.5, hematocrit 27.9, and platelet count 417,000. The patient is seen today 12/09/2020 in follow-up on the regular medical floor. He is awake and alert in no acute distress. Sitting up at the bedside. He continues to have a loose productive cough of yellow thick sputum. Some dyspnea on exertion. Requiring 2 L nasal cannula to maintain O2 saturations in the 90s. He is currently on ceftriaxone and azithromycin. Anticoagulated now with Eliquis. CoVID screen was negative 2. White count 10.1. Hemoglobin 9.7. So dium 134. Potassium 4.6. Creatinine 0.55. Glucose 160. The patient is seen today 12/10/2020 in follow-up on the regular medical floor. He is currently sitting up at the bedside. Awake and alert in no acute distress. Currently on 2 L maintain O2 saturation in the 90s. He is feeling better today compared to yesterday. Sputum cultures still pending. White count 10.3. Hemoglobin 10.2. Chest x-ray continues show bilateral airspace and interstitial infiltrates, slightly improved. He remains on DuoNeb inhalations, cefepime and azithromycin, anticoagulated with Eliquis. The patient is seen today 12/11/2020 in follow-up on the regular medical floor. He is currently awake and alert in no acute distress. Sitting up at the bedside. No worsening shortness of breath, cough or congestion. Lung sounds are improved. He is 88% O2 saturation on room air. May qualify for home oxygen and will check again tomorrow. Cultures are pending. Awaiting final culture results. We'll continue with cefepime and azithromycin. Anticoagulated with Eliquis. The patient is seen today 12/12/2020 in follow-up on the regular medical floor. Currently sitting up at the bedside. Awake and alert in no acute distress. Continues with a loose productive cough of archie colored sputum. Sputum culture reveals no growth to date. He is on 5 L nasal cannula maintaining O2 saturation in the 90s. Remains on bronchodilators, cefepime and azithromycin. Anticoagulated with Eliquis. The patient is seen today 12/13/2020 in follow-up on the regular medical floor. Currently sitting up at the bedside. Awake and alert in no acute distress. Continues with a productive cough. Sputum culture revealed no growth. White count 11.9. Hemoglobin 8.1. Sodium 138. Potassium 4.1. Creatinine 0.8. He is still on 5 L nasal cannula to maintain O2 saturation the high 80s low 90s. He remains on bronchodilators, and a regulated with Eliquis, antibiotics in the form of cefepime and azithromycin. On 12/15/1999 patient seen in follow-up. Rapid response team was called this morning for concern of worsening dyspnea and hypoxia, apparently patient was desaturating down to the 40s with ambulation to the bathroom, he was more confused, more dyspneic, even on high flow oxygen. He tested negative for COVID 192 via PCR test, currently COVID 19 antigen test is pending, his chest x-ray findings are suspicious for recent history of Covid 19 pneumonia she remains on bronchodilators, cefepime and azithromycin for empiric antibiotic coverage, previously his sputum culture has been negative, he continues to bring up small amount of blood-tinged sputum, was on Lovenox for recent history of PE which has been discontinued. Patient was significantly dyspneic, but also very anxious, he was given a low-dose Ativan which seemed to help his anxiety, blood gas was obtained showing pH of 7.48, pCO2 36, and pO2 of 172. Patient remains on IV steroids, breathing treatments, he was given 1 dose of Lasix as well this morning On 12/15/2020 patient is seen in follow-up on surgical medical floor, he is off the BiPAP, currently on high flow nasal cannula, O2 is down to 8 L his pulse ox is around 90%, he is awake and alert, oriented 3, breathing comfortably, appears to be in no acute distress, afebrile, his Covid 19 antigen test was reactive confirming diagnosis of COVID 19 pneumonia. His chest x-ray today shows diffuse airspace infiltrates throughout both lung chanel. Today's labs have been reviewed, her level is low, at 0.37, patient remains on empiric antibiotics, sputum culture has shown no growth, white blood cell count is 6.1, hemoglobin is 8.3, d-dimer is 3.16, but him is 134, the rest of electrolytes and renal profile were unremarkable. This alkaline phosphatase was 307, AST and ALT are within normal limits, his LDH and CRP are improving, troponins were negative 4. No worsening dyspnea, patient is chest pain or hemoptysis. Objective - Vital Signs Vital signs: Vital Signs Temp 98.2 F 12/15/20 14:20 Pulse 73 12/15/20 14:20 Resp 20 12/15/20 14:20 BP 105/71 12/15/20 14:20 Pulse Ox 90 L 12/15/20 14:20 Intake & Output 12/14/20 12/15/20 12/15/20 18:59 06:59 18:59 Intake Total 360 400 Output Total 1000 1300 Balance -640 -900 Intake: Oral 360 400 Output: Urine 1000 1300 Other: Voiding Method Urinal Urinal # Bowel Movements 1 - Exam GENERAL EXAM: Alert, 45-year-old white male, currently on 8 L high flow the pulse ox of 90% comfortable in no apparent distress. HEAD: Normocephalic/atraumatic. EYES: Normal reaction of pupils, equal size. Conjunctiva pink, sclera white. NOSE: Clear with pink turbinates. THROAT: No erythema or exudates. NECK: No masses, no JVD, no thyroid enlargement, no adenopathy. CHEST: No chest wall deformity. Symmetrical expansion. LUNGS: Equal air entry with no crackles, wheeze, rhonchi or dullness. CVS: Regular rate and rhythm, normal S1 and S2, no gallops, no murmurs, no rubs ABDOMEN: Soft, nontender. No hepatosplenomegaly, normal bowel sounds, no guarding or rigidity. EXTREMITIES: No clubbing, no edema, no cyanosis, 2+ pulses and upper and lower extremities. MUSCULOSKELETAL: Muscle strength and tone normal. SPINE: No scoliosis or deformity SKIN: No rashes CENTRAL NERVOUS SYSTEM: Alert and oriented -3. No focal deficits, tone is normal in all 4 extremities. PSYCHIATRIC: Alert and oriented -3. Appropriate affect. Intact judgment and insight. - Labs CBC & Chem 7: 12/15/20 06:01 12/15/20 06:01 Labs: Abnormal Lab Results - Last 24 Hours (Table) 12/13/20 12/14/20 12/14/20 Range/Units 15:52 15:36 16:57 RBC (4.30-5.90) m/uL Hgb (13.0-17.5) gm/dL Hct (39.0-53.0) % MCV (80.0-100.0) fL MCH (25.0-35.0) pg RDW (11.5-15.5) % D-Dimer (<0.60) mg/L FEU Sodium (135-145) mmol/L BUN/Creatinine Ratio (12.00-20.00) Ratio Glucose (70-110) mg/dL POC Glucose (mg/dL) 171 H (75-99) mg/dL Alkaline Phosphatase (41-126) U/L Lactate Dehydrogenase (120-246) U/L C-Reactive Protein (0.0-0.8) mg/dL Total Protein (6.2-8.2) g/dL Albumin (3.80-4.90) g/dL Albumin/Globulin Ratio (1.60-3.17) g/dL Procalcitonin 0.37 H (0.02-0.09) ng/mL SARS-CoV-2 Ab,Total Reactive A (Non-Reactive) 12/14/20 12/15/20 12/15/20 Range/Units 21:11 06:01 06:01 RBC (4.30-5.90) m/uL Hgb (13.0-17.5) gm/dL Hct (39.0-53.0) % MCV (80.0-100.0) fL MCH (25.0-35.0) pg RDW (11.5-15.5) % D-Dimer 3.16 H (<0.60) mg/L FEU Sodium 134 L (135-145) mmol/L BUN/Creatinine Ratio 27.50 H (12.00-20.00) Ratio Glucose 266 H (70-110) mg/dL POC Glucose (mg/dL) 254 H (75-99) mg/dL Alkaline Phosphatase 307 H (41-126) U/L Lactate Dehydrogenase 311 H (120-246) U/L C-Reactive Protein 15.8 H (0.0-0.8) mg/dL Total Protein 5.9 L (6.2-8.2) g/dL Albumin 3.60 L (3.80-4.90) g/dL Albumin/Globulin Ratio 1.57 L (1.60-3.17) g/dL Procalcitonin (0.02-0.09) ng/mL SARS-CoV-2 Ab,Total (Non-Reactive) 12/15/20 12/15/20 12/15/20 Range/Units 06:01 06:45 11:23 RBC 3.49 L (4.30-5.90) m/uL Hgb 8.3 L (13.0-17.5) gm/dL Hct 25.8 L (39.0-53.0) % MCV 74.0 L (80.0-100.0) fL MCH 23.8 L (25.0-35.0) pg RDW 16.7 H (11.5-15.5) % D-Dimer (<0.60) mg/L FEU Sodium (135-145) mmol/L BUN/Creatinine Ratio (12.00-20.00) Ratio Glucose (70-110) mg/dL POC Glucose (mg/dL) 291 H 347 H (75-99) mg/dL Alkaline Phosphatase (41-126) U/L Lactate Dehydrogenase (120-246) U/L C-Reactive Protein (0.0-0.8) mg/dL Total Protein (6.2-8.2) g/dL Albumin (3.80-4.90) g/dL Albumin/Globulin Ratio (1.60-3.17) g/dL Procalcitonin (0.02-0.09) ng/mL SARS-CoV-2 Ab,Total (Non-Reactive) Assessment and Plan Plan: 1 Acute hypoxemic respiratory failure secondary to Covid 19 pneumonia, confirmed with Covid 19 antibody test which was reactive. Covid 19 PCR test was negative 2 2 acute pulmonary embolism right lower lobe 3 History of chronic obstructive pulmonary disease 4 History of prior tobacco dependence 5 Coronary artery disease with multiple stents 6 History of congestive heart failure 7 Diabetes mellitus with diabetic neuropathy 8 Hypertension 9 Hyperlipidemia 10 Obstructive sleep apnea 11 Degenerative joint disease 12 history of fatty liver 13 agitation, possibly related to IV steroids, continue safety precautions Plan: COVID 19 antibody test was reactive confirming diagnosis of Covid 19 pneumonia, vital signs are stable, pro-calcitonin level is low, urine culture is negative, fever or chills, no leukocytosis, discontinue cefepime, inflammatory markers are improving, d-dimer remains elevated, will restart Lovenox 40 mg daily, if there is no recurrence of hemoptysis and stable vital signs we'll have to consider restarting the patient on oral anti-coagulation. Decreased IV Solu-Medrol to 60 mg every 12 hours. I performed a history & physical examination of the patient and discussed their management with my nurse practitioner, Lluvia Reyna. I reviewed the nurse practitioner's note and agree with the documented findings and plan of care. Lung sounds are positive for diminished breath sounds. The findings and the impression was discussed with the patient. I attest to the documentation by the nurse practitioner. Time with Patient: Less than 30
[2020-12-15 17:13] LABS: Glucose,Whole Blood 362 mg/dL (75-99)
[2020-12-15] MEDS ORDERED: ALBUTEROL HFA INHALER INHALATION PRN (19:50)
[2020-12-15] MEDS: ALBUTEROL HFA INHALER INHALATION SCH (19:56)
[2020-12-15 20:10] LABS: Glucose,Whole Blood 380 mg/dL (75-99)
[2020-12-15] MEDS: INSULIN DETEMIR (LEVEMIR) 100 UNIT/ML SYR SQ SCH (20:40)
[2020-12-15] MEDS: ATORVASTATIN 80 MG TAB PO SCH (20:41)
[2020-12-15] MEDS: MONTELUKAST 10 MG TAB PO SCH (20:42)
[2020-12-15] MEDS: SODIUM CHLORIDE 0.9% 1,000 ML IV SCH (23:50)
[2020-12-16] MEDS: ALBUTEROL HFA INHALER INHALATION SCH ×4 (07:37→19:47)
[2020-12-16 07:42] LABS: Glucose,Whole Blood 356 mg/dL (75-99)
[2020-12-16] MEDS: ENOXAPARIN 40 MG/0.4 ML SYRINGE SQ SCH (08:12)
[2020-12-16] MEDS: INSULIN ASPART (NovoLOG) 100 UNIT/ML VIAL SQ SCH ×7 (08:13→21:42)
[2020-12-16] MEDS: TOPIRAMATE 25 MG TAB PO SCH (08:14)
[2020-12-16] MEDS: SENNOSIDES-DOCUSATE SODIUM 1 EACH TAB PO SCH ×2 (08:14→21:42)
[2020-12-16] MEDS: HYDROcodone/APAP 10-325MG 1 EACH TAB PO SCH ×4 (08:14→21:42)
[2020-12-16] MEDS: PREGABALIN 50 MG CAP PO SCH ×2 (08:14→21:42)
[2020-12-16] MEDS: ASPIRIN 81 MG PO SCH (08:14)
[2020-12-16] MEDS: FENOFIBRATE 160 MG TAB PO SCH (08:14)
[2020-12-16] MEDS: PANTOPRAZOLE 40 MG TABLET PO SCH (08:14)
[2020-12-16] MEDS: buPROPion XL 300 MG TAB.ER.24H PO SCH (08:14)
[2020-12-16] MEDS: methylPREDNISolone SOD SUCCI 125 MG/2 ML VIAL IV SCH ×2 (08:15→21:41)
[2020-12-16] MEDS: METOPROLOL TARTRATE 12.5 MG TAB PO SCH ×2 (08:15→21:41)
[2020-12-16] MEDS ORDERED: INSULIN DETEMIR (LEVEMIR) 100 UNIT/ML SYR SQ ONE (08:30)
[2020-12-16 10:34] LABS: Basophils # (A) 0 X 10*3/uL (0.00-0.10); Basophils % (A) 0 %; Eosinophils # (A) 0 X 10*3/uL (0.04-0.35); Eosinophils % (A) 0 %; HCT 27.7 % (39.6-50.0); Lymphocytes # (A) 2.59 X 10*3/uL (0.90-5.00); Lymphocytes % (A) 22.9 %; MCH 22.3 pg (27.0-32.0); MCHC 28.9 g/dL (32.0-37.0); MCV 77.4 fL (80.0-97.0); Mean Platelet Volume 11.1 fL (9.5-12.2); Monocytes # (A) 0.68 X 10*3/uL (0.20-1.00); Neutrophils % (A) 70.7 %; Platelet Count 467 X 10*3/uL (140-440); RBC 3.58 X 10*6/uL (4.40-5.60); RDW 17.1 % (11.5-14.5); WBC 11.31 X 10*3/uL (4.50-10.00)
[2020-12-16 11:12] LABS: African American GFR (CKD) 118.3 (60.0-200.0); Anion Gap 8.2 mmol/L (4.00-12.00); BUN/Creat Ratio 24.44 Ratio (12.00-20.00); Calcium 9.2 mg/dL (8.7-10.3); Carbon Dioxide 28.8 mmol/L (21.6-31.8); Non-African American GFR(CKD) 102.1 (60.0-200.0)
[2020-12-16 11:50] LABS: Glucose,Whole Blood 424 mg/dL (75-99)
[2020-12-16] MEDS ORDERED: DEXTROSE 50% SYRINGE 50 ML IVP STA (12:29)
[2020-12-16] MEDS ORDERED: INSULIN REGULAR 100 UNIT/ML VIAL IV STA (12:29)
--- NOTE | 2020-12-16 12:39 | P.PN ---
Subjective Progress Note Date: 12/16/20 Pt seems agitated with care today. Frustrated regarding oxygen requirement. Oscillating O2 requirement between 8-15 LPM. Was seen on 15LPM HFNC, and he appeared to be in NAD from dyspnea. Objective - Vital Signs Vital signs: Vital Signs Temp 98.2 F 12/16/20 05:15 Pulse 98 12/16/20 08:00 Resp 22 12/16/20 08:00 BP 109/62 12/16/20 05:15 Pulse Ox 97 12/16/20 05:15 Intake & Output 12/15/20 12/16/20 12/16/20 18:59 06:59 18:59 Output Total 1500 700 Balance -1500 -700 Output: Urine 1500 700 Other: Voiding Method Urinal Urinal Urinal # Voids 3 # Bowel Movements 2 - Exam Gen: awake, alert HEENT: normocephalic, atraumatic, good hearing acuity, moist mucous membranes Resp: good air exchange, breathing in mild distress with no accessory muscle use CVS: good distal perfusion x 4, GI: soft, NTTP, ND : no SPT, no CVAT, cuevas catheter not present MSK: no pitting edema, no clubbing Neuro: non-focal, moving all extremities Psych: cooperative, euthymic mood - Labs CBC & Chem 7: 12/16/20 06:30 12/16/20 06:30 Labs: Abnormal Lab Results - Last 24 Hours (Table) 12/13/20 12/15/20 12/15/20 Range/Units 15:52 06:01 16:21 WBC (4.50-10.00) X 10*3/uL RBC (4.40-5.60) X 10*6/uL Hgb (13.0-17.0) g/dL Hct (39.6-50.0) % MCV (80.0-97.0) fL MCH (27.0-32.0) pg MCHC (32.0-37.0) g/dL RDW (11.5-14.5) % Plt Count (140-440) X 10*3/uL Neutrophils # (1.80-7.70) X 10*3/uL Eosinophils # (0.04-0.35) X 10*3/uL D-Dimer (<0.60) mg/L FEU Sodium 134 L (135-145) mmol/L Potassium (3.5-5.5) mmol/L BUN/Creatinine Ratio 27.50 H (12.00-20.00) Ratio Glucose 266 H (70-110) mg/dL POC Glucose (mg/dL) 362 H (75-99) mg/dL Alkaline Phosphatase 307 H (41-126) U/L Lactate Dehydrogenase 311 H (120-246) U/L C-Reactive Protein 15.8 H (0.0-0.8) mg/dL Total Protein 5.9 L (6.2-8.2) g/dL Albumin 3.60 L (3.80-4.90) g/dL Albumin/Globulin Ratio 1.57 L (1.60-3.17) g/dL SARS-CoV-2 Ab,Total Reactive A (Non-Reactive) 12/15/20 12/16/20 12/16/20 Range/Units 20:08 06:30 06:30 WBC 11.31 H (4.50-10.00) X 10*3/uL RBC 3.58 L (4.40-5.60) X 10*6/uL Hgb 8.0 L (13.0-17.0) g/dL Hct 27.7 L (39.6-50.0) % MCV 77.4 L (80.0-97.0) fL MCH 22.3 L (27.0-32.0) pg MCHC 28.9 L (32.0-37.0) g/dL RDW 17.1 H (11.5-14.5) % Plt Count 467 H (140-440) X 10*3/uL Neutrophils # 8.00 H (1.80-7.70) X 10*3/uL Eosinophils # 0 L (0.04-0.35) X 10*3/uL D-Dimer 1.67 H (<0.60) mg/L FEU Sodium (135-145) mmol/L Potassium (3.5-5.5) mmol/L BUN/Creatinine Ratio (12.00-20.00) Ratio Glucose (70-110) mg/dL POC Glucose (mg/dL) 380 H (75-99) mg/dL Alkaline Phosphatase (41-126) U/L Lactate Dehydrogenase (120-246) U/L C-Reactive Protein (0.0-0.8) mg/dL Total Protein (6.2-8.2) g/dL Albumin (3.80-4.90) g/dL Albumin/Globulin Ratio (1.60-3.17) g/dL SARS-CoV-2 Ab,Total (Non-Reactive) 12/16/20 12/16/20 12/16/20 Range/Units 06:30 07:40 11:48 WBC (4.50-10.00) X 10*3/uL RBC (4.40-5.60) X 10*6/uL Hgb (13.0-17.0) g/dL Hct (39.6-50.0) % MCV (80.0-97.0) fL MCH (27.0-32.0) pg MCHC (32.0-37.0) g/dL RDW (11.5-14.5) % Plt Count (140-440) X 10*3/uL Neutrophils # (1.80-7.70) X 10*3/uL Eosinophils # (0.04-0.35) X 10*3/uL D-Dimer (<0.60) mg/L FEU Sodium 133 L (135-145) mmol/L Potassium 6.0 H (3.5-5.5) mmol/L BUN/Creatinine Ratio 24.44 H (12.00-20.00) Ratio Glucose 347 H (70-110) mg/dL POC Glucose (mg/dL) 356 H 424 H (75-99) mg/dL Alkaline Phosphatase (41-126) U/L Lactate Dehydrogenase (120-246) U/L C-Reactive Protein (0.0-0.8) mg/dL Total Protein (6.2-8.2) g/dL Albumin (3.80-4.90) g/dL Albumin/Globulin Ratio (1.60-3.17) g/dL SARS-CoV-2 Ab,Total (Non-Reactive) Assessment and Plan Assessment: Acute pulmonary emboli in right lower lobe without right heart strain -CT PE completed which revealed a right lower lobe pulmonary emboli with extensive pulmonary infiltrates consistent with pneumonia. -Echocardiogram showed a normal ejection fraction between 60 and 65% with moderate concentric left ventricular hypertrophy and mild aortic valve sclerosis. -Eliquis placed on hold by pulmonology due to concern of hemoptysis, recommend resuming once cleared by pulmonology to resume -Continue oxygen supplementation to maintain SpO2 equal to or greater than 90%. Wean oxygen once patient is able. -Pulmonology following, appreciate further recommendations. Community-acquired pneumonia of RLL -Initial Chest x-ray revealed bilateral diffuse airspace disease with possible pneumonia versus fluid overload. -Repeat chest x-ray completed 12/10/20 revealed bilateral airspace and interstitial infiltrates persisting although may be slightly improved. -Repeat chest x-ray completed 12/13/20 revealed no significant interval changes. -Repeat chest x-ray completed 12/14/20 radiology reports show mixed perihilar and basilar infiltrates persisting with slight improvement noted in the interval. -CT PE completed which revealed a right lower lobe pulmonary emboli with extensive pulmonary infiltrates consistent with pneumonia. -Cefepime discontinued after 9 days of antibiotics. -Coronavirus SARS CoV2 Total antibody test ordered and positive -Rapid HIV negative -Fungitell panel ordered and pending results. -Covid and influenza A and B PCR's were negative. Iron deficiency Anemia, stable -Hemoglobin 8.3 with baseline hemoglobin of 11.5. -Iron 41, TIBC 2.63. -We will continue to monitor with repeat a.m. labs Insulin-dependent diabetes mellitus, poorly controlled -Patient's blood sugars uncontrolled upon arrival to facility ranging from 300s to 500s. His hemoglobin A1c was 14.1. Patient does reportedly take Lantus 50 units nightly along with NovoLog sliding scale and metformin. Concerns whether patient is compliant with diet and taking all medications as directed as he does have a documented history of medical noncompliance. -We will continue with glycemic protocol with NovoLog 10 units with each meal al ashlyn with sliding scale and 50 units Levemir nightly. -Blood glucose levels significantly improved. -Heart healthy carb consistent diet. -lathing supervisor was consulted. Hyponatremia -Sodium 133. -Likely secondary to recent Lasix use. -We will continue to monitor with repeat a.m. labs. Coronary artery disease with previous multivessel PCI and stent placement -Continue daily medication management including aspirin, atorvastatin, lisinopril, and metoprolol. -Heart healthy carb consistent diet. 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 Currently on lovenox 40mg SQ daily Discussed with: Patient and RN Anticipated discharge: Clinical course to determine Anticipated discharge place: Home
--- NOTE | 2020-12-16 17:01 | P.PN ---
Subjective Progress Note Date: 12/16/20 Principal diagnosis: Pneumonia, pulmonary embolism 45-year-old male, who sees a nurse practitioner up in the [facility], for his healthcare, who presents to the emergency department, with 2 weeks of not feeling well. Include primarily shortness of breath, cough, phlegm production, and abnormal troponins. The patient see an outside hospital, transferred down. In addition, the patient had shortness of breath, and low saturations. He does have a history of heart failure, COPD, hypertension, and myocardial infarction. The patient had a CT angiogram which showed some right lower lobe infiltrate, and a right lower lobe pulmonary embolism as well. Currently, the patient is on 2 L nasal cannula. He is also getting IV heparin for the pulmonary embolism. He does have coronary artery disease, has had multiple stents. He states that he is tested negative twice for COVID. Does also have a history of diabetes, hyperlipidemia, and hypertension. He also has a history of sleep apnea syndrome. He is maintained on CPAP for that. He apparently still smokes cigarettes. White count is 9.3, hemoglobin 10.2, hematocrit 31.7, and platelet count 297,000. PTT is 49.3. Sodium 127, potassium 5.1, chlorides 90 CO2 25, anion gap 12, the urine 10, and creatinine 0.49. CT angiogram showed right lower lobe pulmonary embolism, and extensive bibasilar interstitial infiltrates with some groundglass areas. There is also some bilateral enlarged bronchial lymph nodes measuring up to 2 cm. Progress note dated 12/08/2020. The patient is again seen in the observation unit. He's in room 160. Is currently on room air. Saturations are 93%. He is getting saline at 20 mL an hour, and also heparin via weightbase protocol. A CT angiogram showed right lower lobe pulmonary embolism, and extensive bibasilar infiltrates with groundglass areas. Currently, the patient denies any shortness of breath. He does have chest congestion and cough. He denies any fever or chills. He also denies nausea and vomiting. White count is 13.1, hemoglobin 9.5, hematocrit 27.9, and platelet count 417,000. The patient is seen today 12/09/2020 in follow-up on the regular medical floor. He is awake and alert in no acute distress. Sitting up at the bedside. He continues to have a loose productive cough of yellow thick sputum. Some dyspnea on exertion. Requiring 2 L nasal cannula to maintain O2 saturations in the 90s. He is currently on ceftriaxone and azithromycin. Anticoagulated now with Eliquis. CoVID screen was negative 2. White count 10.1. Hemoglobin 9.7. So dium 134. Potassium 4.6. Creatinine 0.55. Glucose 160. The patient is seen today 12/10/2020 in follow-up on the regular medical floor. He is currently sitting up at the bedside. Awake and alert in no acute distress. Currently on 2 L maintain O2 saturation in the 90s. He is feeling better today compared to yesterday. Sputum cultures still pending. White count 10.3. Hemoglobin 10.2. Chest x-ray continues show bilateral airspace and interstitial infiltrates, slightly improved. He remains on DuoNeb inhalations, cefepime and azithromycin, anticoagulated with Eliquis. The patient is seen today 12/11/2020 in follow-up on the regular medical floor. He is currently awake and alert in no acute distress. Sitting up at the bedside. No worsening shortness of breath, cough or congestion. Lung sounds are improved. He is 88% O2 saturation on room air. May qualify for home oxygen and will check again tomorrow. Cultures are pending. Awaiting final culture results. We'll continue with cefepime and azithromycin. Anticoagulated with Eliquis. The patient is seen today 12/12/2020 in follow-up on the regular medical floor. Currently sitting up at the bedside. Awake and alert in no acute distress. Continues with a loose productive cough of archie colored sputum. Sputum culture reveals no growth to date. He is on 5 L nasal cannula maintaining O2 saturation in the 90s. Remains on bronchodilators, cefepime and azithromycin. Anticoagulated with Eliquis. The patient is seen today 12/13/2020 in follow-up on the regular medical floor. Currently sitting up at the bedside. Awake and alert in no acute distress. Continues with a productive cough. Sputum culture revealed no growth. White count 11.9. Hemoglobin 8.1. Sodium 138. Potassium 4.1. Creatinine 0.8. He is still on 5 L nasal cannula to maintain O2 saturation the high 80s low 90s. He remains on bronchodilators, and a regulated with Eliquis, antibiotics in the form of cefepime and azithromycin. On 12/15/1999 patient seen in follow-up. Rapid response team was called this morning for concern of worsening dyspnea and hypoxia, apparently patient was desaturating down to the 40s with ambulation to the bathroom, he was more confused, more dyspneic, even on high flow oxygen. He tested negative for COVID 192 via PCR test, currently COVID 19 antigen test is pending, his chest x-ray findings are suspicious for recent history of Covid 19 pneumonia she remains on bronchodilators, cefepime and azithromycin for empiric antibiotic coverage, previously his sputum culture has been negative, he continues to bring up small amount of blood-tinged sputum, was on Lovenox for recent history of PE which has been discontinued. Patient was significantly dyspneic, but also very anxious, he was given a low-dose Ativan which seemed to help his anxiety, blood gas was obtained showing pH of 7.48, pCO2 36, and pO2 of 172. Patient remains on IV steroids, breathing treatments, he was given 1 dose of Lasix as well this morning On 12/15/2020 patient is seen in follow-up on surgical medical floor, he is off the BiPAP, currently on high flow nasal cannula, O2 is down to 8 L his pulse ox is around 90%, he is awake and alert, oriented 3, breathing comfortably, appears to be in no acute distress, afebrile, his Covid 19 antigen test was reactive confirming diagnosis of COVID 19 pneumonia. His chest x-ray today shows diffuse airspace infiltrates throughout both lung chanel. Today's labs have been reviewed, her level is low, at 0.37, patient remains on empiric antibiotics, sputum culture has shown no growth, white blood cell count is 6.1, hemoglobin is 8.3, d-dimer is 3.16, but him is 134, the rest of electrolytes and renal profile were unremarkable. This alkaline phosphatase was 307, AST and ALT are within normal limits, his LDH and CRP are improving, troponins were negative 4. No worsening dyspnea, patient is chest pain or hemoptysis. On 12/16/2020 patient seen in follow-up on medical surgical floor, he is sitting up on his, currently more cooperative, no agitation, however his oxygen or 2 L per high flow nasal cannula and at times patient is also requiring nonrebreather mask when he is very short of breath. The frequent cough, he states that times he is able to bring up some phlegm which he discarded, his been afebrile. He was dynamically his been stable, no complaints of chest pain, lung sounds reveal diffuse crackles, his chest x-ray showed diffuse airspace infiltrates. Remains on IV Solu-Medrol which we put back yesterday to 60 mg every 12 hours, we restarted prophylactic anticoagulation, in the form of Lovenox 40 mg once daily, his hemoglobin today is 8.0, follow d-dimer today is down to 1.67, sodium is 133, potassium 6.0, normal renal profile, Objective - Vital Signs Vital signs: Vital Signs Temp 97.9 F 12/16/20 10:00 Pulse 93 12/16/20 10:00 Resp 16 12/16/20 10:00 BP 100/62 12/16/20 10:00 Pulse Ox 95 12/16/20 15:56 Intake & Output 12/15/20 12/16/20 12/16/20 18:59 06:59 18:59 Output Total 1500 700 Balance -1500 -700 Output: Urine 1500 700 Other: Voiding Method Urinal Urinal Urinal # Voids 3 # Bowel Movements 2 - Exam GENERAL EXAM: Alert, 45-year-old white male, currently on 14 L high flow the pulse ox of 97% comfortable in no apparent distress. HEAD: Normocephalic/atraumatic. EYES: Normal reaction of pupils, equal size. Conjunctiva pink, sclera white. NOSE: Clear with pink turbinates. THROAT: No erythema or exudates. NECK: No masses, no JVD, no thyroid enlargement, no adenopathy. CHEST: No chest wall deformity. Symmetrical expansion. LUNGS: Equal air entry with no crackles, wheeze, rhonchi or dullness. CVS: Regular rate and rhythm, normal S1 and S2, no gallops, no murmurs, no rubs ABDOMEN: Soft, nontender. No hepatosplenomegaly, normal bowel sounds, no guarding or rigidity. EXTREMITIES: No clubbing, no edema, no cyanosis, 2+ pulses and upper and lower extremities. MUSCULOSKELETAL: Muscle strength and tone normal. SPINE: No scoliosis or deformity SKIN: No rashes CENTRAL NERVOUS SYSTEM: Alert and oriented -3. No focal deficits, tone is normal in all 4 extremities. PSYCHIATRIC: Alert and oriented -3. Appropriate affect. Intact judgment and insight. - Labs CBC & Chem 7: 12/16/20 06:30 12/16/20 06:30 Labs: Abnormal Lab Results - Last 24 Hours (Table) 12/15/20 12/15/20 12/16/20 Range/Units 16:21 20:08 06:30 WBC 11.31 H (4.50-10.00) X 10*3/uL RBC 3.58 L (4.40-5.60) X 10*6/uL Hgb 8.0 L (13.0-17.0) g/dL Hct 27.7 L (39.6-50.0) % MCV 77.4 L (80.0-97.0) fL MCH 22.3 L (27.0-32.0) pg MCHC 28.9 L (32.0-37.0) g/dL RDW 17.1 H (11.5-14.5) % Plt Count 467 H (140-440) X 10*3/uL Neutrophils # 8.00 H (1.80-7.70) X 10*3/uL Eosinophils # 0 L (0.04-0.35) X 10*3/uL D-Dimer (<0.60) mg/L FEU Sodium (135-145) mmol/L Potassium (3.5-5.5) mmol/L BUN/Creatinine Ratio (12.00-20.00) Ratio Glucose (70-110) mg/dL POC Glucose (mg/dL) 362 H 380 H (75-99) mg/dL 12/16/20 12/16/20 12/16/20 Range/Units 06:30 06:30 07:40 WBC (4.50-10.00) X 10*3/uL RBC (4.40-5.60) X 10*6/uL Hgb (13.0-17.0) g/dL Hct (39.6-50.0) % MCV (80.0-97.0) fL MCH (27.0-32.0) pg MCHC (32.0-37.0) g/dL RDW (11.5-14.5) % Plt Count (140-440) X 10*3/uL Neutrophils # (1.80-7.70) X 10*3/uL Eosinophils # (0.04-0.35) X 10*3/uL D-Dimer 1.67 H (<0.60) mg/L FEU Sodium 133 L (135-145) mmol/L Potassium 6.0 H (3.5-5.5) mmol/L BUN/Creatinine Ratio 24.44 H (12.00-20.00) Ratio Glucose 347 H (70-110) mg/dL POC Glucose (mg/dL) 356 H (75-99) mg/dL 12/16/20 Range/Units 11:48 WBC (4.50-10.00) X 10*3/uL RBC (4.40-5.60) X 10*6/uL Hgb (13.0-17.0) g/dL Hct (39.6-50.0) % MCV (80.0-97.0) fL MCH (27.0-32.0) pg MCHC (32.0-37.0) g/dL RDW (11.5-14.5) % Plt Count (140-440) X 10*3/uL Neutrophils # (1.80-7.70) X 10*3/uL Eosinophils # (0.04-0.35) X 10*3/uL D-Dimer (<0.60) mg/L FEU Sodium (135-145) mmol/L Potassium (3.5-5.5) mmol/L BUN/Creatinine Ratio (12.00-20.00) Ratio Glucose (70-110) mg/dL POC Glucose (mg/dL) 424 H (75-99) mg/dL Assessment and Plan Plan: 1 Acute hypoxemic respiratory failure secondary to Covid 19 pneumonia, confirmed with Covid 19 antibody test which was reactive. Covid 19 PCR test was negative 2 2 acute pulmonary embolism right lower lobe 3 History of chronic obstructive pulmonary disease 4 History of prior tobacco dependence 5 Coronary artery disease with multiple stents 6 History of congestive heart failure 7 Diabetes mellitus with diabetic neuropathy 8 Hypertension 9 Hyperlipidemia 10 Obstructive sleep apnea 11 Degenerative joint disease 12 history of fatty liver 13 agitation, possibly related to IV steroids, continue safety precautions Plan: We will stop the Lovenox, we will switch the patient to Eliquis 2.5 mg daily, continue monitoring for any worsening hemoptysis, worsening anemia, continue monitoring hemoglobin, wean FiO2, maintaining O2 sat between 89-90% as well as the patient is asymptomatic, increase activity as tolerated, continue current dose IV Solu-Medrol. We'll continue to follow I performed a history & physical examination of the patient and discussed their management with my nurse practitioner, Lluvia Reyna. I reviewed the nurse practitioner's note and agree with the documented findings and plan of care. Lung sounds are positive for diminished breath sounds. The findings and the impression was discussed with the patient. I attest to the documentation by the nurse practitioner. Time with Patient: Less than 30
[2020-12-16 17:08] LABS: Glucose,Whole Blood 259 mg/dL (75-99)
[2020-12-16 20:53] LABS: Glucose,Whole Blood 309 mg/dL (75-99)
[2020-12-16] MEDS ORDERED: INSULIN DETEMIR (LEVEMIR) 100 UNIT/ML SYR SQ SCH ×2 (21:00)
[2020-12-16] MEDS: APIXABAN 2.5 MG TABLET PO SCH (21:42)
[2020-12-16] MEDS: ATORVASTATIN 80 MG TAB PO SCH (21:42)
[2020-12-16] MEDS: MONTELUKAST 10 MG TAB PO SCH (21:42)
[2020-12-17] MEDS: LORazepam 2 MG/ML INJ IV PRN (00:05)
[2020-12-17] MEDS: SODIUM CHLORIDE 0.9% 1,000 ML IV SCH (00:16)
[2020-12-17 07:14] LABS: Glucose,Whole Blood 183 mg/dL (75-99)
[2020-12-17] MEDS: ALBUTEROL HFA INHALER INHALATION SCH ×4 (08:07→19:07)
[2020-12-17] MEDS: METOPROLOL TARTRATE 12.5 MG TAB PO SCH ×2 (08:09→21:11)
[2020-12-17] MEDS: ASPIRIN 81 MG PO SCH (08:09)
[2020-12-17] MEDS: PREGABALIN 50 MG CAP PO SCH ×2 (08:09→21:11)
[2020-12-17] MEDS: FENOFIBRATE 160 MG TAB PO SCH (08:10)
[2020-12-17] MEDS: HYDROcodone/APAP 10-325MG 1 EACH TAB PO SCH ×4 (08:10→21:12)
[2020-12-17] MEDS: INSULIN ASPART (NovoLOG) 100 UNIT/ML VIAL SQ SCH ×7 (08:10→21:13)
[2020-12-17] MEDS: PANTOPRAZOLE 40 MG TABLET PO SCH (08:10)
[2020-12-17] MEDS: SENNOSIDES-DOCUSATE SODIUM 1 EACH TAB PO SCH ×2 (08:10→21:11)
[2020-12-17] MEDS: buPROPion XL 300 MG TAB.ER.24H PO SCH (08:10)
[2020-12-17] MEDS: APIXABAN 2.5 MG TABLET PO SCH (08:10)
[2020-12-17] MEDS: methylPREDNISolone SOD SUCCI 125 MG/2 ML VIAL IV SCH ×2 (08:11→21:13)
--- NOTE | 2020-12-17 08:22 | XR ---
EXAMINATION TYPE: XR chest 1V portable DATE OF EXAM: 12/17/2020 Comparison: 12/15/2020 Clinical History: 45-year-old male COVID pneumonia Findings: Worsening airspace disease left perihilar region and left mid and lower lung now with obscuration of the left heart margin. Patchy interstitial changes throughout the right lung persist. Impression: Worsening airspace disease on the left and persistent patchy and interstitial infiltrates on the righ t.
[2020-12-17] MEDS: TOPIRAMATE 25 MG TAB PO SCH (08:27)
[2020-12-17 10:08] LABS: Anisocytosis Slight; Basophils % (A) 0 %; Eosinophils % (A) 0 %; HGB 9.1 gm/dL (13.0-17.5); Hypochromasia Marked; Lymphocytes # (A) 2.5 k/uL (1.0-4.8); Lymphocytes % (A) 22 %; MCH 23.8 pg (25.0-35.0); MCHC 32.6 g/dL (31.0-37.0); Mean Platelet Volume 7.3; Microcytosis Moderate; Monocytes # (A) 0.5 k/uL (0-1.0); Monocytes % (A) 5 %; Neutrophils # (A) 7.9 k/uL (1.3-7.7); Neutrophils % (A) 72 %; Platelet Count 403 k/uL (150-450); Poikilocytosis Marked; RBC 3.83 m/uL (4.30-5.90); RDW 17.2 % (11.5-15.5); WBC 11.1 k/uL (3.8-10.6)
[2020-12-17 10:21] LABS: African American GFR (CKD) >90 (>60 ml/min/1.73 sqM); Anion Gap 8 mmol/L; Blood Urea Nitrogen 21 mg/dL (9-20); Calcium 9.3 mg/dL (8.4-10.2); Carbon Dioxide 31 mmol/L (22-30); Chloride 96 mmol/L (98-107); Glucose 176 mg/dL (74-99); Magnesium 2.1 mg/dL (1.6-2.3); Non-African American GFR(CKD) >90 (>60 ml/min/1.73 sqM); Potassium 5.6 mmol/L (3.5-5.1); Sodium 135 mmol/L (137-145)
[2020-12-17 10:30] LABS: Rouleaux Present
[2020-12-17] MEDS ORDERED: INSULIN DETEMIR (LEVEMIR) 100 UNIT/ML SYR SQ ONE (11:15)
[2020-12-17 11:45] LABS: Glucose,Whole Blood 191 mg/dL (75-99)
[2020-12-17] MEDS: ACETAMINOPHEN TAB 325 MG TAB PO PRN (14:02)
[2020-12-17 15:17] LABS: C Reactive Protein 14.4 mg/L (<10.0)
--- NOTE | 2020-12-17 15:59 | P.PN ---
Subjective Progress Note Date: 12/17/20 Pts oxygenation requirement is improving. Doing well overall, appears in NAD. Objective - Vital Signs Vital signs: Vital Signs Temp 97.7 F 12/17/20 14:00 Pulse 93 12/17/20 14:00 Resp 18 12/17/20 14:00 BP 104/53 12/17/20 14:00 Pulse Ox 96 12/17/20 14:00 Intake & Output 12/16/20 12/17/20 12/17/20 18:59 06:59 18:59 Intake Total 1300 Output Total 700 500 Balance -700 800 Intake: Oral 1300 Output: Urine 700 500 Other: Voiding Method Urinal Urinal Urinal # Voids 5 3 # Bowel Movements 2 - Exam Gen: awake, alert HEENT: normocephalic, atraumatic, good hearing acuity, moist mucous membranes Resp: good air exchange, breathing in mild distress with no accessory muscle use CVS: good distal perfusion x 4, GI: soft, NTTP, ND : no SPT, no CVAT, cuevas catheter not present MSK: no pitting edema, no clubbing Neuro: non-focal, moving all extremities Psych: cooperative, euthymic mood - Labs CBC & Chem 7: 12/17/20 09:38 12/17/20 09:38 Labs: Abnormal Lab Results - Last 24 Hours (Table) 12/16/20 12/16/20 12/17/20 Range/Units 17:07 20:51 07:07 WBC (3.8-10.6) k/uL RBC (4.30-5.90) m/uL Hgb (13.0-17.5) gm/dL Hct (39.0-53.0) % MCV (80.0-100.0) fL MCH (25.0-35.0) pg RDW (11.5-15.5) % Neutrophils # (1.3-7.7) k/uL Sodium (137-145) mmol/L Potassium (3.5-5.1) mmol/L Chloride (98-107) mmol/L Carbon Dioxide (22-30) mmol/L BUN (9-20) mg/dL Glucose (74-99) mg/dL POC Glucose (mg/dL) 259 H 309 H 183 H (75-99) mg/dL Lactate Dehydrogenase (313-618) U/L C-Reactive Protein (<10.0) mg/L 12/17/20 12/17/20 12/17/20 Range/Units 09:38 09:38 09:38 WBC 11.1 H (3.8-10.6) k/uL RBC 3.83 L (4.30-5.90) m/uL Hgb 9.1 L (13.0-17.5) gm/dL Hct 28.0 L (39.0-53.0) % MCV 73.0 L (80.0-100.0) fL MCH 23.8 L (25.0-35.0) pg RDW 17.2 H (11.5-15.5) % Neutrophils # 7.9 H (1.3-7.7) k/uL Sodium 135 L (137-145) mmol/L Potassium 5.6 H (3.5-5.1) mmol/L Chloride 96 L (98-107) mmol/L Carbon Dioxide 31 H (22-30) mmol/L BUN 21 H (9-20) mg/dL Glucose 176 H (74-99) mg/dL POC Glucose (mg/dL) (75-99) mg/dL Lactate Dehydrogenase 746 H (313-618) U/L C-Reactive Protein 14.4 H (<10.0) mg/L 12/17/20 Range/Units 11:42 WBC (3.8-10.6) k/uL RBC (4.30-5.90) m/uL Hgb (13.0-17.5) gm/dL Hct (39.0-53.0) % MCV (80.0-100.0) fL MCH (25.0-35.0) pg RDW (11.5-15.5) % Neutrophils # (1.3-7.7) k/uL Sodium (137-145) mmol/L Potassium (3.5-5.1) mmol/L Chloride (98-107) mmol/L Carbon Dioxide (22-30) mmol/L BUN (9-20) mg/dL Glucose (74-99) mg/dL POC Glucose (mg/dL) 191 H (75-99) mg/dL Lactate Dehydrogenase (313-618) U/L C-Reactive Protein (<10.0) mg/L Microbiology - Last 24 Hours (Table) 12/16/20 21:00 Sputum Culture - Preliminary Sputum Assessment and Plan Assessment: Acute pulmonary emboli in right lower lobe without right heart strain -CT PE completed which revealed a right lower lobe pulmonary emboli with extensive pulmonary infiltrates consistent with pneumonia. -Echocardiogram showed a normal ejection fraction between 60 and 65% with moderate concentric left ventricular hypertrophy and mild aortic valve sclerosis. -Eliquis placed on hold by pulmonology due to concern of hemoptysis, recommend resuming once cleared by pulmonology to resume -Continue oxygen supplementation to maintain SpO2 equal to or greater than 90%. Wean oxygen once patient is able. -Pulmonology following, appreciate further recommendations. Community-acquired pneumonia of RLL -Initial Chest x-ray revealed bilateral diffuse airspace disease with possible pneumonia versus fluid overload. -Repeat chest x-ray completed 12/10/20 revealed bilateral airspace and interstitial infiltrates persisting although may be slightly improved. -Repeat chest x-ray completed 12/13/20 revealed no significant interval changes. -Repeat chest x-ray completed 12/14/20 radiology reports show mixed perihilar and basilar infiltrates persisting with slight improvement noted in the interval. -CT PE completed which revealed a right lower lobe pulmonary emboli with extensive pulmonary infiltrates consistent with pneumonia. -Cefepime discontinued after 9 days of antibiotics. -Coronavirus SARS CoV2 Total antibody test ordered and positive -Rapid HIV negative -Fungitell panel ordered and pending results. -Covid and influenza A and B PCR's were negative. Iron deficiency Anemia, stable -Hemoglobin 8.3 with baseline hemoglobin of 11.5. -Iron 41, TIBC 2.63. -We will continue to monitor with repeat a.m. labs Insulin-dependent diabetes mellitus, poorly controlled -Patient's blood sugars uncontrolled upon arrival to facility ranging from 300s to 500s. His hemoglobin A1c was 14.1. Patient does reportedly take Lantus 50 units nightly along with NovoLog sliding scale and metformin. Concerns whether patient is compliant with diet and taking all medications as directed as he does have a documented history of medical noncompliance. -We will continue with glycemic protocol with NovoLog 10 units with each meal along with sliding scale and 50 units Levemir nightly. -Blood glucose levels significantly improved. -Heart healthy carb consistent diet. -clinical document improvement educator was consulted. Hyponatremia -Sodium 133. -Likely secondary to recent Lasix use. -We will continue to monitor with repeat a.m. labs. Coronary artery disease with previous multivessel PCI and stent placement -Continue daily medication management including aspirin, atorvastatin, lisinopril, and metoprolol. -Heart healthy carb consistent diet. DVT prophylaxis: Eliquis placed on hold by galvanometer assembler, may resume once cleared by pulmonary. Currently on lovenox 40mg SQ daily Discussed with: Patient and RN Anticipated discharge: Clinical course to determine Anticipated discharge place: Home
--- NOTE | 2020-12-17 16:46 | P.PN ---
Subjective Progress Note Date: 12/17/20 Principal diagnosis: Pneumonia, pulmonary embolism 45-year-old male, who sees a nurse practitioner up in the [facility], for his healthcare, who presents to the emergency department, with 2 weeks of not feeling well. Include primarily shortness of breath, cough, phlegm production, and abnormal troponins. The patient see an outside hospital, transferred down. In addition, the patient had shortness of breath, and low saturations. He does have a history of heart failure, COPD, hypertension, and myocardial infarction. The patient had a CT angiogram which showed some right lower lobe infiltrate, and a right lower lobe pulmonary embolism as well. Currently, the patient is on 2 L nasal cannula. He is also getting IV heparin for the pulmonary embolism. He does have coronary artery disease, has had multiple stents. He states that he is tested negative twice for COVID. Does also have a history of diabetes, hyperlipidemia, and hypertension. He also has a history of sleep apnea syndrome. He is maintained on CPAP for that. He apparently still smokes cigarettes. White count is 9.3, hemoglobin 10.2, hematocrit 31.7, and platelet count 297,000. PTT is 49.3. Sodium 127, potassium 5.1, chlorides 90 CO2 25, anion gap 12, the urine 10, and creatinine 0.49. CT angiogram showed right lower lobe pulmonary embolism, and extensive bibasilar interstitial infiltrates with some groundglass areas. There is also some bilateral enlarged bronchial lymph nodes measuring up to 2 cm. Progress note dated 12/08/2020. The patient is again seen in the observation unit. He's in room 160. Is currently on room air. Saturations are 93%. He is getting saline at 20 mL an hour, and also heparin via weightbase protocol. A CT angiogram showed right lower lobe pulmonary embolism, and extensive bibasilar infiltrates with groundglass areas. Currently, the patient denies any shortness of breath. He does have chest congestion and cough. He denies any fever or chills. He also denies nausea and vomiting. White count is 13.1, hemoglobin 9.5, hematocrit 27.9, and platelet count 417,000. The patient is seen today 12/09/2020 in follow-up on the regular medical floor. He is awake and alert in no acute distress. Sitting up at the bedside. He continues to have a loose productive cough of yellow thick sputum. Some dyspnea on exertion. Requiring 2 L nasal cannula to maintain O2 saturations in the 90s. He is currently on ceftriaxone and azithromycin. Anticoagulated now with Eliquis. CoVID screen was negative 2. White count 10.1. Hemoglobin 9.7. So dium 134. Potassium 4.6. Creatinine 0.55. Glucose 160. The patient is seen today 12/10/2020 in follow-up on the regular medical floor. He is currently sitting up at the bedside. Awake and alert in no acute distress. Currently on 2 L maintain O2 saturation in the 90s. He is feeling better today compared to yesterday. Sputum cultures still pending. White count 10.3. Hemoglobin 10.2. Chest x-ray continues show bilateral airspace and interstitial infiltrates, slightly improved. He remains on DuoNeb inhalations, cefepime and azithromycin, anticoagulated with Eliquis. The patient is seen today 12/11/2020 in follow-up on the regular medical floor. He is currently awake and alert in no acute distress. Sitting up at the bedside. No worsening shortness of breath, cough or congestion. Lung sounds are improved. He is 88% O2 saturation on room air. May qualify for home oxygen and will check again tomorrow. Cultures are pending. Awaiting final culture results. We'll continue with cefepime and azithromycin. Anticoagulated with Eliquis. The patient is seen today 12/12/2020 in follow-up on the regular medical floor. Currently sitting up at the bedside. Awake and alert in no acute distress. Continues with a loose productive cough of archie colored sputum. Sputum culture reveals no growth to date. He is on 5 L nasal cannula maintaining O2 saturation in the 90s. Remains on bronchodilators, cefepime and azithromycin. Anticoagulated with Eliquis. The patient is seen today 12/13/2020 in follow-up on the regular medical floor. Currently sitting up at the bedside. Awake and alert in no acute distress. Continues with a productive cough. Sputum culture revealed no growth. White count 11.9. Hemoglobin 8.1. Sodium 138. Potassium 4.1. Creatinine 0.8. He is still on 5 L nasal cannula to maintain O2 saturation the high 80s low 90s. He remains on bronchodilators, and a regulated with Eliquis, antibiotics in the form of cefepime and azithromycin. On 12/15/1999 patient seen in follow-up. Rapid response team was called this morning for concern of worsening dyspnea and hypoxia, apparently patient was desaturating down to the 40s with ambulation to the bathroom, he was more confused, more dyspneic, even on high flow oxygen. He tested negative for COVID 192 via PCR test, currently COVID 19 antigen test is pending, his chest x-ray findings are suspicious for recent history of Covid 19 pneumonia she remains on bronchodilators, cefepime and azithromycin for empiric antibiotic coverage, previously his sputum culture has been negative, he continues to bring up small amount of blood-tinged sputum, was on Lovenox for recent history of PE which has been discontinued. Patient was significantly dyspneic, but also very anxious, he was given a low-dose Ativan which seemed to help his anxiety, blood gas was obtained showing pH of 7.48, pCO2 36, and pO2 of 172. Patient remains on IV steroids, breathing treatments, he was given 1 dose of Lasix as well this morning On 12/15/2020 patient is seen in follow-up on surgical medical floor, he is off the BiPAP, currently on high flow nasal cannula, O2 is down to 8 L his pulse ox is around 90%, he is awake and alert, oriented 3, breathing comfortably, appears to be in no acute distress, afebrile, his Covid 19 antigen test was reactive confirming diagnosis of COVID 19 pneumonia. His chest x-ray today shows diffuse airspace infiltrates throughout both lung chanel. Today's labs have been reviewed, her level is low, at 0.37, patient remains on empiric antibiotics, sputum culture has shown no growth, white blood cell count is 6.1, hemoglobin is 8.3, d-dimer is 3.16, but him is 134, the rest of electrolytes and renal profile were unremarkable. This alkaline phosphatase was 307, AST and ALT are within normal limits, his LDH and CRP are improving, troponins were negative 4. No worsening dyspnea, patient is chest pain or hemoptysis. On 12/16/2020 patient seen in follow-up on medical surgical floor, he is sitting up on his, currently more cooperative, no agitation, however his oxygen or 2 L per high flow nasal cannula and at times patient is also requiring nonrebreather mask when he is very short of breath. The frequent cough, he states that times he is able to bring up some phlegm which he discarded, his been afebrile. He was dynamically his been stable, no complaints of chest pain, lung sounds reveal diffuse crackles, his chest x-ray showed diffuse airspace infiltrates. Remains on IV Solu-Medrol which we put back yesterday to 60 mg every 12 hours, we restarted prophylactic anticoagulation, in the form of Lovenox 40 mg once daily, his hemoglobin today is 8.0, follow d-dimer today is down to 1.67, sodium is 133, potassium 6.0, normal renal profile, On 12/17/2020 patient seen in follow-up on medical surgical floor. Patient is awake and alert, clinically he is doing better, he is on less oxygen, he is currently down to 5 L, his pulse ox is 96%, and his FiO2 was further cut back to 4 L, he states he is breathing easier, no hemoptysis, at times he is bringing up some whitish colored sputum. No chest pain. His follow-up chest x-ray today shows some slight worsening in the appearance of left basilar airspace disease and persistent patchy interstitial infiltrates on the right. Today's labs show hemoglobin of 9.1, potassium is 5.6, B1 of 21 and creatinine 0.8. LDH was 746, and CRP is down to 14.4 Objective - Vital Signs Vital signs: Vital Signs Temp 97.7 F 12/17/20 14:00 Pulse 93 12/17/20 14:00 Resp 18 12/17/20 14:00 BP 104/53 12/17/20 14:00 Pulse Ox 96 12/17/20 14:00 Intake & Output 12/16/20 12/17/20 12/17/20 18:59 06:59 18:59 Intake Total 1300 Output Total 700 500 Balance -700 800 Intake: Oral 1300 Output: Urine 700 500 Other: Voiding Method Urinal Urinal Urinal # Voids 5 3 # Bowel Movements 2 - Exam GENERAL EXAM: Alert, 45-year-old white male, currently on 4 L high flow the pulse ox of 96% comfortable in no apparent distress. HEAD: Normocephalic/atraumatic. EYES: Normal reaction of pupils, equal size. Conjunctiva pink, sclera white. NOSE: Clear with pink turbinates. THROAT: No erythema or exudates. NECK: No masses, no JVD, no thyroid enlargement, no adenopathy. CHEST: No chest wall deformity. Symmetrical expansion. LUNGS: Equal air entry with no crackles, wheeze, rhonchi or dullness. CVS: Regular rate and rhythm, normal S1 and S2, no gallops, no murmurs, no rubs ABDOMEN: Soft, nontender. No hepatosplenomegaly, normal bowel sounds, no guarding or rigidity. EXTREMITIES: No clubbing, no edema, no cyanosis, 2+ pulses and upper and lower extremities. MUSCULOSKELETAL: Muscle strength and tone normal. SPINE: No scoliosis or deformity SKIN: No rashes CENTRAL NERVOUS SYSTEM: Alert and oriented -3. No focal deficits, tone is normal in all 4 extremities. PSYCHIATRIC: Alert and oriented -3. Appropriate affect. Intact judgment and insight. - Labs CBC & Chem 7: 12/17/20 09:38 12/17/20 09:38 Labs: Abnormal Lab Results - Last 24 Hours (Table) 12/16/20 12/16/20 12/17/20 Range/Units 17:07 20:51 07:07 WBC (3.8-10.6) k/uL RBC (4.30-5.90) m/uL Hgb (13.0-17.5) gm/dL Hct (39.0-53.0) % MCV (80.0-100.0) fL MCH (25.0-35.0) pg RDW (11.5-15.5) % Neutrophils # (1.3-7.7) k/uL Sodium (137-145) mmol/L Potassium (3.5-5.1) mmol/L Chloride (98-107) mmol/L Carbon Dioxide (22-30) mmol/L BUN (9-20) mg/dL Glucose (74-99) mg/dL POC Glucose (mg/dL) 259 H 309 H 183 H (75-99) mg/dL Lactate Dehydrogenase (313-618) U/L C-Reactive Protein (<10.0) mg/L 12/17/20 12/17/20 12/17/20 Range/Units 09:38 09:38 09:38 WBC 11.1 H (3.8-10.6) k/uL RBC 3.83 L (4.30-5.90) m/uL Hgb 9.1 L (13.0-17.5) gm/dL Hct 28.0 L (39.0-53.0) % MCV 73.0 L (80.0-100.0) fL MCH 23.8 L (25.0-35.0) pg RDW 17.2 H (11.5-15.5) % Neutrophils # 7.9 H (1.3-7.7) k/uL Sodium 135 L (137-145) mmol/L Potassium 5.6 H (3.5-5.1) mmol/L Chloride 96 L (98-107) mmol/L Carbon Dioxide 31 H (22-30) mmol/L BUN 21 H (9-20) mg/dL Glucose 176 H (74-99) mg/dL POC Glucose (mg/dL) (75-99) mg/dL Lactate Dehydrogenase 746 H (313-618) U/L C-Reactive Protein 14.4 H (<10.0) mg/L 12/17/20 Range/Units 11:42 WBC (3.8-10.6) k/uL RBC (4.30-5.90) m/uL Hgb (13.0-17.5) gm/dL Hct (39.0-53.0) % MCV (80.0-100.0) fL MCH (25.0-35.0) pg RDW (11.5-15.5) % Neutrophils # (1.3-7.7) k/uL Sodium (137-145) mmol/L Potassium (3.5-5.1) mmol/L Chloride (98-107) mmol/L Carbon Dioxide (22-30) mmol/L BUN (9-20) mg/dL Glucose (74-99) mg/dL POC Glucose (mg/dL) 191 H (75-99) mg/dL Lactate Dehydrogenase (313-618) U/L C-Reactive Protein (<10.0) mg/L Microbiology - Last 24 Hours (Table) 12/16/20 21:00 Sputum Culture - Preliminary Sputum Assessment and Plan Plan: 1 Acute hypoxemic respiratory failure secondary to Covid 19 pneumonia, confirmed with Covid 19 antibody test which was reactive. Covid 19 PCR test was negative 2 2 acute pulmonary embolism right lower lobe 3 History of chronic obstructive pulmonary disease 4 History of prior tobacco dependence 5 Coronary artery disease with multiple stents 6 History of congestive heart failure 7 Diabetes mellitus with diabetic neuropathy 8 Hypertension 9 Hyperlipidemia 10 Obstructive sleep apnea 11 Degenerative joint disease 12 history of fatty liver 13 agitation, possibly related to IV steroids, continue safety precautions Plan: Continue weaning FiO2, currently down to 4 L, breathing comfortably, however his chest x-ray still abnormal with interval worsening of the left airspace disease and persistence of patchy interstitial infiltrates on the right. But clinically patient is improving, no hemoptysis, hemoglobin 9.1, we'll increase the Eliquis 25 mg twice a day, would continue current dose IV steroids, follow-up chest x- ray in the morning. Would like to see some improvement on the chest x-ray before switching him to oral steroids and considering discharge. We'll send a pro-calcitonin level. We'll continue to follow I performed a history & physical examination of the patient and discussed their management with my nurse practitioner, Lluvia Reyna. I reviewed the nurse practitioner's note and agree with the documented findings and plan of care. Lung sounds are positive for diminished breath sounds. The findings and the impression was discussed with the patient. I attest to the documentation by the nurse practitioner. Time with Patient: Less than 30
[2020-12-17 16:57] LABS: Glucose,Whole Blood 447 mg/dL (75-99)
[2020-12-17 20:29] LABS: Glucose,Whole Blood 304 mg/dL (75-99)
[2020-12-17] MEDS: APIXABAN 5 MG TAB PO SCH (21:12)
[2020-12-17] MEDS: ATORVASTATIN 80 MG TAB PO SCH (21:12)
[2020-12-17] MEDS: MONTELUKAST 10 MG TAB PO SCH (21:12)
[2020-12-17] MEDS: INSULIN DETEMIR (LEVEMIR) 100 UNIT/ML SYR SQ SCH (21:13)
[2020-12-18] MEDS: SODIUM CHLORIDE 0.9% 1,000 ML IV SCH (02:59)
[2020-12-18] MEDS: guaiFENesin-DM 100-10MG/5ML 10 ML CUP PO PRN ×3 (06:21→20:45)
[2020-12-18 07:04] LABS: Glucose,Whole Blood 377 mg/dL (75-99)
[2020-12-18] MEDS: ALBUTEROL HFA INHALER INHALATION SCH ×4 (07:17→22:40)
[2020-12-18] MEDS: INSULIN ASPART (NovoLOG) 100 UNIT/ML VIAL SQ SCH ×7 (07:59→22:01)
[2020-12-18] MEDS: PREGABALIN 50 MG CAP PO SCH ×2 (07:59→20:46)
[2020-12-18] MEDS: FENOFIBRATE 160 MG TAB PO SCH (07:59)
[2020-12-18] MEDS: SENNOSIDES-DOCUSATE SODIUM 1 EACH TAB PO SCH ×2 (07:59→21:58)
[2020-12-18] MEDS: METOPROLOL TARTRATE 12.5 MG TAB PO SCH ×2 (08:00→20:46)
[2020-12-18] MEDS: PANTOPRAZOLE 40 MG TABLET PO SCH (08:00)
[2020-12-18] MEDS: HYDROcodone/APAP 10-325MG 1 EACH TAB PO SCH ×4 (08:00→21:58)
[2020-12-18] MEDS: buPROPion XL 300 MG TAB.ER.24H PO SCH (08:00)
[2020-12-18] MEDS: ASPIRIN 81 MG PO SCH (08:00)
[2020-12-18] MEDS: APIXABAN 5 MG TAB PO SCH ×2 (08:00→20:46)
[2020-12-18] MEDS: methylPREDNISolone SOD SUCCI 125 MG/2 ML VIAL IV SCH (08:01)
[2020-12-18] MEDS: TOPIRAMATE 25 MG TAB PO SCH (08:06)
--- NOTE | 2020-12-18 08:53 | XR ---
EXAMINATION TYPE: XR chest 1V portable DATE OF EXAM: 12/18/2020 COMPARISON: 12/17/2020 INDICATION: Cough and shortness of breath TECHNIQUE: Single frontal view of the chest is obtained. FINDINGS: The heart size is normal. The pulmonary vasculature is normal. Patchy diffuse infiltrates to the left lung. Minimal right basilar infiltrate may be present. Finding s are similar to comparison can be compatible with atypical pneumonia. IMPRESSION: 1. Diffuse increased lung markings predominantly within the left lung. Findings could be compatible w ith atypical pneumonia.
[2020-12-18 09:00] LABS: Basophils # (A) 0.01 X 10*3/uL (0.00-0.10); Basophils % (A) 0.1 %; Eosinophils # (A) 0 X 10*3/uL (0.04-0.35); Eosinophils % (A) 0 %; HCT 31.4 % (39.6-50.0); HGB 9.2 g/dL (13.0-17.0); Lymphocytes # (A) 2.63 X 10*3/uL (0.90-5.00); Lymphocytes % (A) 19.7 %; MCH 22.6 pg (27.0-32.0); MCHC 29.3 g/dL (32.0-37.0); MCV 77.1 fL (80.0-97.0); Monocytes # (A) 0.56 X 10*3/uL (0.20-1.00); Monocytes % (A) 4.2 %; Neutrophils # (A) 10.04 X 10*3/uL (1.80-7.70); Neutrophils % (A) 75.3 %; Platelet Count 506 X 10*3/uL (140-440); RBC 4.07 X 10*6/uL (4.40-5.60); RDW 17.4 % (11.5-14.5); WBC 13.33 X 10*3/uL (4.50-10.00)
[2020-12-18 11:21] LABS: Glucose,Whole Blood 254 mg/dL (75-99)
--- NOTE | 2020-12-18 12:08 | P.PN ---
Subjective Progress Note Date: 12/18/20 Patint is clinically improving. Requiring less oxygen today with greater exercise tolerance. Objective - Vital Signs Vital signs: Vital Signs Temp 97.5 F L 12/18/20 10:00 Pulse 85 12/18/20 10:00 Resp 16 12/18/20 10:00 BP 102/66 12/18/20 10:00 Pulse Ox 92 L 12/18/20 10:00 Intake & Output 12/17/20 12/18/20 12/18/20 18:59 06:59 18:59 Other: Voiding Method Urinal Urinal # Voids 3 2 - Exam Gen: awake, alert HEENT: normocephalic, atraumatic, good hearing acuity, moist mucous membranes Resp: good air exchange, breathing in mild distress with no accessory muscle use CVS: good distal perfusion x 4, GI: soft, NTTP, ND : no SPT, no CVAT, cuevas catheter not present MSK: no pitting edema, no clubbing Neuro: non-focal, moving all extremities Psych: cooperative, euthymic mood - Labs CBC & Chem 7: 12/18/20 04:43 12/17/20 09:38 Labs: Abnormal Lab Results - Last 24 Hours (Table) 12/17/20 12/17/20 12/17/20 Range/Units 09:38 09:38 16:55 WBC (4.50-10.00) X 10*3/uL RBC (4.40-5.60) X 10*6/uL Hgb (13.0-17.0) g/dL Hct (39.6-50.0) % MCV (80.0-97.0) fL MCH (27.0-32.0) pg MCHC (32.0-37.0) g/dL RDW (11.5-14.5) % Plt Count (140-440) X 10*3/uL Immature Gran # (0.00-0.04) X 10*3/uL Neutrophils # (1.80-7.70) X 10*3/uL Eosinophils # (0.04-0.35) X 10*3/uL POC Glucose (mg/dL) 447 H (75-99) mg/dL Lactate Dehydrogenase 746 H (313-618) U/L C-Reactive Protein 14.4 H (<10.0) mg/L Procalcitonin 0.14 H (0.02-0.09) ng/mL 12/17/20 12/18/20 12/18/20 Range/Units 20:27 04:43 06:59 WBC 13.33 H (4.50-10.00) X 10*3/uL RBC 4.07 L (4.40-5.60) X 10*6/uL Hgb 9.2 L (13.0-17.0) g/dL Hct 31.4 L (39.6-50.0) % MCV 77.1 L (80.0-97.0) fL MCH 22.6 L (27.0-32.0) pg MCHC 29.3 L (32.0-37.0) g/dL RDW 17.4 H (11.5-14.5) % Plt Count 506 H (140-440) X 10*3/uL Immature Gran # 0.09 H (0.00-0.04) X 10*3/uL Neutrophils # 10.04 H (1.80-7.70) X 10*3/uL Eosinophils # 0 L (0.04-0.35) X 10*3/uL POC Glucose (mg/dL) 304 H 377 H (75-99) mg/dL Lactate Dehydrogenase (313-618) U/L C-Reactive Protein (<10.0) mg/L Procalcitonin (0.02-0.09) ng/mL 12/18/20 Range/Units 11:13 WBC (4.50-10.00) X 10*3/uL RBC (4.40-5.60) X 10*6/uL Hgb (13.0-17.0) g/dL Hct (39.6-50.0) % MCV (80.0-97.0) fL MCH (27.0-32.0) pg MCHC (32.0-37.0) g/dL RDW (11.5-14.5) % Plt Count (140-440) X 10*3/uL Immature Gran # (0.00-0.04) X 10*3/uL Neutrophils # (1.80-7.70) X 10*3/uL Eosinophils # (0.04-0.35) X 10*3/uL POC Glucose (mg/dL) 254 H (75-99) mg/dL Lactate Dehydrogenase (313-618) U/L C-Reactive Protein (<10.0) mg/L Procalcitonin (0.02-0.09) ng/mL Microbiology - Last 24 Hours (Table) 12/16/20 21:00 Gram Stain - Preliminary Sputum Sputum Culture - Preliminary Assessment and Plan Assessment: Acute pulmonary emboli in right lower lobe without right heart strain -CT PE completed which revealed a right lower lobe pulmonary emboli with extensive pulmonary infiltrates consistent with pneumonia. -Echocardiogram showed a normal ejection fraction between 60 and 65% with moderate concentric left ventricular hypertrophy and mild aortic valve sclerosis. -Eliquis placed on hold by pulmonology due to concern of hemoptysis, recommend resuming once cleared by pulmonology to resume -Continue oxygen supplementation to maintain SpO2 equal to or greater than 90%. Wean oxygen once patient is able. -Pulmonology following, appreciate further recommendations. Community-acquired pneumonia of RLL -Initial Chest x-ray revealed bilateral diffuse airspace disease with possible pneumonia versus fluid overload. -Repeat chest x-ray completed 12/10/20 revealed bilateral airspace and interstitial infiltrates persisting although may be slightly improved. -Repeat chest x-ray completed 12/13/20 revealed no significant interval changes. -Repeat chest x-ray completed 12/14/20 radiology reports show mixed perihilar and basilar infiltrates persisting with slight improvement noted in the interval. -CT PE completed which revealed a right lower lobe pulmonary emboli with extensive pulmonary infiltrates consistent with pneumonia. -Cefepime discontinued after 9 days of antibiotics. -Coronavirus SARS CoV2 Total antibody test ordered and positive -Rapid HIV negative -Fungitell panel ordered and pending results. -Covid and influenza A and B PCR's were negative. Iron deficiency Anemia, stable -Hemoglobin 8.3 with baseline hemoglobin of 11.5. -Iron 41, TIBC 2.63. -We will continue to monitor with repeat a.m. labs Insulin-dependent diabetes mellitus, poorly controlled -Patient's blood sugars uncontrolled upon arrival to facility ranging from 300s to 500s. His hemoglobin A1c was 14.1. Patient does reportedly take Lantus 50 units nightly along with NovoLog sliding scale and metformin. Concerns whether patient is compliant with diet and taking all medications as directed as he does have a documented history of medical noncompliance. -We will continue with glycemic protocol with NovoLog 10 units with each meal along with sliding scale and 50 units Levemir nightly. -Blood glucose levels significantly improved. -Heart healthy carb consistent diet. -certified lactation educator was consulted. Hyponatremia -Sodium 133. -Likely secondary to recent Lasix use. -We will continue to monitor with repeat a.m. labs. Coronary artery disease with previous multivessel PCI and stent placement -Continue daily medication management including aspirin, atorvastatin, lisinopril, and metoprolol. -Heart healthy carb consistent diet. DVT prophylaxis: Eliquis placed on hold by weight and balance control agent, may resume once cleared by pulmonary. Currently on lovenox 40mg SQ daily Discussed with: Patient and RN Anticipated discharge: Clinical course to determine Anticipated discharge place: Home
[2020-12-18 12:11] LABS: African American GFR (CKD) 118.3 (60.0-200.0); Anion Gap 10.3 mmol/L (4.00-12.00); BUN/Creat Ratio 27.78 Ratio (12.00-20.00); Calcium 10.1 mg/dL (8.7-10.3); Carbon Dioxide 29.7 mmol/L (21.6-31.8); Magnesium 1.9 mg/dL (1.5-2.4); Non-African American GFR(CKD) 102.1 (60.0-200.0); Potassium 6.4 mmol/L (3.5-5.5)
[2020-12-18] MEDS ORDERED: INSULIN REGULAR 100 UNIT/ML VIAL IV ONE (12:56)
[2020-12-18 14:40] LABS: Glucose,Whole Blood 229 mg/dL (75-99)
--- NOTE | 2020-12-18 16:42 | P.PN ---
Subjective Progress Note Date: 12/18/20 Principal diagnosis: Pneumonia, pulmonary embolism 45-year-old male, who sees a nurse practitioner up in the [facility], for his healthcare, who presents to the emergency department, with 2 weeks of not feeling well. Include primarily shortness of breath, cough, phlegm production, and abnormal troponins. The patient see an outside hospital, transferred down. In addition, the patient had shortness of breath, and low saturations. He does have a history of heart failure, COPD, hypertension, and myocardial infarction. The patient had a CT angiogram which showed some right lower lobe infiltrate, and a right lower lobe pulmonary embolism as well. Currently, the patient is on 2 L nasal cannula. He is also getting IV heparin for the pulmonary embolism. He does have coronary artery disease, has had multiple stents. He states that he is tested negative twice for COVID. Does also have a history of diabetes, hyperlipidemia, and hypertension. He also has a history of sleep apnea syndrome. He is maintained on CPAP for that. He apparently still smokes cigarettes. White count is 9.3, hemoglobin 10.2, hematocrit 31.7, and platelet count 297,000. PTT is 49.3. Sodium 127, potassium 5.1, chlorides 90 CO2 25, anion gap 12, the urine 10, and creatinine 0.49. CT angiogram showed right lower lobe pulmonary embolism, and extensive bibasilar interstitial infiltrates with some groundglass areas. There is also some bilateral enlarged bronchial lymph nodes measuring up to 2 cm. Progress note dated 12/08/2020. The patient is again seen in the observation unit. He's in room 160. Is currently on room air. Saturations are 93%. He is getting saline at 20 mL an hour, and also heparin via weightbase protocol. A CT angiogram showed right lower lobe pulmonary embolism, and extensive bibasilar infiltrates with groundglass areas. Currently, the patient denies any shortness of breath. He does have chest congestion and cough. He denies any fever or chills. He also denies nausea and vomiting. White count is 13.1, hemoglobin 9.5, hematocrit 27.9, and platelet count 417,000. The patient is seen today 12/09/2020 in follow-up on the regular medical floor. He is awake and alert in no acute distress. Sitting up at the bedside. He continues to have a loose productive cough of yellow thick sputum. Some dyspnea on exertion. Requiring 2 L nasal cannula to maintain O2 saturations in the 90s. He is currently on ceftriaxone and azithromycin. Anticoagulated now with Eliquis. CoVID screen was negative 2. White count 10.1. Hemoglobin 9.7. So dium 134. Potassium 4.6. Creatinine 0.55. Glucose 160. The patient is seen today 12/10/2020 in follow-up on the regular medical floor. He is currently sitting up at the bedside. Awake and alert in no acute distress. Currently on 2 L maintain O2 saturation in the 90s. He is feeling better today compared to yesterday. Sputum cultures still pending. White count 10.3. Hemoglobin 10.2. Chest x-ray continues show bilateral airspace and interstitial infiltrates, slightly improved. He remains on DuoNeb inhalations, cefepime and azithromycin, anticoagulated with Eliquis. The patient is seen today 12/11/2020 in follow-up on the regular medical floor. He is currently awake and alert in no acute distress. Sitting up at the bedside. No worsening shortness of breath, cough or congestion. Lung sounds are improved. He is 88% O2 saturation on room air. May qualify for home oxygen and will check again tomorrow. Cultures are pending. Awaiting final culture results. We'll continue with cefepime and azithromycin. Anticoagulated with Eliquis. The patient is seen today 12/12/2020 in follow-up on the regular medical floor. Currently sitting up at the bedside. Awake and alert in no acute distress. Continues with a loose productive cough of archie colored sputum. Sputum culture reveals no growth to date. He is on 5 L nasal cannula maintaining O2 saturation in the 90s. Remains on bronchodilators, cefepime and azithromycin. Anticoagulated with Eliquis. The patient is seen today 12/13/2020 in follow-up on the regular medical floor. Currently sitting up at the bedside. Awake and alert in no acute distress. Continues with a productive cough. Sputum culture revealed no growth. White count 11.9. Hemoglobin 8.1. Sodium 138. Potassium 4.1. Creatinine 0.8. He is still on 5 L nasal cannula to maintain O2 saturation the high 80s low 90s. He remains on bronchodilators, and a regulated with Eliquis, antibiotics in the form of cefepime and azithromycin. On 12/15/1999 patient seen in follow-up. Rapid response team was called this morning for concern of worsening dyspnea and hypoxia, apparently patient was desaturating down to the 40s with ambulation to the bathroom, he was more confused, more dyspneic, even on high flow oxygen. He tested negative for COVID 192 via PCR test, currently COVID 19 antigen test is pending, his chest x-ray findings are suspicious for recent history of Covid 19 pneumonia she remains on bronchodilators, cefepime and azithromycin for empiric antibiotic coverage, previously his sputum culture has been negative, he continues to bring up small amount of blood-tinged sputum, was on Lovenox for recent history of PE which has been discontinued. Patient was significantly dyspneic, but also very anxious, he was given a low-dose Ativan which seemed to help his anxiety, blood gas was obtained showing pH of 7.48, pCO2 36, and pO2 of 172. Patient remains on IV steroids, breathing treatments, he was given 1 dose of Lasix as well this morning On 12/15/2020 patient is seen in follow-up on surgical medical floor, he is off the BiPAP, currently on high flow nasal cannula, O2 is down to 8 L his pulse ox is around 90%, he is awake and alert, oriented 3, breathing comfortably, appears to be in no acute distress, afebrile, his Covid 19 antigen test was reactive confirming diagnosis of COVID 19 pneumonia. His chest x-ray today shows diffuse airspace infiltrates throughout both lung chanel. Today's labs have been reviewed, her level is low, at 0.37, patient remains on empiric antibiotics, sputum culture has shown no growth, white blood cell count is 6.1, hemoglobin is 8.3, d-dimer is 3.16, but him is 134, the rest of electrolytes and renal profile were unremarkable. This alkaline phosphatase was 307, AST and ALT are within normal limits, his LDH and CRP are improving, troponins were negative 4. No worsening dyspnea, patient is chest pain or hemoptysis. On 12/16/2020 patient seen in follow-up on medical surgical floor, he is sitting up on his, currently more cooperative, no agitation, however his oxygen or 2 L per high flow nasal cannula and at times patient is also requiring nonrebreather mask when he is very short of breath. The frequent cough, he states that times he is able to bring up some phlegm which he discarded, his been afebrile. He was dynamically his been stable, no complaints of chest pain, lung sounds reveal diffuse crackles, his chest x-ray showed diffuse airspace infiltrates. Remains on IV Solu-Medrol which we put back yesterday to 60 mg every 12 hours, we restarted prophylactic anticoagulation, in the form of Lovenox 40 mg once daily, his hemoglobin today is 8.0, follow d-dimer today is down to 1.67, sodium is 133, potassium 6.0, normal renal profile, On 12/17/2020 patient seen in follow-up on medical surgical floor. Patient is awake and alert, clinically he is doing better, he is on less oxygen, he is currently down to 5 L, his pulse ox is 96%, and his FiO2 was further cut back to 4 L, he states he is breathing easier, no hemoptysis, at times he is bringing up some whitish colored sputum. No chest pain. His follow-up chest x-ray today shows some slight worsening in the appearance of left basilar airspace disease and persistent patchy interstitial infiltrates on the right. Today's labs show hemoglobin of 9.1, potassium is 5.6, B1 of 21 and creatinine 0.8. LDH was 746, and CRP is down to 14.4 On 12/19/1999 patient seen in follow-up on medical surgical floor, continues to improve, today's chest x-ray shows improvement in the appearance of diffuse increased lung markings. Patient is down to 4 L of oxygen, pulse ox is 97%, this can probably wean down further, she is afebrile, no fever or chills, vital signs have been stable, breathing has much improved, minimal crackles, the cough has improved, no hemoptysis, no chest pain. No altered mentation. Pro- calcitonin is down to 0.14, sputum culture showed few PMNs, gram-positive cocci, many gram-negative bacilli in many budding, report is pending. Clinical patient has been improving. Remains on IV Solu-Medrol at 60 mg twice daily, he is on oral anticoagulation with Eliquis 5 mg twice daily, his had no recurrence of hemoptysis, today's hemoglobin is 9.2 Objective - Vital Signs Vital signs: Vital Signs Temp 97.7 F 12/18/20 14:00 Pulse 86 12/18/20 14:00 Resp 16 12/18/20 14:00 BP 105/58 12/18/20 14:00 Pulse Ox 97 12/18/20 14:00 Intake & Output 12/17/20 12/18/20 12/18/20 18:59 06:59 18:59 Other: Voiding Method Urinal Urinal # Voids 3 2 - Exam GENERAL EXAM: Alert, 45-year-old white male, currently on 4 L high flow the pulse ox of 96% comfortable in no apparent distress. HEAD: Normocephalic/atraumatic. EYES: Normal reaction of pupils, equal size. Conjunctiva pink, sclera white. NOSE: Clear with pink turbinates. THROAT: No erythema or exudates. NECK: No masses, no JVD, no thyroid enlargement, no adenopathy. CHEST: No chest wall deformity. Symmetrical expansion. LUNGS: Equal air entry with no crackles, wheeze, rhonchi or dullness. CVS: Regular rate and rhythm, normal S1 and S2, no gallops, no murmurs, no rubs ABDOMEN: Soft, nontender. No hepatosplenomegaly, normal bowel sounds, no guarding or rigidity. EXTREMITIES: No clubbing, no edema, no cyanosis, 2+ pulses and upper and lower extremities. MUSCULOSKELETAL: Muscle strength and tone normal. SPINE: No scoliosis or deformity SKIN: No rashes CENTRAL NERVOUS SYSTEM: Alert and oriented -3. No focal deficits, tone is normal in all 4 extremities. PSYCHIATRIC: Alert and oriented -3. Appropriate affect. Intact judgment and insight. - Labs CBC & Chem 7: 12/18/20 04:43 12/18/20 04:43 Labs: Abnormal Lab Results - Last 24 Hours (Table) 12/17/20 12/17/20 12/17/20 Range/Units 09:38 16:55 20:27 WBC (4.50-10.00) X 10*3/uL RBC (4.40-5.60) X 10*6/uL Hgb (13.0-17.0) g/dL Hct (39.6-50.0) % MCV (80.0-97.0) fL MCH (27.0-32.0) pg MCHC (32.0-37.0) g/dL RDW (11.5-14.5) % Plt Count (140-440) X 10*3/uL Immature Gran # (0.00-0.04) X 10*3/uL Neutrophils # (1.80-7.70) X 10*3/uL Eosinophils # (0.04-0.35) X 10*3/uL Sodium (135-145) mmol/L Potassium (3.5-5.5) mmol/L Chloride (96-109) mmol/L BUN/Creatinine Ratio (12.00-20.00) Ratio Glucose (70-110) mg/dL POC Glucose (mg/dL) 447 H 304 H (75-99) mg/dL Procalcitonin 0.14 H (0.02-0.09) ng/mL 12/18/20 12/18/20 12/18/20 Range/Units 04:43 04:43 06:59 WBC 13.33 H (4.50-10.00) X 10*3/uL RBC 4.07 L (4.40-5.60) X 10*6/uL Hgb 9.2 L (13.0-17.0) g/dL Hct 31.4 L (39.6-50.0) % MCV 77.1 L (80.0-97.0) fL MCH 22.6 L (27.0-32.0) pg MCHC 29.3 L (32.0-37.0) g/dL RDW 17.4 H (11.5-14.5) % Plt Count 506 H (140-440) X 10*3/uL Immature Gran # 0.09 H (0.00-0.04) X 10*3/uL Neutrophils # 10.04 H (1.80-7.70) X 10*3/uL Eosinophils # 0 L (0.04-0.35) X 10*3/uL Sodium 134 L (135-145) mmol/L Potassium 6.4 H* (3.5-5.5) mmol/L Chloride 94 L (96-109) mmol/L BUN/Creatinine Ratio 27.78 H (12.00-20.00) Ratio Glucose 320 H (70-110) mg/dL POC Glucose (mg/dL) 377 H (75-99) mg/dL Procalcitonin (0.02-0.09) ng/mL 12/18/20 12/18/20 Range/Units 11:13 14:37 WBC (4.50-10.00) X 10*3/uL RBC (4.40-5.60) X 10*6/uL Hgb (13.0-17.0) g/dL Hct (39.6-50.0) % MCV (80.0-97.0) fL MCH (27.0-32.0) pg MCHC (32.0-37.0) g/dL RDW (11.5-14.5) % Plt Count (140-440) X 10*3/uL Immature Gran # (0.00-0.04) X 10*3/uL Neutrophils # (1.80-7.70) X 10*3/uL Eosinophils # (0.04-0.35) X 10*3/uL Sodium (135-145) mmol/L Potassium (3.5-5.5) mmol/L Chloride (96-109) mmol/L BUN/Creatinine Ratio (12.00-20.00) Ratio Glucose (70-110) mg/dL POC Glucose (mg/dL) 254 H 229 H (75-99) mg/dL Procalcitonin (0.02-0.09) ng/mL Microbiology - Last 24 Hours (Table) 12/16/20 21:00 Gram Stain - Preliminary Sputum Sputum Culture - Preliminary Assessment and Plan Plan: 1 Acute hypoxemic respiratory failure secondary to Covid 19 pneumonia, confirmed with Covid 19 antibody test which was reactive. Covid 19 PCR test was negative 2 2 acute pulmonary embolism right lower lobe 3 History of chronic obstructive pulmonary disease 4 History of prior tobacco dependence 5 Coronary artery disease with multiple stents 6 History of congestive heart failure 7 Diabetes mellitus with diabetic neuropathy 8 Hypertension 9 Hyperlipidemia 10 Obstructive sleep apnea 11 Degenerative joint disease 12 history of fatty liver 13 agitation, possibly related to IV steroids, continue safety precautions Plan: Doing well, continue weaning FiO2, currently down to 4 L, signs are stable, we'll switch the patient over to oral prednisone 40 mg daily, pro-calcitonin l evel is low suggesting absence of bacterial superinfection. Increase activity as tolerated, from pulmonary perspective patient is clear for discharge home, with outpatient follow-up in 2 weeks in the office I performed a history & physical examination of the patient and discussed their management with my nurse practitioner, Lluvia Reyna. I reviewed the nurse practitioner's note and agree with the documented findings and plan of care. Lung sounds are positive for diminished breath sounds. The findings and the impression was discussed with the patient. I attest to the documentation by the nurse practitioner. Time with Patient: Less than 30
[2020-12-18 16:46] LABS: Glucose,Whole Blood 237 mg/dL (75-99)
[2020-12-18] MEDS: ATORVASTATIN 80 MG TAB PO SCH (20:46)
[2020-12-18] MEDS: MONTELUKAST 10 MG TAB PO SCH (20:46)
[2020-12-18 20:51] LABS: Glucose,Whole Blood 337 mg/dL (75-99)
[2020-12-18] MEDS: INSULIN DETEMIR (LEVEMIR) 100 UNIT/ML SYR SQ SCH (21:58)
[2020-12-19 02:03] VITALS: TEMP 97.9
[2020-12-19] MEDS: SODIUM CHLORIDE 0.9% 1,000 ML IV SCH (02:28)
[2020-12-19 07:24] LABS: Glucose,Whole Blood 101 mg/dL (75-99)
[2020-12-19] MEDS: INSULIN ASPART (NovoLOG) 100 UNIT/ML VIAL SQ SCH ×4 (07:39→12:30)
[2020-12-19] MEDS: TOPIRAMATE 25 MG TAB PO SCH (08:18)
[2020-12-19] MEDS: HYDROcodone/APAP 10-325MG 1 EACH TAB PO SCH ×2 (08:18→12:41)
[2020-12-19] MEDS: PANTOPRAZOLE 40 MG TABLET PO SCH (08:19)
[2020-12-19] MEDS: ASPIRIN 81 MG PO SCH (08:19)
[2020-12-19] MEDS: FENOFIBRATE 160 MG TAB PO SCH (08:19)
[2020-12-19] MEDS: buPROPion XL 300 MG TAB.ER.24H PO SCH (08:19)
[2020-12-19] MEDS: SENNOSIDES-DOCUSATE SODIUM 1 EACH TAB PO SCH (08:19)
[2020-12-19] MEDS: PREGABALIN 50 MG CAP PO SCH (08:19)
[2020-12-19] MEDS: APIXABAN 5 MG TAB PO SCH (08:19)
[2020-12-19] MEDS: METOPROLOL TARTRATE 12.5 MG TAB PO SCH (08:19)
[2020-12-19] MEDS: ALBUTEROL HFA INHALER INHALATION SCH ×2 (08:34→11:16)
[2020-12-19] MEDS ORDERED: predniSONE 20 MG TAB PO SCH (09:00)
[2020-12-19] MEDS: guaiFENesin-DM 100-10MG/5ML 10 ML CUP PO PRN (09:33)
[2020-12-19 09:49] VITALS: BP 93/58; PULSE 68; RESP 16
[2020-12-19 11:35] LABS: Glucose,Whole Blood 100 mg/dL (75-99)
[2020-12-19 11:53] LABS: African American GFR (CKD) 124.2 (60.0-200.0); Anion Gap 11.7 mmol/L (4.00-12.00); Carbon Dioxide 28.3 mmol/L (21.6-31.8); Non-African American GFR(CKD) 107.1 (60.0-200.0); Potassium 5.3 mmol/L (3.5-5.5)
--- NOTE | 2020-12-19 12:13 | P.PN ---
Subjective Progress Note Date: 12/19/20 Principal diagnosis: Acute hypoxic referral failure secondary to cope with 19 pneumonia and acute right-sided pulmonary embolism 45-year-old male, who sees a nurse practitioner up in the [place] area, for his healthcare, who presents to the emergency department, with 2 weeks of not feeling well. Include primarily shortness of breath, cough, phlegm production, and abnormal troponins. The patient see an outside hospital, transferred down. In addition, the patient had shortness of breath, and low saturations. He does have a history of heart failure, COPD, hypertension, and myocardial infarction. The patient had a CT angiogram which showed some right lower lobe infiltrate, and a right lower lobe pulmonary embolism as well. Currently, the patient is on 2 L nasal cannula. He is also getting IV heparin for the pulmonary embolism. He does have coronary artery disease, has had multiple stents. He states that he is tested negative twice for COVID. Does also have a history of diabetes, hyperlipidemia, and hypertension. He also has a history of sleep apnea synd owls head. He is maintained on CPAP for that. He apparently still smokes cigarettes. White count is 9.3, hemoglobin 10.2, hematocrit 31.7, and platelet count 297,000. PTT is 49.3. Sodium 127, potassium 5.1, chlorides 90 CO2 25, anion gap 12, the urine 10, and creatinine 0.49. CT angiogram showed right lower lobe pulmonary embolism, and extensive bibasilar interstitial infiltrates with some groundglass areas. There is also some bilateral enlarged bronchial lymph nodes measuring up to 2 cm. Progress note dated 12/08/2020. The patient is again seen in the observation unit. He's in room 160. Is currently on room air. Saturations are 93%. He is getting saline at 20 mL an hour, and also heparin via weightbase protocol. A CT angiogram showed right lower lobe pulmonary embolism, and extensive bibasilar infiltrates with groundglass areas. Currently, the patient denies any shortness of breath. He does have chest congestion and cough. He denies any fever or chills. He also denies nausea and vomiting. White count is 13.1, hemoglobin 9.5, hematocrit 27.9, and platelet count 417,000. The patient is seen today 12/09/2020 in follow-up on the regular medical floor. He is awake and alert in no acute distress. Sitting up at the bedside. He continues to have a loose productive cough of yellow thick sputum. Some dyspnea on exertion. Requiring 2 L nasal cannula to maintain O2 saturations in the 90s. He is currently on ceftriaxone and azithromycin. Anticoagulated now with El iquis. CoVID screen was negative 2. White count 10.1. Hemoglobin 9.7. Sodium 134. Potassium 4.6. Creatinine 0.55. Glucose 160. The patient is seen today 12/10/2020 in follow-up on the regular medical floor. He is currently sitting up at the bedside. Awake and alert in no acute distress. Currently on 2 L maintain O2 saturation in the 90s. He is feeling better today compared to yesterday. Sputum cultures still pending. White count 10.3. Hemoglobin 10.2. Chest x-ray continues show bilateral airspace and interstitial infiltrates, slightly improved. He remains on DuoNeb inhalations, cefepime and azithromycin, anticoagulated with Eliquis. The patient is seen today 12/11/2020 in follow-up on the regular medical floor. He is currently awake and alert in no acute distress. Sitting up at the bedside. No worsening shortness of breath, cough or congestion. Lung sounds are improved. He is 88% O2 saturation on room air. May qualify for home oxygen and will check again tomorrow. Cultures are pending. Awaiting final culture results. We'll continue with cefepime and azithromycin. Anticoagulated with Eliquis. The patient is seen today 12/12/2020 in follow-up on the regular medical floor. Currently sitting up at the bedside. Awake and alert in no acute distress. Con tinues with a loose productive cough of archie colored sputum. Sputum culture reveals no growth to date. He is on 5 L nasal cannula maintaining O2 saturation in the 90s. Remains on bronchodilators, cefepime and azithromycin. Anticoagulated with Eliquis. The patient is seen today 12/13/2020 in follow-up on the regular medical floor. Currently sitting up at the bedside. Awake and alert in no acute distress. Continues with a productive cough. Sputum culture revealed no growth. White count 11.9. Hemoglobin 8.1. Sodium 138. Potassium 4.1. Creatinine 0.8. He is still on 5 L nasal cannula to maintain O2 saturation the high 80s low 90s. He remains on bronchodilators, and a regulated with Eliquis, antibiotics in the form of cefepime and azithromycin. On 12/15/1999 patient seen in follow-up. Rapid response team was called this morning for concern of worsening dyspnea and hypoxia, apparently patient was desaturating down to the 40s with ambulation to the bathroom, he was more conf used, more dyspneic, even on high flow oxygen. He tested negative for COVID 192 via PCR test, currently COVID 19 antigen test is pending, his chest x-ray findings are suspicious for recent history of Covid 19 pneumonia she remains on bronchodilators, cefepime and azithromycin for empiric antibiotic coverage, previously his sputum culture has been negative, he continues to bring up small amount of blood-tinged sputum, was on Lovenox for recent history of PE which has been discontinued. Patient was significantly dyspneic, but also very anxious, he was given a low-dose Ativan which seemed to help his anxiety, blood gas was obtained showing pH of 7.48, pCO2 36, and pO2 of 172. Patient remains on IV steroids, breathing treatments, he was given 1 dose of Lasix as well this morning On 12/15/2020 patient is seen in follow-up on surgical medical floor, he is off the BiPAP, currently on high flow nasal cannula, O2 is down to 8 L his pulse ox is around 90%, he is awake and alert, oriented 3, breathing comfortably, appears to be in no acute distress, afebrile, his Covid 19 antigen test was reactive confirming diagnosis of COVID 19 pneumonia. His chest x-ray today shows diffuse airspace infiltrates throughout both lung chanel. Today's labs have been reviewed, her level is low, at 0.37, patient remains on empiric antibiotics, sputum culture has shown no growth, white blood cell count is 6.1, hemoglobin is 8.3, d-dimer is 3.16, but him is 134, the rest of electrolytes and renal profile were unremarkable. This alkaline phosphatase was 307, AST and ALT are within normal limits, his LDH and CRP are improving, troponins were negative 4. No worsening dyspnea, patient is chest pain or hemoptysis. On 12/16/2020 patient seen in follow-up on medical surgical floor, he is sitting up on his, currently more cooperative, no agitation, however his oxygen or 2 L per high flow nasal cannula and at times patient is also requiring nonrebreather mask when he is very short of breath. The frequent cough, he states that times he is able to bring up some phlegm which he discarded, his been afebrile. He was dynamically his been stable, no complaints of chest pain, lung sounds reveal diffuse crackles, his chest x-ray showed diffuse airspace infiltrates. Remains on IV Solu-Medrol which we put back yesterday to 60 mg every 12 hours, we restarted prophylactic anticoagulation, in the form of Lovenox 40 mg once daily, his hemoglobin today is 8.0, follow d-dimer today is down to 1.67, sodium is 133, potassium 6.0, normal renal profile, On 12/17/2020 patient seen in follow-up on medical surgical floor. Patient is awake and alert, clinically he is doing better, he is on less oxygen, he is currently down to 5 L, his pulse ox is 96%, and his FiO2 was further cut back to 4 L, he states he is breathing easier, no hemoptysis, at times he is bringing up some whitish colored sputum. No chest pain. His follow-up chest x-ray today shows some slight worsening in the appearance of left basilar airspace disease and persistent patchy interstitial infiltrates on the right. Today's labs show hemoglobin of 9.1, potassium is 5.6, B1 of 21 and creatinine 0.8. LDH was 746, and CRP is down to 14.4 On 12/19/1999 patient seen in follow-up on medical surgical floor, continues to improve, today's chest x-ray shows improvement in the appearance of diffuse increased lung markings. Patient is down to 4 L of oxygen, pulse ox is 97%, this can probably wean down further, she is afebrile, no fever or chills, vital signs have been stable, breathing has much improved, minimal crackles, the cough has improved, no hemoptysis, no chest pain. No altered mentation. Pro- calcitonin is down to 0.14, sputum culture showed few PMNs, gram-positive cocci, many gram-negative bacilli in many budding, report is pending. Clinical patient has been improving. Remains on IV Solu-Medrol at 60 mg twice daily, he is on oral anticoagulation with Eliquis 5 mg twice daily, his had no recurrence of hemoptysis, today's hemoglobin is 9.2 Reevaluated today on 12/19/2020, patient is feeling better, breathing easier, continues to have intermittent episodes of some productive cough. Patient had positive antibody titer for coronavirus infection, and his CT of the chest on initial presentation was classic for a lateral peripheral infiltrates consistent with coronavirus pneumonia. Patient had multiple PCR is and according to him he had at least 7 test that were negative. But obviously based on his titer, the patient had Covid 19 pneumonia, with hypercoagulable state and pulmonary embolism as well as underlying bacterial infection based on the fact that he had significant purulent secretions and productive cough. Sputum all along has been nondiagnostic, and we have treated him with empiric and broad-spectrum antibiotics all along. Clinically the patient is feeling better, he is now on 4 L nasal cannula, and I believe we could start considering discharge planning on this patient. Objective - Vital Signs Vital signs: Vital Signs Temp 97.9 F 12/19/20 09:49 Pulse 68 12/19/20 09:49 Resp 16 12/19/20 09:49 BP 93/58 12/19/20 09:49 Pulse Ox 99 12/19/20 09:49 Intake & Output 12/18/20 12/19/20 12/19/20 18:59 06:59 18:59 Intake Total 250 Balance 250 Intake: Oral 250 Other: Voiding Method Toilet Toilet Urinal Urinal Diaper # Voids 3 2 - Exam Physical Exam: Revealed a 45-year-old white male in no distress on 4 L nasal cannula Head: Atraumatic, normocephalic. HEENT:[Neck is supple.] [No neck masses.] [No thyromegaly.] [No JVD.] Chest: [Clear throughout, no crackles, no rhonchi, no wheezes.] Cardiac Exam: [Normal S1 and S2, no S3 gallop, no murmur.] Abdomen: [Soft, nontender, no megaly, no rebound, no guarding, normal bowel sounds.] Extremities: [No clubbing, no edema, no cyanosis.] Neurological Exam: [No focal neurologic deficit.] Alert oriented 3. Psychiatric: Normal mood affect and normal mental status examination. Skin: No rashes. - Labs CBC & Chem 7: 12/18/20 04:43 12/19/20 08:06 Labs: Abnormal Lab Results - Last 24 Hours (Table) 12/18/20 12/18/20 12/18/20 Range/Units 04:43 14:37 16:32 Sodium 134 L (135-145) mmol/L Potassium 6.4 H* (3.5-5.5) mmol/L Chloride 94 L (96-109) mmol/L BUN (9.0-27.0) mg/dL BUN/Creatinine Ratio 27.78 H (12.00-20.00) Ratio Glucose 320 H (70-110) mg/dL POC Glucose (mg/dL) 229 H 237 H (75-99) mg/dL 12/18/20 12/19/20 12/19/20 Range/Units 20:49 07:16 08:06 Sodium (135-145) mmol/L Potassium (3.5-5.5) mmol/L Chloride (96-109) mmol/L BUN 28.0 H (9.0-27.0) mg/dL BUN/Creatinine Ratio 35.00 H (12.00-20.00) Ratio Glucose 116 H (70-110) mg/dL POC Glucose (mg/dL) 337 H 101 H (75-99) mg/dL 12/19/20 Range/Units 11:33 Sodium (135-145) mmol/L Potassium (3.5-5.5) mmol/L Chloride (96-109) mmol/L BUN (9.0-27.0) mg/dL BUN/Creatinine Ratio (12.00-20.00) Ratio Glucose (70-110) mg/dL POC Glucose (mg/dL) 100 H (75-99) mg/dL Microbiology - Last 24 Hours (Table) 12/16/20 21:00 Gram Stain - Final Sputum Sputum Culture - Final Assessment and Plan Assessment: Impression: Acute hypoxic respiratory failure, multifactorial secondary to coVID 19 pneumonia, confirmed with antibiotic test but he had negative PCR Acute pulmonary embolism contributing to acute hypoxic respiratory failure. Acute exacerbation of COPD Possible underlying bacterial infection although his pro-calcitonin level was normal which practically speaking ruled out underlying bacterial infection. Type 2 diabetes with diabetic neuropathy Benign essential hypertension Obstructive sleep apnea Steroids induced anxiety and agitation and psychosis. Recommendation: Continue present supportive care measures Continue oral prednisone Titrate oxygen and the patient will likely need home O2. Continue bronchodilators. I will clear the patient to be discharged home today and follow-up in the office in few weeks. Again may need home oxygen Will need to be on long-term anticoagulations therapy for at least 3-6 months Time with Patient: Less than 30
--- NOTE | 2020-12-19 12:43 | P.DS ---
Providers Date of admission: 12/06/20 22:42 Expected date of discharge: 12/19/20 Attending physician: Nancy Cr MD Consults: 12/07/20 00:34 Consult Physician Urgent Consulting Provider: Naseem Denise Consult Reason/Comments: COVID, PE Do you want consulting provider notified?: Yes 12/07/20 14:33 Consult Physician Routine Consulting Provider: Shai Machado Consult Reason/Comments: It's okay to discontinue Plavix? Do you want consulting provider notified?: Yes Primary care physician: [facility] Course: Acute pulmonary emboli in right lower lobe without right heart strain -CT PE completed which revealed a right lower lobe pulmonary emboli with extensive pulmonary infiltrates consistent with pneumonia. -Echocardiogram showed a normal ejection fraction between 60 and 65% with moderate concentric left ventricular hypertrophy and mild aortic valve sclerosis. -Eliquis placed on hold by pulmonology due to concern of hemoptysis, however, this resolved spontaneously, and patient was restarted and prescribed Eliquis on discharge. -Continue oxygen supplementation to maintain SpO2 equal to or greater than 90%. Wean oxygen once patient is able. On discharge, he was set up with home oxygen with plan to follow up with pulmonology for down-titration as able. Community-acquired pneumonia of RLL COVID-19 Pneumonitis -Initial Chest x-ray revealed bilateral diffuse airspace disease with possible pneumonia versus fluid overload. -Repeat chest x-ray completed 12/10/20 revealed bilateral airspace and interstitial infiltrates persisting although may be slightly improved. -Repeat chest x-ray completed 12/13/20 revealed no significant interval changes. -Repeat chest x-ray completed 12/14/20 radiology reports show mixed perihilar and basilar infiltrates persisting with slight improvement noted in the interval. -CT PE completed which revealed a right lower lobe pulmonary emboli with extensive pulmonary infiltrates consistent with pneumonia. -Cefepime discontinued after 9 days of antibiotics. -Coronavirus SARS CoV2 Total antibody test ordered and positive -Rapid HIV negative -Fungitell panel ordered and negative -Covid and influenza A and B PCR's were negative. Iron deficiency Anemia, stable -Hemoglobin 8.3 with baseline hemoglobin of 11.5. -Iron 41, TIBC 2.63. -We will continue to monitor with repeat a.m. labs Insulin-dependent diabetes mellitus, poorly controlled -Patient's blood sugars uncontrolled upon arrival to facility ranging from 300s to 500s. His hemoglobin A1c was 14.1. Patient does reportedly take Lantus 50 units nightly along with NovoLog sliding scale and metformin. Concerns whether patient is compliant with diet and taking all medications as directed as he does have a documented history of medical noncompliance. -We will continue with glycemic protocol with NovoLog 10 units with each meal along with sliding scale and 50 units Levemir nightly --> no changes to home medication regimen on I spent 45 minutes preparing this discharge Assessment: Gen: awake, alert HEENT: normocephalic, atraumatic, good hearing acuity, moist mucous membranes Resp: good air exchange, breathing in mild distress with no accessory muscle use CVS: good distal perfusion x 4, GI: soft, NTTP, ND : no SPT, no CVAT, cuevas catheter not present MSK: no pitting edema, no clubbing Neuro: non-focal, moving all extremities Psych: cooperative, euthymic mood Patient Condition at Discharge: Fair Plan - Discharge Summary Discharge Rx Participant: No New Discharge Prescriptions: New Apixaban [Eliquis Starter Pack (for VTE)] 0 mg PO DIRECTED 30 Days #1 pack predniSONE [Deltasone] 40 mg PO DAILY #10 tab Azithromycin [Zithromax] 500 mg PO DAILY 2 Days #2 tab Ipratropium Guys [Atrovent Hfa] 2 puff INHALATION QID #1 inhaler Continue Esomeprazole Magnesium [NexIUM] 20 mg PO DAILY Cyclobenzaprine [Flexeril] 10 mg PO BID Topiramate [Topamax] 50 mg PO DAILY Loratadine [Claritin] 10 mg PO DAILY lisinopriL [Zestril] 2.5 mg PO DAILY #30 tab Nitroglycerin Sl Tabs [Nitrostat] 0.4 mg SUBLINGUAL Q5M PRN #25 tab PRN Reason: Chest Pain Hydrocodone/Acetaminophen [Ardsley 10-325] 1 tab PO QID Metoprolol Tartrate [Lopressor] 12.5 mg PO BID Atorvastatin [Lipitor] 80 mg PO HS Albuterol Nebulized [Ventolin Nebulized] 2.5 mg INHALATION RT-QID metFORMIN HCL [metFORMIN HCL ER] 1,000 mg PO BID Aspirin 81 mg PO DAILY chew Pregabalin [Lyrica] 150 mg PO BID Montelukast [Singulair] 10 mg PO HS Galcanezumab-Gnlm [Emgality Pen] 120 mg SQ Q30D Fenofibrate 160 mg PO DAILY buPROPion HCL [Wellbutrin XL] 300 mg PO DAILY Albuterol Inhaler [Ventolin Hfa Inhaler] 2 puff INHALATION RT-Q4H PRN PRN Reason: Shortness Of Breath Semaglutide [Ozempic] 0.25 mg SQ WE INSULIN ASPART (NovoLOG) [NovoLOG (formulary)] See Protocol SQ AC-TID Insulin Glargine,Hum.rec.anlog [Lantus Solostar] 50 unit SQ HS #0 Discontinued Clopidogrel [Plavix] 75 mg PO DAILY #30 tab amLODIPine [Norvasc] 5 mg PO DAILY Ibuprofen [Motrin] 800 mg PO Q8H PRN PRN Reason: Pain Discharge Medication List Cyclobenzaprine [Flexeril] 10 mg PO BID 04/24/14 [History] Esomeprazole Magnesium [NexIUM] 20 mg PO DAILY 04/24/14 [History] Loratadine [Claritin] 10 mg PO DAILY 11/12/15 [History] Topiramate [Topamax] 50 mg PO DAILY 11/12/15 [History] Nitroglycerin Sl Tabs [Nitrostat] 0.4 mg SUBLINGUAL Q5M PRN #25 tab 11/18/15 [R x] lisinopriL [Zestril] 2.5 mg PO DAILY #30 tab 11/18/15 [Rx] Hydrocodone/Acetaminophen [Ardsley 10-325] 1 tab PO QID 04/03/16 [History] Metoprolol Tartrate [Lopressor] 12.5 mg PO BID 04/03/16 [History] Albuterol Nebulized [Ventolin Nebulized] 2.5 mg INHALATION RT-QID 03/20/18 [History] Atorvastatin [Lipitor] 80 mg PO HS 03/20/18 [History] metFORMIN HCL [metFORMIN HCL ER] 1,000 mg PO BID 03/20/18 [History] Aspirin 81 mg PO DAILY chew 03/27/18 [Rx] Albuterol Inhaler [Ventolin Hfa Inhaler] 2 puff INHALATION RT-Q4H PRN 11/06/20 [History] Fenofibrate 160 mg PO DAILY 11/06/20 [History] Galcanezumab-Gnlm [Emgality Pen] 120 mg SQ Q30D 11/06/20 [History] INSULIN ASPART (NovoLOG) [NovoLOG (formulary)] See Protocol SQ AC-TID 11/06/20 [History] Montelukast [Singulair] 10 mg PO HS 11/06/20 [History] Pregabalin [Lyrica] 150 mg PO BID 11/06/20 [History] Semaglutide [Ozempic] 0.25 mg SQ WE 11/06/20 [History] buPROPion HCL [Wellbutrin XL] 300 mg PO DAILY 11/06/20 [History] Apixaban [Eliquis Starter Pack (for VTE)] 0 mg PO DIRECTED 30 Days #1 pack 12/08/20 [Rx] Azithromycin [Zithromax] 500 mg PO DAILY 2 Days #2 tab 12/09/20 [Rx] Insulin Glargine,Hum.rec.anlog [Lantus Solostar] 50 unit SQ HS #0 12/19/20 [Rx] Ipratropium Guys [Atrovent Hfa] 2 puff INHALATION QID #1 inhaler 12/19/20 [Rx] predniSONE [Deltasone] 40 mg PO DAILY #10 tab 12/19/20 [Rx] Follow up Appointment(s)/Referral(s): Booker Hu, LIVIER [Primary Care Provider] - 1-2 days (office closed at time of discharge. Please call to make appointment ) Yo Echevarria DO [Doctor of Osteopathic Medicine] - 1 Week (office closed at time of discharge. Please call to make appointment) Andres Nguyen MD [STAFF PHYSICIAN] - 01/01/21 1:30 pm (Appointment will be at the [facility] location. Please call to make appointment ) Patient Instructions/Handouts: Coronavirus Disease 2019 (COVID-19), Pneumonia (DC) Activity/Diet/Wound Care/Special Instructions: Activity: As tolerated Diet: Heart healthy and carb consistent Special Instructions: Please take all medications exactly as directed. Do not miss any doses. It is important for you to check your blood glucose levels 3 times daily before your meals and at bedtime. You need to document these results in a log along with how much insulin you are taking at that time and bring with you to your next appointment with her PCP as you may need further medication adjustments based upon these findings. It is important to follow up with your PCP in 2-3 days, pulmonology next week, and cardiology in 2 weeks. Thank you for giving us the opportunity to participate in your care. Discharge Disposition: HOME WITH HOME HEALTH SERVICES
== END 2020-12-19 13:26 | disposition home health service (06) | DRG 177 ==
LOC: EC 19:59 → 4SSUR 22:42 → 1SOBS 12-07 15:49 → 4SSUR 12-08 16:33
PROVIDERS: ADMIT Internal Medicine; ATTEND Internal Medicine
PROC: 5A0945A Assistance with Respiratory Ventilation, 24-96 Consecutive Hours, High Flow/Velocity Cannula (ICD-10-PCS; principal; 2020-12-15)
DX: U07.1 COVID-19 (principal); I26.99 Other pulmonary embolism without acute cor pulmonale; J96.01 Acute respiratory failure with hypoxia; J12.82 Pneumonia due to coronavirus disease 2019; K62.5 Hemorrhage of anus and rectum; J44.0 Chronic obstructive pulmonary disease with (acute) lower respiratory infection; E87.1 Hypo-osmolality and hyponatremia; D68.59 Other primary thrombophilia; J44.1 Chronic obstructive pulmonary disease with (acute) exacerbation; I25.2 Old myocardial infarction; Z20.822 Contact with and (suspected) exposure to COVID-19; F17.210 Nicotine dependence, cigarettes, uncomplicated; Z82.49 Family history of ischemic heart disease and other diseases of the circulatory system; Z83.3 Family history of diabetes mellitus; Z79.02 Long term (current) use of antithrombotics/antiplatelets; Z79.82 Long term (current) use of aspirin; K76.0 Fatty (change of) liver, not elsewhere classified; E11.40 Type 2 diabetes mellitus with diabetic neuropathy, unspecified; G47.33 Obstructive sleep apnea (adult) (pediatric); D50.9 Iron deficiency anemia, unspecified; Z79.4 Long term (current) use of insulin; Z95.5 Presence of coronary angioplasty implant and graft; Z91.19 Patient's noncompliance with other medical treatment and regimen; I11.0 Hypertensive heart disease with heart failure; E78.2 Mixed hyperlipidemia; I35.8 Other nonrheumatic aortic valve disorders; E11.649 Type 2 diabetes mellitus with hypoglycemia without coma; M19.90 Unspecified osteoarthritis, unspecified site; E11.65 Type 2 diabetes mellitus with hyperglycemia; I50.9 Heart failure, unspecified; F41.9 Anxiety disorder, unspecified; T38.0X5A Adverse effect of glucocorticoids and synthetic analogues, initial encounter; Y92.239 Unspecified place in hospital as the place of occurrence of the external cause; F29 Unspecified psychosis not due to a substance or known physiological condition; I95.9 Hypotension, unspecified; Z91.14 Patient's other noncompliance with medication regimen; F32.9 Major depressive disorder, single episode, unspecified; M94.0 Chondrocostal junction syndrome [Tietze]; N32.81 Overactive bladder; I25.10 Atherosclerotic heart disease of native coronary artery without angina pectoris
CPT/HCPCS: 36415; 36600; 71045; 71046; 71275; 80048; 80053; 82272; 82728; 82747; 82805; 83036; 83540; 83550; 83605; 83615; 83735; 84075; 84145; 84484; 85025; 85027; 85379; 85610; 85730; 86140; 86769; 86850; 86900; 86901; 87070; 87205; 87390; 87449; 87502; 87635; 93005; 93306; 93970; 94640; 94760; 99285

== ENCOUNTER 2022-02-08 05:54 | Day surgery (SDC) | payer MEDICARE, OTHER ==
[2022-02-08] MEDS ORDERED: ASPIRIN 325 MG TAB PO STA (05:59)
[2022-02-08] MEDS ORDERED: ALPRAZolam 0.25 MG TAB PO PRN (05:59)
[2022-02-08] MEDS ORDERED: ALPRAZolam 0.5 MG TAB PO PRN (05:59)
[2022-02-08] MEDS ORDERED: NITROGLYCERIN SL TABS 0.4 MG TAB SUBLINGUAL PRN ×2 (05:59→09:20)
[2022-02-08 06:28] LABS: Glucose,Whole Blood 341 mg/dL (75-99)
[2022-02-08] MEDS ORDERED: INSULIN ASPART (NovoLOG) 100 UNIT/ML VIAL SQ ONE ×3 (06:29→17:18)
[2022-02-08] MEDS: SODIUM CHLORIDE 0.9% 1,000 ML in EMPTY BAG 1 BAG IV SCH ×2 (06:30→17:53)
[2022-02-08] MEDS: MIDAZOLAM 2 MG/2 ML VIAL IV ONE ×2 (07:46→07:52)
[2022-02-08] MEDS ORDERED: methylPREDNISolone SOD SUCCI 125 MG/2 ML VIAL IV ONE (07:46)
[2022-02-08] MEDS ORDERED: diphenhydrAMINE 50 MG/ML 1 ML VIAL IVP ONE (07:46)
[2022-02-08] MEDS ORDERED: LIDOCAINE 1% PF 10 MG/ML (5 ML AMP) SQ ONE (07:52)
[2022-02-08] MEDS ORDERED: VERAPAMIL SYRINGE (5 MG/10 ML) IV ONE (07:58)
[2022-02-08] MEDS: HEPARIN SODIUM 1,000 UN/ML (10ML VL) IV ONE ×3 (07:59→08:49)
[2022-02-08] MEDS ORDERED: fentaNYL (PF) 50 MCG/ML 2 ML AMP IV ONE (08:11)
[2022-02-08 08:32] LABS: Calcium 8.9 mg/dL (8.4-10.2); Potassium 4.1 mmol/L (3.5-5.1)
--- NOTE | 2022-02-08 08:47 | CC ---
CARDIAC CATHETERIZATION REPORT INDICATION: Unstable angina. This is a 46-year-old gentleman with history of coronary artery disease, status post prior angioplasty of galena AV groove circumflex who presented to me with symptoms of unstable angina in the form of shortness of breath with activity and right-sided chest pressure. He had an abnormal stress test in February of last year that we opted to manage medically. The patient had been explained risks, benefits and alternatives. He has IV DYE ALLERGY and has received Benadryl and steroids for the same. His BUN is normal, hemoglobin is normal, platelet count is normal. For some reason creatinine is not available, and I just repeated the labs. Pt was given IV fluids prior to cath. PROCEDURE NOTE: After obtaining informed consent, left heart catheterization and coronary angiogram were performed via the right radial artery using standard Nery catheters. The patient tolerated the procedure well without any obvious immediate complications. Total sedation time was 18 minutes. I obtained right radial artery access using a micropuncture needle with Seldinger technique, and catheter and wire were manipulated into the ascending aorta under fluoroscopic guidance. Left ventricular hemodynamics were obtained by a pigtail catheter. He received 5 mg of verapamil and 5000 units of heparin per protocol. Patient was given 35 mL of IV contrast dye to view the diagnostic cath. FINDINGS: HEMODYNAMICS: Left ventricular end-diastolic pressure is 12 mm. There is no significant gradient across the aortic valve. LEFT VENTRICULOGRAM: Left ventriculogram was not performed. ANGIOGRAPHIC DATA: Left main coronary artery is a normal-sized vessel and is free of stenosis. It divides into left anterior descending coronary artery and circumflex coronary artery. Previously stented segment within the circumflex appears patent. The left system appears calcified. There is a proximal focal stenosis within the LAD that seems around 80% to 90%. There is a very distal stenosis in the LAD right near the apex which has remained unchanged compared to a previous catheterization. That seems around 80%. Right coronary artery is a large dominant vessel that shows a focal area of stenosis in the distal portion of 70%. CONCLUSIONS: Stenosis of 80% to 90% involving the proximal LAD and 70% stenosis involving distal RCA. PLAN: Patient will undergo angioplasty with stent placement of LAD and right coronary artery if contrast threshold permits. His creatinine has come back elevated - he will only have LAD stent and hydrate overnight will do RCS if needed down the road . MMODL / IJN: [id number] / MTDD
--- NOTE | 2022-02-08 08:52 | LTR ---
February 08, 2022 To: Dr. Booker Hu Re: Florentin Liz (73) Dear Booker, I performed cardiac catheterization on Florentin Liz. A detailed catheterization note is enclosed for your records. In brief, he recently presented to me with symptoms of unstable angina and his cardiac catheterization revealed tight focal stenosis involving LAD and distal RCA with a patent stent within the circumflex coronary artery. We will proceed with angioplasty with stent placement of the same. Thank you for giving me the privilege of participating in the care of this pleasant gentleman. Sincerely, Andres Nguyen M.D. JANICE / BREN: [id number] /
[2022-02-08] MEDS ORDERED: CLOPIDOGREL 75 MG TAB PO ONE (08:56)
[2022-02-08] MEDS ORDERED: IOPAMIDOL-370 125ML BTL INJ ONE (08:57)
[2022-02-08] MEDS: SODIUM CHLORIDE 0.9% 1,000 ML IV SCH ×2 (09:12→20:35)
[2022-02-08 09:17] LABS: Glucose,Whole Blood 257 mg/dL (75-99)
[2022-02-08] MEDS ORDERED: METOPROLOL TARTRATE 12.5 MG TAB PO PRN (09:20)
[2022-02-08] MEDS ORDERED: CYCLOBENZAPRINE 10 MG TAB PO PRN (09:20)
[2022-02-08] MEDS ORDERED: ALBUTEROL NEBULIZED 2.5 MG/3 ML INHALATION PRN (09:20)
[2022-02-08 09:52] LABS: Basophils # (A) 0.1 k/uL (0-0.2); Basophils % (A) 1 %; Eosinophils # (A) 0.2 k/uL (0-0.7); Eosinophils % (A) 2 %; HCT 38.4 % (39.0-53.0); HGB 12.3 gm/dL (13.0-17.5); Lymphocytes # (A) 3.9 k/uL (1.0-4.8); Lymphocytes % (A) 34 %; MCH 26.7 pg (25.0-35.0); MCHC 31.9 g/dL (31.0-37.0); MCV 83.7 fL (80.0-100.0); Mean Platelet Volume 11.7; Monocytes % (A) 8 %; Neutrophils # (A) 6.3 k/uL (1.3-7.7); Neutrophils % (A) 54 %; Platelet Count 306 k/uL (150-450); RBC 4.59 m/uL (4.30-5.90); RDW 14.2 % (11.5-15.5); WBC 11.7 k/uL (3.8-10.6)
--- NOTE | 2022-02-08 10:32 | PTCA ---
PERCUTANEOUSTRANS CORORONARY ANGIOGRAPHY PROCEDURE: Percutaneous transluminal coronary angioplasty and stenting of proximal LAD with a drug- eluting stent. PERFORMED BY: Dr. Chalo Trejo. Moderate conscious sedation time was 35 minutes. CLINICAL INFORMATION: Mr. Florentin Liz is a 46-year-old gentleman with a known history of CAD, prior stenting of circumflex in 2019. He also has type 2 diabetes, hypertension and hyperlipidemia. He had COVID infection and since then has been placed on Eliquis. He was brought in for the procedure by Dr. Nguyen. In view of abnormal stress test he was advised cardiac catheterization, which revealed that the previously stented mid LAD (2016) and mid circumflex groove branch (2016 and 2018) was patent, but there was a new lesion of about 80% in the proximal circumflex. Two tandem 80% lesions were noted and also there was a tight lesion in the distal RCA, which was a dominant vessel. He was advised intervention. His creatinine was about 2.23 and his maximum contrast threshold was 105 mL. I performed PCI following the cardiac catheterization, and the total amount of contrast given was about 100 mL. Patient tolerated the procedure well. PCI PROCEDURE DETAILS: I used a JL3.5 guide catheter to cannulate the left coronary artery. A run- through wire was used to cross the lesion. A 2.5 caliber 20 mm balloon was used to pre- dilate the lesion. I then deployed a 23 mm long 3.25 caliber Xience stent at 12 atmospheres. Patient did not have chest pain but had mild ST-segment elevation. Excellent angiographic result was achieved. His ACT was about 218. Additional 1500 units of heparin was given. He also received 600 mg of Plavix. A total of 9000 units of heparin was given and patient's weight is about 91 kg. Excellent angiographic result was achieved without complication. Results were discussed with the patient and his mother. I expect he will be discharged tomorrow after adequate hydration and rechecking his creatinine. He will be on dual antiplatelet therapy without interruption for at least one year unless contraindicated by any future issues. MMODL / IJN: [id number] / MTDD
[2022-02-08] MEDS: INSULIN ASPART (NovoLOG) 100 UNIT/ML VIAL SQ SCH ×3 (10:34→17:55)
[2022-02-08 12:04] LABS: Glucose,Whole Blood 325 mg/dL (75-99)
[2022-02-08] MEDS ORDERED: INSULIN ASPART (NovoLOG) 100 UNIT/ML VIAL SQ SCH (12:30)
[2022-02-08] MEDS: ALBUTEROL NEBULIZED 2.5 MG/3 ML INHALATION SCH ×3 (12:32→20:29)
[2022-02-08] MEDS: IPRATROPIUM 0.5 MG/2.5 ML NEBU INHALATION SCH ×3 (12:32→20:29)
--- NOTE | 2022-02-08 13:29 | CONS ---
CONSULTATION DATE OF SERVICE: 02/08/2022 REASON FOR CONSULTATION: Consultation for advice regarding diabetes mellitus and other issues request by Dr. Chalo Trejo. HISTORY OF PRESENT ILLNESS: This 46 -year-old gentleman with a past medical history of diabetes mellitus and other multiple medical issues, underwent cardiac catheterization and angioplasty with stenting of the proximal LAD with drug-eluting stent. The patient apparently took only 40 units of Lantus and skipped the morning dose of coverage also. The blood sugar was found to be elevated at 341 and 257. The patient has got altogether 8 units regular so far. Blood sugar is again climbing up to 325 at this time. There is no history of fever, rigors, chills. PAST MEDICAL HISTORY: History diabetes mellitus, CAD, multiple other medical issues. HOME MEDICATIONS: Reviewed and include: Lantus 15 units. The rest of the medications and doses reviewed. ALLERGIES: INCLUDE AVOCADO. FAMILY HISTORY: History of DVT. SOCIAL HISTORY: Previous history of smoking. REVIEW OF SYSTEMS: 14-point review is negative except as mentioned earlier. PHYSICAL EXAMINATION: Pulse 88, blood pressure 102/50, respiration 16. NECK is no JVD. CARDIOVASCULAR systems: S1, S2. RESPIRATION: No rhonchi. No crackles. ABDOMEN: Soft, obese. NERVOUS SYSTEM: No focal deficits. LEGS no edema. LABS: Reviewed. Creatinine 2.23. Other labs reviewed. ASSESSMENT: 1. Coronary artery disease, status post cardiac catheterization, LAD stenting. 2. Diabetes mellitus, type 2 with hyperglycemia. 3. History of asthma. 4. Congestive heart failure. 5. Chronic obstructive pulmonary disease. 6. Hypertension. 7. Hyperlipidemia. RECOMMENDATIONS AND DISCUSSION: I would recommend Levemir 20 units and as well as short-acting 50 units at this time and continue to monitor closely. Apparently, Dr. Rosangela Hartley is also managing the diabetes as outpatient. At one point, the patient is on 100 units Lantus. I recommend continued follow up with Dr. Hartley as outpatient. Otherwise, at this time, see orders for details and further recommendations to follow. Discussed with the patient at length. We will closely follow with Cardiology. The rest of the recommendations per Cardiology. Thank you for letting us participate in the care of this patient. MMODL / IJN: [id number] /
[2022-02-08] MEDS ORDERED: INSULIN DETEMIR (LEVEMIR) 100 UNIT/ML SYR SQ ONE (13:30)
[2022-02-08] MEDS: HYDROcodone/APAP 10-325MG 1 EACH TAB PO PRN ×2 (13:39→20:33)
[2022-02-08 17:04] LABS: Glucose,Whole Blood 443 mg/dL (75-99)
[2022-02-08] MEDS: buPROPion SR 150 MG TABLET.ER PO SCH (20:33)
[2022-02-08] MEDS: PREGABALIN 75 MG CAP PO SCH (20:34)
[2022-02-08 20:36] LABS: Glucose,Whole Blood 505 mg/dL (75-99)
[2022-02-08] MEDS ORDERED: INSULIN DETEMIR (LEVEMIR) 100 UNIT/ML SYR SQ SCH (21:00)
[2022-02-08] MEDS ORDERED: ATORVASTATIN 80 MG TAB PO SCH (21:00)
[2022-02-08] MEDS ORDERED: MONTELUKAST 10 MG TAB PO SCH (21:00)
[2022-02-09 03:03] LABS: Glucose,Whole Blood 352 mg/dL (75-99)
[2022-02-09] MEDS: SODIUM CHLORIDE 0.9% 1,000 ML in EMPTY BAG 1 BAG IV SCH (03:03)
[2022-02-09] MEDS: SODIUM CHLORIDE 0.9% 1,000 ML IV SCH (03:04)
[2022-02-09] MEDS: HYDROcodone/APAP 10-325MG 1 EACH TAB PO PRN (03:22)
[2022-02-09 07:02] LABS: Glucose,Whole Blood 330 mg/dL (75-99)
[2022-02-09] MEDS: IPRATROPIUM 0.5 MG/2.5 ML NEBU INHALATION SCH ×2 (07:26→11:14)
[2022-02-09] MEDS: ALBUTEROL NEBULIZED 2.5 MG/3 ML INHALATION SCH ×2 (07:26→11:14)
[2022-02-09 07:28] VITALS: BP 108/61; RESP 18; TEMP 97.3
[2022-02-09] MEDS ORDERED: PANTOPRAZOLE 40 MG TABLET PO SCH (07:30)
[2022-02-09 07:42] VITALS: PULSE 99
[2022-02-09 08:16] LABS: Basophils % (A) 0 %; Eosinophils % (A) 0 %; HGB 10.5 gm/dL (13.0-17.5); Lymphocytes # (A) 2.2 k/uL (1.0-4.8); Lymphocytes % (A) 24 %; MCH 27.2 pg (25.0-35.0); MCHC 32.7 g/dL (31.0-37.0); MCV 83.1 fL (80.0-100.0); Mean Platelet Volume 9.8; Monocytes # (A) 0.4 k/uL (0-1.0); Monocytes % (A) 4 %; Neutrophils # (A) 6.3 k/uL (1.3-7.7); Neutrophils % (A) 69 %; Platelet Count 238 k/uL (150-450); RBC 3.85 m/uL (4.30-5.90); RDW 14.4 % (11.5-15.5); WBC 9.2 k/uL (3.8-10.6)
[2022-02-09 08:26] LABS: African American GFR (CKD) 56 (>60 ml/min/1.73 sqM); Anion Gap 8 mmol/L; Blood Urea Nitrogen 35 mg/dL (9-20); Calcium 8.9 mg/dL (8.4-10.2); Carbon Dioxide 19 mmol/L (22-30); Chloride 108 mmol/L (98-107); Glucose 288 mg/dL (74-99); Non-African American GFR(CKD) 48 (>60 ml/min/1.73 sqM); Potassium 4.6 mmol/L (3.5-5.1); Sodium 135 mmol/L (137-145)
[2022-02-09] MEDS: buPROPion SR 150 MG TABLET.ER PO SCH (08:49)
[2022-02-09] MEDS: INSULIN ASPART (NovoLOG) 100 UNIT/ML VIAL SQ SCH ×2 (08:52→12:39)
[2022-02-09] MEDS ORDERED: NON FORMULARY DRUG (Galcanezumab-Gnlm [Emgality Pen] 120 MG/ML Pen.Injctr) SQ SCH (09:00)
[2022-02-09] MEDS ORDERED: CLOPIDOGREL 75 MG TAB PO SCH (09:00)
[2022-02-09] MEDS ORDERED: TOPIRAMATE 25 MG TAB PO SCH (09:00)
[2022-02-09] MEDS ORDERED: LORATADINE 10 MG TAB PO SCH (09:00)
[2022-02-09] MEDS ORDERED: ASPIRIN 81 MG PO SCH (09:00)
[2022-02-09] MEDS ORDERED: NON FORMULARY DRUG (Semaglutide [Ozempic] 0.25 MG/0.2 ML Pen.Injctr) SQ SCH (09:00)
[2022-02-09] MEDS ORDERED: FENOFIBRATE 160 MG TAB PO SCH (09:00)
[2022-02-09] MEDS: PREGABALIN 75 MG CAP PO SCH (09:01)
--- NOTE | 2022-02-09 09:14 | DS ---
DISCHARGE SUMMARY DATE OF ADMISSION: 02/08/2022. DATE OF DISCHARGE: 02/09/2022 PROCEDURES PERFORMED: 1. Left heart catheterization. 2. PTCA and stent placement of the LAD. CONSULTANTS: Hospitalist was consulted for management of diabetes. This is a 46-year-old gentleman with history of multivessel coronary artery disease, status post prior angioplasty of the LAD and circumflex coronary artery, insulin- requiring diabetes, hypertension, dyslipidemia, history of COVID infection with venous thromboembolism, who presented to me with symptoms of unstable angina and he had an abnormal stress test last year. Due to this I advised him to undergo cardiac catheterization. His pre-cath labs showed that the BUN and creatinine were elevated, so we used 100 mL of dye both to perform the cath and angioplasty, which is within the contrast threshold. He tolerated the procedures well and this morning he is doing well and is free of symptoms. His cardiac catheterization revealed significant obstructive disease involving proximal LAD and distal right coronary artery. We addressed the LAD lesion and we want to deal with the right coronary artery down the road, depending upon how his kidney functions evolve. EKG this morning shows sinus rhythm and is within normal limits. Patient's condition at the time of discharge: He is doing well and is free of symptoms. He denies chest pain, difficulty in breathing, palpitations, dizziness or syncope. On exam, he is afebrile. Vital signs are stable. There is no jugular venous distention. Carotid upstroke is normal. There is no bruit. Chest exam reveals good air entry bilaterally. Heart exam reveals first and second heart sounds. No gallop. No murmur. Abdomen is soft. Examination of extremities did not reveal any edema. Peripheral pulses are felt. Right radial artery access site appears normal. Labs showed a hemoglobin of 10.5, platelet count is 238, potassium is 4.6. BUN is 35, creatinine is 1.6. Patient's blood sugars are elevated on this admission, and a hospitalist has been asked to evaluate and address this problem. FOLLOWUP: Patient will be followed up in my office next week. DISCHARGE MEDICATIONS: I will stop the Eliquis and put the patient on aspirin, Plavix 75 mg daily, continue the fenofibrate, Singulair, Zestril, Topamax, Ozempic, Lyrica, Lopressor, insulin, albuterol inhaler and Lipitor. I am going to stop the metformin on discharge. The patient's creatinine has improved. I will see him back in the office in a week's time and he is going to have electrolytes checked at that time. The hospitalist is going to adjust the diabetic medications at the time of his discharge and he will have an appointment to go see his diabetes doctor. I gave him a prescription for Plavix. He has all the other medications at home. MMODL / KEMN: [id number] /
[2022-02-09 11:43] VITALS: BMI 30.7
[2022-02-09 11:57] LABS: Glucose,Whole Blood 315 mg/dL (75-99)
--- NOTE | 2022-02-10 09:52 | P.PN ---
Subjective Progress Note Date: 02/09/22 This is a 46-year-old male who was recently admitted under cardiology services for cardiac catheterization and angioplasty with stenting to the proximal LAD with drug-eluting stent and was consulted for diabetes management. Patient is insulin-dependent and does follow with Dr. Odilia ly in the outpatient setting and an appointment has been arranged. Patient's blood sugars were elevated and have titrated the insulin and patient is to continue with Accu- Cheks before meals and at bedtime and keep a diary for primary care follow-up. Patient long acting also increased to 75 units and strongly encourage the patient to follow up with endocrine in the outpatient setting. Patient has been cleared for discharge by cardiology and also recommended repeat labs and a prescriptions was provided. Patient denies chest pain or shortness of breath. Patient is afebrile. Patient tolerating diet with no reports of nausea or vomiting noted. Review of systems: Constitutional: No reports of fatigue, fever, or chills Cardiovascular: No reports of chest pain or palpitations Respiratory: No reports of shortness of breath or cough GI: No reports of nausea, no reports of of vomiting : No reports of dysuria or retention Neurovascular: No reports of generalized weakness All medications have been reviewed PHYSICAL EXAMINATION: GENERAL: The patient is alert and oriented x4, Well developed, well nourished. HEENT: Pupils are round and equally reacting to light. EOMI. no scleral icterus. No conjunctival pallor. Normocephalic, atraumatic. No pharyngeal erythema. No thyromegaly. CARDIOVASCULAR: S1 and S2 muffled PULMONARY: diminished breath sounds bilaterally with no wheezing or rhonchi noted. ABDOMEN: soft. Nontender on exam. obese. non-distended, normoactive bowel sounds. No palpable organomegaly. MUSCULOSKELETAL: No joint swelling or deformity. EXTREMITIES: No cyanosis, clubbing, or pedal edema. Right hip surgical dressing is intact NEUROLOGICAL: Gross neurological examination did not reveal any focal deficits. Diffuse weakness SKIN: No rashes. Assessment: Coronary artery disease, status post cardiac catheterization and LAD stenting Diabetes mellitus type 2, uncontrolled with hyperglycemia History of asthma, not in exacerbation Congestive heart failure Chronic obstructive pulmonary disease next line hypertension Hyperlipidemia GI prophylaxis DVT prophylaxis Full code Plan: Recommend to continue with current medications and management per cardiology services. He is status post cardiac catheterization with successful stenting and will follow-up in the outpatient setting with cardiology. Patient was some mild elevated kidney functions and continued elevated blood sugars recommending repeat labs in 2-3 days to monitor and also recommend monitoring Accu-Cheks before meals and at bedtime in keeping a diary for primary and endocrine follow- up. Patient follows with Dr. Hartley in the outpatient setting an appointment has been scheduled. Encourage the patient to call the office and see if his appointment can be moved up. Patient is to follow with cardiology as scheduled and continue current medication regimen. Long acting insulin adjusted and increased to 75 units. Patient strongly encouraged to follow heart healthy consistent carb diet. Recommend outpatient follow-up with primary care provider on discharge. We Will continue to follow with cardiology during hospitalization. Thank you for this consultation. Patient reports to being discharged today. The impression and plan of care has been dictated by Karen Dennis, nurse leann johnson as directed. MD Estephanie I have performed a history and examination and MDM of this patient, discussed the same with the dictator, and agree with the dictator's assessment and plan as written ,documented as a scribe. Based on total visit time, I have performed more than 50% of the visit. Any additional findings or plans will be noted. Objective - Vital Signs Vital signs: Vital Signs Temp 97.3 F L 02/09/22 07:27 Pulse 99 02/09/22 07:40 Resp 18 02/09/22 09:07 BP 108/61 02/09/22 07:27 Pulse Ox 94 L 02/09/22 07:27 FiO2 Intake & Output 02/08/22 02/09/22 02/09/22 18:59 06:59 18:59 Intake Total 700 Balance 700 Weight 91.6 kg 91.6 kg Intake: IV 400 Intake, IV Titration 200 Amount Sodium Chloride 0.9% 1, 200 000 ml @ 100 mls/hr IV . Q10H RILEY Rx#:[id number] Oral 100 Other: Voiding Method Toilet # Voids 1 1 - Labs CBC & Chem 7: 02/09/22 07:02 02/09/22 07:02 Labs: Abnormal Lab Results - Last 24 Hours (Table) 02/08/22 02/08/22 02/08/22 Range/Units 06:28 17:02 20:35 RBC (4.30-5.90) m/uL Hgb (13.0-17.5) gm/dL Hct (39.0-53.0) % Sodium (137-145) mmol/L Chloride (98-107) mmol/L Carbon Dioxide (22-30) mmol/L BUN (9-20) mg/dL Creatinine (0.66-1.25) mg/dL Glucose (74-99) mg/dL POC Glucose (mg/dL) 443 H 505 H (75-99) mg/dL Hemoglobin A1c 10.9 H (0.0-6.0) % 02/09/22 02/09/22 02/09/22 Range/Units 03:02 07:00 07:02 RBC 3.85 L (4.30-5.90) m/uL Hgb 10.5 L (13.0-17.5) gm/dL Hct 32.0 L (39.0-53.0) % Sodium (137-145) mmol/L Chloride (98-107) mmol/L Carbon Dioxide (22-30) mmol/L BUN (9-20) mg/dL Creatinine (0.66-1.25) mg/dL Glucose (74-99) mg/dL POC Glucose (mg/dL) 352 H 330 H (75-99) mg/dL Hemoglobin A1c (0.0-6.0) % 02/09/22 02/09/22 Range/Units 07:02 11:55 RBC (4.30-5.90) m/uL Hgb (13.0-17.5) gm/dL Hct (39.0-53.0) % Sodium 135 L (137-145) mmol/L Chloride 108 H (98-107) mmol/L Carbon Dioxide 19 L (22-30) mmol/L BUN 35 H (9-20) mg/dL Creatinine 1.66 H (0.66-1.25) mg/dL Glucose 288 H (74-99) mg/dL POC Glucose (mg/dL) 315 H (75-99) mg/dL Hemoglobin A1c (0.0-6.0) %
== END 2022-02-09 14:17 | disposition home or self-care (01) ==
LOC: CATHCVL 05:54 → 6NMEDSUR 09:01 → CATHCVL 02-09 14:17
PROVIDERS: ATTEND Internal Medicine Cardiovascular Disease
DX: I25.110 Atherosclerotic heart disease of native coronary artery with unstable angina pectoris (principal); I11.0 Hypertensive heart disease with heart failure; I50.814 Right heart failure due to left heart failure; R94.39 Abnormal result of other cardiovascular function study; E11.65 Type 2 diabetes mellitus with hyperglycemia; E78.2 Mixed hyperlipidemia; Z86.16 Personal history of COVID-19; Z95.5 Presence of coronary angioplasty implant and graft; Z82.49 Family history of ischemic heart disease and other diseases of the circulatory system; Z87.891 Personal history of nicotine dependence; Z79.01 Long term (current) use of anticoagulants; Z79.84 Long term (current) use of oral hypoglycemic drugs; Z79.82 Long term (current) use of aspirin; Z79.4 Long term (current) use of insulin; Z79.899 Other long term (current) drug therapy
CPT/HCPCS: 94640 ×3; 93458; 80048 ×2; 85025 ×2; 83036; C9600; C1887; C1894; C1725; C1769; C1874; J2250; J1200; J2930; S0106 ×2; J2001; J3010; J1644; Q9967